=== PATIENT | male | born 1955 | race Caucasian/White ===

== ENCOUNTER → 2017-11-07 10:14 | Outpatient (CLI) | payer BC, SELFPAY ==
[2017-11-07 10:39] LABS: Abs Immature Grans 0.01 k/cumm (0.0-0.09); Absolute Basophil Count 0.03 k/cumm (0.0-0.2); Absolute Eosinophil Count 0.27 k/cumm (0.0-0.7); Absolute Lymphocyte Count 1.32 k/cumm (1.2-3.4); Absolute Monocyte Count 0.35 k/cumm (0.11-0.7); Absolute Neutrophil Count 4.16 k/cumm (1.2-6.7); Basophils % 0.5; Eosinophils % 4.4; HCT 42.7 % (40.0-50.0); HGB 15.1 g/dL (13.5-17.5); Immature Grans % 0.2; Lymphocytes % 21.5; Mean Corp. HGB Concentration 35.4 g/dL (32.0-36.0); Mean Corpuscular Hemoglobin 34.7 pg (27.0-33.0); Mean Corpuscular Volume 98.2 fL (80-95); Mean Platelet Volume 8.9 fL (8.0-11.0); Monocytes % 5.7; Neutrophils % 67.7; Platelet Count 238 x1000/uL (130-400); RBC 4.35 m/cumm (4.50-6.00); RBC Distribution Width 12.6 % (11.8-14.1); White Blood Cell Count 6.14 k/cumm (4.4-10.8)
== END ==
PROVIDERS: PCP Nurse Practitioner; Visit Provider Nurse Practitioner
DX: C71.9 Malignant neoplasm of brain, unspecified (principal)
CPT/HCPCS: 36415; 85025

== ENCOUNTER → 2017-11-14 09:18 | Outpatient (CLI) | payer BC, SELFPAY ==
[2017-11-14 09:33] LABS: Abs Immature Grans 0.01 k/cumm (0.0-0.09); Absolute Basophil Count 0.01 k/cumm (0.0-0.2); Absolute Eosinophil Count 0.27 k/cumm (0.0-0.7); Absolute Monocyte Count 0.37 k/cumm (0.11-0.7); Basophils % 0.2; Eosinophils % 4.7; HCT 43.4 % (40.0-50.0); HGB 15.5 g/dL (13.5-17.5); Immature Grans % 0.2; Lymphocytes % 22.6; Mean Corp. HGB Concentration 35.7 g/dL (32.0-36.0); Mean Corpuscular Hemoglobin 34.4 pg (27.0-33.0); Mean Corpuscular Volume 96.4 fL (80-95); Mean Platelet Volume 9.1 fL (8.0-11.0); Monocytes % 6.4; Neutrophils % 65.9; Platelet Count 197 x1000/uL (130-400); RBC Distribution Width 12.4 % (11.8-14.1); White Blood Cell Count 5.76 k/cumm (4.4-10.8)
== END ==
PROVIDERS: PCP Nurse Practitioner; Visit Provider Nurse Practitioner
DX: C71.9 Malignant neoplasm of brain, unspecified (principal)
CPT/HCPCS: 36415; 85025

== ENCOUNTER 2017-12-05 10:35 | Outpatient (CLI) | payer BC, SELFPAY ==
[2017-12-05 10:57] LABS: Abs Immature Grans 0.01 k/cumm (0.0-0.09); Absolute Basophil Count 0.03 k/cumm (0.0-0.2); Absolute Eosinophil Count 0.25 k/cumm (0.0-0.7); Absolute Lymphocyte Count 1.31 k/cumm (1.2-3.4); Absolute Monocyte Count 0.35 k/cumm (0.11-0.7); Absolute Neutrophil Count 3.86 k/cumm (1.2-6.7); Basophils % 0.5; Eosinophils % 4.3; HCT 43.8 % (40.0-50.0); HGB 15.4 g/dL (13.5-17.5); Immature Grans % 0.2; Lymphocytes % 22.5; Mean Corp. HGB Concentration 35.2 g/dL (32.0-36.0); Mean Corpuscular Hemoglobin 33.8 pg (27.0-33.0); Mean Corpuscular Volume 96.3 fL (80-95); Mean Platelet Volume 8.7 fL (8.0-11.0); Neutrophils % 66.5; Platelet Count 208 x1000/uL (130-400); RBC 4.55 m/cumm (4.50-6.00); RBC Distribution Width 12.9 % (11.8-14.1); White Blood Cell Count 5.81 k/cumm (4.4-10.8)
== END 2017-12-05 10:55 ==
PROVIDERS: PCP Nurse Practitioner; Visit Provider Nurse Practitioner
DX: C71.9 Malignant neoplasm of brain, unspecified (principal)
CPT/HCPCS: 36415; 85025

== ENCOUNTER 2018-01-02 09:55 | Outpatient (CLI) | payer BC, SELFPAY ==
[2018-01-02 10:36] LABS: Abs Immature Grans 0.01 k/cumm (0.0-0.09); Absolute Basophil Count 0.03 k/cumm (0.0-0.2); Absolute Eosinophil Count 0.28 k/cumm (0.0-0.7); Absolute Lymphocyte Count 1.31 k/cumm (1.2-3.4); Absolute Monocyte Count 0.39 k/cumm (0.11-0.7); Absolute Neutrophil Count 4.49 k/cumm (1.2-6.7); Basophils % 0.5; Eosinophils % 4.3; HCT 45.4 % (40.0-50.0); HGB 15.9 g/dL (13.5-17.5); Immature Grans % 0.2; Lymphocytes % 20.1; Mean Corpuscular Hemoglobin 33.6 pg (27.0-33.0); Mean Platelet Volume 9.3 fL (8.0-11.0); Neutrophils % 68.9; Platelet Count 204 x1000/uL (130-400); RBC 4.73 m/cumm (4.50-6.00); RBC Distribution Width 13.2 % (11.8-14.1); White Blood Cell Count 6.51 k/cumm (4.4-10.8)
== END 2018-01-02 10:15 ==
PROVIDERS: PCP Nurse Practitioner; Visit Provider Nurse Practitioner
DX: C71.9 Malignant neoplasm of brain, unspecified (principal)
CPT/HCPCS: 36415; 85025

== ENCOUNTER 2018-01-09 09:26 | Outpatient (CLI) | payer BC, SELFPAY ==
[2018-01-09 09:45] LABS: Absolute Basophil Count 0.01 k/cumm (0.0-0.2); Absolute Eosinophil Count 0.27 k/cumm (0.0-0.7); Absolute Lymphocyte Count 1.33 k/cumm (1.2-3.4); Absolute Monocyte Count 0.35 k/cumm (0.11-0.7); Basophils % 0.2; Eosinophils % 4.7; HGB 15.8 g/dL (13.5-17.5); Lymphocytes % 23.1; Mean Corp. HGB Concentration 35.1 g/dL (32.0-36.0); Mean Corpuscular Hemoglobin 33.4 pg (27.0-33.0); Mean Corpuscular Volume 95.1 fL (80-95); Mean Platelet Volume 9.2 fL (8.0-11.0); Monocytes % 6.1; Neutrophils % 65.9; Platelet Count 194 x1000/uL (130-400); RBC 4.73 m/cumm (4.50-6.00); RBC Distribution Width 13.1 % (11.8-14.1); White Blood Cell Count 5.76 k/cumm (4.4-10.8)
== END 2018-01-09 09:46 ==
PROVIDERS: PCP Nurse Practitioner; Visit Provider Nurse Practitioner
DX: C71.9 Malignant neoplasm of brain, unspecified (principal)
CPT/HCPCS: 36415; 85025

== ENCOUNTER 2018-01-30 10:01 | Outpatient (CLI) | payer BC, SELFPAY ==
[2018-01-30 10:20] LABS: Abs Immature Grans 0.01 k/cumm (0.0-0.09); Absolute Basophil Count 0.04 k/cumm (0.0-0.2); Absolute Eosinophil Count 0.31 k/cumm (0.0-0.7); Absolute Lymphocyte Count 1.22 k/cumm (1.2-3.4); Absolute Neutrophil Count 4.18 k/cumm (1.2-6.7); Basophils % 0.6; HCT 45.3 % (40.0-50.0); Immature Grans % 0.2; Lymphocytes % 19.8; Mean Corp. HGB Concentration 35.3 g/dL (32.0-36.0); Mean Corpuscular Volume 96.2 fL (80-95); Mean Platelet Volume 9.1 fL (8.0-11.0); Monocytes % 6.5; Neutrophils % 67.9; Platelet Count 216 x1000/uL (130-400); RBC 4.71 m/cumm (4.50-6.00); RBC Distribution Width 13.4 % (11.8-14.1); White Blood Cell Count 6.16 k/cumm (4.4-10.8)
== END 2018-01-30 10:21 ==
PROVIDERS: PCP Nurse Practitioner; Visit Provider Nurse Practitioner
DX: C71.9 Malignant neoplasm of brain, unspecified (principal)
CPT/HCPCS: 36415; 85025

== ENCOUNTER 2018-02-06 10:05 | Outpatient (CLI) | payer BC, SELFPAY ==
[2018-02-06 10:27] LABS: Abs Immature Grans 0.01 k/cumm (0.0-0.09); Absolute Basophil Count 0.02 k/cumm (0.0-0.2); Absolute Eosinophil Count 0.23 k/cumm (0.0-0.7); Absolute Lymphocyte Count 1.43 k/cumm (1.2-3.4); Absolute Monocyte Count 0.45 k/cumm (0.11-0.7); Absolute Neutrophil Count 3.79 k/cumm (1.2-6.7); Basophils % 0.3; Eosinophils % 3.9; HCT 44.7 % (40.0-50.0); HGB 15.9 g/dL (13.5-17.5); Immature Grans % 0.2; Lymphocytes % 24.1; Mean Corp. HGB Concentration 35.6 g/dL (32.0-36.0); Mean Corpuscular Hemoglobin 33.9 pg (27.0-33.0); Mean Corpuscular Volume 95.3 fL (80-95); Mean Platelet Volume 9.3 fL (8.0-11.0); Monocytes % 7.6; Neutrophils % 63.9; Platelet Count 193 x1000/uL (130-400); RBC 4.69 m/cumm (4.50-6.00); RBC Distribution Width 13.2 % (11.8-14.1); White Blood Cell Count 5.93 k/cumm (4.4-10.8)
== END 2018-02-06 10:25 ==
PROVIDERS: PCP Nurse Practitioner; Visit Provider Nurse Practitioner
DX: C71.9 Malignant neoplasm of brain, unspecified (principal)
CPT/HCPCS: 36415; 85025

== ENCOUNTER 2018-02-12 09:35 | Outpatient (CLI) | payer BC, SELFPAY ==
[2018-02-12 10:05] LABS: Abs Immature Grans 0.01 k/cumm (0.0-0.09); Absolute Basophil Count 0.03 k/cumm (0.0-0.2); Absolute Eosinophil Count 0.19 k/cumm (0.0-0.7); Absolute Lymphocyte Count 1.17 k/cumm (1.2-3.4); Absolute Monocyte Count 0.38 k/cumm (0.11-0.7); Absolute Neutrophil Count 3.68 k/cumm (1.2-6.7); Basophils % 0.5; Eosinophils % 3.5; HCT 44.9 % (40.0-50.0); Immature Grans % 0.2; Lymphocytes % 21.4; Mean Corp. HGB Concentration 35.6 g/dL (32.0-36.0); Mean Corpuscular Hemoglobin 33.5 pg (27.0-33.0); Mean Corpuscular Volume 93.9 fL (80-95); Mean Platelet Volume 9.4 fL (8.0-11.0); Neutrophils % 67.4; Platelet Count 145 x1000/uL (130-400); RBC 4.78 m/cumm (4.50-6.00); RBC Distribution Width 13.3 % (11.8-14.1); White Blood Cell Count 5.46 k/cumm (4.4-10.8)
[2018-02-12 10:14] LABS: ALT 22 U/L (12-78); AST 15 U/L (15-37); Albumin 3.9 g/dL (3.4-5.0); Alkaline Phosphatase 138 U/L (46-116); Anion Gap 9.3 mmol/L (3-11); BUN 14 mg/dL (7-18); Bilirubin, Total 0.4 mg/dL (0.2-1.0); CO2 23.7 mmol/L (21.0-32.0); CREATININE 0.93 mg/dL (0.70-1.30); Calcium 8.9 mg/dL (8.5-10.1); Chloride 105 mmol/L (98-107); Glucose 125 mg/dL (70-100); Potassium 3.7 mmol/L (3.5-5.1); Sodium 138 mmol/L (136-145); Total Protein 7.6 g/dL (6.4-8.2)
== END 2018-02-12 09:55 ==
PROVIDERS: PCP Nurse Practitioner; Visit Provider Nurse Practitioner
DX: C71.9 Malignant neoplasm of brain, unspecified (principal)
CPT/HCPCS: 36415; 80053; 80061; 83721; 85025

== ENCOUNTER 2018-02-27 09:20 | Outpatient (CLI) | payer BC, SELFPAY ==
[2018-02-27 09:44] LABS: Abs Immature Grans 0.01 k/cumm (0.0-0.09); Absolute Basophil Count 0.02 k/cumm (0.0-0.2); Absolute Eosinophil Count 0.28 k/cumm (0.0-0.7); Absolute Lymphocyte Count 1.22 k/cumm (1.2-3.4); Absolute Neutrophil Count 4.63 k/cumm (1.2-6.7); Basophils % 0.3; Eosinophils % 4.3; HGB 15.5 g/dL (13.5-17.5); Immature Grans % 0.2; Lymphocytes % 18.9; Mean Corp. HGB Concentration 35.2 g/dL (32.0-36.0); Mean Corpuscular Hemoglobin 33.4 pg (27.0-33.0); Mean Corpuscular Volume 94.8 fL (80-95); Monocytes % 4.6; Neutrophils % 71.7; Platelet Count 215 x1000/uL (130-400); RBC 4.64 m/cumm (4.50-6.00); RBC Distribution Width 13.5 % (11.8-14.1); White Blood Cell Count 6.46 k/cumm (4.4-10.8)
== END 2018-02-27 09:40 ==
PROVIDERS: PCP Nurse Practitioner; Visit Provider Nurse Practitioner
DX: C71.9 Malignant neoplasm of brain, unspecified (principal)
CPT/HCPCS: 36415; 80053; 80061; 83721; 85025

== ENCOUNTER 2018-03-06 07:36 | Outpatient (CLI) | payer BC, SELFPAY ==
[2018-03-06 08:04] LABS: Abs Immature Grans 0.01 k/cumm (0.0-0.09); Absolute Basophil Count 0.02 k/cumm (0.0-0.2); Absolute Eosinophil Count 0.36 k/cumm (0.0-0.7); Absolute Lymphocyte Count 1.16 k/cumm (1.2-3.4); Absolute Neutrophil Count 3.87 k/cumm (1.2-6.7); Basophils % 0.3; Eosinophils % 6.2; HCT 44.6 % (40.0-50.0); HGB 15.7 g/dL (13.5-17.5); Immature Grans % 0.2; Lymphocytes % 19.9; Mean Corp. HGB Concentration 35.2 g/dL (32.0-36.0); Mean Corpuscular Hemoglobin 33.3 pg (27.0-33.0); Mean Corpuscular Volume 94.7 fL (80-95); Monocytes % 6.9; Neutrophils % 66.5; Platelet Count 188 x1000/uL (130-400); RBC 4.71 m/cumm (4.50-6.00); RBC Distribution Width 13.3 % (11.8-14.1); White Blood Cell Count 5.82 k/cumm (4.4-10.8)
[2018-03-06 08:58] LABS: ALT 21 U/L (12-78); AST 13 U/L (15-37); Albumin 3.9 g/dL (3.4-5.0); Alkaline Phosphatase 138 U/L (46-116); Anion Gap 10.2 mmol/L (3-11); BUN 11 mg/dL (7-18); Bilirubin, Total 0.5 mg/dL (0.2-1.0); CO2 23.8 mmol/L (21.0-32.0); Calcium 8.9 mg/dL (8.5-10.1); Chloride 107 mmol/L (98-107); Cholesterol 133 mg/dL (50-200); Glucose 102 mg/dL (70-100); HDL Cholesterol 32 mg/dL (40-60); LDL CHOLESTEROL 75 mg/dL (<100); Sodium 141 mmol/L (136-145); Total Protein 7.1 g/dL (6.4-8.2); Triglyceride 165 mg/dL (30-150)
== END 2018-03-06 07:56 ==
PROVIDERS: PCP Nurse Practitioner; Visit Provider Nurse Practitioner
DX: I10 Essential (primary) hypertension (principal); E78.5 Hyperlipidemia, unspecified; G40.909 Epilepsy, unspecified, not intractable, without status epilepticus; C71.9 Malignant neoplasm of brain, unspecified
CPT/HCPCS: 36415; 80053; 80061; 83721; 85025

== ENCOUNTER 2018-03-27 12:51 | Outpatient (CLI) | payer BC, SELFPAY ==
[2018-03-27 13:50] LABS: Abs Immature Grans 0.01 k/cumm (0.0-0.09); Absolute Basophil Count 0.04 k/cumm (0.0-0.2); Absolute Eosinophil Count 0.29 k/cumm (0.0-0.7); Absolute Monocyte Count 0.31 k/cumm (0.11-0.7); Absolute Neutrophil Count 3.93 k/cumm (1.2-6.7); Basophils % 0.7; Eosinophils % 4.9; HCT 43.4 % (40.0-50.0); HGB 15.3 g/dL (13.5-17.5); Immature Grans % 0.2; Lymphocytes % 22.1; Mean Corp. HGB Concentration 35.3 g/dL (32.0-36.0); Mean Corpuscular Hemoglobin 33.6 pg (27.0-33.0); Mean Corpuscular Volume 95.4 fL (80-95); Mean Platelet Volume 9.1 fL (8.0-11.0); Monocytes % 5.3; Neutrophils % 66.8; Platelet Count 248 x1000/uL (130-400); RBC 4.55 m/cumm (4.50-6.00); RBC Distribution Width 13.5 % (11.8-14.1); White Blood Cell Count 5.88 k/cumm (4.4-10.8)
== END 2018-03-27 13:11 ==
PROVIDERS: PCP Nurse Practitioner; Visit Provider Nurse Practitioner
DX: C71.9 Malignant neoplasm of brain, unspecified (principal)
CPT/HCPCS: 36415; 85025

== ENCOUNTER 2018-04-03 10:55 | Outpatient (CLI) | payer BC, SELFPAY ==
[2018-04-03 12:09] LABS: Abs Immature Grans 0.01 k/cumm (0.0-0.09); Absolute Basophil Count 0.01 k/cumm (0.0-0.2); Absolute Eosinophil Count 0.24 k/cumm (0.0-0.7); Absolute Lymphocyte Count 1.16 k/cumm (1.2-3.4); Absolute Monocyte Count 0.39 k/cumm (0.11-0.7); Absolute Neutrophil Count 3.58 k/cumm (1.2-6.7); Basophils % 0.2; Eosinophils % 4.5; HCT 43.4 % (40.0-50.0); Immature Grans % 0.2; Lymphocytes % 21.5; Mean Corp. HGB Concentration 34.6 g/dL (32.0-36.0); Mean Corpuscular Hemoglobin 32.9 pg (27.0-33.0); Mean Corpuscular Volume 95.2 fL (80-95); Mean Platelet Volume 9.3 fL (8.0-11.0); Monocytes % 7.2; Neutrophils % 66.4; Platelet Count 186 x1000/uL (130-400); RBC 4.56 m/cumm (4.50-6.00); RBC Distribution Width 13.4 % (11.8-14.1); White Blood Cell Count 5.39 k/cumm (4.4-10.8)
== END 2018-04-03 11:15 ==
PROVIDERS: PCP Nurse Practitioner; Visit Provider Nurse Practitioner
DX: C71.8 Malignant neoplasm of overlapping sites of brain (principal)
CPT/HCPCS: 36415; 85025

== ENCOUNTER 2018-04-24 09:43 | Outpatient (CLI) | payer BC, SELFPAY ==
[2018-04-24 10:11] LABS: Abs Immature Grans 0.01 k/cumm (0.0-0.09); Absolute Basophil Count 0.02 k/cumm (0.0-0.2); Absolute Eosinophil Count 0.28 k/cumm (0.0-0.7); Absolute Lymphocyte Count 1.19 k/cumm (1.2-3.4); Absolute Monocyte Count 0.32 k/cumm (0.11-0.7); Absolute Neutrophil Count 4.03 k/cumm (1.2-6.7); Basophils % 0.3; Eosinophils % 4.8; HCT 44.6 % (40.0-50.0); HGB 15.8 g/dL (13.5-17.5); Immature Grans % 0.2; Lymphocytes % 20.3; Mean Corp. HGB Concentration 35.4 g/dL (32.0-36.0); Mean Corpuscular Hemoglobin 33.9 pg (27.0-33.0); Mean Corpuscular Volume 95.7 fL (80-95); Monocytes % 5.5; Neutrophils % 68.9; Platelet Count 208 x1000/uL (130-400); RBC 4.66 m/cumm (4.50-6.00); RBC Distribution Width 13.8 % (11.8-14.1); White Blood Cell Count 5.85 k/cumm (4.4-10.8)
== END 2018-04-24 10:03 ==
PROVIDERS: PCP Nurse Practitioner; Visit Provider Nurse Practitioner
DX: C71.9 Malignant neoplasm of brain, unspecified (principal)
CPT/HCPCS: 36415; 85025

== ENCOUNTER 2018-05-01 10:33 | Outpatient (CLI) | payer BC, SELFPAY ==
[2018-05-01 11:11] LABS: Abs Immature Grans 0.01 k/cumm (0.0-0.09); Absolute Basophil Count 0.02 k/cumm (0.0-0.2); Absolute Eosinophil Count 0.23 k/cumm (0.0-0.7); Absolute Lymphocyte Count 1.17 k/cumm (1.2-3.4); Absolute Monocyte Count 0.35 k/cumm (0.11-0.7); Absolute Neutrophil Count 4.13 k/cumm (1.2-6.7); Basophils % 0.3; Eosinophils % 3.9; HCT 45.4 % (40.0-50.0); Immature Grans % 0.2; Lymphocytes % 19.8; Mean Corp. HGB Concentration 35.2 g/dL (32.0-36.0); Mean Corpuscular Hemoglobin 33.7 pg (27.0-33.0); Mean Corpuscular Volume 95.6 fL (80-95); Monocytes % 5.9; Neutrophils % 69.9; Platelet Count 192 x1000/uL (130-400); RBC 4.75 m/cumm (4.50-6.00); RBC Distribution Width 13.6 % (11.8-14.1); White Blood Cell Count 5.91 k/cumm (4.4-10.8)
== END 2018-05-01 10:53 ==
PROVIDERS: PCP Nurse Practitioner; Visit Provider Nurse Practitioner
DX: C71.9 Malignant neoplasm of brain, unspecified (principal)
CPT/HCPCS: 36415; 85025

== ENCOUNTER 2018-05-22 09:48 | Outpatient (CLI) | payer BC, SELFPAY ==
[2018-05-22 10:19] LABS: Absolute Basophil Count 0.04 k/cumm (0.0-0.2); Absolute Eosinophil Count 0.23 k/cumm (0.0-0.7); Absolute Lymphocyte Count 0.98 k/cumm (1.2-3.4); Absolute Monocyte Count 0.33 k/cumm (0.11-0.7); Absolute Neutrophil Count 4.57 k/cumm (1.2-6.7); Basophils % 0.7; Eosinophils % 3.7; HCT 44.1 % (40.0-50.0); HGB 15.6 g/dL (13.5-17.5); Lymphocytes % 15.9; Mean Corp. HGB Concentration 35.4 g/dL (32.0-36.0); Mean Corpuscular Hemoglobin 33.5 pg (27.0-33.0); Mean Corpuscular Volume 94.8 fL (80-95); Mean Platelet Volume 9.1 fL (8.0-11.0); Monocytes % 5.4; Neutrophils % 74.3; Platelet Count 217 x1000/uL (130-400); RBC 4.65 m/cumm (4.50-6.00); RBC Distribution Width 13.5 % (11.8-14.1); White Blood Cell Count 6.15 k/cumm (4.4-10.8)
[2018-05-22 10:35] LABS: Ammonia 27 umol/L (11-32)
[2018-05-22 10:56] LABS: VALPROIC ACID < 3 ug/mL (50-100)
[2018-05-25 07:35] LABS: Topiramate 7.6 mcg/mL
[2018-05-27 11:47] LABS: Clobazam 291 ng/mL (30-300)
== END 2018-05-22 10:08 ==
PROVIDERS: Psychiatry & Neurology Neurology; PCP Nurse Practitioner; Visit Provider Nurse Practitioner
DX: C71.9 Malignant neoplasm of brain, unspecified (principal); G40.909 Epilepsy, unspecified, not intractable, without status epilepticus; Z51.81 Encounter for therapeutic drug level monitoring; Z79.899 Other long term (current) drug therapy
CPT/HCPCS: 36415; 80154; 80164; 80201; 80339; 82140; 85025

== ENCOUNTER 2018-05-29 10:20 | Outpatient (CLI) | payer BC, SELFPAY ==
[2018-05-29 11:22] LABS: Abs Immature Grans 0.01 k/cumm (0.0-0.09); Absolute Basophil Count 0.01 k/cumm (0.0-0.2); Absolute Eosinophil Count 0.23 k/cumm (0.0-0.7); Absolute Lymphocyte Count 1.07 k/cumm (1.2-3.4); Absolute Monocyte Count 0.31 k/cumm (0.11-0.7); Absolute Neutrophil Count 3.46 k/cumm (1.2-6.7); Basophils % 0.2; Eosinophils % 4.5; HGB 15.3 g/dL (13.5-17.5); Immature Grans % 0.2; Mean Corp. HGB Concentration 34.8 g/dL (32.0-36.0); Mean Corpuscular Hemoglobin 33.3 pg (27.0-33.0); Mean Corpuscular Volume 95.7 fL (80-95); Mean Platelet Volume 9.6 fL (8.0-11.0); Monocytes % 6.1; Platelet Count 195 x1000/uL (130-400); RBC Distribution Width 13.2 % (11.8-14.1); White Blood Cell Count 5.09 k/cumm (4.4-10.8)
== END 2018-05-29 10:40 ==
PROVIDERS: PCP Nurse Practitioner; Visit Provider Nurse Practitioner
DX: C71.9 Malignant neoplasm of brain, unspecified (principal)
CPT/HCPCS: 36415; 85025

== ENCOUNTER 2019-03-09 10:12 | Outpatient (CLI) | payer BC, SELFPAY ==
[2019-03-10 11:30] LABS: PSA, Screening 2.2 ng/mL (0.0-4.5)
== END 2019-03-09 10:32 ==
PROVIDERS: PCP Nurse Practitioner; Visit Provider Nurse Practitioner
DX: N39.43 Post-void dribbling (principal); Z12.5 Encounter for screening for malignant neoplasm of prostate
CPT/HCPCS: 36415; 84153

== ENCOUNTER 2019-04-22 08:08 | Outpatient (CLI) | payer BC, SELFPAY ==
[2019-04-22 10:00] LABS: ALT 23 U/L (16-63); AST 13 U/L (15-37); Alkaline Phosphatase 141 U/L (46-116); Anion Gap 10.5 mmol/L (3-11); BUN 12 mg/dL (7-18); Bilirubin, Total 0.5 mg/dL (0.2-1.0); CO2 26.5 mmol/L (21.0-32.0); CREATININE 0.96 mg/dL (0.70-1.30); Calcium 8.7 mg/dL (8.5-10.1); Calculated LDL 84 mg/dL; Chloride 106 mmol/L (98-107); Cholesterol 145 mg/dL (<200); Glucose 105 mg/dL (74-106); HDL Cholesterol 31 mg/dL (40-60); Potassium 4.2 mmol/L (3.5-5.1); Sodium 143 mmol/L (136-145); Total Protein 7.2 g/dL (6.4-8.2); Triglyceride 151 mg/dL (<150)
[2019-04-22 12:07] LABS: Hemoglobin A1C 5.4 % (3.8-5.6)
== END 2019-04-22 08:28 ==
PROVIDERS: PCP Nurse Practitioner; Visit Provider Nurse Practitioner
DX: E78.5 Hyperlipidemia, unspecified (principal); I10 Essential (primary) hypertension; R73.01 Impaired fasting glucose
CPT/HCPCS: 36415; 80053; 80061; 83036

== ENCOUNTER 2020-03-30 03:23 | Outpatient (CLI) | payer MEDICARE, BC, SELFPAY ==
[2020-03-31 15:39] LABS: COVID-19 RT-PCR UVMMC Result Positive (Negative)
== END 2020-03-30 03:43 ==
PROVIDERS: PCP Nurse Practitioner; Visit Provider Nurse Practitioner
DX: Z20.828 Contact with and (suspected) exposure to other viral communicable diseases (principal)
CPT/HCPCS: U0003

== ENCOUNTER 2020-03-31 09:20 | Observation (INO) | payer MEDICARE, BC, SELFPAY ==
[2020-03-31] VITALS (84 sets, daily range): BP systolic 102–148; BP diastolic 50–105; PULSE 72–102; RESP 12–36; TEMP 36–39; O2SAT 92–99
--- NOTE | 2020-03-31 09:15 | RT.EKG_ITS ---
APPROVED REPORT Exam: Resting ECG Patient Location: E HR:97 bpm ECG Measurements Heart Rate 97 AXIS AL 146 P 60 QRSd 95 QRS 67 QT 362 T 15 QTc 461 Conclusion Sinus rhythm...normal P axis, V-rate 60- 99. Less than 1mm ST depression in V3-6. No STEMI. I have reviewed and interpreted ECG and agree with software generated interpretation.
--- NOTE | 2020-03-31 09:16 | W.ED.GENAD ---
Discharge Plan Disposition Patient Disposition: [facility] INPATIENT Condition: Stable Discharge Details Clinical Impression: Generalized weakness, Ambulatory dysfunction, COVID-19 Admit Date/Time: 03/31/20 15:34 Admit Provider: Nomi Lowe Attending Provider: Nomi Lowe Primary Care Provider: Yenni Brooks ED Provider: Basilia Bravo Medical Decision Making 1936 -- 65yo M w/ a h/o recurrent oligodendroglioma, seizure disorder, HTN, elevated cholesterol, inflammatory arthritis presents for fever, chills, generalized weakness and difficulty ambulating this morning. Recent exposure to Covid positive. Vitals within normal limits. Oxygen saturation ranged between 93 to 97% on room air. He denies any shortness of breath. He has slightly diminished breath sounds throughout. Normal ENT exam. No evidence of trauma. No focal deficits. No meningeal signs. Differential diagnosis includes COVID-19, pneumonia, UTI, viral illness, brain tumor recurrence, electrolyte abnormality, dehydration. Will place an IV, bolus IV fluids, screening labs, urinalysis, CT head and chest x-ray and reassess. 1130 -- labs reviewed. Troponin negative. Normal white blood cell count. Normal lactate. Minimal elevation in anion gap. Chest x-ray notes: IMPRESSION: 1. Mild interstitial prominence without dense consolidation. 2. Possible lung nodule on the left. 3. Two-view chest follow-up is recommended. As patient denies any shortness of breath, has normal oxygen saturation, and is a PUI with strong possibility of Covid, will hold on obtaining two-view chest at this time to prevent transporting patient throughout the hospital for 2 view chest. Patient was informed of the possible lung nodule noted and recommended to have a follow-up chest x-ray ordered through his primary care doctor. CT head notes IMPRESSION: 1. Postoperative changes and volume loss on the right. 2. Parenchymal calcification without surrounding edema possibly related to prior treatment in the right frontal lobe. MRI with contrast should be considered. 3. No acute hemorrhage or acute territorial infarct. 4. No definite mass or gross edema on this noncontrast study. Images pushed to [facility] neurology for review. Suspect these are most likely post radiation or biopsy. 1350 -- Case discussed with [facility] neurology who reviewed imaging and do not see any acute change compared to prior. States that patient has an upcoming scheduled MRI brain through [facility] neurology and has a follow-up appointment with them later this month. Discussed that patient may be staying due to his generalized weakness for physical therapy. Also mentioned the possibility of an acute infectious process lowering his seizure threshold. 1430 -- attempted to ambulate patient in room and he remains significantly weak and does not feel comfortable going home. Will admit patient for IV fluids, continued monitoring and physical therapy. Case discussed with hospitalist accepts patient for admission. 1520 -- COVID-19 rapid test positive. informed of results. Medical Records Medical records reviewed: Yes I reviewed the patient's medical records. Imaging Data Radiologic Study: Radiologist's impression: XR Chest, 1 View Exam date and time: 03/31/2020 10:53 AM Age: 65 years old Clinical indication: Other: Cough, R/O acute disease TECHNIQUE: Imaging protocol: XR of the chest Views: 1 view. COMPARISON: No relevant prior studies available. FINDINGS: Lungs: Limited interstitial prominence. No dense consolidation. Likely atelectatic changes lung bases. Possible 5 mm nodule projected between the posterior 7th and 8th ribs on the left. The differential diagnosis includes a bronchovascular structure seen on end. Pleural space: Unremarkable. No pleural effusion. No pneumothorax. Heart/Mediastinum: Unremarkable. No cardiomegaly. Bones/joints: Degenerative changes more pronounced about the shoulders than the spine. No acute fracture. IMPRESSION: 1. Mild interstitial prominence without dense consolidation. 2. Possible lung nodule on the left. 3. Two-view chest follow-up is recommended. CT Head Without Contrast Exam date and time: 03/31/2020 10:58 AM Age: 65 years old Clinical indication: Other: Leg weakness, h/o brain tumor, fever, chills; Prior surgery; Surgery date: 6+ months; Patient HX: Patient states: . Biopsy in 1994, begnin glioblastoma. Seizures in 2013/addition of new meds. Reoccurrence in 2018 with chemo and radiation TECHNIQUE: Imaging protocol: Computed tomography of the head without contrast. Radiation optimization: All CT scans at this facility use at least one of these dose optimization techniques: automated exposure control; mA and/or kV adjustment per patient size (includes targeted exams where dose is matched to clinical indication); or iterative reconstruction. COMPARISON: No relevant prior studies available. FINDINGS: Brain: No acute hemorrhage or acute territorial infarct. Parenchymal calcification in the right frontal lobe may be secondary to the patient's history of treated brain lesion. Mild atrophy for age. Mild volume loss underlies the craniotomy changes on the right, probably postoperative. Limited asymmetric focus of hypodensity in the right frontal lobe on series 2, image 28 measuring 10 mm might be post treatment related. I do not appreciate a discrete mass on this noncontrast study. Cerebral ventricles: No ventriculomegaly. Bones/joints: Craniotomy changes in the right frontotemporal calvaria. Paranasal sinuses: Visualized sinuses are unremarkable. No fluid levels. Mastoid air cells: Visualized mastoid air cells are well aerated. Soft tissues: No focal scalp hematoma. IMPRESSION: 1. Postoperative changes and volume loss on the right. 2. Parenchymal calcification without surrounding edema possibly related to prior treatment in the right frontal lobe. MRI with contrast should be considered. 3. No acute hemorrhage or acute territorial infarct. 4. No definite mass or gross edema on this noncontrast study. Lab Data Lab results reviewed: Yes I reviewed the patient's lab results. Labs: 03/31/20 10:35 Blood Blood Culture - Pending 03/31/20 09:45 Blood Blood Culture - Pending Laboratory Tests Range/Units 03/31/20 03/31/20 03/31/20 09:45 09:45 09:45 WBC (4.4-10.8) 10^3/uL 6.64 RBC (4.36-5.78) 10^6/uL 4.76 Hgb (13.5-17.5) g/dL 15.2 Hct (40.0-50.0) % 43.3 MCV (80-95) fL 91.0 MCH (27.0-33.0) pg 31.9 MCHC (32.0-36.0) % 35.1 RDW (11.8-14.1) % 13.0 Plt Count (130-400) 10^3/uL 172 MPV (8.0-11.0) fL 9.6 Immature Gran % 0.3 Neutrophils % 81.3 Lymphocytes % 7.1 Monocytes % 10.7 Eosinophils % 0.3 Basophils % 0.3 Nucleated RBC % % 0 Absolute Neutrophils (1.2-6.7) 10^3/uL 5.40 Absolute Lymphocytes (1.2-3.4) 10^3/uL 0.47 L Absolute Monocytes (0.1-0.8) 10^3/uL 0.71 Absolute Eosinophils (0.0-0.7) 10^3/uL 0.02 Absolute Basophils (0.0-0.2) 10^3/uL 0.02 PT (9.3-11.0) sec 10.7 INR (0.9-1.1) 1.1 APTT (21.0-27.5) sec 25.2 VBG Lactate (0.6-1.4) mmol/L Sodium (136-145) mmol/L 139 Potassium (3.5-5.1) mmol/L 3.5 Chloride (98-107) mmol/L 106 Carbon Dioxide (21.0-32.0) mmol/L 20.8 L Anion Gap (3-11) mmol/L 12.2 H BUN (7-18) mg/dL 14 Creatinine (0.70-1.30) mg/dL 1.20 Estimated GFR/1.73 m2 (mL/min/1.73m2) >= 60.00 Glucose (74-106) mg/dL 116 H Calcium (8.5-10.1) mg/dL 8.7 Magnesium (1.8-2.4) mg/dL 1.8 Total Bilirubin (0.2-1.0) mg/dL 0.3 AST (15-37) U/L 17 ALT (16-63) U/L 26 Alkaline Phosphatase (46-116) U/L 126 H Troponin I (<0.06) ng/mL < 0.05 Total Protein (6.4-8.2) g/dL 7.0 Albumin (3.4-5.0) g/dL 3.6 Urine Color (Yellow) Urine Clarity (Clear) Urine pH (5-8) Ur Specific Marshall (1.005-1.025) Urine Protein (Negative) mg/dL Urine Ketones (Negative) mg/dL Urine Blood (Negative) Urine Nitrite (Negative) Urine Bilirubin (Negative) Urine Urobilinogen (Up TO 0.2) EU/dL Ur Leukocyte Esterase (Negative) Urine RBC (0-2) HPF Urine WBC (0-5) HPF Ur Epithelial Cells (Negative) HPF Urine Crystals (Negative) HPF Urine Bacteria (Negative) HPF Urine Casts (Negative) LPF Urine Mucus (Negative) Ur Culture Indicated? Urine Glucose (Negative) mg/dL COVID-19 Source SARS-CoV-2 (PCR) (Negative) Influenza Type A (PCR) (Negative) Influenza Type B (PCR) (Negative) RSV (PCR) (Negative) Range/Units 03/31/20 03/31/20 03/31/20 10:35 12:45 14:25 WBC (4.4-10.8) 10^3/uL RBC (4.36-5.78) 10^6/uL Hgb (13.5-17.5) g/dL Hct (40.0-50.0) % MCV (80-95) fL MCH (27.0-33.0) pg MCHC (32.0-36.0) % RDW (11.8-14.1) % Plt Count (130-400) 10^3/uL MPV (8.0-11.0) fL Immature Gran % Neutrophils % Lymphocytes % Monocytes % Eosinophils % Basophils % Nucleated RBC % % Absolute Neutrophils (1.2-6.7) 10^3/uL Absolute Lymphocytes (1.2-3.4) 10^3/uL Absolute Monocytes (0.1-0.8) 10^3/uL Absolute Eosinophils (0.0-0.7) 10^3/uL Absolute Basophils (0.0-0.2) 10^3/uL PT (9.3-11.0) sec INR (0.9-1.1) APTT (21.0-27.5) sec VBG Lactate (0.6-1.4) mmol/L 0.8 Sodium (136-145) mmol/L Potassium (3.5-5.1) mmol/L Chloride (98-107) mmol/L Carbon Dioxide (21.0-32.0) mmol/L Anion Gap (3-11) mmol/L BUN (7-18) mg/dL Creatinine (0.70-1.30) mg/dL Estimated GFR/1.73 m2 (mL/min/1.73m2) Glucose (74-106) mg/dL Calcium (8.5-10.1) mg/dL Magnesium (1.8-2.4) mg/dL Total Bilirubin (0.2-1.0) mg/dL AST (15-37) U/L ALT (16-63) U/L Alkaline Phosphatase (46-116) U/L Troponin I (<0.06) ng/mL Total Protein (6.4-8.2) g/dL Albumin (3.4-5.0) g/dL Urine Color (Yellow) Yellow Urine Clarity (Clear) Clear Urine pH (5-8) 6.0 Ur Specific Marshall (1.005-1.025) 1.025 Urine Protein (Negative) mg/dL 30 H Urine Ketones (Negative) mg/dL Negative Urine Blood (Negative) Small H Urine Nitrite (Negative) Negative Urine Bilirubin (Negative) Negative Urine Urobilinogen (Up TO 0.2) EU/dL 0.2 Ur Leukocyte Esterase (Negative) Negative Urine RBC (0-2) HPF 3-5 H Urine WBC (0-5) HPF 0-2 Ur Epithelial Cells (Negative) HPF Few Urine Crystals (Negative) HPF Few amorphous Urine Bacteria (Negative) HPF Few Urine Casts (Negative) LPF Urine Mucus (Negative) Moderate Ur Culture Indicated? No Urine Glucose (Negative) mg/dL Negative COVID-19 Source Nasopharynx SARS-CoV-2 (PCR) (Negative) Positive A Influenza Type A (PCR) (Negative) Negative Influenza Type B (PCR) (Negative) Negative RSV (PCR) (Negative) Negative ECG Data Attestation: I personally reviewed and interpreted this ECG (s) as follows: Interpretation: rate of 97, sinus, less than 1mm ST depression in V3-6. No STEMI. AK 146. QTc 461. QRS 95. HPI General Date/Time Provider Initiated Documentation: 03/31/20 09:33. HPI Narrative: Patient is a 65-year-old male with a history of recurrent oligodendroglioma seizure disorder, HTN, elevated cholesterol, inflammatory arthritis presents for fever, chills, generalized weakness and difficulty ambulating this morning. Patient states he was with his son who recently traveled from [place] for 5 days over [place] and they were not wearing masks or social distancing. He states his son developed viral symptoms and was diagnosed with Covid in [place] 2 days ago. Patient states he was feeling fine yesterday but [facility]. He states last night he started to develop fatigue and generalized weakness and a productive cough. Patient states he has not coughed up his sputum and is unsure of the color. He states this morning he got up to walk to the bathroom and felt significant weakness in his legs and lowered himself to the ground. He states he then attempted to get up again and was unable to due to this weakness. He denies any injury this morning and states he was able to lower himself to the ground. He denies any head injury. 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 He denies any other history of brain surgery other than biopsy. He denies any recent hospitalizations, antibiotics, chest pain, shortness of breath, abdominal pain, nausea, vomiting, diarrhea, urinary symptoms. He states he has a history of chronic sinus issues with postnasal drip and nasal congestion states this is no worse than usual. Related Data Home Medications Medication Instructions Recorded Confirmed multivitamin [Daily Vitamin] 1 ea PO DAILY 07/24/12 03/31/20 ibuprofen 400 mg PO Q6H PRN tab 03/17/13 03/31/20 calcium carbonate-vitamin D3 1 ea PO BID tab 09/27/14 03/31/20 eslicarbazepine [Aptiom] 1,200 mg PO HS 05/14/17 03/31/20 fluticasone propionate 2 spry NS BID PRN spray 05/14/17 03/31/20 clobazam 10 mg tablet See Rx Instructions PO as directed 02/18/19 03/31/20 PRN atorvastatin 20 mg tablet 20 mg PO QPM #90 tab 12/11/19 03/31/20 lisinopril 10 mg tablet 10 mg PO DAILY #90 tab-cap 12/11/19 03/31/20 tamsulosin 0.4 mg capsule 0.4 mg PO DAILY #90 cap 12/11/19 03/31/20 Topamax 100 mg tablet 100 mg PO as directed tab NS 03/13/20 03/31/20 Previous Rx's Medication Instructions Recorded atorvastatin 20 mg tablet 20 mg PO QPM #90 tab 12/11/19 lisinopril 10 mg tablet 10 mg PO DAILY #90 tab-cap 12/11/19 tamsulosin 0.4 mg capsule 0.4 mg PO DAILY #90 cap 12/11/19 Allergies Allergy/AdvReac Type Severity Reaction Status Date / Time Penicillins Allergy Unknown RASH Verified 03/31/20 09:31 Sulfa (Sulfonamide Allergy Unknown RASH Verified 03/31/20 09:31 Antibiotics) Review of Systems All systems reviewed & are unremarkable except as noted in HPI and below Constitutional Constitutional: Reports as per HPI, Reports chills, Reports fever(s) and Reports weakness Eyes Eyes: Denies blurry vision ENT Ears, Nose, Mouth, and Throat: Denies dizziness, Reports disequilibrium, Denies sore throat and Denies throat swelling Cardiovascular Cardiovascular: Denies chest pain and Denies dyspnea Respiratory Respiratory: Denies cough and Denies dyspnea Gastrointestinal Gastrointestinal: Denies abdominal pain, Denies diarrhea and Denies vomiting Genitourinary Genitourinary: Denies hematuria and Denies dysuria Musculoskeletal Musculoskeletal: Reports abnormal gait, Denies back pain and Denies numbness Integumentary/Breasts Skin/Breast: Denies lesions and Denies rash Neurologic Neurologic: Reports abnormal gait, Denies dizziness, Denies localized weakness, Denies numbness, Reports disequilibrium and Reports weakness Allergic/Immunologic Allergic/Immunologic: Denies throat swelling [facility] Medical History (Updated 03/31/20 @ 15:27 by Basilia Bravo DO) Benign neoplasm of colon Essential hypertension Inflammatory arthritis Mixed glial neoplasm of brain Seizure disorder Surgical History Colonoscopy - IV Sedation (05/04/04) Colonoscopy - IV Sedation (03/20/10) Colonoscopy - IV Sedation (01/17/16) Family History Mother No problems noted. Father Colon cancer Sister Breast cancer Sister No problems noted. Sister No problems noted. Brother Diabetes Social History (Updated 05/21/18 @ 14:21 by Lizzie Morelos RN) Smoking/Tobacco Use Status: Never Smoking risk assessment performed?: Yes Alcohol Intake: never Drug use: Never Substance use type: does not use Household members: spouse Number of Children: 3 current occupation: since 2014 Do you feel safe at home: Yes Do you feel safe in your relationship?: Yes Exam Const General: cooperative and no acute distress Orientation: alert, awake and oriented x3 HENMT Head: normal to inspection Ears: hearing grossly normal bilaterally and external ears normal General nose exam: external nose normal Face and sinus: normal facial exam Mouth: oral mucosae normal Teeth and gingiva: dentition normal Throat: posterior oropharynx normal Eyes General: appearance normal, both eyes and all related structures Eyelids: eyelids normal Pupils: PERRL EOM: EOM intact bilaterally Neck Neck: normal visual inspection Lymphatic: no lymphadenopathy noted Chest Chest: normal inspection of the chest Resp Effort & Inspection: normal respiratory effort and able to speak in complete sentences Auscultation: diminished lung sounds bilaterally throughout Cardio Rate: regular rate Rhythm: regular rhythm GI Inspection: normal to inspection Palpation: soft, not firm, no guarding, no hepatosplenomegaly, no masses and nontender Auscultation: normal bowel sounds Back/Spine/Pelvis Thoracic/Lumbar Spine: thoracic and lumbar spine normal to inspection Skin General skin exam: no rashes or lesions noted Neuro General: patient alert and patient awake Cognition: normal cognition Speech: speech normal Motor: muscle tone normal throughout Sensory Exam: no sensory deficits noted Extrem General: normal to inspection, full ROM, capillary refill normal and no edema Psych Appearance: grossly normal Mental Status: mental status grossly normal Speech and Movement: speech and movement normal Affect: normal affect Thought Process: normal
--- NOTE | 2020-03-31 09:57 | DI.RAD_ITS ---
EXAM: XR CHEST 1V IN DI DEPT CLINICAL HISTORY: cough, r/o acute disease TECHNIQUE: COMPARISON: No exams were available for comparison FINDINGS: Portable upright chest was obtained. Cardiac size within normal limits. Lungs are clear except for possible tiny calcified granuloma in left mid lung. No pleural effusion on this frontal film. IMPRESSION: No evidence of acute process. RADIATION DOSE DELIVERED: Total DLP
[2020-03-31 10:27] LABS: Abs Immature Grans 0.02 10^3/uL (0.0-0.06); Absolute Basophil Count 0.02 10^3/uL (0.0-0.2); Absolute Eosinophil Count 0.02 10^3/uL (0.0-0.7); Absolute Lymphocyte Count 0.47 10^3/uL (1.2-3.4); Absolute Monocyte Count 0.71 10^3/uL (0.1-0.8); Basophils % 0.3; Eosinophils % 0.3; HCT 43.3 % (40.0-50.0); HGB 15.2 g/dL (13.5-17.5); Immature Grans % 0.3; Lymphocytes % 7.1; MCH 31.9 pg (27.0-33.0); MCHC 35.1 % (32.0-36.0); MPV 9.6 fL (8.0-11.0); Monocytes % 10.7; Neutrophils % 81.3; Nucleated RBC 0 %; Platelet Count 172 10^3/uL (130-400); RBC 4.76 10^6/uL (4.36-5.78); RDW-SD 43.8 fL; WBC 6.64 10^3/uL (4.4-10.8)
[2020-03-31 10:42] LABS: INR 1.1 (0.9-1.1); PTT Activated 25.2 sec (21.0-27.5); Prothrombin Time 10.7 sec (9.3-11.0)
[2020-03-31 10:44] LABS: Lactate 0.8 mmol/L (0.6-1.4)
[2020-03-31 10:49] LABS: ALT 26 U/L (16-63); AST 17 U/L (15-37); Albumin 3.6 g/dL (3.4-5.0); Alkaline Phosphatase 126 U/L (46-116); Anion Gap 12.2 mmol/L (3-11); BUN 14 mg/dL (7-18); Bilirubin, Total 0.3 mg/dL (0.2-1.0); CO2 20.8 mmol/L (21.0-32.0); Calcium 8.7 mg/dL (8.5-10.1); Chloride 106 mmol/L (98-107); Glucose 116 mg/dL (74-106); Magnesium 1.8 mg/dL (1.8-2.4); Potassium 3.5 mmol/L (3.5-5.1); Sodium 139 mmol/L (136-145); Troponin I < 0.05 ng/mL (<0.06)
--- NOTE | 2020-03-31 10:55 | DI.CT_ITS ---
EXAM: CT HEAD WO CLINICAL HISTORY: leg weakness, h/o brain tumor, fever, chills TECHNIQUE: COMPARISON: No exams were available for comparison FINDINGS: Noncontrast cranial CT was performed. The patient has history of prior resection benign glial tumor. Parenchymal calcification in right frontal lobe noted, this may be post surgical. Right frontal cr aniotomy noted. There is no evidence of acute intracranial hemorrhage, mass effect, or midline shift . The requisition states that there have been fever and chills, if there is a clinical suspicion of brain abscess additional evaluation with brain MRI without and with contrast administration would be recommended. IMPRESSION: No evidence of acute process by CT criteria. If there is a clinical suspicion of acute infectious p rocess additional evaluation with MRI including post contrast MRI would be recommended. RADIATION DOSE DELIVERED: 824.77mGy.cm Total DLP
[2020-03-31] MEDS: Ketorolac 15 MG/ML VIAL IVP (11:20)
[2020-03-31] MEDS: Normal Saline 1,000 ML 1000 ML IV ×2 (11:20→13:25)
--- NOTE | 2020-03-31 11:20 | DI.VRAD_ITS ---
PROCEDURE INFORMATION: Exam: XR Chest, 1 View Exam date and time: 03/31/2020 10:53 AM Age: 65 years old Clinical indication: Other: Cough, R/O acute disease TECHNIQUE: Imaging protocol: XR of the chest Views: 1 view. COMPARISON: No relevant prior studies available. FINDINGS: Lungs: Limited interstitial prominence. No dense consolidation. Likely atelectatic changes lung bases. Possible 5 mm nodule projected between the posterior 7th and 8th ribs on the left. The differential diagnosis includes a bronchovascular structure seen on end. Pleural space: Unremarkable. No pleural effusion. No pneumothorax. Heart/Mediastinum: Unremarkable. No cardiomegaly. Bones/joints: Degenerative changes more pronounced about the shoulders than the spine. No acute fracture. IMPRESSION: 1. Mild interstitial prominence without dense consolidation. 2. Possible lung nodule on the left. 3. Two-view chest follow-up is recommended. Dictated and Authenticated by: Juan A Cagle MD. Ordering:MARCIA Cui MD
--- NOTE | 2020-03-31 11:20 | DI.VRAD_ITS ---
PROCEDURE INFORMATION: Exam: CT Head Without Contrast Exam date and time: 03/31/2020 10:58 AM Age: 65 years old Clinical indication: Other: Leg weakness, h/o brain tumor, fever, chills; Prior surgery; Surgery date: 6+ months; Patient HX: Patient states: . Biopsy in 1994, begnin glioblastoma. Seizures in 2013/addition of new meds. Reoccurrence in 2018 with chemo and radiation TECHNIQUE: Imaging protocol: Computed tomography of the head without contrast. Radiation optimization: All CT scans at this facility use at least one of these dose optimization techniques: automated exposure control; mA and/or kV adjustment per patient size (includes targeted exams where dose is matched to clinical indication); or iterative reconstruction. COMPARISON: No relevant prior studies available. FINDINGS: Brain: No acute hemorrhage or acute territorial infarct. Parenchymal calcification in the right frontal lobe may be secondary to the patient's history of treated brain lesion. Mild atrophy for age. Mild volume loss underlies the craniotomy changes on the right, probably postoperative. Limited asymmetric focus of hypodensity in the right frontal lobe on series 2, image 28 measuring 10 mm might be post treatment related. I do not appreciate a discrete mass on this noncontrast study. Cerebral ventricles: No ventriculomegaly. Bones/joints: Craniotomy changes in the right frontotemporal calvaria. Paranasal sinuses: Visualized sinuses are unremarkable. No fluid levels. Mastoid air cells: Visualized mastoid air cells are well aerated. Soft tissues: No focal scalp hematoma. IMPRESSION: 1. Postoperative changes and volume loss on the right. 2. Parenchymal calcification without surrounding edema possibly related to prior treatment in the right frontal lobe. MRI with contrast should be considered. 3. No acute hemorrhage or acute territorial infarct. 4. No definite mass or gross edema on this noncontrast study. Dictated and Authenticated by: Juan A Cagle MD. Ordering:MARCIA Cui MD
--- NOTE | 2020-03-31 12:32 | NUR.NOTE ---
Nursing Note: spoke with Yaneli, and updated on plan of care. Will update again when more information is available.
[2020-03-31 13:00] LABS: Bilirubin Negative (Negative); Blood Small (Negative); Clarity Clear (Clear); Glucose Negative (Negative); Ketones Negative (Negative); Leukocyte Esterase Negative (Negative); Nitrite Negative (Negative); Specific Gravity 1.025 (1.005-1.025); Urobilinogen 0.2 EU/dL (Up TO 0.2)
[2020-03-31 13:18] LABS: Epithelial Cells Few HPF (Negative); WBC 0-2 HPF (0-5)
[2020-03-31 13:19] LABS: Bacteria Few HPF (Negative); C & S Indicated? No; Crystals Few Amorphous HPF (Negative); Mucus Moderate (Negative)
[2020-03-31 14:27] LABS: Source Nasopharynx
[2020-03-31] MEDS: ACETAMINOPHEN 1,000 MG/100 ML BTL 400 MG IVPB (15:15)
[2020-03-31 15:18] LABS: Influenza A PCR Negative (Negative); Influenza B PCR Negative (Negative); RSV PCR Negative (Negative)
[2020-03-31 15:23] LABS: COVID-19 PCR POSITIVE (Negative)
[2020-03-31] MEDS: Normal Saline 500 ML 30 ML IV (17:29)
[2020-03-31] MEDS: Normal Saline Flush 10 ML SYR IVP (17:29)
[2020-03-31 18:25] LABS: D-Dimer 591 ng/mlFEU (<500)
[2020-03-31] MEDS: Atorvastatin 20 MG TAB PO (19:19)
[2020-03-31] MEDS: Enoxaparin 40 MG/0.4 ML SYR SC (19:19)
--- NOTE | 2020-03-31 19:22 | W.PM.HP.N ---
Date of service: 03/31/20 Time of Service: 19:22 Assessment and Plan Assessment and plan (1) COVID-19: Status: Acute Assessment and plan: Patient is eligible for Covid monoclonal antibody treatment. He will receive Bamlanivimab per protocol. I have discussed this w/ Faviola Stauffer, nurse power reactor supervisor. Med/surg nursing staff have asked to have patient moved to ICU for administration of the monoclonal antibodies. At present time patient is not hypoxemic and does not need corticosteroids. Patient is currently on observation status. (2) Ambulatory dysfunction: Status: Acute Assessment and plan: Patient's baseline of limited ambulatory function d/t his residual left sided weakness has been exacerbated by his COVID-19 and acute febrile response. He may benefit from P.T. upon discharge but at present I am not ordering physical therapy d/t need to reduce personnel exposure to COVID-19. (3) Generalized weakness: Status: Acute Assessment and plan: As above (4) Seizure disorder: Status: Acute Assessment and plan: Continue his current schedule of Topamax. (5) Essential hypertension: Status: Acute Assessment and plan: Continue current home dose of lisinopril. Current studies in COVID-19 do not support discontinuation of EUGENIO inhibitor's or angiotensin receptor blockers in COVID-19 positive patients. (6) Abnormal chest x-ray: Status: Acute Assessment and plan: Patient had a possible 5 mm nodule on the left side on his chest x-ray between the seventh and eighth ribs. This was seen on a single view chest x-ray. A follow-up PA lateral or CT scan of the chest is needed but can be arranged in the near future as an outpatient. This does not need to be pursued in the immediate. While he is positive for Covid. History of Present Illness History of Present Illness Chief Complaint: Cough, fever, chills, COVID-19 exposure Narrative: 65-year-old male with a history of oligodendroglioma, seizure disorder, essential hypertension, hyperlipidemia, arthritis presented emergency department with fever chills generalized weakness and difficulty walking this morning. He was recently exposed to family members who have COVID-19. Rapid PCR test done in the emergency room was positive. Apparently his son traveled from [place] to visit him over [place] and they did not practice social distancing or wearing of masks. His son subsequently developed viral symptoms and was diagnosed with COVID-19 2 days ago when he returned to [place]. Patient reports he been feeling fine yesterday but went for outpatient Covid testing as precaution. Last night he developed fatigue and generalized weakness and a productive cough. This morning he had a fever of 102 Fahrenheit and took ibuprofen 4 mg for this. This morning when he got up to walk to the bathroom he had significant weakness in his legs and had to lower himself to the ground. When he try to get back up again he was unable to stand up due to his weakness. He has had no falls or head injury. 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 Evaluation in the emergency department clued routine labs including CBC, CMP, coag studies, blood lactate, urinalysis and radiologic imaging included head CT and chest x-ray and COVID-19 PCR rapid nasopharyngeal swab which was positive. Head CT showed postoperative changes with volume loss on the right and parenchymal calcifications without surrounding edema but no acute hemorrhage or infarct and no edema. X-ray of the chest 1 view showed mild interstitial prominence without dense consolidation and a possible lung nodule on the left 5 mm in size between the seventh and eighth ribs on the left. Follow-up two-view chest x-ray was recommended. CBC see demonstrated normal total white cell count 6600 no anemia no thrombocytopenia however a relative lymphopenia of 0.47. Pro time and PTT were within normal limits. D-dimer was not checked in the emergency department but is been ordered and came back mildly elevated at 591 but when adjusted for his age of 65 is still within normal limits. Venous blood gas was normal at 0.8. Urinalysis showed clear yellow urine with 30 mg/dL protein small amount of blood but negative for ketones leukocyte Estrace and only 0-2 white cells and a few bacteria but contaminated with a few epithelial cells. 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 Bravo felt that the patient should be hospitalized overnight. Patient had no hypoxemia and no tachycardia and no hypotension. His oxygen saturation was 98% on room air. I discussed the case with Dr. Renteria is recommended that the patient receive COVID-19 monoclonal antibodies because of the short-term recent exposure and positivity for COVID-19. Patient is still considered an outpatient under observation status. Review of Systems Constitutional Constitutional: Reports body ache(s), Reports chills, Reports fever(s), Reports poor appetite and Reports weakness ENT Ears, Nose, Mouth, and Throat: Reports disequilibrium Cardiovascular Cardiovascular: Reports system reviewed and no additional complaints, except as documented and Reports dyspnea Respiratory Respiratory: Reports cough and Reports dyspnea Gastrointestinal Gastrointestinal: Reports system reviewed and no additional complaints, except as documented Genitourinary Genitourinary: Reports system reviewed and no additional complaints, except as documented Musculoskeletal Musculoskeletal: Reports system reviewed and no additional complaints, except as documented Integumentary/Breasts Skin/Breast: Reports system reviewed and no additional complaints, except as documented Neurologic Neurologic: Reports disequilibrium and Reports weakness Psychiatric Psychiatric: Reports system reviewed and no additional complaints, except as documented Endocrine Endocrine: Reports system reviewed and no additional complaints, except as documented Hematologic/Lymphatic Hematologic/Lymphatic: Reports system reviewed and no additional complaints, except as documented Allergic/Immunologic Allergic/Immunologic: Reports system reviewed and no additional complaints, except as documented [facility] Medical History (Updated 03/31/20 @ 21:29 by Nomi Lowe) Benign neoplasm of colon Essential hypertension Inflammatory arthritis 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 Father Colon cancer Sister Breast cancer Sister No problems noted. Sister No problems noted. Brother Diabetes Social History Smoking/Tobacco Use Status: Never Smoking risk assessment performed?: Yes Alcohol Intake: never Drug use: Never Substance use type: does not use Household members: spouse Number of Children: 3 current occupation: since 2014 Do you feel safe at home: Yes Do you feel safe in your relationship?: Yes Meds Home Medications and Allergies Home Medications Medication Instructions Recorded Confirmed Type multivitamin [Daily Vitamin] 1 ea PO DAILY 07/24/12 03/31/20 History ibuprofen 400 mg PO Q6H PRN tab 03/17/13 03/31/20 History calcium carbonate-vitamin D3 1 ea PO BID tab 09/27/14 03/31/20 History eslicarbazepine [Aptiom] 1,200 mg PO HS 05/14/17 03/31/20 History fluticasone propionate 2 spry NS BID PRN spray 05/14/17 03/31/20 History clobazam 10 mg tablet See Rx Instructions PO as directed 02/18/19 03/31/20 History PRN atorvastatin 20 mg tablet 20 mg PO QPM #90 tab 12/11/19 03/31/20 Rx lisinopril 10 mg tablet 10 mg PO DAILY #90 tab-cap 12/11/19 03/31/20 Rx tamsulosin 0.4 mg capsule 0.4 mg PO DAILY #90 cap 12/11/19 03/31/20 Rx Topamax 100 mg tablet 100 mg PO as directed tab NS 03/13/20 03/31/20 History Allergies Allergy/AdvReac Type Severity Reaction Status Date / Time Penicillins Allergy Unknown RASH Verified 03/31/20 09:31 Sulfa (Sulfonamide Allergy Unknown RASH Verified 03/31/20 09:31 Antibiotics) Exam Narrative Exam Narrative: Middle-age male sitting up in bed in semifowler position alert and oriented person place time circumstance. HEENT is unremarkable. Neck is supple nontender no JVD normal carotid pulses no bruits no thyromegaly no cervical lymphadenopathy. Lungs are clear to auscultation although it was difficult to hear over my PAPR device Heart regular rate and rhythm Abdomen is obese soft nontender no organomegaly no bruits Extremities without calf or thigh tenderness or swelling Genitalia rectal exam deferred. Neuro exam he has no facial asymmetry no dysarthric speech full extraocular motions intact. Right arm and leg normal range of motion and strength. Left arm and leg have good strength but his coordination in his left hand is not as good as his right hand and he does not have fine motor control of his left foot and leg. Results Labs Result diagrams: 03/31/20 09:45 03/31/20 09:45 Labs: Laboratory Results - last 24 hr 03/31/20 03/31/2021 09:45 09:45 09:45 WBC 6.64 RBC 4.76 Hgb 15.2 Hct 43.3 MCV 91.0 MCH 31.9 MCHC 35.1 RDW 13.0 Plt Count 172 MPV 9.6 Immature Gran % 0.3 Neutrophils % 81.3 Lymphocytes % 7.1 Monocytes % 10.7 Eosinophils % 0.3 Basophils % 0.3 Nucleated RBC % 0 Absolute Neutrophils 5.40 Absolute Lymphocytes 0.47 L Absolute Monocytes 0.71 Absolute Eosinophils 0.02 Absolute Basophils 0.02 PT 10.7 INR 1.1 APTT 25.2 D-Dimer VBG Lactate Sodium 139 Potassium 3.5 Chloride 106 Carbon Dioxide 20.8 L Anion Gap 12.2 H BUN 14 Creatinine 1.20 Estimated GFR/1.73 m2 >= 60.00 Glucose 116 H Calcium 8.7 Magnesium 1.8 Total Bilirubin 0.3 AST 17 ALT 26 Alkaline Phosphatase 126 H Troponin I < 0.05 Total Protein 7.0 Albumin 3.6 Urine Color Urine Clarity Urine pH Ur Specific [place] Urine Protein Urine Ketones Urine Blood Urine Nitrite Urine Bilirubin Urine Urobilinogen Ur Leukocyte Esterase Urine RBC Urine WBC Ur Epithelial Cells Urine Crystals Urine Bacteria Urine Casts Urine Mucus Ur Culture Indicated? Urine Glucose COVID-19 Source SARS-CoV-2 (PCR) Influenza Type A (PCR) Influenza Type B (PCR) RSV (PCR) 03/31/20 03/31/20 03/31/20 10:35 12:45 14:25 WBC RBC Hgb Hct MCV MCH MCHC RDW Plt Count MPV Immature Gran % Neutrophils % Lymphocytes % Monocytes % Eosinophils % Basophils % Nucleated RBC % Absolute Neutrophils Absolute Lymphocytes Absolute Monocytes Absolute Eosinophils Absolute Basophils PT INR APTT D-Dimer VBG Lactate 0.8 Sodium Potassium Chloride Carbon Dioxide Anion Gap BUN Creatinine Estimated GFR/1.73 m2 Glucose Calcium Magnesium Total Bilirubin AST ALT Alkaline Phosphatase Troponin I Total Protein Albumin Urine Color Yellow Urine Clarity Clear Urine pH 6.0 Ur Specific [place] 1.025 Urine Protein 30 H Urine Ketones Negative Urine Blood Small H Urine Nitrite Negative Urine Bilirubin Negative Urine Urobilinogen 0.2 Ur Leukocyte Esterase Negative Urine RBC 3-5 H Urine WBC 0-2 Ur Epithelial Cells Few Urine Crystals Few amorphous Urine Bacteria Few Urine Casts Urine Mucus Moderate Ur Culture Indicated? No Urine Glucose Negative COVID-19 Source Nasopharynx SARS-CoV-2 (PCR) Positive A Influenza Type A (PCR) Negative Influenza Type B (PCR) Negative RSV (PCR) Negative 03/31/20 17:20 WBC RBC Hgb Hct MCV MCH MCHC RDW Plt Count MPV Immature Gran % Neutrophils % Lymphocytes % Monocytes % Eosinophils % Basophils % Nucleated RBC % Absolute Neutrophils Absolute Lymphocytes Absolute Monocytes Absolute Eosinophils Absolute Basophils PT INR APTT D-Dimer 591 H VBG Lactate Sodium Potassium Chloride Carbon Dioxide Anion Gap BUN Creatinine Estimated GFR/1.73 m2 Glucose Calcium Magnesium Total Bilirubin AST ALT Alkaline Phosphatase Troponin I Total Protein Albumin Urine Color Urine Clarity Urine pH Ur Specific [place] Urine Protein Urine Ketones Urine Blood Urine Nitrite Urine Bilirubin Urine Urobilinogen Ur Leukocyte Esterase Urine RBC Urine WBC Ur Epithelial Cells Urine Crystals Urine Bacteria Urine Casts Urine Mucus Ur Culture Indicated? Urine Glucose COVID-19 Source SARS-CoV-2 (PCR) Influenza Type A (PCR) Influenza Type B (PCR) RSV (PCR) Last Vital Signs Temp 36.0 C L 03/31/20 16:46 Pulse 72 03/31/20 16:46 Resp 16 03/31/20 16:46 BP 110/57 L 03/31/20 16:46 Pulse Ox 98 03/31/20 16:46 COVID-19 Screening Have you, or household traveled for leisure in last 14 days?: No Had IN PERSON contact w/suspected or confirmed C-19 person: Yes
[2020-03-31] MEDS: Calcium 600mg/Vit D 200U TAB 1 TAB PO (21:41)
[2020-03-31] MEDS: Topiramate 100 MG TAB 200 MG PO (21:42)
[2020-03-31] MEDS: Acetaminophen 325 MG TAB PO (22:50)
[2020-04-01] VITALS (14 sets, daily range): BP systolic 97–124; BP diastolic 50–74; PULSE 62–80; RESP 13–20; TEMP 36.6–38.3; O2SAT 92–96
[2020-04-01] MEDS: Ibuprofen 200 MG TAB 400 MG PO (00:27)
[2020-04-01 07:08] LABS: Abs Immature Grans 0.01 10^3/uL (0.0-0.06); Absolute Basophil Count 0.02 10^3/uL (0.0-0.2); Absolute Lymphocyte Count 0.84 10^3/uL (1.2-3.4); Absolute Monocyte Count 0.72 10^3/uL (0.1-0.8); Basophils % 0.4; HCT 40.1 % (40.0-50.0); HGB 13.5 g/dL (13.5-17.5); Immature Grans % 0.2; Lymphocytes % 17.9; MCH 31.3 pg (27.0-33.0); MCHC 33.7 % (32.0-36.0); MCV 92.8 fL (80-95); MPV 9.7 fL (8.0-11.0); Monocytes % 15.4; Neutrophils % 66.1; Nucleated RBC 0 %; Platelet Count 138 10^3/uL (130-400); RBC 4.32 10^6/uL (4.36-5.78); RDW 13.2 % (11.8-14.1); RDW-SD 45.5 fL; WBC 4.69 10^3/uL (4.4-10.8)
[2020-04-01 07:26] LABS: ALT 30 U/L (16-63); AST 34 U/L (15-37); Alkaline Phosphatase 99 U/L (46-116); Anion Gap 9.3 mmol/L (3-11); BUN 12 mg/dL (7-18); Bilirubin, Total 0.3 mg/dL (0.2-1.0); CO2 21.7 mmol/L (21.0-32.0); CREATININE 1.07 mg/dL (0.70-1.30); Calcium 8.1 mg/dL (8.5-10.1); Chloride 110 mmol/L (98-107); Glucose 112 mg/dL (74-106); Potassium 3.6 mmol/L (3.5-5.1); Sodium 141 mmol/L (136-145); Total Protein 5.9 g/dL (6.4-8.2)
[2020-04-01 07:57] LABS: D-Dimer 597 ng/mlFEU (<500)
[2020-04-01 07:58] LABS: Procalcitonin 0.2 ng/mL
[2020-04-01] MEDS: Calcium 600mg/Vit D 200U TAB 1 TAB PO (08:12)
[2020-04-01] MEDS: Topiramate 100 MG TAB PO (08:12)
[2020-04-01] MEDS: Acetaminophen 325 MG TAB PO (08:12)
[2020-04-01] MEDS: Tamsulosin 0.4 MG CAPCR PO (08:13)
[2020-04-01] MEDS: Lisinopril 10 MG TAB PO (08:13)
[2020-04-01] MEDS: Multivitamin TAB 1 TAB PO (08:13)
--- NOTE | 2020-04-01 11:19 | DSE_ITS ---
Date of service: 04/01/20 Time of Service: 11:19 DS: Diagnosis Discharge Diagnosis (1) COVID-19: Status: Acute (2) Ambulatory dysfunction: Status: Acute (3) Generalized weakness: Status: Acute (4) Seizure disorder: Status: Acute (5) Essential hypertension: Status: Acute (6) Abnormal chest x-ray: Status: Acute Discharge Plan Disposition Patient Disposition: HOME Condition: Stable Discharge Details Reason For Visit: COVID19,GENERALIZED WEAKNESS,AMBULATORY DYSFUNCTIO Admit Date/Time: 03/31/20 15:34 Admit Provider: Nomi Lowe Attending Provider: Nomi Lowe Primary Care Provider: Yenni Brooks Hospital Course Hospital Course: This is a 65-year-old male with a history of oligodendroglioma, seizure disord er, essential hypertension, hyperlipidemia, arthritis presented emergency department with fever chills generalized weakness and difficulty walking this morning. He was recently exposed to family members who have COVID-19. Rapid PCR test done in the emergency room was positive. his son traveled from [place] to visit him over [place] and they did not practice social distancing or wearing of masks. His son subsequently developed viral symptoms and was diagnosed with COVID-19 2 days ago when he returned to [place]. Patient reports he been feeling fine yesterday but went for outpatient Covid testing as precaution. Last night he developed fatigue and generalized weakness and a productive cough. The morning of admission he had a fever of 102 Fahrenheit and took ibuprofen for this. On morning of admission when he got up to walk to the bathroom he had significant weakness in his legs and had to lower himself to the ground. When he try to get back up again he was unable to stand up due to his weakness. He had no falls or head injury. 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 Evaluation in the emergency department: Head CT showed postoperative changes with volume loss on the right and parenchymal calcifications without surrounding edema but no acute hemorrhage or infarct and no edema. X-ray of the chest 1 view showed mild interstitial prominence without dense consolidation and a possible lung nodule on the left 5 mm in size between the seventh and eighth ribs on the left. Follow-up two-view chest x-ray was recommended. CBC see demonstrated normal total white cell count 6600 no anemia no thrombocytopenia however a relative lymphopenia of 0.47. Pro time and PTT were within normal limits. D-dimer was not checked in the emergency department but is been ordered and came back mildly elevated at 591 but when adjusted for his age of 65 is still within normal limits. Venous blood gas was normal at 0.8. Urinalysis showed clear yellow urine with 30 mg/dL protein small amount of blood but negative for ketones leukocyte Estrace and only 0-2 white cells and a few bacteria but contaminated with a few epithelial cells. 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 Bravo felt that the patient should be hospitalized overnight. Patient had no hypoxemia and no tachycardia and no hypotension. His oxygen saturation was 98% on room air. The case was discussed the with Dr. Renteria and it was recommended that the patient receive COVID-19 monoclonal antibodies, bamlamivimab; COVID-19 positive with symptoms and appropriate age group. Patient admitted as an outpatient under observation status. He received the bamlamivimab infusion w/o incident/side effects. His weakness improved and he was walking around the room on the morning of discharge. He will discharge with an oximeter along with instructions on its use. Follow up with his PCP recommended in 1 week. Home Meds and New Rx's Prescriptions: Continued multivitamin [Daily Vitamin] 1 EACH tablet 1 ea PO DAILY RF: 0 ibuprofen 200 MG tablet 400 mg PO Q6H PRN RF: 0 calcium carbonate-vitamin D3 1 EACH tablet 1 ea PO BID RF: 0 fluticasone propionate 16 GM spray,suspension 2 spry NS BID PRNRF: 0 Aptiom 600 MG tablet 1,200 mg PO HS RF: 0 clobazam [Onfi] 10 mg tablet See Rx Instructions PO as directed PRNRF: 0 atorvastatin 20 mg tablet 20 mg PO QPM Qty: 90 RF: 3 lisinopril 10 mg tablet 10 mg PO DAILY Qty: 90 RF: 3 tamsulosin [Flomax] 0.4 mg capsule 0.4 mg PO DAILY Qty: 90 RF: 3 topiramate [Topamax] 100 mg tablet 100 mg PO as directed RF: 0 Discharge Instructions Activity:: Activity as Tolerated Equipment/Supplies:: No Equipment Needed Diet:: As Tolerated DS: Summary Status at Discharge Functional status at discharge: uses cane/walker Overall status at discharge: patient is progressing back to baseline Mental Status: mental status grossly normal Speech and Movement: speech and movement normal Mood: congruent mood Affect: normal affect Exam Const General: cooperative and no acute distress Other: No direct physical exam. Communicated with patient with aid of nurse. Breath sounds reported to be clear; distant. HR is regular. No edema. Psych Mental Status: mental status grossly normal Speech and Movement: speech and movement normal Mood: congruent mood Affect: normal affect DS: Data Vitals/I&O Vitals and I&O: Vital Signs Temperature 37.0 C 04/01/20 08:12 Temperature Source Tympanic 04/01/20 07:45 Pulse 69 04/01/20 09:47 Pulse Rhythm Regular 04/01/20 08:51 Pulse 72 04/01/20 07:00 Respiratory Rate 19 04/01/20 07:00 Respiratory Effort 04/01/20 08:51 Respiratory Depth Normal 04/01/20 08:51 Respiratory Pattern Normal 04/01/20 08:51 Blood Pressure 110/66 04/01/20 09:47 Blood Pressure Mean 76 04/01/20 09:47 Blood Pressure Position Supine 03/31/20 21:54 Pulse Oximetry 96 04/01/20 09:47 Oxygen Delivery Method Room Air 04/01/20 07:45 Oxygen Flow Rate 0 04/01/20 07:45 Pain Level 2 04/01/20 07:45 Comment 04/01/20 07:45 Intake & Output 03/31/20 03/31/20 04/01/20 11:59 23:59 11:59 Intake Total 3170 / 3170 570 / 570 Output Total 850 / 850 750 / 750 Balance 2320 / 2320 -180 / -180 Weight 101.2 kg 100.6 kg 99.9 kg Intake: IV 2380 / 2380 Oral 790 / 790 570 / 570 Output: Urine 850 / 850 750 / 750 Other: Urine Color Yellow Yellow Urine Appearance Clear Clear Urine Odor Normal Normal Comment Void x1 in the urinal. Stool Size Large Stool Characteristics Soft Brown Voiding Methods Urinal Urinal Data Completed and Pending Labs on day of discharge: Labs from last 24 hours 01/02/21 01/02/21 01/02/21 06:15 06:15 06:15 WBC 4.69 RBC 4.32 L Hgb 13.5 Hct 40.1 MCV 92.8 MCH 31.3 MCHC 33.7 RDW 13.2 Plt Count 138 MPV 9.7 Immature Gran % 0.2 Neutrophils % 66.1 Lymphocytes % 17.9 Monocytes % 15.4 Eosinophils % 0.0 Basophils % 0.4 Nucleated RBC % 0 Absolute Neutrophils 3.10 Absolute Lymphocytes 0.84 L Absolute Monocytes 0.72 Absolute Eosinophils 0.00 Absolute Basophils 0.02 D-Dimer 597 H Sodium 141 Potassium 3.6 Chloride 110 H Carbon Dioxide 21.7 Anion Gap 9.3 BUN 12 Creatinine 1.07 Estimated GFR/1.73 m2 >= 60.00 Glucose 112 H Calcium 8.1 L Total Bilirubin 0.3 AST 34 ALT 30 Alkaline Phosphatase 99 Total Protein 5.9 L Albumin 3.0 L Procalcitonin Urine Color Urine Clarity Urine pH Ur Specific [place] Urine Protein Urine Ketones Urine Blood Urine Nitrite Urine Bilirubin Urine Urobilinogen Ur Leukocyte Esterase Urine RBC Urine WBC Ur Epithelial Cells Urine Crystals Urine Bacteria Urine Casts Urine Mucus Ur Culture Indicated? Urine Glucose COVID-19 Source SARS-CoV-2 (PCR) Influenza Type A (PCR) Influenza Type B (PCR) RSV (PCR) 04/01/20 03/31/20 03/31/20 06:15 17:20 14:25 WBC RBC Hgb Hct MCV MCH MCHC RDW Plt Count MPV Immature Gran % Neutrophils % Lymphocytes % Monocytes % Eosinophils % Basophils % Nucleated RBC % Absolute Neutrophils Absolute Lymphocytes Absolute Monocytes Absolute Eosinophils Absolute Basophils D-Dimer 591 H Sodium Potassium Chloride Carbon Dioxide Anion Gap BUN Creatinine Estimated GFR/1.73 m2 Glucose Calcium Total Bilirubin AST ALT Alkaline Phosphatase Total Protein Albumin Procalcitonin 0.2 Urine Color Urine Clarity Urine pH Ur Specific [place] Urine Protein Urine Ketones Urine Blood Urine Nitrite Urine Bilirubin Urine Urobilinogen Ur Leukocyte Esterase Urine RBC Urine WBC Ur Epithelial Cells Urine Crystals Urine Bacteria Urine Casts Urine Mucus Ur Culture Indicated? Urine Glucose COVID-19 Source Nasopharynx SARS-CoV-2 (PCR) Positive A Influenza Type A (PCR) Negative Influenza Type B (PCR) Negative RSV (PCR) Negative 03/31/20 12:45 WBC RBC Hgb Hct MCV MCH MCHC RDW Plt Count MPV Immature Gran % Neutrophils % Lymphocytes % Monocytes % Eosinophils % Basophils % Nucleated RBC % Absolute Neutrophils Absolute Lymphocytes Absolute Monocytes Absolute Eosinophils Absolute Basophils D-Dimer Sodium Potassium Chloride Carbon Dioxide Anion Gap BUN Creatinine Estimated GFR/1.73 m2 Glucose Calcium Total Bilirubin AST ALT Alkaline Phosphatase Total Protein Albumin Procalcitonin Urine Color Yellow Urine Clarity Clear Urine pH 6.0 Ur Specific [place] 1.025 Urine Protein 30 H Urine Ketones Negative Urine Blood Small H Urine Nitrite Negative Urine Bilirubin Negative Urine Urobilinogen 0.2 Ur Leukocyte Esterase Negative Urine RBC 3-5 H Urine WBC 0-2 Ur Epithelial Cells Few Urine Crystals Few amorphous Urine Bacteria Few Urine Casts Urine Mucus Moderate Ur Culture Indicated? 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 Father Colon cancer Sister Breast cancer Sister No problems noted. Sister No problems noted. Brother Diabetes Social History Smoking/Tobacco Use Status: Never Smoking risk assessment performed?: Yes Alcohol Intake: never Drug use: Never Substance use type: does not use Household members: spouse Number of Children: 3 current occupation: since 2014 Do you feel safe at home: Yes Do you feel safe in your relationship?: Yes
--- NOTE | 2020-04-01 12:32 | CMDISCH_ITS ---
- If Service Date Differs Date of service: 04/01/20 Time of Service: 12:32 LACE Index Scoring Tool - Questions: Length of Stay (in days): 2 (patient admitted for less than 24 hours) Acuity (Admit via E.D.?): Yes Comorbidities: Any Tumor E.D. Visits: 1 - Answers: Total Score: 8 Risk of Readmission: Low Risk Care Management Discharge Reason for Hospitalization: Covid 19, weakness Discharge Plan: Chi was admitted for weakness associated with Covid 19. He stated that he had trouble getting around his house, even with his FWW, which he uses regularly. Today he is doing well, oxygen saturation in the high 90's on room air. He lives at home with his , and is comfortable returning home to recover from Covid 19 at home. He currently does not have any services, and does not feel it necessary at this time. He was given a pulse oximeter for home use, and given instruction by RT on how/when to use it. He will be driven home by his via private vehicle. He will follow up with his PCP and discharge plan of care. He stated that he has a follow up appt at [facility] in March as well. Patient/Family Education Needs: Review discharge instructions regarding activity and using his pulse oximeter to check oxygen levels, discussion of self care needs, including ask me three.
== END 2020-04-01 13:45 | disposition home or self-care (01) ==
LOC: ER 15:07 → MS 16:37 → ICU 20:41
PROVIDERS: Admitting Provider Internal Medicine; Emergency Provider Physician Assistant; PCP Nurse Practitioner; Visit Provider Internal Medicine
DX: U07.1 COVID-19 (principal); R26.2 Difficulty in walking, not elsewhere classified; R53.1 Weakness; G40.909 Epilepsy, unspecified, not intractable, without status epilepticus; I10 Essential (primary) hypertension; R93.89 Abnormal findings on diagnostic imaging of other specified body structures; E78.5 Hyperlipidemia, unspecified; M19.90 Unspecified osteoarthritis, unspecified site; G81.94 Hemiplegia, unspecified affecting left nondominant side; R50.9 Fever, unspecified; R05 Cough
CPT/HCPCS: 36415; 80053; 84145; 87040; 87637; 93005; 96361; 96365; 96375; 99217; 99220; 99285; J1650; 70450; 71045; 81003; 81015; 83605; 83735; 84484; 85025; 85379; 85610; 85730; 93010; G0378; J0131; J1885

== ENCOUNTER 2020-04-17 01:01 | Outpatient (CLI) | payer MEDICARE, BC, SELFPAY ==
--- NOTE | 2020-04-17 10:54 | DI.RAD_ITS ---
EXAM: XR CHEST 2V PA LATERAL CLINICAL HISTORY: Lung nodule found on left incidentally CXR,R93.89,R91.1,F/U ABNL CXR TECHNIQUE: 2D digital imaging was performed. COMPARISON: CR,XR XR CHEST 1V IN DI DEPT from 03/31/2020 FINDINGS: MEDIASTINUM: Normal. HEART: Normal. PULMONARY VASCULATURE: Normal. LUNGS: Clear. There is again seen and 4 mm calcified nodule in the left mid lung consistent with keenan or granulomatous disease. PLEURAL SPACE: No pleural effusion or pneumothorax. BONE:Within normal limits for the patient's age. OTHER FINDINGS:Normal. IMPRESSION: No acute pulmonary findings. DATA REPOSITORY: RADIATION DOSE DELIVERED:
== END 2020-04-17 01:21 ==
PROVIDERS: PCP Nurse Practitioner; Visit Provider Nurse Practitioner
DX: R91.1 Solitary pulmonary nodule (principal)
CPT/HCPCS: 71046

== ENCOUNTER 2020-06-08 03:35 | Outpatient (CLI) | payer MEDICARE, BC, SELFPAY ==
[2020-06-08 07:40] LABS: HGB 16.3 g/dL (13.5-17.5); MCH 31.3 pg (27.0-33.0); MCV 92.3 fL (80-95); MPV 9.2 fL (8.0-11.0); Platelet Count 221 10^3/uL (130-400); RDW 13.3 % (11.8-14.1); RDW-SD 45.6 fL; WBC 6.75 10^3/uL (4.4-10.8)
[2020-06-08 09:38] LABS: ALT 25 U/L (16-63); AST 13 U/L (15-37); Albumin 3.9 g/dL (3.4-5.0); Alkaline Phosphatase 143 U/L (46-116); Anion Gap 8.1 mmol/L (3-11); BUN 14 mg/dL (7-18); Bilirubin, Total 0.4 mg/dL (0.2-1.0); CO2 26.9 mmol/L (21.0-32.0); Calcium 8.8 mg/dL (8.5-10.1); Calculated LDL 78 mg/dL (<100); Chloride 106 mmol/L (98-107); Cholesterol 155 mg/dL (<200); Glucose 112 mg/dL (74-106); HDL Cholesterol 34 mg/dL (40-60); Potassium 4.1 mmol/L (3.5-5.1); Sodium 141 mmol/L (136-145); Total Protein 7.4 g/dL (6.4-8.2); Triglyceride 215 mg/dL (<150)
== END 2020-06-08 03:36 | disposition home or self-care (01) ==
LOC: LBO 03:35
PROVIDERS: PCP Nurse Practitioner; Visit Provider Nurse Practitioner
DX: I10 Essential (primary) hypertension (principal); E78.5 Hyperlipidemia, unspecified
CPT/HCPCS: 36415; 80053; 80061; 85027

== ENCOUNTER → 2020-11-21 10:56 | Outpatient (BNVA) | payer MEDICARE, BC, SELFPAY | PROVIDERS: PCP Nurse Practitioner; Referring Provider Nurse Practitioner; Visit Provider Nurse Practitioner Gerontology | DX: N40.0 Benign prostatic hyperplasia without lower urinary tract symptoms (principal); I10 Essential (primary) hypertension | CPT/HCPCS: 99215 ==

== ENCOUNTER 2020-12-29 13:44 | Outpatient (CLI) | payer MEDICARE, BC, SELFPAY ==
--- NOTE | 2020-12-29 12:15 | DI.US_ITS ---
Exam(s) US LOWER EXTREMITY VENOUS RT EXAM: US LOWER EXTREMITY VENOUS RT CLINICAL HISTORY: r/o DVT RLE,rt leg pain, m79.605,r60.9. TECHNIQUE: Right lower extremity venous ultrasound performed using grayscale, color-flow, and spectr al Doppler analysis. COMPARISON: No exams were available for comparison FINDINGS: There is hypoechoic occlusive thrombus extending from the common femoral vein through the femoral vei ns and popliteal vein into 1 of the paired posterior tibialis veins. This measures approximately 55 cm in length.The greater saphenous vein is patent. No evidence of superficial thrombophlebitis.The c ontralateral common femoral vein is patent. IMPRESSION: Right lower extremity DVT involving the common femoral vein, femoral vein, popliteal vein and posteri or tibialis vein. DATA REPOSITORY:
[2020-12-29] MEDS: Normal Saline - Diluent 50 ML VIAL IV (15:26)
[2020-12-29] MEDS: Omnipaque 350 MG/ML 100 ML BTL IJ (15:28)
[2020-12-29] MEDS: Omnipaque 350 MG/ML 50 ML BTL 25 ML IJ (15:29)
--- NOTE | 2020-12-29 15:30 | DI.CT_ITS ---
Exam(s) CT LOWER EXTREMITY RT W CT ABDOMEN PELVIS W EXAM: CT ABDOMEN PELVIS W and CT lower extremity RT W CLINICAL HISTORY: r/o iliac vein invovlement, Dr. Jordan OK'ed;[facility] TECHNIQUE: Imaging Protocol: Axial computed tomography images with coronal and sagittal reformatted images were created and reviewed CONTRAST MATERIAL: Intravenous: Omnipaque 350 Contrast volume:125 mL Oral: No COMPARISON: US US LOWER EXTREMITY VENOUS RT from 12/29/2020 US US LOWER EXTREMITY VENOUS RT from 12/29/2020 FINDINGS: ABDOMEN: Lung Bases: Normal where visualized. Liver: Visualized liver is unremarkable. No measurable mass. Portal, Superior Mesenteric, and Splenic Veins: Unremarkable. Gallbladder and Biliary Tract: Visualized gallbladder is unremarkable. No biliary ductal dilatation. Pancreas: Normal density, no abnormal calcifications or inflammatory process. Spleen: Visualized pancreas is unremarkable except for calcified granuloma. Adrenals: No masses seen. Kidneys: Normal size, contour and axis. No radiodense stones or obstructive uropathy. 2.4 cm simple c yst in the left kidney. No follow-up is recommended. Abdominal Aorta: Abdominal portion non-dilated. Bowel: No obstruction or bowel wall thickening. No appendicitis. Peritoneal Cavity: No ascites, collection or mesenteric inflammatory response. No free air. Lymph Nodes: Within normal limits. Bones: Within normal limits for the patient's age. Soft Tissues: Unremarkable. PELVIS: Bladder: Symmetric distention, no gross wall thickening. Reproductive Organs: Mild enlarged prostate. Lymph Nodes: Within normal limits. Bones: Within normal limits for the patient's age. Veins: There is a filling defect beginning in the right common femoral vein extending inferiorly thro ugh the femoral vein popliteal vein and into the visualized proximal posterior tibialis vein. There is no extension into the iliac veins. IMPRESSION: 1. Right lower extremity DVT beginning in the right common femoral vein in the extending inferiorly t o the proximal posterior tibialis vein. There is no extension proximally into the iliac veins. 2. Results of this exam have been verbally communicated with provider. RADIATION DOSE DELIVERED: 1,209.21mGy.cm Total DLP DATA REPOSITORY: All CT scans at this facility are submitted to the National Radiology Data Registry (NRDR) Dose Index Registry (DIR) with the [employer] (ACR). RADIATION OPTIMIZATION: All CT scans at this facility use at least one of these dose optimization te chniques: automated exposure control; mA and/or kV adjustment per patient size (includes targeted exa ms where dose is matched to clinical indication); or iterative reconstruction.
== END 2020-12-29 14:04 ==
PROVIDERS: PCP Nurse Practitioner; Visit Provider Nurse Practitioner Adult Health
DX: M79.604 Pain in right leg (principal); R60.9 Edema, unspecified; I82.411 Acute embolism and thrombosis of right femoral vein
CPT/HCPCS: 73701; 74177; 93971; J3490; Q9967

== ENCOUNTER → 2021-02-28 10:25 | Outpatient (BNVA) | payer MEDICARE, BC, SELFPAY | PROVIDERS: PCP Nurse Practitioner; Referring Provider Nurse Practitioner; Visit Provider Nurse Practitioner Gerontology | DX: N40.0 Benign prostatic hyperplasia without lower urinary tract symptoms (principal) | CPT/HCPCS: 99213 ==

== ENCOUNTER 2021-02-28 14:14 | Outpatient (REF) | payer MEDICARE, BC, SELFPAY ==
[2021-03-01 08:45] LABS: PSA, Screening 2.3 ng/mL (0.0-4.5)
== END 2021-02-28 14:15 | disposition home or self-care (01) ==
LOC: LBN 14:14
PROVIDERS: PCP Nurse Practitioner; Visit Provider Nurse Practitioner Gerontology
DX: Z12.5 Encounter for screening for malignant neoplasm of prostate (principal)
CPT/HCPCS: 84153

== ENCOUNTER 2021-06-06 04:25 | Outpatient (CLI) | payer MEDICARE, BC, SELFPAY ==
[2021-06-06 08:12] LABS: HGB 15.7 g/dL (13.5-17.5); MCH 30.7 pg (27.0-33.0); MCHC 34.1 % (32.0-36.0); MPV 9.1 fL (8.0-11.0); Platelet Count 206 10^3/uL (130-400); RBC 5.11 10^6/uL (4.36-5.78); RDW 13.3 % (11.8-14.1); RDW-SD 44.1 fL; WBC 6.84 10^3/uL (4.4-10.8)
[2021-06-06 08:30] LABS: Hemoglobin A1C 5.6 % (<5.7)
[2021-06-06 08:52] LABS: ALT 29 U/L (16-63); AST 16 U/L (15-37); Albumin 3.9 g/dL (3.4-5.0); Alkaline Phosphatase 129 U/L (46-116); BUN 16 mg/dL (7-18); Bilirubin, Total 0.5 mg/dL (0.2-1.0); CREATININE 1.1 mg/dL (0.70-1.30); Calcium 8.8 mg/dL (8.5-10.1); Calculated LDL 93 mg/dL (<100); Chloride 105 mmol/L (98-107); Cholesterol 166 mg/dL (<200); Glucose 109 mg/dL (74-106); HDL Cholesterol 34 mg/dL (40-60); Potassium 4.2 mmol/L (3.5-5.1); Sodium 141 mmol/L (136-145); Total Protein 7.4 g/dL (6.4-8.2); Triglyceride 197 mg/dL (<150)
== END 2021-06-06 04:26 | disposition home or self-care (01) ==
LOC: LBO 04:25
PROVIDERS: PCP Nurse Practitioner; Visit Provider Nurse Practitioner
DX: E11.9 Type 2 diabetes mellitus without complications (principal); E78.5 Hyperlipidemia, unspecified; I10 Essential (primary) hypertension; D12.6 Benign neoplasm of colon, unspecified
CPT/HCPCS: 36415; 80053; 80061; 85027; 83036

== ENCOUNTER 2021-07-25 04:47 | Outpatient (CLI) | payer MEDICARE, BC, SELFPAY | END 2021-07-25 04:48 | disposition home or self-care (01) | LOC: LBO 04:47 | PROVIDERS: PCP Nurse Practitioner; Visit Provider Psychiatry & Neurology Neurology ==

== ENCOUNTER 2021-08-31 01:48 | Outpatient (CLI) | payer MEDICARE, BC, SELFPAY ==
[2021-08-31 09:06] LABS: Abs Immature Grans 0.02 10^3/uL (0.0-0.06); Absolute Basophil Count 0.04 10^3/uL (0.0-0.2); Absolute Eosinophil Count 0.15 10^3/uL (0.0-0.7); Absolute Lymphocyte Count 1.57 10^3/uL (1.2-3.4); Absolute Monocyte Count 0.35 10^3/uL (0.1-0.8); Absolute Neutrophil Count 4.53 10^3/uL (1.2-6.7); Basophils % 0.6; Eosinophils % 2.3; HCT 46.2 % (40.0-50.0); HGB 15.9 g/dL (13.5-17.5); Immature Grans % 0.3; Lymphocytes % 23.6; MCH 31.2 pg (27.0-33.0); MCHC 34.4 % (32.0-36.0); MCV 91 fL (80-95); MPV 9.4 fL (8.0-11.0); Monocytes % 5.3; Neutrophils % 67.9; Platelet Count 210 10^3/uL (130-400); RDW 13.1 % (11.8-14.1); RDW-SD 42.8 fL; WBC 6.66 10^3/uL (4.4-10.8)
[2021-08-31 09:57] LABS: Iron 75 ug/dL (65-175); Total Iron Binding Capacity 203 ug/dL (250-450); Transferrin Sat 37 % (20-55)
[2021-08-31 10:29] LABS: ALT 22 U/L (16-63); AST 13 U/L (15-37); Alkaline Phosphatase 142 U/L (46-116); Anion Gap 11.4 mmol/L (3-11); BUN 11 mg/dL (7-18); Bilirubin, Total 0.4 mg/dL (0.2-1.0); CO2 24.6 mmol/L (21.0-32.0); Calcium 8.9 mg/dL (8.5-10.1); Chloride 107 mmol/L (98-107); Folate 10.3 ng/mL (8.6-20.0); Glucose 108 mg/dL (74-106); Potassium 4.1 mmol/L (3.5-5.1); Sodium 143 mmol/L (136-145); Total Protein 7.3 g/dL (6.4-8.2); Vitamin B12 424 pg/mL (193-986)
[2021-09-01 16:35] LABS: Copper, Serum 1.28 mcg/mL (0.75-1.45)
[2021-09-03 08:07] LABS: Topiramate 7.8 mcg/mL
== END 2021-08-31 01:49 | disposition home or self-care (01) ==
PROVIDERS: PCP Nurse Practitioner; Visit Provider Psychiatry & Neurology Neurology
DX: C71.9 Malignant neoplasm of brain, unspecified (principal); R74.8 Abnormal levels of other serum enzymes; Z51.11 Encounter for antineoplastic chemotherapy; Z51.81 Encounter for therapeutic drug level monitoring; Z79.899 Other long term (current) drug therapy
CPT/HCPCS: 36415; 80053; 80299; 80346; 80201; 82525; 82607; 82746; 83540; 83550; 85025

== ENCOUNTER → 2021-09-03 02:19 | Outpatient (CLI) | payer MEDICARE, BC, SELFPAY ==
--- NOTE | 2021-09-03 08:45 | DI.MRI_ITS ---
Exam(s) MR BRAIN WO/W EXAM: MR BRAIN WO/W CLINICAL HISTORY: OLIGODENDROGLIOMA, C71.9. TECHNIQUE: Multiplanar multisequence MRI of the brain was performed. CONTRAST MATERIAL: IV Contrast: 20 ML of Dotarem contrast administered. FINDINGS: VENTRICLES AND EXTRA AXIAL SPACES: Normal in size and morphology for the patient's age. HEMORRHAGE: None. CEREBRAL PARENCHYMA: No focus of restricted diffusion to suggest acute infarct. No space-occupying le raul identified. MIDLINE SHIFT: None. BRAINSTEM/CEREBELLUM: Normal. CALVARIUM: Right with mild underlying encephalomalacia. Superior craniotomy defect ENHANCEMENT: Stable small nodular focus of enhancement at the right posterior frontal lobe superior c onvexity near the margin of the resection site. No new areas of enhancement. VISUALIZED PARANASAL SINUSES/MASTOIDS: Clear. IMPRESSION: Stable small area of nodular enhancement near the area of the resection cavity in the right posterosu perior frontal lobe. No new areas of enhancement or new masses. DATA REPOSITORY:
[2021-09-03] MEDS: Normal Saline Flush 10 ML SYR IVP (09:09)
[2021-09-03] MEDS: Gadoterate meglumine 20 ML VIAL IVP (09:10)
== END ==
PROVIDERS: PCP Nurse Practitioner; Visit Provider Internal Medicine
DX: C71.9 Malignant neoplasm of brain, unspecified (principal); G93.89 Other specified disorders of brain
CPT/HCPCS: 70553

== ENCOUNTER 2021-09-07 01:55 | Outpatient (CLI) | payer MEDICARE, BC, SELFPAY ==
[2021-09-07 11:05] LABS: Abs Immature Grans 0.02 10^3/uL (0.0-0.06); Absolute Basophil Count 0.03 10^3/uL (0.0-0.2); Absolute Eosinophil Count 0.16 10^3/uL (0.0-0.7); Absolute Monocyte Count 0.39 10^3/uL (0.1-0.8); Absolute Neutrophil Count 4.36 10^3/uL (1.2-6.7); Basophils % 0.5; Eosinophils % 2.5; HCT 46.5 % (40.0-50.0); Immature Grans % 0.3; MCHC 34.4 % (32.0-36.0); MCV 90 fL (80-95); MPV 9.4 fL (8.0-11.0); Monocytes % 6.1; Neutrophils % 68.6; Platelet Count 231 10^3/uL (130-400); RBC 5.16 10^6/uL (4.36-5.78); RDW 13.2 % (11.8-14.1); RDW-SD 43.5 fL; WBC 6.36 10^3/uL (4.4-10.8)
[2021-09-07 11:47] LABS: Iron 60 ug/dL (65-175)
[2021-09-07 11:48] LABS: Total Iron Binding Capacity 207 ug/dL (250-450)
[2021-09-07 12:08] LABS: ALT 21 U/L (16-63); Albumin 3.9 g/dL (3.4-5.0); Alkaline Phosphatase 130 U/L (46-116); Anion Gap 10.6 mmol/L (3-11); BUN 13 mg/dL (7-18); Bilirubin, Total 0.3 mg/dL (0.2-1.0); CO2 22.4 mmol/L (21.0-32.0); Calcium 8.6 mg/dL (8.5-10.1); Chloride 106 mmol/L (98-107); Glucose 116 mg/dL (74-106); Potassium 3.9 mmol/L (3.5-5.1); Sodium 139 mmol/L (136-145); Total Protein 7.6 g/dL (6.4-8.2); Vitamin B12 399 pg/mL (193-986)
[2021-09-07 12:11] LABS: AST < 5 U/L (15-37)
[2021-09-10 08:50] LABS: Topiramate 7.2 mcg/mL
[2021-09-10 12:04] LABS: Copper, Serum 1.31 mcg/mL (0.75-1.45)
== END 2021-09-07 01:56 | disposition home or self-care (01) ==
LOC: LBO 01:55
PROVIDERS: PCP Nurse Practitioner; Visit Provider Internal Medicine
DX: C71.9 Malignant neoplasm of brain, unspecified (principal); R74.8 Abnormal levels of other serum enzymes; Z51.81 Encounter for therapeutic drug level monitoring; Z79.899 Other long term (current) drug therapy
CPT/HCPCS: 36415; 80053; 80346; 80201; 82525; 82607; 82746; 83540; 83550; 85025

== ENCOUNTER → 2021-09-25 10:10 | Outpatient (BNVA) | payer MEDICARE, BC, SELFPAY | PROVIDERS: PCP Nurse Practitioner; Referring Provider Nurse Practitioner; Visit Provider Nurse Practitioner Gerontology | DX: N39.41 Urge incontinence (principal); N40.0 Benign prostatic hyperplasia without lower urinary tract symptoms | CPT/HCPCS: 51798; 99214 ==

== ENCOUNTER 2021-09-28 02:54 | Outpatient (CLI) | payer MEDICARE, BC, SELFPAY ==
[2021-09-28 09:24] LABS: Abs Immature Grans 0.02 10^3/uL (0.0-0.06); Absolute Basophil Count 0.02 10^3/uL (0.0-0.2); Absolute Eosinophil Count 0.24 10^3/uL (0.0-0.7); Absolute Lymphocyte Count 1.39 10^3/uL (1.2-3.4); Absolute Monocyte Count 0.33 10^3/uL (0.1-0.8); Absolute Neutrophil Count 4.13 10^3/uL (1.2-6.7); Basophils % 0.3; Eosinophils % 3.9; HCT 46.6 % (40.0-50.0); HGB 15.7 g/dL (13.5-17.5); Immature Grans % 0.3; Lymphocytes % 22.7; MCHC 33.7 % (32.0-36.0); MCV 92 fL (80-95); MPV 9.2 fL (8.0-11.0); Monocytes % 5.4; Neutrophils % 67.4; Platelet Count 203 10^3/uL (130-400); RBC 5.06 10^6/uL (4.36-5.78); RDW 13.8 % (11.8-14.1); RDW-SD 46.5 fL; WBC 6.13 10^3/uL (4.4-10.8)
[2021-09-28 10:13] LABS: ALT 31 U/L (16-63); AST 19 U/L (15-37); Albumin 3.9 g/dL (3.4-5.0); Alkaline Phosphatase 128 U/L (46-116); Anion Gap 6.7 mmol/L (3-11); BUN 17 mg/dL (7-18); Bilirubin, Total 0.4 mg/dL (0.2-1.0); CO2 26.3 mmol/L (21.0-32.0); CREATININE 1.1 mg/dL (0.70-1.30); Calcium 9.1 mg/dL (8.5-10.1); Chloride 106 mmol/L (98-107); Glucose 120 mg/dL (74-106); Potassium 3.9 mmol/L (3.5-5.1); Sodium 139 mmol/L (136-145); Total Protein 7.6 g/dL (6.4-8.2)
== END 2021-09-28 02:55 | disposition home or self-care (01) ==
LOC: LBO 02:54
PROVIDERS: PCP Nurse Practitioner; Visit Provider Internal Medicine
DX: C71.9 Malignant neoplasm of brain, unspecified (principal)
CPT/HCPCS: 36415; 80053; 85025

== ENCOUNTER 2021-10-05 02:07 | Outpatient (CLI) | payer MEDICARE, BC, SELFPAY ==
[2021-10-05 09:29] LABS: Abs Immature Grans 0.01 10^3/uL (0.0-0.06); Absolute Basophil Count 0.02 10^3/uL (0.0-0.2); Absolute Eosinophil Count 0.29 10^3/uL (0.0-0.7); Absolute Lymphocyte Count 1.55 10^3/uL (1.2-3.4); Absolute Monocyte Count 0.39 10^3/uL (0.1-0.8); Absolute Neutrophil Count 3.54 10^3/uL (1.2-6.7); Basophils % 0.3; HCT 45.6 % (40.0-50.0); HGB 15.7 g/dL (13.5-17.5); Immature Grans % 0.2; Lymphocytes % 26.7; MCH 31.7 pg (27.0-33.0); MCHC 34.4 % (32.0-36.0); MCV 92 fL (80-95); MPV 8.8 fL (8.0-11.0); Monocytes % 6.7; Neutrophils % 61.1; Platelet Count 101 10^3/uL (130-400); RBC 4.95 10^6/uL (4.36-5.78); RDW 13.7 % (11.8-14.1); RDW-SD 45.8 fL
[2021-10-05 09:48] LABS: ALT 30 U/L (16-63); AST 17 U/L (15-37); Albumin 3.9 g/dL (3.4-5.0); Alkaline Phosphatase 139 U/L (46-116); Anion Gap 7.9 mmol/L (3-11); BUN 15 mg/dL (7-18); Bilirubin, Total 0.4 mg/dL (0.2-1.0); CO2 27.1 mmol/L (21.0-32.0); Chloride 108 mmol/L (98-107); Glucose 100 mg/dL (74-106); Potassium 4.2 mmol/L (3.5-5.1); Sodium 143 mmol/L (136-145); Total Protein 7.6 g/dL (6.4-8.2)
== END 2021-10-05 02:08 | disposition home or self-care (01) ==
LOC: LBO 02:07
PROVIDERS: PCP Nurse Practitioner; Visit Provider Internal Medicine
DX: C71.9 Malignant neoplasm of brain, unspecified (principal)
CPT/HCPCS: 36415; 80053; 85025

== ENCOUNTER 2021-10-12 01:38 | Outpatient (CLI) | payer MEDICARE, BC, SELFPAY ==
[2021-10-12 10:37] LABS: Abs Immature Grans 0.01 10^3/uL (0.0-0.06); Absolute Basophil Count 0.04 10^3/uL (0.0-0.2); Absolute Eosinophil Count 0.22 10^3/uL (0.0-0.7); Absolute Lymphocyte Count 1.63 10^3/uL (1.2-3.4); Absolute Monocyte Count 0.42 10^3/uL (0.1-0.8); Absolute Neutrophil Count 3.83 10^3/uL (1.2-6.7); Basophils % 0.7; Eosinophils % 3.6; HCT 44.6 % (40.0-50.0); HGB 15.8 g/dL (13.5-17.5); Immature Grans % 0.2; Lymphocytes % 26.5; MCH 32.1 pg (27.0-33.0); MCHC 35.4 % (32.0-36.0); MCV 91 fL (80-95); MPV 8.9 fL (8.0-11.0); Monocytes % 6.8; Neutrophils % 62.2; Platelet Count 138 10^3/uL (130-400); RBC 4.92 10^6/uL (4.36-5.78); RDW 14.4 % (11.8-14.1); RDW-SD 46.9 fL; WBC 6.15 10^3/uL (4.4-10.8)
[2021-10-12 11:06] LABS: ALT 28 U/L (16-63); AST 14 U/L (15-37); Albumin 3.8 g/dL (3.4-5.0); Alkaline Phosphatase 140 U/L (46-116); Anion Gap 6.3 mmol/L (3-11); BUN 14 mg/dL (7-18); Bilirubin, Total 0.3 mg/dL (0.2-1.0); CO2 27.7 mmol/L (21.0-32.0); Calcium 8.6 mg/dL (8.5-10.1); Chloride 107 mmol/L (98-107); Glucose 117 mg/dL (74-106); Potassium 4.1 mmol/L (3.5-5.1); Sodium 141 mmol/L (136-145); Total Protein 7.5 g/dL (6.4-8.2)
== END 2021-10-12 01:39 | disposition home or self-care (01) ==
LOC: LBO 01:38
PROVIDERS: Internal Medicine; PCP Nurse Practitioner; Visit Provider Nurse Practitioner
DX: C71.9 Malignant neoplasm of brain, unspecified (principal)
CPT/HCPCS: 36415; 80053; 85025

== ENCOUNTER 2021-11-05 04:01 | Outpatient (CLI) | payer MEDICARE, BC, SELFPAY ==
[2021-11-05 10:12] LABS: Abs Immature Grans 0.01 10^3/uL (0.0-0.06); Absolute Basophil Count 0.02 10^3/uL (0.0-0.2); Absolute Eosinophil Count 0.19 10^3/uL (0.0-0.7); Absolute Lymphocyte Count 1.59 10^3/uL (1.2-3.4); Absolute Monocyte Count 0.35 10^3/uL (0.1-0.8); Absolute Neutrophil Count 3.34 10^3/uL (1.2-6.7); Basophils % 0.4; Eosinophils % 3.5; HCT 43.9 % (40.0-50.0); HGB 15.5 g/dL (13.5-17.5); Immature Grans % 0.2; Lymphocytes % 28.9; MCHC 35.3 % (32.0-36.0); MCV 94 fL (80-95); MPV 9.1 fL (8.0-11.0); Monocytes % 6.4; Neutrophils % 60.6; Platelet Count 133 10^3/uL (130-400); RBC 4.69 10^6/uL (4.36-5.78); RDW 14.9 % (11.8-14.1); RDW-SD 50.9 fL
[2021-11-05 10:27] LABS: ALT 27 U/L (16-63); AST 17 U/L (15-37); Albumin 3.7 g/dL (3.4-5.0); Alkaline Phosphatase 132 U/L (46-116); Anion Gap 5.6 mmol/L (3-11); BUN 13 mg/dL (7-18); Bilirubin, Total 0.4 mg/dL (0.2-1.0); CO2 27.4 mmol/L (21.0-32.0); Calcium 8.6 mg/dL (8.5-10.1); Chloride 107 mmol/L (98-107); Glucose 126 mg/dL (74-106); Sodium 140 mmol/L (136-145); Total Protein 7.4 g/dL (6.4-8.2)
== END 2021-11-05 04:02 | disposition home or self-care (01) ==
PROVIDERS: PCP Nurse Practitioner; Visit Provider Internal Medicine
DX: C71.9 Malignant neoplasm of brain, unspecified (principal)
CPT/HCPCS: 36415; 80053; 85025

== ENCOUNTER → 2021-11-12 01:22 | Outpatient (CLI) | payer MEDICARE, BC, SELFPAY ==
--- NOTE | 2021-11-12 10:45 | DI.MRI_ITS ---
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 Both noninfused and contrast i nfused sequences were performed. IV Contrast injected was 16 cc Dotarem. MR MRI BRAIN WWO from 04/25/2021 MR MR BRAIN WO/W from 09/03/2021 FINDINGS: Again noted is evidence of high right sided craniotomy. CEREBRAL PARENCHYMA: No evidence of acute intracranial hemorrhage, new mass effect nor shift of midli ne structure. No extraaxial fluid collections. Ventricles are not enlarged nor shifted. There is no significant focal signal abnormality in the cerebellar hemispheres nor within the mason, m idbrain, and thalami. The amount of periventricular white matter signal abnormality is unchanged. Small focus of enhancement in the superior right frontal lobe is unchanged. Upon reviewing the multi planar postcontrast imaging there is a possibly that this is volume averaging with an enhanced vessel . No new abnormal findings at the surgical site. No new ring-enhancing lesions in the brain. On DWI imaging there is no evidence of restricted diffusion to suggest areas of acute infarct. On SWI imaging there is again noted a small focus of blooming in the right-side of the corpus callosu m, indicative of prior microhemorrhage at this level. There is no evidence of acute hemorrhage at th is level nor elsewhere in the brain. This finding is unchanged from 04/25/2021 PITUITARY GLAND: No mass nor parasellar abnormality. No obvious abnormality in the cavernous sinuses. FLOW VOIDS: The expected flow void are noted. No evidence of obvious aneurysm nor obvious vascular ma lformation. Left vertebral artery is again noted be dominant. PARANASAL SINUSES: The visualized paranasal sinuses appear unremarkable. ORBITS: No obvious abnormal findings. IMPRESSION: 1. Findings are unchanged from 09/03/2021. Again noted is the previously described small stable area of nodular enhancement in the right posterior superior frontal lobe. Upon viewing the multiplanar i maging there is a possibly that this may represent a vessel loop. 2. There are no new enhancing lesions both intra and extra-axial. 3. Stable unchanged blooming focus in the right side of the corpus callosum as seen on SWI imaging a nd consistent with prior microhemorrhage at this level. This is unchanged from at least 04/28/2020 DATA REPOSITORY:
[2021-11-12 11:02] LABS: Abs Immature Grans 0.01 10^3/uL (0.0-0.06); Absolute Basophil Count 0.02 10^3/uL (0.0-0.2); Absolute Eosinophil Count 0.15 10^3/uL (0.0-0.7); Absolute Lymphocyte Count 1.27 10^3/uL (1.2-3.4); Absolute Monocyte Count 0.43 10^3/uL (0.1-0.8); Absolute Neutrophil Count 3.73 10^3/uL (1.2-6.7); Basophils % 0.4; Eosinophils % 2.7; HCT 41.2 % (40.0-50.0); HGB 14.7 g/dL (13.5-17.5); Immature Grans % 0.2; Lymphocytes % 22.6; MCH 32.7 pg (27.0-33.0); MCHC 35.7 % (32.0-36.0); MCV 92 fL (80-95); MPV 9.1 fL (8.0-11.0); Monocytes % 7.7; Neutrophils % 66.4; RDW-SD 49.6 fL; WBC 5.61 10^3/uL (4.4-10.8)
[2021-11-12] MEDS: Normal Saline Flush 10 ML SYR IVP (11:09)
[2021-11-12 11:19] LABS: Platelet Count 96 10^3/uL (130-400)
[2021-11-12 11:41] LABS: ALT 24 U/L (16-63); AST 19 U/L (15-37); Albumin 3.7 g/dL (3.4-5.0); Alkaline Phosphatase 126 U/L (46-116); Anion Gap 7.7 mmol/L (3-11); BUN 16 mg/dL (7-18); Bilirubin, Total 0.4 mg/dL (0.2-1.0); CO2 25.3 mmol/L (21.0-32.0); Calcium 8.6 mg/dL (8.5-10.1); Chloride 108 mmol/L (98-107); Glucose 120 mg/dL (74-106); Potassium 3.8 mmol/L (3.5-5.1); Sodium 141 mmol/L (136-145); Total Protein 7.4 g/dL (6.4-8.2)
== END ==
PROVIDERS: PCP Nurse Practitioner; Visit Provider Internal Medicine
DX: C71.9 Malignant neoplasm of brain, unspecified (principal)
CPT/HCPCS: 36415; 70553; 80053; 85025

== ENCOUNTER 2021-11-19 03:47 | Outpatient (CLI) | payer MEDICARE, BC, SELFPAY ==
[2021-11-19 08:39] LABS: Abs Immature Grans 0.01 10^3/uL (0.0-0.06); Absolute Basophil Count 0.04 10^3/uL (0.0-0.2); Absolute Eosinophil Count 0.15 10^3/uL (0.0-0.7); Absolute Lymphocyte Count 1.49 10^3/uL (1.2-3.4); Absolute Monocyte Count 0.32 10^3/uL (0.1-0.8); Absolute Neutrophil Count 3.18 10^3/uL (1.2-6.7); Basophils % 0.8; Eosinophils % 2.9; HCT 42.4 % (40.0-50.0); HGB 15.1 g/dL (13.5-17.5); Immature Grans % 0.2; Lymphocytes % 28.7; MCH 33.4 pg (27.0-33.0); MCHC 35.6 % (32.0-36.0); MCV 94 fL (80-95); MPV 8.6 fL (8.0-11.0); Monocytes % 6.2; Neutrophils % 61.2; Platelet Count 235 10^3/uL (130-400); RBC 4.52 10^6/uL (4.36-5.78); RDW 15.3 % (11.8-14.1); RDW-SD 52.7 fL; WBC 5.19 10^3/uL (4.4-10.8)
[2021-11-19 08:59] LABS: ALT 27 U/L (16-63); AST 15 U/L (15-37); Albumin 3.7 g/dL (3.4-5.0); Alkaline Phosphatase 118 U/L (46-116); Anion Gap 8.3 mmol/L (3-11); BUN 16 mg/dL (7-18); Bilirubin, Total 0.4 mg/dL (0.2-1.0); CO2 26.7 mmol/L (21.0-32.0); CREATININE 1.2 mg/dL (0.70-1.30); Calcium 8.7 mg/dL (8.5-10.1); Chloride 108 mmol/L (98-107); Glucose 122 mg/dL (74-106); Potassium 3.9 mmol/L (3.5-5.1); Sodium 143 mmol/L (136-145); Total Protein 7.5 g/dL (6.4-8.2)
== END 2021-11-19 03:48 | disposition home or self-care (01) ==
PROVIDERS: PCP Nurse Practitioner; Visit Provider Internal Medicine
DX: C71.9 Malignant neoplasm of brain, unspecified (principal)
CPT/HCPCS: 36415; 80053; 85025

== ENCOUNTER 2021-12-10 03:29 | Outpatient (CLI) | payer MEDICARE, BC, SELFPAY ==
[2021-12-10 10:19] LABS: Abs Immature Grans 0.01 10^3/uL (0.0-0.06); Absolute Basophil Count 0.01 10^3/uL (0.0-0.2); Absolute Eosinophil Count 0.17 10^3/uL (0.0-0.7); Absolute Lymphocyte Count 1.51 10^3/uL (1.2-3.4); Absolute Monocyte Count 0.37 10^3/uL (0.1-0.8); Absolute Neutrophil Count 3.36 10^3/uL (1.2-6.7); Basophils % 0.2; Eosinophils % 3.1; HCT 43.8 % (40.0-50.0); HGB 15.2 g/dL (13.5-17.5); Immature Grans % 0.2; Lymphocytes % 27.8; MCH 33.4 pg (27.0-33.0); MCHC 34.7 % (32.0-36.0); MCV 96 fL (80-95); MPV 9.1 fL (8.0-11.0); Monocytes % 6.8; Neutrophils % 61.9; Platelet Count 144 10^3/uL (130-400); RBC 4.55 10^6/uL (4.36-5.78); RDW 14.5 % (11.8-14.1); WBC 5.43 10^3/uL (4.4-10.8)
[2021-12-10 10:53] LABS: ALT 24 U/L (16-63); AST 16 U/L (15-37); Albumin 3.8 g/dL (3.4-5.0); Alkaline Phosphatase 128 U/L (46-116); Anion Gap 6.8 mmol/L (3-11); BUN 17 mg/dL (7-18); Bilirubin, Total 0.4 mg/dL (0.2-1.0); CO2 27.2 mmol/L (21.0-32.0); Calcium 8.7 mg/dL (8.5-10.1); Chloride 107 mmol/L (98-107); Estimated GFR 83.01 (mL/min/1.73m2); Glucose 116 mg/dL (74-106); Sodium 141 mmol/L (136-145); Total Protein 7.6 g/dL (6.4-8.2)
== END 2021-12-10 03:30 | disposition home or self-care (01) ==
PROVIDERS: PCP Nurse Practitioner; Visit Provider Internal Medicine
DX: C71.9 Malignant neoplasm of brain, unspecified (principal)
CPT/HCPCS: 36415; 80053; 85025

== ENCOUNTER 2021-12-17 03:20 | Outpatient (CLI) | payer MEDICARE, BC, SELFPAY ==
[2021-12-17 12:20] LABS: Abs Immature Grans 0.02 10^3/uL (0.0-0.06); Absolute Basophil Count 0.02 10^3/uL (0.0-0.2); Absolute Eosinophil Count 0.19 10^3/uL (0.0-0.7); Absolute Lymphocyte Count 1.74 10^3/uL (1.2-3.4); Absolute Monocyte Count 0.37 10^3/uL (0.1-0.8); Absolute Neutrophil Count 3.54 10^3/uL (1.2-6.7); Basophils % 0.3; Eosinophils % 3.2; HCT 42.9 % (40.0-50.0); Immature Grans % 0.3; Lymphocytes % 29.6; MCH 33.8 pg (27.0-33.0); MCV 97 fL (80-95); MPV 9.2 fL (8.0-11.0); Monocytes % 6.3; Neutrophils % 60.3; Platelet Count 102 10^3/uL (130-400); RBC 4.44 10^6/uL (4.36-5.78); RDW 14.3 % (11.8-14.1); RDW-SD 50.9 fL; WBC 5.88 10^3/uL (4.4-10.8)
[2021-12-17 12:42] LABS: ALT 26 U/L (16-63); AST 16 U/L (15-37); Albumin 3.8 g/dL (3.4-5.0); Alkaline Phosphatase 133 U/L (46-116); Anion Gap 10.3 mmol/L (3-11); BUN 13 mg/dL (7-18); Bilirubin, Total 0.4 mg/dL (0.2-1.0); CO2 25.7 mmol/L (21.0-32.0); Calcium 8.9 mg/dL (8.5-10.1); Chloride 106 mmol/L (98-107); Estimated GFR 83.01 (mL/min/1.73m2); Glucose 117 mg/dL (74-106); Potassium 3.8 mmol/L (3.5-5.1); Sodium 142 mmol/L (136-145); Total Protein 7.6 g/dL (6.4-8.2)
== END 2021-12-17 03:21 | disposition home or self-care (01) ==
PROVIDERS: PCP Nurse Practitioner; Visit Provider Internal Medicine
DX: C71.9 Malignant neoplasm of brain, unspecified (principal)
CPT/HCPCS: 36415; 80053; 85025

== ENCOUNTER → 2022-01-21 01:53 | Outpatient (CLI) | payer MEDICARE, BC, SELFPAY ==
--- NOTE | 2022-01-21 10:30 | DI.MRI_ITS ---
Exam(s) MR BRAIN WO/W EXAM: MR BRAIN WO/W CLINICAL HISTORY: OLIGODENDROGLIOMA, C71.9; RESTAGING. TECHNIQUE: Multiplanar multisequence MRI of the brain was performed. CONTRAST MATERIAL: IV Contrast: 20 ML of Dotarem contrast administered. COMPARISON: MR MR BRAIN WO/W from 11/12/2021 FINDINGS: VENTRICLES AND EXTRA AXIAL SPACES: Normal in size and morphology for the patient's age. HEMORRHAGE: No acute hemorrhage. CEREBRAL PARENCHYMA: No focus of restricted diffusion to suggest acute infarct. No space-occupying le raul identified. Stable tiny area of blooming artifact on SWI at the right posterior corpus callosum related to old microhemorrhage. MIDLINE SHIFT: None. BRAINSTEM/CEREBELLUM: Normal. CALVARIUM: Craniotomy at right vertex. ENHANCEMENT: No change small focus of enhancement over right superior frontal lobe. No new areas of enhancement. VISUALIZED PARANASAL SINUSES/MASTOIDS: Clear. OTHER FINDINGS: Orbits and pituitary unremarkable. Flow voids are intact. IMPRESSION: Right superior frontal craniotomy with subjacent small stable area of enhancement. Stable focal micr ohemorrhage right corpus callosum. No new abnormalities. DATA REPOSITORY:
[2022-01-21] MEDS: Normal Saline Flush 10 ML SYR IVP (11:45)
[2022-01-21] MEDS: Gadoterate meglumine 20 ML SYRINGE IVP (11:46)
== END ==
PROVIDERS: PCP Nurse Practitioner; Visit Provider Internal Medicine
DX: C71.9 Malignant neoplasm of brain, unspecified (principal); Z48.811 Encounter for surgical aftercare following surgery on the nervous system; G93.89 Other specified disorders of brain
CPT/HCPCS: 70553

== ENCOUNTER → 2022-04-03 12:45 | Outpatient (BNVA) | payer MEDICARE, BC, SELFPAY | PROVIDERS: PCP Nurse Practitioner; Referring Provider Nurse Practitioner; Visit Provider Nurse Practitioner Gerontology | DX: N40.1 Benign prostatic hyperplasia with lower urinary tract symptoms (principal); R39.89 Other symptoms and signs involving the genitourinary system | CPT/HCPCS: 51798; 99213 ==

== ENCOUNTER 2022-04-11 04:15 | Inpatient (IN) | payer MEDICARE, BC, SELFPAY ==
[2022-04-11] VITALS (14 sets, daily range): BP systolic 101–128; BP diastolic 52–68; PULSE 69–87; RESP 14–23; TEMP 36.9–37.5; O2SAT 92–95
--- NOTE | 2022-04-11 04:15 | DI.RAD_ITS ---
Exam(s) XR PORTABLE CHEST AP EXAM: XR PORTABLE CHEST AP CLINICAL HISTORY: cough r/o pneumonia TECHNIQUE: 2D digital imaging was performed of the chest. One image was obtained. An AP view was ob tained. COMPARISON: CR XR CHEST 2V PA LATERAL from 04/17/2020 FINDINGS: MEDIASTINUM: Normal. HEART: Normal. PULMONARY VASCULATURE: Normal. LUNGS: There is poor inspiration in linear atelectasis present. No focal consolidations are seen. PLEURAL SPACE: No pleural effusion or pneumothorax. BONE:Within normal limits for the patient's age. OTHER FINDINGS:Normal. IMPRESSION: No acute pulmonary findings. DATA REPOSITORY: RADIATION DOSE DELIVERED:
--- NOTE | 2022-04-11 04:35 | ED.GENADUL_ITS ---
Discharge Plan Disposition Patient Disposition: Admit to [facility] Condition: Stable Discharge Details Clinical Impression: Pneumonia, Generalized weakness Admit Date/Time: 04/11/22 09:11 Admit Provider: Usha Grimes Attending Provider: Usha Grimes Primary Care Provider: Yenni Brooks ED Provider: Basilia Bravo Discharge Data Discharge Date/Time-TO BE ENTERED AT DEPARTURE: 04/11/22 11:13 Medical Decision Making This is a pleasant 67-year-old male with a history of oligodendroglioma, seizure disorder, essential hypertension, hyperlipidemia, arthritis, previous blood clot now currently on anticoagulation with apixaban, who has chronic left-sided weakness secondary to his previous brain cancer, presents today for 5 days of flulike symptoms. Over the last 2 to 3 days he has had a mild productive cough with green sputum. He did have a hard time drinking his coffee and eating ice cream 2 days ago, and had a very brief choking episode at home. The seem to worsen the cough. He denies any chest pain or shortness of breath. He denies any vomiting or diarrhea. He admits to a fever at home as evaluated by his who reports it was 105, however the patient humorously states that his also was not wearing her glasses at that time and so he is not certain as to the exact temperature. No other complaints at this time. No other modifying factors. Patient has been taking Tylenol and Motrin as needed for fever. He denies any new seizures. He does admit to chronic worsening weakness during this illness. M demonstrates well-appearing male, mild crackles in the left mid lung [place]. No fever now. Oxygen saturations stable. No meningeal signs. No abdominal pain or chest pain. Symptoms appear concerning for mild community-acquired pneumonia versus questionable aspiration component. We will get x-ray for further evaluation, gently rehydrate, monitor closely reassess. Exam and imaging demonstrates evidence of mild pneumonia which corresponds with the patient's symptoms clinically. Unfortunately due to the patient's chronic weakness and worsening weakness now while sick he is unable to walk or care for himself at all. His is very concerned that she will not be able to safely care for him at home either. We will keep the patient here and have case management evaluate them for potential help at home at 8 AM. If they are not able to get help at home he will likely require admission. The remainder the patient's care was handled during downtime. Please refer to paper charts for disposition. Patient will be signed out to my colleague Dr. Basilia Bravo . HPI General Date/Time Provider Initiated Documentation: 04/11/22 04:23 . HPI Narrative: This is a pleasant 67-year-old male with a history of oligodendroglioma, seizure disorder, essential hypertension, hyperlipidemia, arthritis, previous blood clot now currently on anticoagulation with apixaban, who has chronic left-sided weakness secondary to his previous brain cancer, presents today for 5 days of flulike symptoms. Over the last 2 to 3 days he has had a mild productive cough with green sputum. He did have a hard time drinking his coffee and eating ice cream 2 days ago, and had a very brief choking episode at home. The seem to worsen the cough. He denies any chest pain or shortness of breath. He denies any vomiting or diarrhea. He admits to a fever at home as evaluated by his who reports it was 105, however the patient humorously states that his also was not wearing her glasses at that time and so he is not certain as to the exact temperature. No other complaints at this time. No other modifying factors. Patient has been taking Tylenol and Motrin as needed for fever. He denies any new seizures. He does admit to chronic worsening weakness during this illness. Related Data Home Medications Medication Instructions Recorded Confirmed multivitamin (Daily Vitamin tablet) 1 ea PO DAILY 07/24/12 04/11/22 calcium carbonate 600 mg-vitamin 1 ea PO BID 09/27/14 04/11/22 D3 20 mcg (800 unit) tablet eslicarbazepine 600 mg tablet 1,200 mg PO HS 05/14/17 04/11/22 (Aptiom) fluticasone propionate 50 2 spry NS BID PRN 05/14/17 04/11/22 mcg/actuation nasal spray,suspension clobazam 10 mg tablet (Onfi) See Rx Instructions PO as directed 02/18/19 04/11/22 PRN Topamax 100 mg tablet (topiramate) 100 mg PO as directed 03/13/20 04/11/22 acetaminophen 325 mg capsule 325 mg PO PRN 09/11/21 04/11/22 (Tylenol) atorvastatin 20 mg tablet 20 mg PO QPM #90 tabs 09/11/21 04/11/22 lisinopril 10 mg tablet 10 mg PO DAILY #90 tab-caps 09/11/21 04/11/22 tamsulosin 0.4 mg capsule (Flomax) 0.8 mg PO DAILY #180 caps 09/25/21 04/11/22 apixaban 5 mg tablet 5 mg PO BID #180 tabs 03/12/22 04/11/22 Previous Rx's Medication Instructions Recorded atorvastatin 20 mg tablet 20 mg PO QPM #90 tabs 09/11/21 lisinopril 10 mg tablet 10 mg PO DAILY #90 tab-caps 09/11/21 tamsulosin 0.4 mg capsule (Flomax) 0.8 mg PO DAILY #180 caps 09/25/21 apixaban 5 mg tablet 5 mg PO BID #180 tabs 03/12/22 Allergies Allergy/AdvReac Type Severity Reaction Status Date / Time Penicillins Allergy Unknown RASH Verified 04/11/22 05:03 Sulfa (Sulfonamide Allergy Unknown RASH Verified 04/11/22 05:03 Antibiotics) General Stated Complaint: Fever CARLOS: 3 Review of Systems All systems reviewed & are unremarkable except as noted in HPI and below PFSH All Active Problems (Updated 04/11/22 @ 09:26 by Basilia Bravo DO) Pneumonia (Acute) Generalized weakness (Acute) Deep vein thrombosis (DVT) of femoral vein (Acute) Urinary dribbling (Acute) Incidental lung nodule (Acute) Abnormal chest x-ray (Acute) Generalized weakness (Acute) Ambulatory dysfunction (Acute) COVID-19 (Acute) 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 F/U [facility] Neurology - Dr Bae 08/25/19 F/U Dr Gayle 06/12/21-WHO grade II ([facility] progress note) 09/04/[address] Dominguez Hem/Onc and will be starting Temodar on 09/10/21 BPH (benign prostatic hyperplasia) (Chronic) Inflammatory arthritis (Acute 04/12/15) isma hands; followed by Rheum [facility] Tubular adenoma of colon (Acute 01/17/16) Seizure disorder (Acute 07/23/11) Dr Gayle [facility] manages, 08/25/19 recent f/u 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 followed with brain mri surveillance per [facility] neuro progress note 10/27/18. 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 Father Colon cancer Sister Breast cancer Sister No problems noted. Sister No problems noted. Brother Diabetes Social History Smoking/Tobacco Use Status: Never Smoking risk assessment performed?: Yes Alcohol Intake: never Drug use: Never Substance use type: does not use Household members: spouse Number of Children: 3 current occupation: since 2014 Do you feel safe at home: Yes Do you feel safe in your relationship?: Yes Exam Narrative Exam Narrative: 1.Const: Well-nourished, Well-developed, appearing stated age 2.Eyes: PERRL, no conjunctival injection, and symmetrical lids. 3.ENT: Atraumatic external nose and ears. Moist MM. Neck: Symmetric, trachea midline, No thyromegaly. Patient demonstrates good movement of cervical neck. There is no nuchal rigidity, no nuchal tenderness. Patient is able to flex the neck without any difficulty or significant pain. Negative Kernig's and Brudzinski sign. 4.CVS: +S1/S2, No murmurs or gallops. Peripheral pulses 2+ and equal in all extremities. Brisk capillary refill in all extremities. 5.RESP: Unlabored respiratory effort. Crackles in the left lung field. Right lungs are clear. No wheezes rhonchi or rales otherwise. I 6.GI: Soft, Nontender/Nondistended, No hepatosplenomegaly. No guarding or rebound. 7.MSK: Normocephalic/Atraumatic, Extremities w/o deformity or ttp No cyanosis or clubbing, Normal movement of all extremities except for the left lower extremity 8.Skin: Warm, Dry. No rashes or lesions. 9.Neuro: resident assistant II-XII grossly intact. Sensation grossly intact, however there is chronic left lower extremity weakness present 10.Psych: (AAO) x3. Appropriate mood and affect Course Vital Signs Vital signs: Vital Signs Temperature 36.9 C 04/11/22 04:15 Pulse 86 04/11/22 04:15 Respiratory Rate 18 04/11/22 04:15 Blood Pressure 118/68 04/11/22 04:15 Pulse Oximetry 94 04/11/22 04:15 Temperature 36.9 C 04/11/22 04:15 Temperature Source Oral 04/11/22 04:15 Pulse 86 04/11/22 04:15 Respiratory Rate 18 04/11/22 04:15 Respiratory Effort 04/11/22 04:23 Blood Pressure 118/68 04/11/22 04:15 Pulse Oximetry 94 04/11/22 04:15 Oxygen Delivery Method Room Air 04/11/22 04:15 Oxygen Flow Rate 0 04/11/22 04:15 Lab/Test Results Lab/Test Results: 04/11/22 04:23 Blood Blood Culture - Pending 04/11/22 04:23 Blood Blood Culture - Pending
[2022-04-11 04:39] LABS: BE (Venous) -4 mmol/L (-2-3); HCO3 (Venous) 22 mmol/L (23-28); O2 Sat (Venous) 72 %; TCO2 (Venous) 20 mmol/L (24-29); pCO2 (Venous) 40 mmHg (41-51); pH (Venous) 7.35 (7.31-7.41); pO2 (Venous) 36 mmHg
[2022-04-11 04:44] LABS: Abs Immature Grans 0.02 10^3/uL (0.0-0.06); Absolute Basophil Count 0.02 10^3/uL (0.0-0.2); Absolute Eosinophil Count 0.08 10^3/uL (0.0-0.7); Absolute Lymphocyte Count 0.99 10^3/uL (1.2-3.4); Absolute Neutrophil Count 7.06 10^3/uL (1.2-6.7); Basophils % 0.2; Eosinophils % 0.9; HCT 39.9 % (40.0-50.0); HGB 13.9 g/dL (13.5-17.5); Immature Grans % 0.2; Lymphocytes % 11.2; MCH 32.4 pg (27.0-33.0); MCHC 34.8 % (32.0-36.0); MCV 93 fL (80-95); MPV 9.3 fL (8.0-11.0); Monocytes % 7.9; Neutrophils % 79.6; Platelet Count 181 10^3/uL (130-400); RBC 4.29 10^6/uL (4.36-5.78); RDW 12.4 % (11.8-14.1); RDW-SD 42.6 fL; WBC 8.87 10^3/uL (4.4-10.8)
[2022-04-11] MEDS: Normal Saline 500 ML IV (04:55)
[2022-04-11] MEDS: DOXYCYCLINE 100 MG in Normal Saline 100 ML IVPB ×2 (04:56→17:54)
[2022-04-11 04:57] LABS: ALT 23 U/L (16-63); AST 36 U/L (15-37); Albumin 3.1 g/dL (3.4-5.0); Alkaline Phosphatase 93 U/L (46-116); BUN 22 mg/dL (7-18); Bilirubin, Total 0.7 mg/dL (0.2-1.0); CREATININE 1.4 mg/dL (0.70-1.30); Calcium 8.6 mg/dL (8.5-10.1); Chloride 103 mmol/L (98-107); Estimated GFR 55.09 (mL/min/1.73m2); Glucose 133 mg/dL (74-106); Potassium 3.8 mmol/L (3.5-5.1); Sodium 135 mmol/L (136-145); Total Protein 7.4 g/dL (6.4-8.2)
--- NOTE | 2022-04-11 08:55 | DI.VRAD_ITS ---
PROCEDURE INFORMATION: Exam: XR Chest Exam date and time: 04/11/2022 4:16 AM Age: 67 years old Clinical indication: Cough TECHNIQUE: Imaging protocol: Radiologic exam of the chest. Views: 1 view. COMPARISON: CR XR CHEST 2V PA LATERAL 04/17/2020 10:48 AM FINDINGS: Lungs: Unremarkable. No consolidation. Pleural spaces: Unremarkable. No pleural effusion. No pneumothorax. Heart/Mediastinum: Unremarkable. No cardiomegaly. Bones/joints: Unremarkable. IMPRESSION: No acute findings. Dictated and Authenticated by: Emile Juárez MD. Ordering:LEWIS Ibrahim MD
[2022-04-11 09:07] LABS: COVID-19 PCR Negative (Negative); Influenza A PCR Negative (Negative); Influenza B PCR Negative (Negative); RSV PCR Negative (Negative)
--- NOTE | 2022-04-11 09:12 | ED.PROG_ITS ---
Date of service: 04/11/22 Time of Service: 08:00 Medical Decision Making 08 --please see Dr. Okeefe's note for initial presentation, exam and plan. Case endorsed with plan to follow-up with care management regarding disposition and if patient can go home with home health. 09 --care management evaluated patient at bedside. feels comfortable with patient going home but patient does not feel comfortable. Home health may not be able to be available for 24 to 48 hours and patient states he feels too weak. Patient has been hemodynamically stable. It is suspected he has pneumonia and was given IV doxycycline per Dr. Okeefe. 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 Patient states he is followed by Dr. Dominguez neurooncology at [facility] and was told on an MRI in December that his tumors are decreasing. His next MRI brain is scheduled for April 17. He states he initially was treated with radiation in the and his tumor decreased and he was in remission. He states in 2013 he developed seizures which then worsened in 2018 leading to his diagnosis of tumor recurrence. He last had radiation in July 2021 and last had chemotherapy in October 2021. He states he has been taking all of his medications as directed. He states over the past few days he has had decreased appetite and overall generalized weakness. states she called the ambulance at 3am this morning due to persistent cough overnight. She states a skin temperature 2 days ago was 105 but was 99 oral. Patient is moving all extremities. He uses braces for ambulation at baseline but has been using a walker over the past few days. Case discussed with hospitalist who accepts patient for admission. Patient will need IV antibiotics and PT evaluation and discharge planning. Medical Records Medical records reviewed: Yes I reviewed the patient's medical records. Imaging Data Radiologic Study: Radiologist's impression: XR Chest Exam date and time: 04/11/2022 4:16 AM Age: 67 years old Clinical indication: Cough TECHNIQUE: Imaging protocol: Radiologic exam of the chest. Views: 1 view. COMPARISON: CR XR CHEST 2V PA LATERAL 04/17/2020 10:48 AM FINDINGS: Lungs: Unremarkable. No consolidation. Pleural spaces: Unremarkable. No pleural effusion. No pneumothorax. Heart/Mediastinum: Unremarkable. No cardiomegaly. Bones/joints: Unremarkable. IMPRESSION: No acute findings. Lab Data Lab results reviewed: Yes I reviewed the patient's lab results. Labs: 04/11/22 04:51 Urine - Clean Catch Urine Culture - Pending 04/11/22 04:40 Blood Blood Culture - Pending 04/11/22 04:40 Blood Blood Culture - Pending Laboratory Tests Range/Units 04/11/22 04/11/22 04/11/22 04:25 04:25 04:25 WBC (4.4-10.8) 10^3/uL 8.87 RBC (4.36-5.78) 10^6/uL 4.29 L Hgb (13.5-17.5) g/dL 13.9 Hct (40.0-50.0) % 39.9 L MCV (80-95) fL 93 MCH (27.0-33.0) pg 32.4 MCHC (32.0-36.0) % 34.8 RDW (11.8-14.1) % 12.4 Plt Count (130-400) 10^3/uL 181 MPV (8.0-11.0) fL 9.3 Immature Gran % 0.2 Neutrophils % 79.6 Lymphocytes % 11.2 Monocytes % 7.9 Eosinophils % 0.9 Basophils % 0.2 Nucleated RBC % (0.0-0.3) % 0.0 Absolute Neutrophils (1.2-6.7) 10^3/uL 7.06 H Absolute Lymphocytes (1.2-3.4) 10^3/uL 0.99 L Absolute Monocytes (0.1-0.8) 10^3/uL 0.70 Absolute Eosinophils (0.0-0.7) 10^3/uL 0.08 Absolute Basophils (0.0-0.2) 10^3/uL 0.02 VBG pH (7.31-7.41) VBG pCO2 (41-51) mmHg VBG pO2 mmHg VBG HCO3 (23-28) mmol/L VBG Total CO2 (24-29) mmol/L VBG O2 Saturation % VBG Base Excess (-2-3) mmol/L VBG Lactate (0.6-1.4) mmol/L 1.0 Sodium (136-145) mmol/L 135 L Potassium (3.5-5.1) mmol/L 3.8 Chloride (98-107) mmol/L 103 Carbon Dioxide (21.0-32.0) mmol/L 24.0 Anion Gap (3-11) mmol/L 8.0 BUN (7-18) mg/dL 22 H Creatinine (0.70-1.30) mg/dL 1.4 H Est GFR (CKD-EPI 2020) (mL/min/1.73m2) 55.09 Glucose (74-106) mg/dL 133 H Calcium (8.5-10.1) mg/dL 8.6 Total Bilirubin (0.2-1.0) mg/dL 0.7 AST (15-37) U/L 36 ALT (16-63) U/L 23 Alkaline Phosphatase (46-116) U/L 93 Total Protein (6.4-8.2) g/dL 7.4 Albumin (3.4-5.0) g/dL 3.1 L Range/Units 04/11/22 04:25 WBC (4.4-10.8) 10^3/uL RBC (4.36-5.78) 10^6/uL Hgb (13.5-17.5) g/dL Hct (40.0-50.0) % MCV (80-95) fL MCH (27.0-33.0) pg MCHC (32.0-36.0) % RDW (11.8-14.1) % Plt Count (130-400) 10^3/uL MPV (8.0-11.0) fL Immature Gran % Neutrophils % Lymphocytes % Monocytes % Eosinophils % Basophils % Nucleated RBC % (0.0-0.3) % Absolute Neutrophils (1.2-6.7) 10^3/uL Absolute Lymphocytes (1.2-3.4) 10^3/uL Absolute Monocytes (0.1-0.8) 10^3/uL Absolute Eosinophils (0.0-0.7) 10^3/uL Absolute Basophils (0.0-0.2) 10^3/uL VBG pH (7.31-7.41) 7.35 VBG pCO2 (41-51) mmHg 40 L VBG pO2 mmHg 36 VBG HCO3 (23-28) mmol/L 22 L VBG Total CO2 (24-29) mmol/L 20 L VBG O2 Saturation % 72 VBG Base Excess (-2-3) mmol/L -4 L VBG Lactate (0.6-1.4) mmol/L Sodium (136-145) mmol/L Potassium (3.5-5.1) mmol/L Chloride (98-107) mmol/L Carbon Dioxide (21.0-32.0) mmol/L Anion Gap (3-11) mmol/L BUN (7-18) mg/dL Creatinine (0.70-1.30) mg/dL Est GFR (CKD-EPI 2020) (mL/min/1.73m2) Glucose (74-106) mg/dL Calcium (8.5-10.1) mg/dL Total Bilirubin (0.2-1.0) mg/dL AST (15-37) U/L ALT (16-63) U/L Alkaline Phosphatase (46-116) U/L Total Protein (6.4-8.2) g/dL Albumin (3.4-5.0) g/dL Discharge Plan Disposition Patient Disposition: Admit to [facility] Condition: Stable Discharge Details Clinical Impression: Pneumonia, Generalized weakness Primary Care Provider: eYnni Brooks ED Provider: Basilia Bravo Ray Meds and New Rx's Prescriptions: No Action tamsulosin [Flomax] 0.4 mg capsule 0.8 mg PO DAILY Qty: 180 3RF acetaminophen [Tylenol] 325 mg capsule 325 mg PO PRN lisinopril 10 mg tablet 10 mg PO DAILY Qty: 90 3RF atorvastatin 20 mg tablet 20 mg PO QPM Qty: 90 3RF apixaban 5 mg tablet 5 mg PO BID Qty: 180 3RF multivitamin [Daily Vitamin] 1 EACH tablet 1 ea PO DAILY calcium carbonate-vitamin D3 1 EACH tablet 1 ea PO BID Rx Instructions: [facility] MEDLIST 09/26/14 CGC fluticasone propionate 16 GM spray,suspension 2 spry NS BID PRN Label Comments: 05/14/17-disch Dr Breaux Aptiom 600 MG tablet 1,200 mg PO HS clobazam [Onfi] 10 mg tablet See Rx Instructions PO as directed PRN Label Comments: Rx Instructions: 5 MG AM, 15 MG PM, NOTED 02/17/19 NEURO. CGC PO as directed PRN topiramate [Topamax] 100 mg tablet 100 mg PO as directed Label Comments: 05/21/2017--100 in am and 200 mg in evening per discharge Dr Breaux- Rx Instructions: 100mg a.m.;200mg hs-Dr Gayle
--- NOTE | 2022-04-11 09:25 | INITIAL_ITS ---
- If Service Date Differs Date of service: 04/11/22 Time of Service: 09:25 Care Management Initial Assess REASON FOR HOSPITALIZATION:: Pneumonia, weakness. PAST MEDICAL HISTORY/PAST SURGICAL HISTORY:: All Active Problems: Deep vein thrombosis (DVT) of femoral vein (Acute),. Urinary dribbling (Acute), Incidental lung nodule (Acute), Abnormal chest x-ray (Acute), Generalized weakness (Acute), Ambulatory dysfunction (Acute), COVID-19 (Acute), Adult oligod endroglioma (Acute) - 05/25/19 F[place] [facility] [place] - Dr Bae, 08/25/19 F/U Dr Gayle, 06/12/21-WHO [place] [place] 09/04/[address] Dominguez Hem/Onc, and will be starting Temodar on 09/10/21. BPH (benign prostatic hyperplasia) Chronic), Inflammatory arthritis (Acute 04/12/15) - isma hands; followed by Rheum [facility], Tubular adenoma of colon (Acute 01/17/16), Seizure disorder (Acute 07/23/11) - Dr Gayle [facility] manages, 08/25/19 recent f/u, Recurrent brain tumor (Acute 05/21/17) - right posterior frontal lobe low-grade ologodendroglioma. Followed with brain mri [place] [facility] [place]. 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 Medical History: Benign neoplasm of colon, Essential hypertension,. 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 04/28/20 F/U [facility] [place]cology, and Seizure disorder (~05/2017). Surgical History: Colonoscopy - IV Sedation (05/04/04), Colonoscopy - IV Sedation (03/20/10), Colonoscopy - IV Sedation (01/17/16), and Status post stereotactic brain biopsy (~1994). PREVIOUS FUNCTIONAL STATUS/SOCIAL/FAMILY SUPPORTS:: Kenton lives with his , Yaneli, in [place], [place]. He has three adult children; all of whom reside out of state. He has a history of ogligodendroglioma (central nervous system tumor) and received radiation treatment in 1994 and chemotherapy in 2017 for a recurrence of the cancer. Kenton now has seizures but is mostly independent with his ADLs. His provides assistance when needed. CURRENT FUNCTIONAL STATUS:: Kenton is lying in bed when CM comes to meet with him. His , Yaneli, is present in the room. Kenton shares he has chronic left-sided weakness due to the brain cancer but reports he usually is able to manage at home and care for himself. He hopes a couple of days at the hospital will allow him to regain enough strength to return home. CM will continue to follow. ADVANCE DIRECTIVES:: None on file but Kenton states he just completed an Advance Directives with his regulatory attorney. Has patient been provided with info about the portal/API?: Yes Did the patient sign up for the portal?: Yes (Previously enrolled) CODE STATUS:: Full Code INSURANCE COVERAGE / FINANCIAL ISSUES:: [facility] and Medicare. CURRENT HOME/COMMUNITY SERVICES/EQUIPMENT:: No home/community services. Kenton has a rollator walker, shower chair, grab bars, and forearm crutches. He mostly uses the crutches to ambulate at home. PRIMARY CARE PHYSICIAN:: Yenni Brooks aprn. POTENTIAL DISCHARGE NEEDS:: Follow up appointment with PCP and new Home Health PT services. PATIENT/FAMILY EDUCATION NEEDS:: Review of discharge instructions including limitations, medications and follow up plan of care; discuss Ask Me Three. ANTICIPATED BARRIERS TO DISCHARGE:: None identified at this time. TRANSPORTATION:: Via private vehicle with his . PLAN:: Kenton will likely discharge home with new Home Health services when medically cleared by provider. He will follow up with his PCP, [facility] providers, and plan of care as prescribed. He will be transported home by his via private vehicle when ready. CM will continue to support Kenton and any discharge planning needs.
--- NOTE | 2022-04-11 09:45 | NUR.NOTE ---
Nursing Note: Pharmacist in with patient verifying medications. MD ordered Eliquis 5 mg and topimax 100 mg PO NOW. Went to give pt these medications and he reported that at 0940 AM he took both from his home morning med pack. Medications returned to [facility]
--- NOTE | 2022-04-11 09:49 | W.PM.HP.N ---
Date of service: 04/11/22 Time of Service: 09:49 Assessment and Plan Assessment and plan (1) Pneumonia: Status: Acute Assessment and plan: community acquired. admit to med/surg ceftriaxone and doxycycline day 1 mucinex and tessalon perles acapella and incentive spirometry monitor closely for oxygen requirements will consult speech for bedside swallow evaluation in setting of right sided pneumonia (2) Generalized weakness: Status: Acute Assessment and plan: PT/OT (3) Adult oligodendroglioma: Status: Acute Assessment and plan: followed by Dr Dominguez at hem/onc (4) Left-sided weakness: Status: Acute Assessment and plan: PT consulted. discussed with DR Grimes History of Present Illness History of Present Illness Chief Complaint: weakness Narrative: This is a 67 year old male with history of brain tumor and residual left sided weakness who reports increased generalized weakness at home over past several days. work up in the ED is concerning for a right sided pneumonia. He was hemodynamically stable and oxygenating well on room air but unable to be safely discharged d/t his weakness. hospitalist services contacted and plan is to admit to med/surg for further management and monitoring. He was started on doxycycline to treat his pneumonia Review of Systems All systems reviewed & are unremarkable except as noted in HPI and below Constitutional Constitutional: Reports fatigue, Reports lethargy and Reports weakness Neurologic Neurologic: Reports weakness Endocrine Endocrine: Reports fatigue PFSH All Active Problems (Updated 04/11/22 @ 09:26 by Basilia Bravo DO) Pneumonia (Acute) Generalized weakness (Acute) Deep vein thrombosis (DVT) of femoral vein (Acute) Urinary dribbling (Acute) Incidental lung nodule (Acute) Abnormal chest x-ray (Acute) Generalized weakness (Acute) Ambulatory dysfunction (Acute) COVID-19 (Acute) 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 F/[place] [facility] [place] - Dr Bae 08/25/19 F/U Dr Gayle 06/12/21-WHO grade II [place] [place] 09/04/[address] Dominguez Hem/Onc and will be starting Temodar on 09/10/21 BPH (benign prostatic hyperplasia) (Chronic) 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 followed with brain mri surveillance [place] [facility] [place] 10[place]18. 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 Father Colon cancer Sister Breast cancer Sister No problems noted. Sister No problems noted. Brother Diabetes Social History Smoking/Tobacco Use Status: Never Smoking risk assessment performed?: Yes Alcohol Intake: never Drug use: Never Substance use type: does not use Household members: spouse Number of Children: 3 current occupation: since 2014 Do you feel safe at home: Yes Do you feel safe in your relationship?: Yes Meds Allergies and Home Medications Allergies Allergy/AdvReac Type Severity Reaction Status Date / Time Penicillins Allergy Unknown RASH Verified 04/11/22 05:03 Sulfa (Sulfonamide Allergy Unknown RASH Verified 04/11/22 05:03 Antibiotics) Home Medications Medication Instructions Recorded Confirmed Type multivitamin (Daily Vitamin tablet) 1 ea PO DAILY 07/24/12 04/11/22 History calcium carbonate 600 mg-vitamin 1 ea PO BID 09/27/14 04/11/22 History D3 20 mcg (800 unit) tablet eslicarbazepine 600 mg tablet 1,200 mg PO HS 05/14/17 04/11/22 History (Aptiom) fluticasone propionate 50 2 spry NS BID PRN 05/14/17 04/11/22 History mcg/actuation nasal spray,suspension clobazam 10 mg tablet (Onfi) See Rx Instructions PO as directed 02/18/19 04/11/22 History PRN Topamax 100 mg tablet (topiramate) 100 mg PO as directed 03/13/20 04/11/22 History acetaminophen 325 mg capsule 325 mg PO PRN 09/11/21 04/11/22 History (Tylenol) atorvastatin 20 mg tablet 20 mg PO QPM #90 tabs 09/11/21 04/11/22 Rx lisinopril 10 mg tablet 10 mg PO DAILY #90 tab-caps 09/11/21 04/11/22 Rx tamsulosin 0.4 mg capsule (Flomax) 0.8 mg PO DAILY #180 caps 09/25/21 04/11/22 Rx apixaban 5 mg tablet 5 mg PO BID #180 tabs 03/12/22 04/11/22 Rx Exam Const General: cooperative and no acute distress Orientation: alert, awake and oriented x3 HENMT Head: normal to inspection Face and sinus: normal facial exam Mouth: oral mucosae normal Eyes General: appearance normal, both eyes and all related structures EOM: EOM intact bilaterally Neck Neck: normal visual inspection Chest Chest: normal inspection of the chest Resp Effort & Inspection: normal respiratory effort and able to speak in complete sentences Auscultation: diminished lung sounds bilaterally throughout Cardio Rate: regular rate Rhythm: regular rhythm GI Inspection: normal to inspection Palpation: soft and nontender Auscultation: normal bowel sounds Back/Spine/Pelvis Thoracic/Lumbar Spine: thoracic and lumbar spine normal to inspection Skin General skin exam: no rashes or lesions noted Neuro General: patient alert and patient awake Cognition: normal cognition Speech: speech normal Extrem General: normal to inspection, full ROM, capillary refill normal and no edema Psych Appearance: grossly normal Mental Status: mental status grossly normal Speech and Movement: speech and movement normal Affect: normal affect Thought Process: normal Results Labs Result diagrams: 04/12/22 05:58 04/12/22 05:58 Labs: Laboratory Results - last 24 hr 04/11/22 04/11/22 04/11/22 04:25 04:25 04:25 WBC 8.87 RBC 4.29 L Hgb 13.9 Hct 39.9 L MCV 93 MCH 32.4 MCHC 34.8 RDW 12.4 Plt Count 181 MPV 9.3 Immature Gran % 0.2 Neutrophils % 79.6 Lymphocytes % 11.2 Monocytes % 7.9 Eosinophils % 0.9 Basophils % 0.2 Nucleated RBC % 0.0 Absolute Neutrophils 7.06 H Absolute Lymphocytes 0.99 L Absolute Monocytes 0.70 Absolute Eosinophils 0.08 Absolute Basophils 0.02 VBG pH VBG pCO2 VBG pO2 VBG HCO3 VBG Total CO2 VBG O2 Saturation VBG Base Excess VBG Lactate 1.0 Sodium 135 L Potassium 3.8 Chloride 103 Carbon Dioxide 24.0 Anion Gap 8.0 BUN 22 H Creatinine 1.4 H Est GFR (CKD-EPI 2020) 55.09 Glucose 133 H Calcium 8.6 Total Bilirubin 0.7 AST 36 ALT 23 Alkaline Phosphatase 93 Total Protein 7.4 Albumin 3.1 L 04/11/22 04:25 WBC RBC Hgb Hct MCV MCH MCHC RDW Plt Count MPV Immature Gran % Neutrophils % Lymphocytes % Monocytes % Eosinophils % Basophils % Nucleated RBC % Absolute Neutrophils Absolute Lymphocytes Absolute Monocytes Absolute Eosinophils Absolute Basophils VBG pH 7.35 VBG pCO2 40 L VBG pO2 36 VBG HCO3 22 L VBG Total CO2 20 L VBG O2 Saturation 72 VBG Base Excess -4 L VBG Lactate Sodium Potassium Chloride Carbon Dioxide Anion Gap BUN Creatinine Est GFR (CKD-EPI 2020) Glucose Calcium Total Bilirubin AST ALT Alkaline Phosphatase Total Protein Albumin Last Vital Signs Temp 36.9 C 04/11/22 04:15 Pulse 79 04/11/22 04:46 Resp 22 04/11/22 04:50 BP 104/52 L 04/11/22 04:46 Pulse Ox 93 04/11/22 04:50 Time Spent Time spent with Patient: 40-54 minutes Time was spent: preparing to see the patient(eg.review tests), obtaining and/or reviewing separately otained hiistory, ordering medications,tests, procedures, indepentently interpreting results and counseling the patient
--- NOTE | 2022-04-11 10:03 | NUR.NOTE ---
Report received from Kim SANCHEZ. Nursing Note:
[2022-04-11 10:58] LABS: Source Nasopharynx
[2022-04-11 11:14] LABS: Clarity Clear (Clear); Glucose Negative (Negative); Ketones Trace mg/dL (Negative); Leukocyte Esterase Negative (Negative); Nitrite Negative (Negative); Specific Gravity 1.015 (1.005-1.025); pH 6.5 (5-8)
[2022-04-11 11:15] LABS: Bacteria Few HPF (Negative); Bilirubin Negative (Negative); Blood Moderate (Negative); C & S Indicated? C&S Done As Ordered; Casts Negative LPF (Negative); Crystals Negative HPF (Negative); Epithelial Cells Rare HPF (Negative); Mucus Negative (Negative)
[2022-04-11] MEDS: cefTRIAXone 2 GM/50 ML BAG IV (13:58)
[2022-04-11] MEDS: Benzonatate 100 MG CAP PO (14:55)
[2022-04-11 17:15] LABS: Lab Add On Test DONE
[2022-04-11] MEDS: Topiramate 100 MG TAB 200 MG PO (17:54)
[2022-04-11] MEDS: Normal Saline Flush 10 ML SYR IVP ×2 (17:55→19:45)
[2022-04-11 18:35] LABS: Procalcitonin 6.6 ng/mL
[2022-04-11] MEDS: Calcium 600mg/Vit D 200U TAB 1 TAB PO (19:37)
[2022-04-11] MEDS: Atorvastatin 20 MG TAB PO (19:37)
[2022-04-11] MEDS: guaiFENesin 600 MG TABCR PO (19:37)
[2022-04-11] MEDS: Lactated Ringers 1,000 ML 150 ML IV (19:38)
[2022-04-11] MEDS: Apixaban 5 MG TAB PO (19:38)
[2022-04-12] MEDS: Lactated Ringers 1,000 ML 150 ML IV ×2 (02:04→10:40)
[2022-04-12 03:45] VITALS: BP 110/66; PULSE 78; RESP 19; TEMP 37.3; O2SAT 94
[2022-04-12 06:34] LABS: Abs Immature Grans 0.02 10^3/uL (0.0-0.06); Absolute Basophil Count 0.02 10^3/uL (0.0-0.2); Absolute Eosinophil Count 0.19 10^3/uL (0.0-0.7); Absolute Lymphocyte Count 1.05 10^3/uL (1.2-3.4); Absolute Monocyte Count 0.54 10^3/uL (0.1-0.8); Absolute Neutrophil Count 5.48 10^3/uL (1.2-6.7); Basophils % 0.3; Eosinophils % 2.6; HCT 36.5 % (40.0-50.0); HGB 12.3 g/dL (13.5-17.5); Immature Grans % 0.3; Lymphocytes % 14.4; MCH 31.5 pg (27.0-33.0); MCHC 33.7 % (32.0-36.0); MCV 93 fL (80-95); MPV 9.7 fL (8.0-11.0); Monocytes % 7.4; Platelet Count 167 10^3/uL (130-400); RBC 3.91 10^6/uL (4.36-5.78); RDW 12.5 % (11.8-14.1)
[2022-04-12 06:46] LABS: Anion Gap 7.7 mmol/L (3-11); BUN 16 mg/dL (7-18); CO2 22.3 mmol/L (21.0-32.0); Calcium 8.5 mg/dL (8.5-10.1); Chloride 107 mmol/L (98-107); Estimated GFR 82.49 (mL/min/1.73m2); Glucose 120 mg/dL (74-106); Magnesium 1.9 mg/dL (1.8-2.4); Potassium 3.8 mmol/L (3.5-5.1); Sodium 137 mmol/L (136-145)
[2022-04-12] MEDS: DOXYCYCLINE 100 MG in Normal Saline 100 ML IVPB ×2 (06:49→17:40)
[2022-04-12 07:50] VITALS: BP 105/66; PULSE 67; RESP 16; TEMP 37.3; O2SAT 94
--- NOTE | 2022-04-12 08:15 | OTIE_ITS ---
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 Patient is admitted to the MedSurg unit for management of pneumonia and generalized weakness. Past Medical History: All Active Problems?(Updated 04/11/22 @ 09:26 by Basilia Bravo DO) Pneumonia (Acute) Generalized weakness (Acute) Deep vein thrombosis (DVT) of femoral vein (Acute) Urinary dribbling (Acute) Incidental lung nodule (Acute) Abnormal chest x-ray (Acute) Generalized weakness (Acute) Ambulatory dysfunction (Acute) COVID-19 (Acute) 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 F[place] [facility] [place] - Dr Bae 08/25/19 F/U Dr Gayle 06/12/21-WHO grade II ([facility] progress note) 09/04/[address] Dominguez Hem/Onc and will be starting Temodar on 09/10/21BPH (benign prostatic hyperplasia) (Chronic) Inflammatory arthritis (Acute 04/12/15) isma hands; followed by Rheum [facility] Tubular adenoma of colon (Acute 01/17/16) Seizure disorder (Acute 07/23/11) Dr Gayle [facility] manages, 08/25/19 recent f/u 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? followed with brain mri surveillance per [facility] neuro progress note 10/27/18.Other and unspecified hyperlipidemia (Acute 08/05/12) PCEq risk 17.2%? 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 Dr Shore Left-sided weakness (Acute) upper and lower extremities Impaired mobility (Acute) Impaired fasting glucose (Acute 07/23/11) Essential hypertension (Acute 01/18/13) Cervical myelopathy (Acute 08/06/12) L C6-7, multiple disc on MRI 10/13/12; refer Dr Mcbride 12/23/12 Benign neoplasm of colon (Acute 03/20/10) Medical History? 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 Colonoscopy - IV Sedation (05/04/04) Colonoscopy - IV Sedation (03/20/10) Colonoscopy - IV Sedation (01/17/16) Status post stereotactic brain biopsy (~1994) Social History/Home Situation: Pt lives with in a private home with that has been made handicap-accessible.?Patient is modified independent with all mobility ADL performance using Loftstrand bilateral crutches prior to admission.? He has all needed equipment at home.? 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 He notes that he has good social support and feels well supported in his daily routines. Equipment owned/DME: grab bar, shower bench, sock aid, propagation worker, long handled show horn SUBJECTIVE: Pt was seated in bed when OT arrived. He reports that he is doing well and notes that he does feel that he will be going home soon. OBJECTIVE: General Observation: Pleasant and agreeable to consult, IV in (R) UE Mental Status: A&Ox4 Pain: no c/o pain ROM: RUE AROM WFL L UE AROM WFL STRENGTH: RUE 4/5 throughout LUE 4/5 throughout FUNCTIONAL MOBILITY/ADLS: BATHING max (A) Set up and clean up Bathing UE (I) Bathing LE (I) DRESSING Dressing UE in seated position (I) [facility] gown with min vc Dressing LE NT TOILETING NT EATING in seated position (I) BALANCE: Static sitting Normal Dynamic Sitting Normal SPECIAL TESTS: Daily Activity Limitations Standardized Measure [facility] AM -PAC ?6 clicks? Daily Activity Inpatient Short Form: Raw score: 22 Standardized score: 47.10 CMS score: 25.80% INFORMED CONSENT/EDUCATION: Pt instructed in purpose of OT Consult and plan of care. ASSESSMENT: Patient is a 67-year-old male referred to occupational therapy services with diagnosis of right low grade oligodendroglioma with chronic left- sided weakness who presented to the ED on 04/11/2021 due to 5 days of flu-like symptoms with mild productive cough.? Patient is admitted to the Medr unit for management of pneumonia and generalized weakness . Patient presents with clinical signs and symptoms consistent with dx. He was seen for OT consult and felt like he is at his baseline level of function in terms of his ADL routines. He notes that he has good social supports and ability to perform his ADLs at home. Patient is assessed as a Moderate 10810 complexity based on the following: History: see above Examination: see functional limitations as noted above Presentation: evolving Decision Making: Moderate complexity GOALS N/A PLAN OF CARE/TREATMENT PLAN: Seen for OT consult only. Discharge from skilled OT services at this time. DISCHARGE RECOMMENDATIONS Return home with services. TREATMENT TIME/MINUTES/CODES 22244, 25 minutes (07:40) Mera Costa OTR/[facility]
[2022-04-12] MEDS: Apixaban 5 MG TAB PO ×2 (09:04→19:35)
[2022-04-12] MEDS: Calcium 600mg/Vit D 200U TAB 1 TAB PO ×2 (09:05→19:35)
[2022-04-12] MEDS: guaiFENesin 600 MG TABCR PO ×2 (09:05→19:35)
[2022-04-12] MEDS: Lisinopril 10 MG TAB PO (09:05)
[2022-04-12] MEDS: Topiramate 100 MG TAB PO (09:06)
[2022-04-12] MEDS: Normal Saline Flush 10 ML SYR IVP ×3 (09:06→19:34)
[2022-04-12] MEDS: Multivitamin TAB 1 TAB PO (09:06)
[2022-04-12] MEDS: Tamsulosin 0.4 MG CAPCR 0.8 MG PO (09:06)
[2022-04-12 11:23] VITALS: BP 109/66; PULSE 66; RESP 16; TEMP 37; O2SAT 93
--- NOTE | 2022-04-12 12:00 | IN_ITS ---
Date of service: 04/12/22 Time of Service: 12:00 PT Notes Visit Reasons: Pneumonia,Weakness Physical Therapy Inpatient Initial Evaluation Date: 04/12/2022 Referring Doctor: Usha Grimes MD PT Orders: PT CONSULT: Limited ability Precautions: Fall. Standard. Activity as tolerated. Seizure precautions. 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 Patient is admitted to the MedSurg unit for management of pneumonia and general ized weakness. PMHX: All Active Problems?(Updated 04/11/22 @ 09:26 by Basilia Bravo DO) Pneumonia (Acute) Generalized weakness (Acute) Deep vein thrombosis (DVT) of femoral vein (Acute) Urinary dribbling (Acute) Incidental lung nodule (Acute) Abnormal chest x-ray (Acute) Generalized weakness (Acute) Ambulatory dysfunction (Acute) COVID-19 (Acute) 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 F/U [facility] Neurology - Dr Bae 08/25/19 F/U Dr Gayle 06/12/21-WHO grade II ([facility] progress note) 09/04/[address] Dominguez Hem/Onc and will be starting Temodar on 09/10/21 BPH (benign prostatic hyperplasia) (Chronic) Inflammatory arthritis (Acute 04/12/15) isma hands; followed by Rheum [facility] Tubular adenoma of colon (Acute 01/17/16) Seizure disorder (Acute 07/23/11) Dr Gayle [facility] manages, 08/25/19 recent f/u 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? followed with brain mri surveillance per [facility] neuro progress note 10/27/18. Other and unspecified hyperlipidemia (Acute 08/05/12) PCEq risk 17.2%? 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 Dr Shore Left-sided weakness (Acute) upper and lower extremities Impaired mobility (Acute) Impaired fasting glucose (Acute 07/23/11) Essential hypertension (Acute 10/21/13) Cervical myelopathy (Acute 08/06/12) L C6-7, multiple disc on MRI 10/13/12; refer Dr Mcbride 12/23/12 Benign neoplasm of colon (Acute 03/20/10) Medical History? 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 Colonoscopy - IV Sedation (05/04/04) Colonoscopy - IV Sedation (03/20/10) Colonoscopy - IV Sedation (01/17/16) Status post stereotactic brain biopsy (~1994) Social History/Home Situation: Lives with in a private home with that has been made handicap-accessible. Patient has exercise equipment at home that he regularly uses and is well versed with his exercise regimen/home exercise program from previous extensive physical therapy sessions. Patient is modified independent with all mobility ADL performance using Loftstrand bilateral crutches prior to admission. He has all needed equipment at home. 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 Equipment Owned/DME: 4WW, FWW, SPC, walk-in showers, garb bars Subjective: Patient states that he feels a lot better today although not back to baseline strength yet. Agreeable to consult and continued physical therapy while on admission. Okay with continuing services with home health PT. Reports of abdominal discomfort due to coughing. Objective: General Observation: Supine in bed. In NAD. Mental Status: Alert and oriented as to person, place, time, and purpose. Able to pay attention, focus, and respond appropriately. Pain: mild pain in abdominal area due to fatigue from coughing Vital Signs: WNL as closley monitored by nursing staff ROM: Right Upper Extremity: Shoulder Flexion WFL. Shoulder abduction WFL. Elbow flexion WFL. Wrist flexion WFL. Functional opening and closing of hand WFL. Left Upper Extremity: Shoulder Flexion lacks the last 25% of AROM. Shoulder abduction lacks the last 25% of AROM. Elbow flexion WFL. Wrist flexion WFL. Functional opening and closing of hand WFL. Right Lower Extremity: Hip flexion WFL. Hip abduction WFL. Knee flexion 10 degrees to 100 degrees. Knee extension -10 degrees. Ankle dorsiflexion to neutral only. Ankle plantarflexion WFL. Left Lower Extremity: Hip flexion lacks the last 25% of AROM. Hip abduction lacks the last 25% of AROM. Knee flexion 30 degrees to 90 degrees. Knee extens ion -30 degrees ankle dorsiflexion to neutral only. Ankle plantarflexion WFL. Strength: Right Upper Extremity: Shoulder flexors 4/5. Shoulder abductors 4/5. Elbow flexors 4/5. Elbow extensors 4/5. Delivery Rep strong. Left Upper Extremity: Shoulder flexors 3-/5. Shoulder abductors 3-/5. Elbow flexors 4-/5. Elbow extensors 4-/5. Delivery Rep weak but functional. Right Lower Extremity: Hip flexors 4/5. Hip abductors 4/5. Knee flexors 4/5. Knee extensors 4/5. Ankle dorsiflexors 3-/5. Ankle plantarflexors 4-/5. Left Lower Extremity: Hip flexors 3-/5. Hip abductors 3-/5. Knee flexors 3-/5. Knee extensors 3-/5. Ankle dorsiflexors 3-/5. Ankle plantarflexors 4-once/5. Bed Mobility/Transfers: Supine to sit moderate assist Sit to stand minimal assist from wheelchair; contact guard assist from edge of bed Stand to sit minimal assist Gait: Instructed patient with level surface ambulation of 20 feet + 40 feet requiring contact-guard assist. Decreased step height L>>R. Decreased knee extension in B knees throughout stance which patient states have been a chronic issue. Thoracic kyphosis. Estella decreased. Slowed pace during turning. Balance: Static Sitting: Good Dynamic Sitting: Good Static Standing: Fair Dynamic Standing: Fair Special Tests: Mobility Limitations Standardized Measure [facility] 6 clicks Basic Mobility Inpatient Short Form: Raw Score: 13 CMS Score: 65% deficit Informed Consent/Education: Patient was instructed in purpose of PT consult and plan of care. Agreeable to proceed with established PT POC to achieve personal goals. Assessment: Patient requires the use of a front-wheeled walker for all mobility ADL performance and assistance of 1 person for safety at this time. Left UEs/LE weakness chronic due to pre-existing brain cancer. Patient presents with clinical signs and symptoms consistent with current/admitting diagnoses that have resulted to mobility limitations, gait instability, generalized weakness, and overall ADL decline as demonstrated by the following impairment level findings: 1. Decreased strength to L UE/LE major muscle groups as above 2. Impaired sitting/standing balance 3. Impaired activity tolerance 4. Limitation of joint range of motion in L UE/LE as above 5. Shortness of breath Impairments are contributing to the following functional limitations: 1. Decline in bed mobility skills 2. Decline in transfer skills 3. Difficulty with ambulation without assistive device and physical assistance 4. Increased completion time for mobility ADL performance 5. Increased risk for falls 6. Difficulty with managing steps alone safely Patient is assessed as a 05347 moderate complexity based on the following: History: [id number] male with past medical history as indicated above Examination: Demonstrable impairment in strength, balance, and mobility level with underlying impairments and functional limitations as exhibited above as well as deficit score of 65% utilizing the [facility] Mobility Inpatient Short Form Presentation: Evolving Decision Makin moderate complexity Goals: Goals X1 week 1. Supine-Sit independent 2. Sit-Supine independent 3. Sit-Stand independent 4. Stand-Sit independent with Loftsrand crutches 5. Bed-Chair independent with Loftsrand crutches 6. Chair-Bed independent with Lo[place]rand crutches 7. Independent gait on level surface with use of Loftsrand crutches for at least 150 feet without report of pain nor dyspnea 8. Independent stair negotiation while holding onto B rails for at least 13 steps without report of pain nor dyspnea 9. Independent with home exercise program 10. Good static and dynamic standing balance/tolerance Plan of Care/Treatment Plan: 1-2x/day, 7 days/week x 1 week. Plan of care has been reviewed with the REGISTERED ROUTE ASSOCIATE providing the service under Physical Therapy direction. Initiate Physical Therapy intervention for pain management as needed, strengthening, bed mobility, transfers, gait, stairs, balance training, and use of assistive device. DISCHARGE RECOMMENDATIONS: [] Home with no services [] [X] Home with services. Recommend home health PT services in order to progress mobility level using least restrictive assistive ambulatory device, assess home safety, identify additional equipment needs, and establish a functional maintenance program that will increase ability of patient to remain at home. [] Home with outpatient PT [] [] SNF for continued rehabilitation [] [] Chief Librarian Circulation Department Care [] [] SNF versus LTC based on ability to participate and progress [] TREATMENT CODE/TIME: 29521 x 20 minutes, 86137 x 15 minutes beginning at 12 PM and 12:29 PM. Thank you for the opportunity to participate in the care of this patient. Shelby Rivera PT, DPT, CLT [facility] [place], [place]
[2022-04-12] MEDS: cefTRIAXone 2 GM/50 ML BAG IVPB (14:08)
--- NOTE | 2022-04-12 14:15 | CHAPLAIN ---
Kenton was resting in bed when I visited. He said he's fine and has been in touch with his , and also now with his children, who are calling a lot. Kenton was treated in and for cancer, according to Care Management notes, has seizures and is independent. He lives in [place] with his . I explained my role and offered support.
--- NOTE | 2022-04-12 14:42 | W.SPSTE ---
Date of service: 04/12/22 Time of Service: 14:00 Subjective Patient was encountered for dysphagia evaluation. Patient was resting comfortably with HOB elevated to ~60 degrees. Reporting dry mouth. Hoarse vocal quality. Had just received incentive spirometer from nursing. Nursing at bedside, stated patient has been breathing much better with decreased frequency of cough. Ate 75% of lunch meal- is currently on a regular diet with thin liquids. Objective Objective CXR results : There is poor inspiration in linear atelectasis present.? No focal consolidations are seen. H/P: 67 year old male with history of oligodendroglioma and residual left sided weakness who reports increased generalized weakness at home over past several days.? work up in the ED is concerning for a right sided pneumonia.? He was hemodynamically stable and oxygenating well on room air but unable to be safely discharged d/t his weakness.? hospitalist services contacted and plan is to admit to med/surg for further management and monitoring.? He was started on doxycycline to treat his pneumonia Patient reports he worked with ST in 2018- when he was in rehab for complications with brain tumor. He was recommended for thickened liquids at that time because he reportedly self-removed his NG tube. He has not seen ST since that time; denies HH and OP services. Patient denies overall swallowing problems except he now needs to take his meds one at a time whereas he used to be able to take a handful at once. His aptiom pill also sometimes sticks in his throat and he has occasional difficulty with apples with skins. This is only when he is really tired. Patient denies symptoms of GERD. Patient revealed he often completes oral care 1-2 x per day at home, usually once in the evening. He has an electric toothbrush. He reported that he brushed his teeth this AM. Oral mucosa appeared pink and moist, though patient stated his mouth felt dry. Geographic tongue noted. Dentition WFL, patient claims he receives regular dental care every 6 months. Volitional cough perceived to be adequate for airway clearance. Volitional consecutive swallow was timely and well-coordinated. Elevation of hyolaryngeal mechanism was detected. HOB elevated to 85 degrees. PO trials completed with thin water (3 oz water swallow), soft solids, and regular solids (apple with skin). Patient consumed 3oz of thin water in 4 seconds with no overt s/sx aspiration/penetration. No overt s/sx aspiration/penetration present with solid textures- patient did have a productive cough prior to presentation of PO. Patient denied increased work of breathing when consuming advanced textures. Oral preparation and transit WFL. Assessment Suspect mild/occasional chronic oropharyngeal dysphagia primarily due to xerostomia, exacerbated by acute respiratory condition. Patient is at low risk of aspiration/aspiration PNA at this time due to the following factors: cognition/orientation WFL, ability to self-feed, ability to ambulate several times per day with PT, using respiratory devices for airway clearance, maintaining oral hygiene while hospitalized, no diagnosis of GERD. CXR also indicated no acute findings of infiltrates. However, xerostomia may contribute to swallowing musculature atrophy, tooth decay, reduced taste, and increased oral residue that may lead to postprandial aspiration. Presence of cancer/treatment may also make patient more susceptible to illness due to immunocompromise. It is vital for patient to manage dry mouth symptoms. Recommendations: - Regular solids and thin liquids, meds whole with liquid or in puree - Increase oral care to 3x daily while hospitalized and maintain at least twice daily at home. [place] teeth, tongue, and all mucosal surfaces. - Facilitate increased saliva production through regular oral care, water intake, sugar-free hard candies/gum, alcohol-free mouthwash, saliva substitutes, etc. - Utilize incentive spirometer 5x daily to aid airway clearance - Eat only when feeling well-rested and when breathing normally - Moisten mouth prior to taking meds or eating to avoid oral residue - Reduce rate of intake - Use small bites and sips - Ensure oral cavity is clear before taking next bite of food Plan Continue current diet and implement recommendations above. No further ST f/u indicated at this time. SHOWER DOORS AND PANELS FABRICATOR will monitor progress over course of hospitalization and will re-visit if respiratory status worsens, patient has difficulty tolerating regular diet, or patient is not getting adequate nutrition at current diet level. Coding Diagnoses Oropharyngeal dysphagia R13.12 Assessment and Plan Assessment and plan (1) Oropharyngeal dysphagia: Start date: 04/12/22 Status: Chronic Assessment and plan: Suspected to be caused by dry mouth from medication regimen. Manage with aggressive oral care with soft-bristled toothbrush, increased hydration, saliva substitutes, etc.
--- NOTE | 2022-04-12 15:28 | PHA.REVIEW2 ---
Pharmacy Admission Review - Admission Clinical Review (Last Updated 04/12/22 @ 15:26 by Emilie Hernandez) Pneumonia (Acute) Generalized weakness (Acute) Adult oligodendroglioma (Acute) Left-sided weakness (Acute) Penicillins Allergy (Unknown, Verified 04/11/22 05:03) RASH Sulfa (Sulfonamide Antibiotics) Allergy (Unknown, Verified 04/11/22 05:03) RASH Resuscitation Status Full Code Height 6 ft 2 in Weight 96.6 kg - Renal Dosing Renal Dosing: BUN 16 mg/dL (7-18) 04/12/22 05:58 Creatinine 1.0 mg/dL (0.70-1.30) 04/12/22 05:58 Medications needing adjustments: Reviewed (Crcl ~97 mL/min current meds okay) - Anticoagulation Anticoagulation: Hgb 12.3 g/dL (13.5-17.5) L 04/12/22 05:58 Hct 36.5 % (40.0-50.0) L 04/12/22 05:58 Plt Count 167 10^3/uL (130-400) 04/12/22 05:58 Creatinine 1.0 mg/dL (0.70-1.30) 04/12/22 05:58 DVT Prophylaxis: N/A Therapeutic Anticoagulation: Reviewed Medications: Apixaban - Opiate Usage Evaluate Pain Scale/Pains Meds: N/A - Relevant Labs Sodium 137 mmol/L (136-145) 04/12/22 05:58 Potassium 3.8 mmol/L (3.5-5.1) 04/12/22 05:58 Chloride 107 mmol/L (98-107) 04/12/22 05:58 Magnesium 1.9 mg/dL (1.8-2.4) 04/12/22 05:58 Electrolytes, C-Reactive P, ESR: Reviewed - DM Control DM Control: Glucose 120 mg/dL (74-106) H 04/12/22 05:58 DM Control: Reviewed (No DM noted in medical history, previous A1c 5.1 from 09/11/21) Insulin Dosing, Diabetic Medication: n/a - Cardiac Review BP, HR, EF%: Reviewed (BP and HR have been within normal limits so far today) - Qtc Review QTc: N/A - IV to PO Switch IV Medications: Reviewed - Home Meds Home Med List reviewed: Reviewed Relevent Home Meds Not ordered & why?: all home meds are currently ordered - Current meds Current Medication Order Review: Reviewed - Comments Comments/Follow Ups: Watch VS, labs, for culture results, and for med changes. Antibiotic Review - Pharmacy Antibiotic Review Pharmacy Antibiotic Activity: C/S review (UC growing gram positive fabi, BC no growth at 24 hours), Reviewed, no change (ceftriaxone and doxy continue (day 2) for pneumonia) Relevant Labs: Relevant Labs 04/11/22 04:40 Procalcitonin 6.6
--- NOTE | 2022-04-12 15:37 | W.PM.PROGNOT ---
Date of Service Date of service: 04/12/22 Time of Service: 15:37 Assessment and Plan Assessment and plan (1) Pneumonia: Status: Acute Assessment and plan: symptoms improving, remains hemodynamically stable with no oxygen requirements ceftriaxone and doxycycline day 2 mucinex and tessalon perles acapella and incentive spirometry monitor closely for oxygen requirements speech therapy consulted. 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 discussed with DR Grimes Subjective Subjective Patient reports: no new complaints, feels better, tolerating liquids well, tolerating a regular diet, shortness of breath (coughing improving. no oxygen requirements) and afebrile Exam Const General: cooperative and no acute distress Orientation: alert, awake and oriented x3 HENMT Head: normal to inspection Face and sinus: normal facial exam Mouth: oral mucosae normal Eyes General: appearance normal, both eyes and all related structures EOM: EOM intact bilaterally Neck Neck: normal visual inspection Chest Chest: normal inspection of the chest Resp Effort & Inspection: normal respiratory effort and able to speak in complete sentences Auscultation: diminished lung sounds bilaterally throughout Cardio Rate: regular rate Rhythm: regular rhythm GI Inspection: normal to inspection Palpation: soft and nontender Auscultation: normal bowel sounds Back/Spine/Pelvis Thoracic/Lumbar Spine: thoracic and lumbar spine normal to inspection Skin General skin exam: no rashes or lesions noted Neuro General: patient alert and patient awake Cognition: normal cognition Speech: speech normal Extrem General: normal to inspection, full ROM, capillary refill normal and no edema Psych Appearance: grossly normal Mental Status: mental status grossly normal Speech and Movement: speech and movement normal Affect: normal affect Thought Process: normal Objective Last Vital Signs Temp 37.0 C 04/12/22 11:23 Pulse 66 04/12/22 11:23 Resp 16 04/12/22 11:23 BP 109/66 04/12/22 11:23 Pulse Ox 93 04/12/22 11:23 Laboratory Results - last 24 hr 04/11/22 04/11/22 04/12/22 04:40 17:15 05:58 WBC RBC Hgb Hct MCV MCH MCHC RDW Plt Count MPV Immature Gran % Neutrophils % Lymphocytes % Monocytes % Eosinophils % Basophils % Nucleated RBC % Absolute Neutrophils Absolute Lymphocytes Absolute Monocytes Absolute Eosinophils Absolute Basophils Sodium 137 Potassium 3.8 Chloride 107 Carbon Dioxide 22.3 Anion Gap 7.7 BUN 16 Creatinine 1.0 Est GFR (CKD-EPI 2020) 82.49 Glucose 120 H Calcium 8.5 Magnesium 1.9 Procalcitonin 6.6 Add-On Test Request DONE 04/12/22 05:58 WBC 7.30 RBC 3.91 L Hgb 12.3 L Hct 36.5 L MCV 93 MCH 31.5 MCHC 33.7 RDW 12.5 Plt Count 167 MPV 9.7 Immature Gran % 0.3 Neutrophils % 75.0 Lymphocytes % 14.4 Monocytes % 7.4 Eosinophils % 2.6 Basophils % 0.3 Nucleated RBC % 0.0 Absolute Neutrophils 5.48 Absolute Lymphocytes 1.05 L Absolute Monocytes 0.54 Absolute Eosinophils 0.19 Absolute Basophils 0.02 Sodium Potassium Chloride Carbon Dioxide Anion Gap BUN Creatinine Est GFR (CKD-EPI 2020) Glucose Calcium Magnesium Procalcitonin Add-On Test Request Time Spent with Patient Time Spent with Patient: 25-34 minutes Time was spent: preparing to see the patient(eg.review tests), obtaining and/or reviewing separately otained hiistory, referring, communicating with other health rn intensive care unit, indepentently interpreting results and counseling the patient
--- NOTE | 2022-04-12 15:49 | PT.INTREAT ---
PT Notes Visit Reasons: Pneumonia,Weakness Date: 04/12/2022 PRECAUTIONS: Fall, activity as tolerated SUBJECTIVE: Pt in bed when approached for therapy this afternoon, pt agreed to participating with therapy. OBJECTIVE:? PAIN: Patient denies pain ? BED MOBILITY/TRANSFERS? ? Supine to EOB: Supervision EOB to supine: supervision ? Sit-stand: CGA ? Stand-sit: SBA? GAIT? Assistive Device: FWW ? Weight bearing: Full Assist: CGA ? Distance: 150'? Deviation: Estella decreased. Step height decreased. Step length decreased.? ASSESSMENT: Pt able to complete bed mobility with supervision given enough time to complete task, cue for posture and emphasis on increasing step height, step length and wider step width to improve step quality. PLAN: Continue with general conditioning for improved activity tolerance. TREATMENT CODE/TIME: 30 minutes 89890 (2:35-3:05pm)
[2022-04-12 15:57] VITALS: BP 108/67; PULSE 68; RESP 17; TEMP 37; O2SAT 92
--- NOTE | 2022-04-12 16:30 | PDOC.CMPRO ---
- If Service Date Differs Date of service: 04/12/22 Time of Service: 16:30 Care Management Progress Note S/O: Kenton was sitting up in bed when CM met with him. He stated that he is doing much better today, but still feels very weak. He reported that his helps him a lot around the house, but she can't lift him, which is a concern. Another concern is the stairs he has to go up to get into the house. CM discussed this with PT, who will work with him on stairs. Per report, he is not yet medically cleared. He will continue to work with PT while he remains inpatient. He is agreeable to HH services upon discharge. CM will continue to follow. A: Kenton is a 67 year old male admitted to [facility] on 04/11/22 for pneumonia, weakness. P: Anticipate Kenton will return home when medically cleared with new orders for HH PT, OT, BUSINESS SERVICES ASSISTANT. His will drive him home when ready via private vehicle. He will follow up with his PCP and discharge plan of care. CM will continue to follow.
[2022-04-12] MEDS: Topiramate 100 MG TAB 200 MG PO (17:42)
[2022-04-12] MEDS: Atorvastatin 20 MG TAB PO (19:35)
[2022-04-12 19:45] VITALS: BP 105/68; PULSE 75; RESP 18; TEMP 37.4; O2SAT 94
[2022-04-12 23:20] VITALS: BP 103/62; PULSE 72; RESP 18; TEMP 37.1; O2SAT 93
[2022-04-13 03:45] VITALS: BP 104/66; PULSE 68; RESP 18; TEMP 36.9; O2SAT 93
[2022-04-13] MEDS: DOXYCYCLINE 100 MG in Normal Saline 100 ML 200 MG IVPB (05:44)
[2022-04-13 07:31] VITALS: BP 125/75; PULSE 66; RESP 16; TEMP 37.1; O2SAT 93
[2022-04-13] MEDS: Multivitamin TAB 1 TAB PO (08:53)
[2022-04-13] MEDS: Tamsulosin 0.4 MG CAPCR 0.8 MG PO (08:53)
[2022-04-13] MEDS: Calcium 600mg/Vit D 200U TAB 1 TAB PO ×2 (08:53→21:19)
[2022-04-13] MEDS: guaiFENesin 600 MG TABCR PO ×2 (08:53→21:19)
[2022-04-13] MEDS: Topiramate 100 MG TAB PO (08:53)
[2022-04-13] MEDS: Apixaban 5 MG TAB PO ×2 (08:53→21:19)
[2022-04-13] MEDS: Lisinopril 10 MG TAB PO (08:54)
[2022-04-13] MEDS: Normal Saline Flush 10 ML SYR IVP ×3 (09:03→21:19)
--- NOTE | 2022-04-13 10:52 | PT.INTREAT ---
PT Notes Visit Reasons: Pneumonia,Weakness Date: 04/13/2022 PRECAUTIONS: Fall, activity as tolerated SUBJECTIVE: Pt in recliner when approached for therapy this afternoon, pt agreed to participating with therapy. OBJECTIVE:? PAIN: Patient denies pain ? BED MOBILITY/TRANSFERS? ? Supine to EOB: Supervision EOB to supine: supervision ? Sit-stand: SBA ? Stand-sit: SBA? GAIT? Assistive Device: Loftstrand?forearm crutches Weight bearing: Full Assist: supervision? Distance: 150'x 2? Deviation: Decreased step height L>>R.? Decreased knee extension in B knees throughout stance which patient states have been a chronic issue.? Thoracic kyphosis.? Estella decreased.? Slowed pace during turning.? Sit to stand from recliner [id number] Stair negotiation training 4 steps x6 / 6 steps x4 unilateral handrail with cane on other hand step through gait pattern. ? ASSESSMENT: Pt able to utilize forearm crutches today with less anterior trunk lean, pt cue for looking ahead, pt able to complete stair negotiation training with good technique, slow pacing. pt did not have any complaints post session. PLAN: Continue with general conditioning for improved activity tolerance. TREATMENT CODE/TIME: 30 minutes [id number] (9:10-9:40am)
[2022-04-13 11:11] VITALS: BP 115/74; PULSE 69; RESP 16; TEMP 36.7; O2SAT 94
[2022-04-13] MEDS: cefTRIAXone 2 GM/50 ML BAG IVPB (13:47)
[2022-04-13 15:49] VITALS: BP 107/61; PULSE 66; RESP 16; TEMP 36.7; O2SAT 94
--- NOTE | 2022-04-13 16:42 | PGE_ITS ---
Date of Service Date of service: 04/13/22 Time of Service: 16:42 Assessment and Plan Assessment and plan (1) Pneumonia: Status: Acute Assessment and plan: symptoms improving, remains hemodynamically stable with no oxygen requirements ceftriaxone and doxycycline day 3 mucinex and tessalon perles acapella and incentive spirometry monitor closely for oxygen requirements speech therapy consulted. (2) Generalized weakness: Status: Acute Assessment and plan: PT/OT (3) Adult oligodendroglioma: Status: Acute Assessment and plan: followed by Dr Dominguez at hem/onc (4) Left-sided weakness: Status: Acute Assessment and plan: PT consulted and working with patient. Improving each day anticipate discharge to home in 1-2 days if remains medically stable. discussed with DR Lowe Subjective Subjective Patient reports: no new complaints, tolerating liquids well, tolerating a regular diet, voiding w/o difficulty, bowel movement and afebrile; denies sh ortness of breath Interval history since last seen: reports increasing strength, working with physical therapy. Exam Const General: cooperative and no acute distress Orientation: alert, awake and oriented x3 HENMT Head: normal to inspection Face and sinus: normal facial exam Mouth: oral mucosae normal Eyes General: appearance normal, both eyes and all related structures EOM: EOM intact bilaterally Neck Neck: normal visual inspection Chest Chest: normal inspection of the chest Resp Effort & Inspection: normal respiratory effort and able to speak in complete sentences Auscultation: diminished lung sounds bilaterally throughout Cardio Rate: regular rate Rhythm: regular rhythm GI Inspection: normal to inspection Palpation: soft and nontender Auscultation: normal bowel sounds Back/Spine/Pelvis Thoracic/Lumbar Spine: thoracic and lumbar spine normal to inspection Skin General skin exam: no rashes or lesions noted Neuro General: patient alert and patient awake Cognition: normal cognition Speech: speech normal Extrem General: normal to inspection, full ROM, capillary refill normal and no edema Psych Appearance: grossly normal Mental Status: mental status grossly normal Speech and Movement: speech and movement normal Affect: normal affect Thought Process: normal Objective Last Vital Signs Temp 36.7 C 04/13/22 15:49 Pulse 66 04/13/22 15:49 Resp 16 04/13/22 15:49 BP 107/61 04/13/22 15:49 Pulse Ox 94 04/13/22 15:49 Time Spent with Patient Time Spent with Patient: 25-34 minutes Time was spent: preparing to see the patient(eg.review tests), obtaining and/or reviewing separately otained hiistory and indepentently interpreting results
[2022-04-13] MEDS: Topiramate 100 MG TAB 200 MG PO (17:41)
[2022-04-13 19:10] VITALS: BP 108/63; PULSE 69; RESP 16; TEMP 36.8; O2SAT 94
[2022-04-13] MEDS: DOXYCYCLINE 100 MG in Normal Saline 100 ML IVPB (21:16)
[2022-04-13] MEDS: Atorvastatin 20 MG TAB PO (21:19)
[2022-04-13 23:32] VITALS: BP 110/65; PULSE 69; RESP 16; TEMP 36.9; O2SAT 94
[2022-04-14 03:35] VITALS: BP 108/62; PULSE 69; RESP 18; TEMP 36.7; O2SAT 98
[2022-04-14 08:14] VITALS: BP 105/61; PULSE 61; RESP 17; TEMP 36.8; O2SAT 94
[2022-04-14] MEDS: Apixaban 5 MG TAB PO (08:25)
[2022-04-14] MEDS: Tamsulosin 0.4 MG CAPCR 0.8 MG PO (08:25)
[2022-04-14] MEDS: guaiFENesin 600 MG TABCR PO (08:25)
[2022-04-14] MEDS: Topiramate 100 MG TAB PO (08:26)
[2022-04-14] MEDS: Multivitamin TAB 1 TAB PO (08:26)
[2022-04-14] MEDS: Calcium 600mg/Vit D 200U TAB 1 TAB PO (08:26)
[2022-04-14] MEDS: Lisinopril 10 MG TAB PO (08:26)
[2022-04-14] MEDS: Normal Saline Flush 10 ML SYR IVP (08:27)
[2022-04-14] MEDS: DOXYCYCLINE 100 MG in Normal Saline 100 ML IVPB (08:34)
[2022-04-14 11:25] VITALS: BP 109/65; PULSE 65; RESP 17; TEMP 36.7; O2SAT 94
--- NOTE | 2022-04-14 11:30 | W.PM.DS.N ---
Date of service: 04/14/22 Time of Service: 11:30 DS: Diagnosis Discharge Diagnosis (1) Pneumonia: Status: Acute (2) Generalized weakness: Status: Acute (3) Adult oligodendroglioma: Status: Acute (4) Left-sided weakness: Status: Acute Discharge Plan Disposition Patient Disposition: Home W/Home Health Services Condition: Improving Discharge Details Reason For Visit: Pneumonia,Weakness Admit Date/Time: 04/11/22 09:11 Admit Provider: Usha Grimes Attending Provider: Usha Grimes Primary Care Provider: Yenni Brooks Hospital Course Hospital Course: This is a 67 year old male with history of brain tumor and residual left sided weakness who reports increased generalized weakness at home over past several days.? work up in the ED is concerning for a right sided pneumonia.? He was hemodynamically stable and oxygenating well on room air but unable to be safely discharged d/t his weakness.? hospitalist services contacted and plan is to admit to med/surg for further management and monitoring.? He was started on doxycycline to treat his pneumonia, ceftriaxone was added. while on med/surg continued to slowly improve. he began working with physical therapy and progressing well. His respiratory status remained stable. no oxygen requirements. He was eating and drinking well. bowel and bladder functioning well. He has remained hemodynamically stable. blood cultures remained negative. He was cleared by PT to safely be discharged to home. We will order PT/OT and BEVELING MACHINE OPERATOR home health services. He is transport by family to home discussed with DR Lowe ? Home Meds and New Rx's Prescriptions: New doxycycline hyclate 100 mg capsule 100 mg PO BID Qty: 7 0RF cefpodoxime 200 mg tablet 200 mg PO BID Qty: 7 0RF Rx Instructions: must administer with a meal/food Continued tamsulosin [Flomax] 0.4 mg capsule 0.8 mg PO DAILY Qty: 180 3RF acetaminophen [Tylenol] 325 mg capsule 325 mg PO PRN lisinopril 10 mg tablet 10 mg PO DAILY Qty: 90 3RF atorvastatin 20 mg tablet 20 mg PO QPM Qty: 90 3RF apixaban 5 mg tablet 5 mg PO BID Qty: 180 3RF multivitamin [Daily Vitamin] 1 EACH tablet 1 ea PO DAILY calcium carbonate-vitamin D3 1 EACH tablet 1 ea PO BID Rx Instructions: [facility] MEDLIST 09/26/14 [facility] fluticasone propionate 16 GM spray,suspension 2 spry NS BID PRN Label Comments: 05/14/17-disch Dr Breaux Aptiom 600 MG tablet 1,200 mg PO HS clobazam [Onfi] 10 mg tablet See Rx Instructions PO as directed PRN Label Comments: Rx Instructions: 5 MG AM, 15 MG PM, NOTED 02/17/19 NEURO. CGC PO as directed PRN topiramate [Topamax] 100 mg tablet 100 mg PO as directed Label Comments: 05/21/2017--100 in am and 200 mg in evening per discharge Dr Breaux- Rx Instructions: 100mg a.m.;200mg hs-Dr Gayle Discharge Instructions Instructions: Community Acquired Pneumonia (DC) Stand Alone Forms: Nursing Discharge Form Referrals: Yenni Brooks SPECIAL CLIENT BUS DRIVER [Primary Care Provider] - (Call Friday to make an Appointment in the next 10-14 days [phone]) Activity:: Activity as Tolerated Equipment/Supplies:: No Equipment Needed Diet:: As Tolerated Discharge Orders Discharge Orders: Discharge Order (Routine); Ordered 04/14/22 Ordered By: Kristin Corral Discharge Data Discharge Date/Time-TO BE ENTERED AT DEPARTURE: 04/14/22 13:22 DS: Summary Time Spent with Patient providing and/or coordinating discharge services: Greater than 30 minutes Status at Discharge Functional status at discharge: uses cane/walker Overall status at discharge: patient is progressing back to baseline Mental Status: mental status grossly normal Speech and Movement: speech and movement normal Mood: congruent mood Affect: normal affect Exam Const General: cooperative and no acute distress Orientation: alert, awake and oriented x3 HENMT Head: normal to inspection Face and sinus: normal facial exam Mouth: oral mucosae normal Eyes General: appearance normal, both eyes and all related structures EOM: EOM intact bilaterally Neck Neck: normal visual inspection Chest Chest: normal inspection of the chest Resp Effort & Inspection: normal respiratory effort and able to speak in complete sentences Auscultation: diminished lung sounds bilaterally throughout Cardio Rate: regular rate Rhythm: regular rhythm GI Inspection: normal to inspection Palpation: soft and nontender Auscultation: normal bowel sounds Back/Spine/Pelvis Thoracic/Lumbar Spine: thoracic and lumbar spine normal to inspection Skin General skin exam: no rashes or lesions noted Neuro General: patient alert and patient awake Cognition: normal cognition Speech: speech normal Extrem General: normal to inspection, full ROM, capillary refill normal and no edema Psych Appearance: grossly normal Mental Status: mental status grossly normal Speech and Movement: speech and movement normal Mood: congruent mood Affect: normal affect Thought Process: normal DS: Data Vitals/I&O Vitals and I&O: Vital Signs Temperature 36.7 C 04/14/22 11:25 Temperature Source Tympanic 04/14/22 11:25 Pulse 65 04/14/22 11:25 Pulse Rhythm Regular 04/14/22 10:43 Pulse 76 04/11/22 04:50 Respiratory Rate 17 04/14/22 11:25 Respiratory Effort Non-Labored 04/14/22 10:43 Respiratory Depth Normal 04/14/22 10:43 Respiratory Pattern Normal 04/14/22 10:43 Blood Pressure 109/65 04/14/22 11:25 Blood Pressure Mean 63 04/11/22 04:46 Pulse Oximetry 94 04/14/22 11:25 Oxygen Delivery Method Room Air 04/14/22 11:25 Oxygen Flow Rate 0 04/14/22 11:25 Pain Level 0 04/14/22 11:25 Intake & Output 04/13/22 04/13/22 04/14/22 11:59 23:59 11:59 Intake Total 400 / 800 400 / 800 100 / 100 Output Total 600 / 1175 575 / 1175 650 / 650 Balance -200 / -375 -175 / -375 -550 / -550 Weight 97.114 kg Intake: IV 100 / 260 160 / 260 100 / 100 Oral 300 / 540 240 / 540 Output: Urine 600 / 1175 575 / 1175 650 / 650 Other: Urine Color Yellow Yellow Yellow Urine Appearance Clear Clear Clear Urine Odor None Normal None Stool Size Large Stool Characteristics Soft Formed Brown Voiding Methods Urinal Urinal Urinal Data Completed and Pending Labs on day of discharge: Preliminary micro results at discharge 04/11/22 04:40 Blood Culture - Preliminary Blood NO GROWTH 72 HOURS 04/11/22 04:40 Blood Culture - Preliminary Blood NO GROWTH 72 HOURS PFSH All Active Problems (Updated 04/12/22 @ 15:27 by Emilie Hernandez) Oropharyngeal dysphagia (Chronic) Pneumonia (Acute) Generalized weakness (Acute) Deep vein thrombosis (DVT) of femoral vein (Acute) Urinary dribbling (Acute) Incidental lung nodule (Acute) Abnormal chest x-ray (Acute) Generalized weakness (Acute) Ambulatory dysfunction (Acute) COVID-19 (Acute) 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 F/U [facility] Neurology - Dr Bae 08/25/19 F/U Dr Gayle 06/12/21-WHO grade II ([facility] progress note) 09/04/[address] Dominguez Hem/Onc and will be starting Temodar on 09/10/21 BPH (benign prostatic hyperplasia) (Chronic) Inflammatory arthritis (Acute 04/12/15) isma hands; followed by Rheum [facility] Tubular adenoma of colon (Acute 01/17/16) Seizure disorder (Acute 07/23/11) Dr Gayle [facility] manages, 08/25/19 recent f/u 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 followed with brain mri surveillance per [facility] neuro progress note 10/27/18. 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) [facility] Rad Rx [address] Dr Shore Left-sided weakness (Acute) upper and lower extremities Impaired mobility (Acute) Impaired fasting glucose (Acute 07/23/11) Essential hypertension (Acute 01/18/13) Cervical myelopathy (Acute 08/06/12) L C6-7, multiple disc on MRI 10/13/12; refer Dr Mcbride 12/23/12 Benign neoplasm of colon (Acute 03/20/10) Medical History (Updated 04/12/22 @ 15:27 by Emilie Hernandez) Benign neoplasm of colon Essential hypertension 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 Father Colon cancer Sister Breast cancer Sister No problems noted. Sister No problems noted. Brother Diabetes Social History Smoking/Tobacco Use Status: Never Smoking risk assessment performed?: Yes Alcohol Intake: never Drug use: Never Substance use type: does not use Household members: spouse Number of Children: 3 current occupation: since 2014 Do you feel safe at home: Yes Do you feel safe in your relationship?: Yes Time Spent with Patient Time Spent with Patient: <45 minutes Time was spent: preparing to see the patient(eg.review tests), obtaining and/or reviewing separately otained hiistory, referring, communicating with other health child caregiver private home, counseling the patient and care coordination
--- NOTE | 2022-04-14 11:35 | PDOC.HHF2F_ITS ---
Home Health Referral Home Health Orders Clinical synopsis of why skilled professionals are needed: generalized weakness Medical diagnosis necessitation home health referral: community acquired pneumonia Physical Therapist: Check all that apply Increase strength & endurance for safe mobility at home: Ordered To design/establish home maintenance program: Ordered Fall reduction therapy program for patient with history of frequent falls: Ordered Home safety evaluation and teaching/gait training including stair management (if applicable): Ordered Other: Decreased step height L>>R. Decreased knee extension in B knees throughout stance which patient states have been a chronic issue. Thoracic kyphosis. Estella decreased. Slowed pace during turning. Occupational Therapist: Evaluate and treat for patient unable to perform ADL/IADL/self-care: Ordered Director Of Medical Staff Services: Assist with community resources: Ordered Assist with roasterman care planning: Ordered Home Bound Status Requires the aid of supportive device (check all that apply): Crutches Describe why leaving home would require a considerable and taxing effort: Requires frequent rest periods and Safety Concerns: describe (chronic left sided weakness) Encounter Date and Reason: I certify that a FTF encounter for this patient was performed on April 14, 2022 and that such encounter was related to the primary reason the patient requires home health services. The encounter was conducted in the following manner: * By me as the certifying physician, SYSTEMS SUPPORT ENGINEER, PA or * By an inpatient physician, SYSTEMS SUPPORT ENGINEER or PA during an inpatient stay who communicated findings to me, Certification And Authentication I certify that I composed the above information based on my clinical judgment relating to this patient's medical condition and, if applicable, clinical findings communicated to me by the NPP or inpatient physician who performed the FTF encounter. Name of Provider that will be monitoring home health services: Yenni Brooks
--- NOTE | 2022-04-14 12:14 | PT.INTREAT ---
PT Notes Visit Reasons: Pneumonia,Weakness Date: 04/14/2022 PRECAUTIONS: Fall, activity as tolerated SUBJECTIVE: Pt in bed when approached for therapy this morning. pt agreed to participating with therapy. OBJECTIVE:? PAIN: Patient denies pain ? BED MOBILITY/TRANSFERS? ? Supine to EOB: Supervision EOB to supine: supervision ? Sit-stand: Supervision? Stand-sit: Supervision? GAIT? Assistive Device:? Loftstrand?forearm crutches Weight bearing: Full Assist: supervision? Distance: 150'x 2? Deviation: Decreased step height L>>R.? Decreased knee extension in B knees throughout stance which patient states have been a chronic issue.? Thoracic kyphosis.? Estella decreased.? Slowed pace during turning.? Sit to stand from recliner [id number] Stair negotiation training 6 steps x16 unilateral handrail with cane on other hand st ep through gait pattern. 3690degree turns on platform to allow pt to go back down on same side?of 6 gym stairs. ? ASSESSMENT: Pt tolerated activity well, reports feeling fatigue from stair activity. PLAN: DC this afternoon to home with home health PT. TREATMENT CODE/TIME: 40 minutes [id number] (10:10-10:50am)
--- NOTE | 2022-04-14 16:09 | PDOC.CMDIS ---
- If Service Date Differs Date of service: 04/14/22 Time of Service: 16:09 LACE Index Scoring Tool - Questions: Length of Stay (in days): 3 Acuity (Admit via E.D.?): Yes Comorbidities: Any Tumor E.D. Visits: 1 - Answers: Total Score: 9 Risk of Readmission: Low Risk Care Management Discharge Reason for Hospitalization: pneumonia, weakness Discharge Plan: Kenton will return home today with new orders for HH PT, OT, MACHINE ZIPPER TRIMMER. His will drive him home via private vehicle. He will follow up with his PCP and discharge instructions. He is happy to be going home. Patient/Family Education Needs: Review discharge instructions and limitations, discussion of self care needs including ask me three and goals of care. Services Needed at Discharge: Home Health Care Services (PT, OT, MACHINE ZIPPER TRIMMER)
--- NOTE | 2022-04-14 17:45 | NUR.NOTE ---
pt's called for clarification on discharge medications regime. this assembly instructions writer reviewed discharge instructions for ABX therapy.
--- NOTE | 2022-04-15 11:46 | PT.DS ---
Supervising Provider: Shelby Rivera PT Diagnosis: limited ability to ambulate Diagnosis: pneumonia, weakness Weeks Elapsed: week(s) and 0 day(s) Patient Location: [facility] Referring Provider: Date of Service: April 15, 2022 11:46 am PT Notes Visit Reasons: Pneumonia,Weakness Physical Therapy Inpatient Discharge Summary Treatment Dates: 04/12/2022 - 04/14/22 Referring Doctor: Usha Grimes MD PT Orders: PT CONSULT: Limited ability Precautions: Fall. Standard. Activity as tolerated. Seizure precautions. This document serves as a summary of care. No PT services were provided on this date. 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 Patient is admitted to the [facility] unit for management of pneumonia and generalized weakness. He participated in 4 PT sessions over the course of 3 days, and demonstrated improvements in safety and mobility sufficient to allow for safe return home once medically stable. Social History/Home Situation: Lives with in a private home with that has been made handicap-accessible. Patient has exercise equipment at home that he regularly uses and is well versed with his exercise regimen/home exercise program from previous extensive physical therapy sessions. Patient is modified independent with all mobility ADL performance using Loftstrand bilateral crutches prior to admission. He has all needed equipment at home. 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 Equipment Owned/DME: 4WW, FWW, SPC, walk-in showers, garb bars Subjective: none obtained Objective: ROM: Right Upper Extremity: Shoulder Flexion WFL. Shoulder abduction WFL. Elbow flexion WFL. Wrist flexion WFL. Functional opening and closing of hand WFL. Left Upper Extremity: Shoulder Flexion lacks the last 25% of AROM. Shoulder abduction lacks the last 25% of AROM. Elbow flexion WFL. Wrist flexion WFL. Functional opening and closing of hand WFL. Right Lower Extremity: Hip flexion WFL. Hip abduction WFL. Knee flexion 10 degrees to 100 degrees. Knee extension -10 degrees. Ankle dorsiflexion to neutral only. Ankle plantarflexion WFL. Left Lower Extremity: Hip flexion lacks the last 25% of AROM. Hip abduction lacks the last 25% of AROM. Knee flexion 30 degrees to 90 degrees. Knee extension -30 degrees ankle dorsiflexion to neutral only. Ankle plantarflexion WFL. Strength: Right Upper Extremity: Shoulder flexors 4/5. Shoulder abductors 4/5. Elbow flexors 4/5. Elbow extensors 4/5. Admission Liaison strong. Left Upper Extremity: Shoulder flexors 3-/5. Shoulder abductors 3-/5. Elbow flexors 4-/5. Elbow extensors 4-/5. Admission Liaison weak but functional. Right Lower Extremity: Hip flexors 4/5. Hip abductors 4/5. Knee flexors 4/5. Knee extensors 4/5. Ankle dorsiflexors 3-/5. Ankle plantarflexors 4-/5. Left Lower Extremity: Hip flexors 3-/5. Hip abductors 3-/5. Knee flexors 3-/5. Knee extensors 3-/5. Ankle dorsiflexors 3-/5. Ankle plantarflexors 4-once/5. BED MOBILITY/TRANSFERS? ? Supine to EOB: Supervision EOB to supine: supervision ? Sit-stand: Supervision? Stand-sit: Supervision? GAIT? Assistive Device:? Loftstrand?forearm crutches Weight bearing: Full Assist: supervision? Distance: 150'x 2? Deviation: Decreased step height L>>R.? Decreased knee extension in B knees throughout stance which patient states have been a chronic issue.? Thoracic kyphosis.? Estella decreased.? Slowed pace during turning.? Sit to stand from recliner [id number] Stair negotiation training 6 steps x16 unilateral handrail with cane on other hand st ep through gait pattern. 3690degree turns on platform to allow pt to go back down on same side?of 6 gym stairs. 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 Patient is admitted to the MedSurg unit for management of pneumonia and generalized weakness. He participated in 4 PT sessions over the course of 3 days, and demonstrated improvements in safety and mobility sufficient to allow for safe return home once medically stable. Goals: Goals X1 week 1. Supine-Sit independent (progressing toward- completed with supervision only) 2. Sit-Supine independent (progressing toward- completed with supervision only) 3. Sit-Stand independent (progressing toward- completed with supervision only) 4. Stand-Sit independent with Loftsrand crutches (progressing toward- completed with supervision only) 5. Bed-Chair independent with Loftsrand crutches (progressing toward- completed with supervision only) 6. Chair-Bed independent with Loftsrand crutches (progressing toward- completed with supervision only) 7. Independent gait on level surface with use of Loftsrand crutches for at least 150 feet without report of pain nor dyspnea (met) 8. Independent stair negotiation while holding onto B rails for at least 13 steps without report of pain nor dyspnea (met) 9. Independent with home exercise program (met) 10. Good static and dynamic standing balance/tolerance (progressing toward) Plan of Care/Treatment Plan: Discharge from PT in acute care setting with recommendation for continued rehabilitation via HH services. DISCHARGE RECOMMENDATIONS: [] Home with no services [] [X] Home with services. Recommend home health PT services in order to progress mobility level using least restrictive assistive ambulatory device, assess home safety, identify additional equipment needs, and establish a functional maintenance program that will increase ability of patient to remain at home. [] Home with outpatient PT [] [] SNF for continued rehabilitation [] [] Custodial Care [] [] SNF versus LTC based on ability to participate and progress [] TREATMENT CODE/TIME: none Thank you for the opportunity to participate in the care of this patient. Uyen Hernandez PT, DPT [facility] [place], [place]
== END 2022-04-14 13:22 | disposition home health service (06) | DRG 194 ==
LOC: ER 09:26 → MS 11:41
PROVIDERS: Student in an Organized Health Care Education/Training Program; Admitting Provider Internal Medicine; Emergency Provider Physician Assistant; PCP Nurse Practitioner; Visit Provider Internal Medicine
DX: J18.9 Pneumonia, unspecified organism (principal); C71.9 Malignant neoplasm of brain, unspecified; G81.94 Hemiplegia, unspecified affecting left nondominant side; G40.909 Epilepsy, unspecified, not intractable, without status epilepticus; I10 Essential (primary) hypertension; E78.5 Hyperlipidemia, unspecified; Z79.01 Long term (current) use of anticoagulants; R91.8 Other nonspecific abnormal finding of lung field; R26.2 Difficulty in walking, not elsewhere classified; N40.0 Benign prostatic hyperplasia without lower urinary tract symptoms; Z86.16 Personal history of COVID-19; R73.01 Impaired fasting glucose; R13.12 Dysphagia, oropharyngeal phase
CPT/HCPCS: 36415; 80048; 80053; 82805; 84145; 87040; 87637; 92610; 96361; 96365; 97162; 97167; 97530; 99285; 71045; 81003; 81015; 83605; 83735; 85025; 87086; 99223; 99232; 99239

== ENCOUNTER 2022-09-17 03:26 | Outpatient (CLI) | payer MEDICARE, BC, SELFPAY ==
[2022-09-17 07:48] LABS: HCT 46.2 % (40.0-50.0); HGB 16.1 g/dL (13.5-17.5); MCH 31.4 pg (27.0-33.0); MCHC 34.8 % (32.0-36.0); MCV 90 fL (80-95); MPV 9.3 fL (8.0-11.0); Platelet Count 217 10^3/uL (130-400); RBC 5.12 10^6/uL (4.36-5.78); RDW 13.2 % (11.8-14.1); RDW-SD 43.6 fL; WBC 6.98 10^3/uL (4.4-10.8)
[2022-09-17 08:14] LABS: ALT 24 U/L (16-63); AST 15 U/L (15-37); Albumin 3.8 g/dL (3.4-5.0); Alkaline Phosphatase 133 U/L (46-116); Anion Gap 8.1 mmol/L (3-11); BUN 17 mg/dL (7-18); Bilirubin, Total 0.6 mg/dL (0.2-1.0); CO2 26.9 mmol/L (21.0-32.0); CREATININE 1.1 mg/dL (0.70-1.30); Calcium 8.9 mg/dL (8.5-10.1); Calculated LDL 92 mg/dL (<100); Chloride 109 mmol/L (98-107); Cholesterol 157 mg/dL (<200); Estimated GFR 73.58 (mL/min/1.73m2); Glucose 105 mg/dL (74-106); HDL Cholesterol 36 mg/dL (40-60); Sodium 144 mmol/L (136-145); Total Protein 8.1 g/dL (6.4-8.2); Triglyceride 145 mg/dL (<150)
[2022-09-17 08:31] LABS: Hemoglobin A1C 5.2 % (<5.7)
[2022-09-18 13:24] LABS: Hepatitis C Ab w Rflx HCV PCR Negative (Negative)
== END 2022-09-17 03:27 | disposition home or self-care (01) ==
LOC: LBO 03:26
PROVIDERS: PCP Nurse Practitioner; Visit Provider Nurse Practitioner
DX: E78.5 Hyperlipidemia, unspecified (principal); I10 Essential (primary) hypertension; R73.01 Impaired fasting glucose; G40.909 Epilepsy, unspecified, not intractable, without status epilepticus; Z11.59 Encounter for screening for other viral diseases
CPT/HCPCS: 36415; 80053; 80061; 85027; 86803; 83036

== ENCOUNTER → 2022-10-09 09:50 | Outpatient (BNVA) | payer MEDICARE, BC, SELFPAY | PROVIDERS: PCP Nurse Practitioner; Visit Provider Nurse Practitioner Gerontology | DX: N40.1 Benign prostatic hyperplasia with lower urinary tract symptoms (principal); N39.43 Post-void dribbling | CPT/HCPCS: 36415; 51798; 99214 ==

== ENCOUNTER 2022-10-09 10:55 | Outpatient (REF) | payer MEDICARE, BC, SELFPAY | END 2022-10-09 10:56 | disposition home or self-care (01) | LOC: LBN 10:55 | PROVIDERS: PCP Nurse Practitioner; Visit Provider Nurse Practitioner Gerontology | DX: N39.43 Post-void dribbling (principal); N40.0 Benign prostatic hyperplasia without lower urinary tract symptoms | CPT/HCPCS: 84153 ==

== ENCOUNTER → 2023-01-01 09:17 | Outpatient (BNVA) | payer MEDICARE, BC, SELFPAY | PROVIDERS: PCP Nurse Practitioner; Referring Provider Nurse Practitioner; Visit Provider Nurse Practitioner Gerontology | DX: N40.1 Benign prostatic hyperplasia with lower urinary tract symptoms (principal); N39.43 Post-void dribbling; I10 Essential (primary) hypertension | CPT/HCPCS: 51798; 99213 ==

== ENCOUNTER 2023-03-03 07:19 | Inpatient (IN) | payer MEDICARE, BC, SELFPAY ==
[2023-03-03] VITALS (48 sets, daily range): BP systolic 101–153; BP diastolic 53–77; PULSE 69–88; RESP 16–18; TEMP 37.3–39.2; O2SAT 92–97
--- NOTE | 2023-03-03 08:38 | W.ED.GENAD ---
Discharge Plan Disposition Patient Disposition: Admit to [facility] Condition: Serious Discharge Details Clinical Impression: COVID-19, Generalized weakness Admit Date/Time: 03/05/23 12:20 Admit Provider: Usha Grimes Attending Provider: Usha Grimes Primary Care Provider: Yenni Brooks ED Provider: Harley Lanier Discharge Data Discharge Date/Time-TO BE ENTERED AT DEPARTURE: 03/03/23 12:33 Medical Decision Making 910 -- 68-year-old male here with symptoms consistent with viral illness. Patient is saturating well and in no respiratory distress. He is dehydrated. Patient hemodynamically stable. COVID-positive. Plan to initiate antiviral treatment. As a result of his acute COVID illness in setting of brain tumor, patient is not able to ambulate -this has happened to him in the past with acute illness. Patient will require hospitalization. 1018 --CT of the head was interpreted by radiology demonstrates right frontal craniotomy with no change from prior CT imaging 2020 and 2021. I will initiate treatment with remdesivir. -- Care discussed with hospitalist. Patient to be admitted. Lab Data Lab results reviewed: Yes I reviewed the patient's lab results. HPI General Mode of arrival: EMS. Date/Time Provider Initiated Documentation: 03/03/23 07:34. Limitations to Documentation: no limitations. Information obtained by: patient. HPI Narrative: 68-year-old male with multiple medical problems including history of mixed glial neoplasm of the brain, here with generalized weakness, sinus congestion, otalgia, fever and fatigue. Patient notes has been feeling ill since Friday. Patient states when he gets illness he develops generalized weakness and has been not able to ambulate. This has happened to him in the past. No COLEMAN. No neck stiffness. Related Data Home Medications Medication Instructions Recorded Confirmed multivitamin (Daily Vitamin tablet) 1 ea PO DAILY 07/24/12 03/03/23 calcium carbonate 600 mg-vitamin 1 ea PO BID 09/27/14 03/03/23 D3 20 mcg (800 unit) tablet eslicarbazepine 600 mg tablet 1,200 mg PO HS 05/14/17 03/03/23 (Aptiom) fluticasone propionate 50 2 spry NS BID PRN 05/14/17 03/03/23 mcg/actuation nasal spray,suspension clobazam 10 mg tablet (Onfi) See Rx Instructions PO as directed 02/18/19 03/03/23 Topamax 100 mg tablet (topiramate) 100 mg PO as directed 03/13/20 03/03/23 acetaminophen 325 mg capsule 325 mg PO PRN 09/11/21 03/03/23 (Tylenol) lisinopril 10 mg tablet 10 mg PO DAILY #90 tab-caps 09/02/22 03/03/23 tamsulosin 0.4 mg capsule (Flomax) 0.8 mg (2 x 0.4 mg) PO DAILY #180 10/07/22 03/03/23 caps finasteride 5 mg tablet 5 mg PO DAILY #90 tabs 10/14/22 03/03/23 apixaban 5 mg tablet 5 mg PO BID #180 tabs 11/04/22 03/03/23 atorvastatin 20 mg tablet 20 mg PO QPM #90 tabs 11/04/22 03/03/23 acetaminophen 500 mg tablet 1,000 mg (2 x 500 mg) PO TID PRN 03/07/23 PRN #30 tabs benzonatate 100 mg capsule 100 - 200 mg (1 - 2 x 100 mg) PO 03/07/23 TID PRN PRN cough #30 caps cholecalciferol (vitamin D3) 25 50 mcg (2 x 25 mcg (1,000 unit)) 03/07/23 mcg (1,000 unit) tablet PO DAILY #30 tabs guaifenesin 600 mg tablet, 600 mg PO BID PRN PRN cough #30 03/07/23 extended release 12 hr (Mucus tabs Relief ER) Previous Rx's Medication Instructions Recorded lisinopril 10 mg tablet 10 mg PO DAILY #90 tab-caps 09/02/22 tamsulosin 0.4 mg capsule (Flomax) 0.8 mg (2 x 0.4 mg) PO DAILY #180 10/07/22 caps finasteride 5 mg tablet 5 mg PO DAILY #90 tabs 10/14/22 apixaban 5 mg tablet 5 mg PO BID #180 tabs 11/04/22 atorvastatin 20 mg tablet 20 mg PO QPM #90 tabs 11/04/22 acetaminophen 500 mg tablet 1,000 mg (2 x 500 mg) PO TID PRN 03/07/23 PRN #30 tabs benzonatate 100 mg capsule 100 - 200 mg (1 - 2 x 100 mg) PO 03/07/23 TID PRN PRN cough #30 caps cholecalciferol (vitamin D3) 25 50 mcg (2 x 25 mcg (1,000 unit)) 03/07/23 mcg (1,000 unit) tablet PO DAILY #30 tabs guaifenesin 600 mg tablet, 600 mg PO BID PRN PRN cough #30 03/07/23 extended release 12 hr (Mucus tabs Relief ER) Allergies Allergy/AdvReac Type Severity Reaction Status Date / Time Penicillins Allergy Unknown RASH Verified 03/03/23 07:26 Sulfa (Sulfonamide Allergy Unknown RASH Verified 03/03/23 07:26 Antibiotics) General Stated Complaint: GenMedical CARLOS: 3 Review of Systems Constitutional Constitutional: Reports fatigue, Reports fever(s) and Reports weakness ENT Ears, Nose, Mouth, and Throat: Reports otalgia and Reports nasal congestion Cardiovascular Cardiovascular: Denies chest pain Neurologic Neurologic: Reports weakness Endocrine Endocrine: Reports fatigue PFSH All Active Problems (Updated 03/08/23 @ 00:01 by ROBERT BARTHOLOMEW) Acute bronchitis (Acute) Urinary incontinence (Acute) Generalized weakness (Acute) COVID-19 (Acute) Oropharyngeal dysphagia (Chronic) Pneumonia (Acute) Generalized weakness (Acute) Deep vein thrombosis (DVT) of femoral vein (Acute) Urinary dribbling (Acute) Incidental lung nodule (Acute) Abnormal chest x-ray (Acute) Generalized weakness (Acute) Ambulatory dysfunction (Acute) COVID-19 (Acute) Adult oligodendroglioma (Chronic) 05/25/19 F/U [facility] Neurology - Dr Bae 08/25/19 F/U Dr Gayle 06/12/21-WHO grade II ([facility] progress note) 09/04/[address] Dominguez Hem/Onc and will be starting Temodar on 09/10/21 06/19/22 Hem/Onc BPH (benign prostatic hyperplasia) (Chronic) Inflammatory arthritis (Acute 04/12/15) isma hands; followed by Rheum [facility] Tubular adenoma of colon (Acute 01/17/16) Seizure disorder (Chronic 07/23/11) Dr Gayle [facility] manages, 08/25/19 recent f/u 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 followed with brain mri surveillance per [facility] neuro progress note 10/27/18. 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) [facility] Rad Rx [address] Dr Shore Left-sided weakness (Acute) upper and lower extremities Impaired mobility (Acute) Impaired fasting glucose (Acute 07/23/11) Essential hypertension (Acute 01/18/13) Cervical myelopathy (Acute 08/06/12) L C6-7, multiple disc on MRI 10/13/12; refer Dr Mcbride 12/23/12 Benign neoplasm of colon (Acute 03/20/10) Medical History (Updated 03/08/23 @ 00:01 by ROBERT BARTHOLOMEW) Seizure disorder (~05/2017) Benign neoplasm of colon Inflammatory arthritis Essential hypertension 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 Father Colon cancer Sister Breast cancer Sister No problems noted. Sister No problems noted. Brother Diabetes Social History Smoking/Tobacco Use Status: Never Smoking risk assessment performed?: Yes Alcohol Intake: never Drug use: Never Substance use type: does not use Household members: spouse Housing: house Number of Children: 3 current occupation: since 2014 Do you feel safe at home: Yes Do you feel safe in your relationship?: Yes Exam Const General: cooperative and no acute distress HENMT Mouth: mucous membranes dry Eyes Conjunctivae: normal conjunctivae Sclera: normal sclerae Neck Neck: trachea midline and supple Resp Auscultation: clear to auscultation bilaterally, no rales, no rhonchi and no wheezes Cardio Rate: regular rate and not tachycardic Rhythm: regular rhythm GI Palpation: soft, not firm, no guarding, no masses, not rigid and nontender Skin General skin exam: no rashes or lesions noted Neuro General: patient alert, patient awake and patient oriented x3 Other: Generalized weakness, unable to ambulate with assistance Extrem General: no edema Psych Appearance: grossly normal Mental Status: mental status grossly normal Course Vital Signs Vital signs: Vital Signs Temperature 37.3 C 03/03/23 07:21 Pulse 82 03/03/23 07:21 Respiratory Rate 18 03/03/23 07:21 Blood Pressure 112/62 03/03/23 07:21 Pulse Oximetry 93 03/03/23 07:21 Temperature 37.3 C 03/03/23 07:21 Temperature Source Oral 03/03/23 07:21 Pulse 82 03/03/23 07:21 Respiratory Rate 16 03/03/23 08:10 Respiratory Effort Normal 03/03/23 08:10 Respiratory Depth Normal 03/03/23 08:10 Respiratory Pattern Normal 03/03/23 08:10 Blood Pressure 112/62 03/03/23 07:21 Blood Pressure Position Supine 03/03/23 07:21 Pulse Oximetry 93 03/03/23 07:21 Oxygen Delivery Method Room Air 03/03/23 07:21 Oxygen Flow Rate 0 03/03/23 07:21
[2023-03-03 08:45] LABS: Influenza A PCR Negative (Negative); Influenza B PCR Negative (Negative); RSV PCR Negative (Negative)
[2023-03-03 08:46] LABS: COVID-19 PCR Positive (Negative); Source Nasopharynx
[2023-03-03 09:37] LABS: Abs Immature Grans 0.01 10^3/uL (0.0-0.06); Absolute Basophil Count 0.02 10^3/uL (0.0-0.2); Absolute Eosinophil Count 0.01 10^3/uL (0.0-0.7); Absolute Lymphocyte Count 0.56 10^3/uL (1.2-3.4); Absolute Neutrophil Count 4.81 10^3/uL (1.2-6.7); Basophils % 0.3; Eosinophils % 0.2; HCT 40.4 % (40.0-50.0); HGB 14.1 g/dL (13.5-17.5); Immature Grans % 0.2; Lymphocytes % 9.2; MCH 31.4 pg (27.0-33.0); MCHC 34.9 % (32.0-36.0); MCV 90 fL (80-95); Monocytes % 11.5; Neutrophils % 78.6; Platelet Count 171 10^3/uL (130-400); RBC 4.49 10^6/uL (4.36-5.78); RDW 13.4 % (11.8-14.1); RDW-SD 44.3 fL; WBC 6.11 10^3/uL (4.4-10.8)
[2023-03-03 09:51] LABS: ALT 23 U/L (16-63); AST 17 U/L (15-37); Albumin 3.3 g/dL (3.4-5.0); Alkaline Phosphatase 95 U/L (46-116); Anion Gap 10.4 mmol/L (3-11); BUN 11 mg/dL (7-18); Bilirubin, Total 0.4 mg/dL (0.2-1.0); CO2 21.6 mmol/L (21.0-32.0); CREATININE 1.1 mg/dL (0.70-1.30); Calcium 8.3 mg/dL (8.5-10.1); Chloride 105 mmol/L (98-107); Estimated GFR 73.12 (mL/min/1.73m2); Glucose 126 mg/dL (74-106); Magnesium 1.9 mg/dL (1.8-2.4); Potassium 3.5 mmol/L (3.5-5.1); Sodium 137 mmol/L (136-145); Total Protein 6.9 g/dL (6.4-8.2)
--- NOTE | 2023-03-03 10:02 | DI.CT_ITS ---
Exam(s) CT HEAD WO EXAM: CT HEAD WO CLINICAL HISTORY: unable to ambulate, h/o brain tumor. TECHNIQUE: Imaging Protocol: Axial computed tomography images with coronal and sagittal reformatted images were created and reviewed COMPARISON: CT CT HEAD WO from 03/31/2020 MR MR BRAIN WO/W from 01/21/2022 FINDINGS: There are no skull fractures. Right high frontal craniotomy site is again noted, unchanged. There is no evidence of intracranial hemorrhage, mass effect, or shift of midline structures. There are no extra-axial fluid collections. The ventricles are not enlarged or shifted and there is no blo od within the ventricular system nor within the basal cisterns. Intra-axial calcification in the high right frontal lobe subjacent to the craniotomy site is unchange d from 2020. No new focal brain findings on CT scan. IMPRESSION: No acute intracranial findings on this noninfused CT scan. Right high frontal craniotomy again noted with benign-appearing subjacent brain findings unchanged from CT scan of March 31, 2020. Called by myself to ER physician. RADIATION DOSE DELIVERED: Total DLP DATA REPOSITORY: All CT scans at this facility are submitted to the National Radiology Data Registry (NRDR) Dose Index Registry (DIR) with the [employer] (A[employer]). RADIATION OPTIMIZATION: All CT scans at this facility use at least one of these dose optimization te chniques: automated exposure control; mA and/or kV adjustment per patient size (includes targeted exa ms where dose is matched to clinical indication); or iterative reconstruction.
[2023-03-03 10:04] LABS: Bilirubin Negative (Negative); Blood Trace-intact (Negative); Clarity Clear (Clear); Glucose Negative (Negative); Ketones Negative (Negative); Leukocyte Esterase Negative (Negative); Nitrite Negative (Negative); Specific Gravity 1.025 (1.005-1.025); Urobilinogen 0.2 mg/dL (Up to 0.2); pH 6.5 (5-8)
[2023-03-03 10:10] LABS: Bacteria Negative HPF (Negative); C & S Indicated? No; Casts 0-2 Hyaline LPF (Negative); Crystals Negative HPF (Negative); Epithelial Cells Rare HPF (Negative); Mucus Trace (Negative); RBC 0-2 HPF (0-2); WBC Negative HPF (0-5)
--- NOTE | 2023-03-03 10:16 | DI.RAD_ITS ---
Exam(s) XR CHEST 2V PA LATERAL EXAM: XR CHEST 2V PA LATERAL CLINICAL HISTORY: covid. TECHNIQUE: 2D digital imaging was performed. COMPARISON: CR XR CHEST 2V PA LATERAL from 04/17/2020 CR,XR XR PORTABLE CHEST AP from 04/11/2022 FINDINGS: 2 views: Heart size is normal. The mediastinum is not widened. Small unchanged nodule lateral left lung has appearance of a small granuloma and unchanged from 04/17. No new infiltrates in the left lung. No pleural effusions. Mild increased markings in the l ower half of the right lung field appear atelectatic and unchanged from 04/11/2022 Pleural effusions on either side. No pulmonary edema. IMPRESSION: Platelike atelectasis in the right middle lobe which was not evident in March 2020 but which appear s unchanged from March 2022. No pleural effusions. DATA REPOSITORY: RADIATION DOSE DELIVERED:
[2023-03-03] MEDS: REMDESIVIR 200 MG in Normal Saline 250 ML 250 MG IVPB (10:55)
--- NOTE | 2023-03-03 11:48 | HPE_ITS ---
Date of service: 03/03/23 Time of Service: 11:48 Assessment and Plan Assessment and plan (1) COVID-19: Status: Acute Assessment and plan: Continue remdesivir initiated in the ED. The patient is not a candidate for paxlovid due to medication interactions. Encourage pulmonary toilet. I am starting empiric doxycycline given green color of sputum. C/s PT. (2) Generalized weakness: Status: Acute Assessment and plan: C/s PT. Due to #1. (3) Seizure disorder: Status: Chronic Assessment and plan: Continue outpatient antiepileptics. (4) Adult oligodendroglioma: Status: Chronic Assessment and plan: F/[place]/ [facility] [place] (5) DVT prophylaxis: Status: Acute Assessment and plan: On chronic apixaban due to a h/o DVT (6) Discharge planning issues: Status: Acute Assessment and plan: Full code History of Present Illness History of Present Illness Chief Complaint: Generalized weakness, congestion, cough, fever, fatigue Narrative: Mr Cunningham is a 68 year old male with PMHx of oligodendroglioma (followed by Dr Dominguez at [facility] [place]) with chronic L-sided weakness as well as h/o seizure disorder, h/o DVT on apixaban, hypertension, hyperlipidemia, who lives at home with his , who presented to [facility] c/o fever, fatigue, generalized weakness, chest and nasal congestion, cough x 4 days. Today his cough became productive of green sputum. The weakness has made it impossible for the patient to get up. He had to call for lift assist on Friday night to get from a chair to bed. He has not fallen. His is unable to care for him in his current condition. He does get this week every time he gets a fever, per patient. No seizures since September of 2022. His workup in the ED is c/w acute COVID-19 infection. He was not hypoxic. He was started on remdesivir. Hospitalists were asked to take over care. Review of Systems All systems reviewed & are unremarkable except as noted in HPI and below PFSH All Active Problems (Updated 03/03/23 @ 14:04 by Usha Grimes MD) Discharge planning issues (Acute) DVT prophylaxis (Acute) Generalized weakness (Acute) COVID-19 (Acute) Oropharyngeal dysphagia (Chronic) Pneumonia (Acute) Generalized weakness (Acute) Deep vein thrombosis (DVT) of femoral vein (Acute) Urinary dribbling (Acute) Incidental lung nodule (Acute) Abnormal chest x-ray (Acute) Generalized weakness (Acute) Ambulatory dysfunction (Acute) COVID-19 (Acute) Adult oligodendroglioma (Chronic) 05/25/19 F/U [facility] [place] - Dr Bae 08/25/19 F/U Dr Gayle 06/12/21-WHO grade II [place] [place] 09/04/[address] Dominguez Hem/Onc and will be starting Temodar on 09/10/21 06/19/22 Hem/Onc BPH (benign prostatic hyperplasia) (Chronic) Inflammatory arthritis (Acute 04/12/15) isma hands; followed by Rheum [facility] Tubular adenoma of colon (Acute 01/17/16) Seizure disorder (Chronic 07/23/11) Dr Gayle [facility] manages, 08/25/19 recent f/u 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 followed with brain mri [place] [facility] [place] 10/27/18. 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 [place] Surgical History Status post stereotactic brain biopsy (~1994) Colonoscopy - IV Sedation (01/17/16) Colonoscopy - IV Sedation (03/20/10) Colonoscopy - IV Sedation (05/04/04) Family History Mother No problems noted. Father Colon cancer Sister Breast cancer Sister No problems noted. Sister No problems noted. Brother Diabetes Social History Smoking/Tobacco Use Status: Never Smoking risk assessment performed?: Yes Alcohol Intake: never Drug use: Never Substance use type: does not use Household members: spouse Housing: house Number of Children: 3 current occupation: since 2014 Do you feel safe at home: Yes Do you feel safe in your relationship?: Yes Meds Allergies and Home Medications Allergies Allergy/AdvReac Type Severity Reaction Status Date / Time Penicillins Allergy Unknown RASH Verified 03/03/23 07:26 Sulfa (Sulfonamide Allergy Unknown RASH Verified 03/03/23 07:26 Antibiotics) Home Medications Medication Instructions Recorded Confirmed Type multivitamin (Daily Vitamin tablet) 1 ea PO DAILY 07/24/12 03/03/23 History calcium carbonate 600 mg-vitamin 1 ea PO BID 09/27/14 03/03/23 History D3 20 mcg (800 unit) tablet eslicarbazepine 600 mg tablet 1,200 mg PO HS 05/14/17 03/03/23 History (Aptiom) fluticasone propionate 50 2 spry NS BID PRN 05/14/17 03/03/23 History mcg/actuation nasal spray,suspension clobazam 10 mg tablet (Onfi) See Rx Instructions PO as directed 02/18/19 03/03/23 History Topamax 100 mg tablet (topiramate) 100 mg PO as directed 03/13/20 03/03/23 History acetaminophen 325 mg capsule 325 mg PO PRN 09/11/21 03/03/23 History (Tylenol) lisinopril 10 mg tablet 10 mg PO DAILY #90 tab-caps 09/02/22 03/03/23 Rx tamsulosin 0.4 mg capsule (Flomax) 0.8 mg (2 x 0.4 mg) PO DAILY #180 10/07/22 03/03/23 Rx caps finasteride 5 mg tablet 5 mg PO DAILY #90 tabs 10/14/22 03/03/23 Rx apixaban 5 mg tablet 5 mg PO BID #180 tabs 08/07/23 12/04/23 Rx atorvastatin 20 mg tablet 20 mg PO QPM #90 tabs 11/04/22 03/03/23 Rx Exam Narrative Exam Narrative: General: A very pleasant middle-aged male who is A&Ox3, diaphoretic, NAD, appears comfortable in bed Neurological: A&Ox3, mild L-sided weakness Psychiatric: Appropriate speech pattern/content Skin: Visible skin intact HEENT: Atraumatic, normocephalic, EOMI, dry MM, clear oropharynx, no submandibular or cervical lymphadenopathy. No goiter or JVD. Cardiovascular: RRR, no m/r/g Lungs: Diminished breath sounds at B bases; coarse breath sounds B Gastrointestinal: soft, nontender, nondistended Genitourinary: deferred Extremities: no edema BLEs, 1+ pedal pulses B Results Imaging Additional studies: CT head: No acute intracranial findings on this noninfused CT scan. Right high frontal craniotomy again noted with benign-appearing subjacent brain findings unchanged from CT scan of March 31, 2020. CXR: Platelike atelectasis in the right middle lobe which was not evident in March 2020 but which appears unchanged from March 2022. No pleural effusions. Labs 03/03/23 09:26 03/03/23 09:26 Labs: Laboratory Results - last 24 hr 03/03/23 03/03/23 03/03/23 07:50 09:00 09:26 WBC 6.11 RBC 4.49 Hgb 14.1 Hct 40.4 MCV 90 MCH 31.4 MCHC 34.9 RDW 13.4 Plt Count 171 MPV 10.0 Immature Gran % 0.2 Neutrophils % 78.6 Lymphocytes % 9.2 Monocytes % 11.5 Eosinophils % 0.2 Basophils % 0.3 Nucleated RBC % 0.0 Absolute Neutrophils 4.81 Absolute Lymphocytes 0.56 L Absolute Monocytes 0.70 Absolute Eosinophils 0.01 Absolute Basophils 0.02 Sodium 137 Potassium 3.5 Chloride 105 Carbon Dioxide 21.6 Anion Gap 10.4 BUN 11 Creatinine 1.1 Est GFR (CKD-EPI 2020) 73.12 Glucose 126 H Calcium 8.3 L Magnesium 1.9 Total Bilirubin 0.4 AST 17 ALT 23 Alkaline Phosphatase 95 Total Protein 6.9 Albumin 3.3 L Urine Color Yellow Urine Clarity Clear Urine pH 6.5 Ur Specific [place] 1.025 Urine Protein 30 H Urine Ketones Negative Urine Blood Trace-intact H Urine Nitrite Negative Urine Bilirubin Negative Urine Urobilinogen 0.2 Ur Leukocyte Esterase Negative Urine RBC 0-2 Urine WBC Negative Ur Epithelial Cells Rare Urine Crystals Negative Urine Bacteria Negative Urine Casts 0-2 Hyaline Urine Mucus Trace Ur Culture Indicated? No Urine Glucose Negative COVID-19 Source Nasopharynx SARS-CoV-2 (PCR) Positive A Influenza Type A (PCR) Negative Influenza Type B (PCR) Negative RSV (PCR) Negative Last Vital Signs Temp 37.3 C 03/03/23 07:21 Pulse 75 03/03/23 08:46 Resp 16 03/03/23 08:10 BP 120/60 03/03/23 08:46 Pulse Ox 94 03/03/23 08:50 Time Spent Time spent with Patient: 55-74 minutes Time was spent: preparing to see the patient(eg.review tests), obtaining and/or reviewing separately otained hiistory, ordering medications,tests, procedures, referring, communicating with other health career resource specialist, indepentently interpreting results, counseling the patient and care coordination
[2023-03-03 12:50] LABS: Lab Add On Test DONE
[2023-03-03 13:21] LABS: C-Reactive Protein 9.47 mg/dL (0.0-0.3); Ferritin 348 ng/mL (26-388)
[2023-03-03 13:22] LABS: Procalcitonin < 0.1 ng/mL
[2023-03-03 13:32] LABS: Creatine Kinase 116 U/L (39-308)
[2023-03-03] MEDS: Acetaminophen 325 MG TAB PO (15:58)
[2023-03-03] MEDS: Ketorolac 15 MG/ML VIAL IVP (18:39)
[2023-03-03] MEDS: Normal Saline Flush 10 ML SYR IVP (18:40)
[2023-03-03] MEDS: Atorvastatin 20 MG TAB PO (20:24)
[2023-03-03] MEDS: Doxycycline Hyclate 100 MG CAP PO (20:24)
[2023-03-03] MEDS: Apixaban 5 MG TAB PO (20:24)
[2023-03-03] MEDS: guaiFENesin 600 MG TABCR PO (20:24)
[2023-03-03] MEDS: Benzonatate 100 MG CAP PO (20:24)
[2023-03-03] MEDS: Calcium 600mg/Vit D 200U TAB 1 TAB PO (20:24)
[2023-03-03] MEDS: Topiramate 100 MG TAB 200 MG PO (21:49)
[2023-03-03] MEDS: Acetaminophen 500 MG TAB 1000 MG PO (21:50)
[2023-03-04] VITALS (9 sets, daily range): BP systolic 102–123; BP diastolic 61–70; PULSE 69–84; RESP 15–18; TEMP 37–39; O2SAT 92–95
[2023-03-04] MEDS: Ibuprofen 600 MG TAB PO (04:02)
[2023-03-04 07:03] LABS: Abs Immature Grans 0.02 10^3/uL (0.0-0.06); Absolute Basophil Count 0.04 10^3/uL (0.0-0.2); Absolute Eosinophil Count 0.01 10^3/uL (0.0-0.7); Absolute Lymphocyte Count 1.08 10^3/uL (1.2-3.4); Absolute Monocyte Count 0.76 10^3/uL (0.1-0.8); Absolute Neutrophil Count 4.82 10^3/uL (1.2-6.7); Basophils % 0.6; Eosinophils % 0.1; HCT 40.5 % (40.0-50.0); HGB 13.8 g/dL (13.5-17.5); Immature Grans % 0.3; MCH 30.9 pg (27.0-33.0); MCHC 34.1 % (32.0-36.0); MCV 91 fL (80-95); MPV 9.6 fL (8.0-11.0); Monocytes % 11.3; Neutrophils % 71.7; Platelet Count 161 10^3/uL (130-400); RBC 4.46 10^6/uL (4.36-5.78); RDW 13.4 % (11.8-14.1); RDW-SD 45.3 fL; WBC 6.73 10^3/uL (4.4-10.8)
[2023-03-04 07:17] LABS: INR 1.2 (0.9-1.1); Prothrombin Time 11.6 sec (9.1-11.1)
[2023-03-04 07:36] LABS: ALT 33 U/L (16-63); AST 29 U/L (15-37); Alkaline Phosphatase 81 U/L (46-116); Anion Gap 6.9 mmol/L (3-11); BUN 16 mg/dL (7-18); Bilirubin, Direct 0.1 mg/dL (0.0-0.2); Bilirubin, Total 0.3 mg/dL (0.2-1.0); C-Reactive Protein 8.91 mg/dL (0.0-0.3); CO2 25.1 mmol/L (21.0-32.0); CREATININE 1.1 mg/dL (0.70-1.30); Calcium 8.6 mg/dL (8.5-10.1); Chloride 104 mmol/L (98-107); Estimated GFR 73.12 (mL/min/1.73m2); Ferritin 531 ng/mL (26-388); Glucose 107 mg/dL (74-106); Magnesium 1.8 mg/dL (1.8-2.4); Potassium 3.6 mmol/L (3.5-5.1); Sodium 136 mmol/L (136-145); Total Protein 6.5 g/dL (6.4-8.2)
[2023-03-04 08:33] LABS: Vitamin D 25 Total 28.5 ng/mL (30-100)
[2023-03-04] MEDS: Finasteride 5 MG TAB PO (09:18)
[2023-03-04] MEDS: Calcium 600mg/Vit D 200U TAB 1 TAB PO ×2 (09:19→21:21)
[2023-03-04] MEDS: Lisinopril 10 MG TAB PO (09:19)
[2023-03-04] MEDS: Benzonatate 100 MG CAP PO ×3 (09:19→21:22)
[2023-03-04] MEDS: guaiFENesin 600 MG TABCR PO ×2 (09:19→21:22)
[2023-03-04] MEDS: Doxycycline Hyclate 100 MG CAP PO ×2 (09:19→21:21)
[2023-03-04] MEDS: Topiramate 100 MG TAB PO (09:19)
[2023-03-04] MEDS: Multivitamin TAB 1 TAB PO (09:19)
[2023-03-04] MEDS: Tamsulosin 0.4 MG CAPCR 0.8 MG PO (09:19)
[2023-03-04] MEDS: Apixaban 5 MG TAB PO ×2 (09:19→21:22)
[2023-03-04] MEDS: REMDESIVIR 100 MG in Normal Saline 250 ML 250 MG IVPB (10:34)
--- NOTE | 2023-03-04 14:45 | PT.INIE ---
PT Notes Visit Reasons: COVID,generalized weaness,Inability to Ambulate Physical Therapy Inpatient Initial Evaluation Date: 03/04/2023 Referring Doctor: Usha Grimes MD PT Orders: PT CONSULT: Limited ability. Eval/Treat. Precautions: Fall. Standard. Activity as tolerated. Seizure precautions. Full code. Patient Profile/Admitting Diagnosis: Chi is a 68-year-old male with past medical history significant for right low grade oligodendroglioma with chronic left-sided weakness who presented to the ED on 03/03/2023 due to generalized weakness, severe nasal congestion, ear pain, fever, fatigue, and difficulty ambulating. PMHX: All Active Problems (Updated 03/03/23 @ 14:04 by Usha Grimes MD) Discharge planning issues (Acute) DVT prophylaxis (Acute) Generalized weakness (Acute) COVID-19 (Acute) Oropharyngeal dysphagia (Chronic) Pneumonia (Acute) Generalized weakness (Acute) Deep vein thrombosis (DVT) of femoral vein (Acute) Urinary dribbling (Acute) Incidental lung nodule (Acute) Abnormal chest x-ray (Acute) Generalized weakness (Acute) Ambulatory dysfunction (Acute) COVID-19 (Acute) Adult oligodendroglioma (Chronic) 05/25/19 F/U [facility] Neurology - Dr Bae 08/25/19 F/U Dr Gayle 06/12/21-WHO grade II ([facility] [place]) 09/04/[address] Dominguez Hem/Onc and will be starting Temodar on 09/10/21 06/19/22 Hem/Onc BPH (benign prostatic hyperplasia) (Chronic) Inflammatory arthritis (Acute 04/12/15) isma hands; followed by Rheum [facility] Tubular adenoma of colon (Acute 01/17/16) Seizure disorder (Chronic 07/23/11) Dr Gayle [facility] manages, 08/25/19 recent f/u 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 followed with brain mri surveillance [place] [facility] [place] 10/27/18. 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) [facility] Rad Rx [address] Dr [place] Left-sided weakness (Acute) upper and lower extremities Impaired mobility (Acute) Impaired fasting glucose (Acute 07/23/11) Essential hypertension (Acute 01/18/13) Cervical myelopathy (Acute 08/06/12) L C6-7, multiple disc on MRI 10/13/12; refer Dr Mcbride 12/23/12 Benign neoplasm of colon (Acute 03/20/10) Medical History (Updated 03/03/23 @ 14:04 by Usha Grimes MD) Seizure disorder (~05/2017) Benign neoplasm of colon Inflammatory arthritis Essential hypertension 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 Patient is modified independent with all mobility ADL performance using [place] bilateral crutches prior to admission. He has all needed equipment at home. 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 Equipment Owned/DME: 4WW, FWW, SPC, walk-in showers, garb bars Subjective: Patient and agreeable to consult. states that had been managing well at home using his forearm crutches until this admission. Objective: General Observation: Supine in bed. came in at same time PT arrived. Nurse Courtney present in room to assist for safety. Mental Status: Alert and oriented as to person, place, time, and purpose. Able to pay attention, focus, and respond appropriately. Pain: Vital Signs: Closely monitored by nursing staff ROM: Right Upper Extremity: Shoulder Flexion WFL. Shoulder abduction WFL. Elbow flexion WFL. Wrist flexion WFL. Functional opening and closing of hand WFL. Left Upper Extremity: Shoulder Flexion lacks the last 50% of AROM. Shoulder abduction lacks the last 50% of AROM. Elbow flexion WFL. Wrist flexion WFL. Functional opening and closing of hand WFL. Right Lower Extremity: Hip flexion WFL. Hip abduction WFL. Knee flexion 10 degrees to 100 degrees. Knee extension -10 degrees. Ankle dorsiflexion to neutral only. Ankle plantarflexion WFL. Left Lower Extremity: Hip flexion lacks the last 25% of AROM. Hip abduction lacks the last 25% of AROM. Knee flexion 30 degrees to 90 degrees. Knee extension -30 degrees ankle dorsiflexion to neutral only. Ankle plantarflexion WFL. Strength: Right Upper Extremity: Shoulder flexors 4/5. Shoulder abductors 4/5. Elbow flexors 4/5. Elbow extensors 4/5. Grinder Set Up Operator Centerless strong. Left Upper Extremity: Shoulder flexors 3-/5. Shoulder abductors 3-/5. Elbow flexors 4-/5. Elbow extensors 4-/5. Grinder Set Up Operator Centerless weak but functional. Right Lower Extremity: Hip flexors 4/5. Hip abductors 4/5. Knee flexors 4/5. Knee extensors 4/5. Ankle dorsiflexors 3-/5. Ankle plantarflexors 4-/5. Left Lower Extremity: Hip flexors 3-/5. Hip abductors 3-/5. Knee flexors 3-/5. Knee extensors 3-/5. Ankle dorsiflexors 3-/5. Ankle plantarflexors 4-once/5. Bed Mobility/Transfers: Moderate verbal cueing given for movement sequence, AD management, posture Supine to sit moderate assist Sit to stand moderate assist of 2 Stand to sit moderate assist of 2 Gait: Instructed patient with short distance in-room level surface ambulation of 3-5 small steps from bed to bedside commode with moderate assist of 2 and minimal assist of for safety. Delayed motor execution, increased trunk lean to R, and lack of inability to fully extend B knees (chronic) all increased risk for falls and thus assist of 3. Decreased step height L>>R. Thoracic kyphosis. Estella decreased. Slowed pace during turning. PT needed to assist with maneuvering wheelchair during turning to ensure safety. Balance: Static Sitting: Fair Dynamic Sitting: Poor Static Standing: Poor Dynamic Standing: Poor Special Tests: Mobility Limitations Standardized Measure [facility] AM-PAC 6 clicks Basic Mobility Inpatient Short Form: Raw Score: 11 CMS Score: 73% deficit Informed Consent/Education: Patient was instructed in purpose of PT consult and plan of care. Agreeable to proceed with established PT POC to achieve personal goals. ASSESSMENT: L-sided weakness worse compared to when patient was last seen early part of this year. Trunk lean to L increased. Generalized weakness, delayed motor execution, impaired accuracy of motor performance all increase risk for falls. May need to use STEDY lift for safety with nursing staff. Patient requires the use of a front-wheeled walker for all mobility ADL performance and assistance of 2 persons for transfers and 3 persons for pericare after bedside commode use. Left UEs/LE weakness chronic due to pre-existing brain cancer. Will require OT evaluation for assessment of self-care and grooming tasks. Patient presents with clinical signs and symptoms consistent with current/admitting diagnoses that have resulted to mobility limitations, gait instability, generalized weakness, and overall ADL decline as demonstrated by the following impairment level findings: 1. Decreased strength to L UE/LE major muscle groups as above 2. Impaired sitting/standing balance 3. Impaired activity tolerance 4. Limitation of joint range of motion in L UE/LE as above 5. Shortness of breath Impairments are contributing to the following functional limitations: 1. Decline in bed mobility skills 2. Decline in transfer skills 3. Difficulty with ambulation without assistive device and physical assistance 4. Increased completion time for mobility ADL performance 5. Increased risk for falls 6. Difficulty with managing steps alone safely Patient is assessed as a 29678 moderate complexity based on the following: History: [id number] male with past medical history as indicated above Examination: Demonstrable impairment in strength, balance, and mobility level with underlying impairments and functional limitations as exhibited above as well as deficit score of 65% utilizing the [facility] Mobility Inpatient Short Form Presentation: Evolving Decision Makin moderate complexity Goals: Goals X1 week 1. Supine-Sit independent 2. Sit-Supine independent 3. Sit-Stand independent 4. Stand-Sit independent with [place] crutches 5. Bed-Chair independent with [place] crutches 6. Chair-Bed independent with [place] crutches 7. Independent gait on level surface with use of [place] crutches for at least 60 feet inside room without report of pain nor dyspnea 8. Independent stair negotiation while holding onto B rails for at least 13 steps without report of pain nor dyspnea 9. Independent with home exercise program 10. Good static and dynamic standing balance/tolerance Plan of Care/Treatment Plan: 1-2x/day, 7 days/week x 1 week. Plan of care has been reviewed with the CNC OPERATOR MACHINIST providing the service under Physical Therapy direction. Initiate Physical Therapy intervention for pain management as needed, strengthening, bed mobility, transfers, gait, stairs, balance training, and use of assistive device. PT Treatment Focus: Work on sitting balance and tolerance Increase standing balance/tolerance using STEDY lift as needed Use resistance bands/weight for B UE/LE strengthening as tolerated Coordinate with nursing staff for a second person to assist with walking inside room for safety DISCHARGE RECOMMENDATIONS: [] Home with no services [] [] Home with services [specify] [] Home with outpatient PT [] [] SNF for continued rehabilitation [] [] Longterm Care [] [] SNF versus LTC based on ability to participate and progress [] [X] SNF vs PT based on progress towards goals TREATMENT CODE/TIME: 28752 x 20 minutes for 1 unit, 57398 x 29 minutes for 2 units beginning at 13:50 PM. Thank you for the opportunity to participate in the care of this patient. Shelby Rivera PT, DPT, CLT [facility] [place], [place]
[2023-03-04] MEDS: Acetaminophen 500 MG TAB 1000 MG PO (15:45)
--- NOTE | 2023-03-04 16:29 | PDOC.CMIN ---
Date of service: 03/04/23 Time of Service: 16:29 Care Management Initial Assmt Initial Assessment REASON FOR HOSPITALIZATION:: COVID, weakness, ambulatory dysfunction PREVIOUS FUNCTIONAL STATUS/SOCIAL/FAMILY SUPPORTS:: Kenton lives with his , Yaneli, in [place], [place]. He has three adult children; all of whom reside out of state. He has a history of ogligodendroglioma (central nervous system tumor) and received radiation treatment in 1994 and chemotherapy in 2018 for a recurrence of the cancer. Kenton now has seizures but is mostly independent with his ADLs. His provides assistance when needed. CURRENT FUNCTIONAL STATUS:: COVID precautions ADVANCE DIRECTIVES:: With poiser per chart review. Has patient been provided with info about the portal/API?: Yes Did the patient sign up for the portal?: Yes CODE STATUS:: Full Code INSURANCE COVERAGE / FINANCIAL ISSUES:: [facility] and Medicare PRIMARY CARE PHYSICIAN:: Yenni Brooks POTENTIAL DISCHARGE NEEDS:: Follow up appointments PATIENT/FAMILY EDUCATION NEEDS:: Review discharge instructions, discuss Ask Me Three. ANTICIPATED BARRIERS TO DISCHARGE:: None identified. TRANSPORTATION:: TBD by disposition PLAN:: Kenton will return home when ready per MD. [facility] All Active Problems (Updated 03/04/23 @ 18:42 by Usha Grimes MD) Urinary incontinence (Acute) Discharge planning issues (Acute) DVT prophylaxis (Acute) Generalized weakness (Acute) COVID-19 (Acute) Oropharyngeal dysphagia (Chronic) Pneumonia (Acute) Generalized weakness (Acute) Deep vein thrombosis (DVT) of femoral vein (Acute) Urinary dribbling (Acute) Incidental lung nodule (Acute) Abnormal chest x-ray (Acute) Generalized weakness (Acute) Ambulatory dysfunction (Acute) COVID-19 (Acute) Adult oligodendroglioma (Chronic) 05/25/19 F/U [facility] Neurology - Dr Bae 08/25/19 F/U Dr Gayle 06/12/21-WHO grade II ([facility]) 09/04/[address] Dominguez Hem/Onc and will be starting Temodar on 09/10/21 06/19/22 Hem/Onc BPH (benign prostatic hyperplasia) (Chronic) Inflammatory arthritis (Acute 04/12/15) isma hands; followed by Rheum [facility] Tubular adenoma of colon (Acute 01/17/16) Seizure disorder (Chronic 07/23/11) Dr Gayle [facility] manages, 08/25/19 recent f/u 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 followed with brain mri surveillance [place] [facility] [place] 10/27/18. 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 Neuro/Oncology Surgical History Status post stereotactic brain biopsy (~1994) Colonoscopy - IV Sedation (01/17/16) Colonoscopy - IV Sedation (03/20/10) Colonoscopy - IV Sedation (05/04/04) Family History Mother No problems noted. Father Colon cancer Sister Breast cancer Sister No problems noted. Sister No problems noted. Brother Diabetes Social History Smoking/Tobacco Use Status: Never Smoking risk assessment performed?: Yes Alcohol Intake: never Drug use: Never Substance use type: does not use Household members: spouse Housing: house Number of Children: 3 current occupation: since 2014 Do you feel safe at home: Yes Do you feel safe in your relationship?: Yes
--- NOTE | 2023-03-04 18:40 | PGE_ITS ---
Date of Service Date of service: 03/04/23 Time of Service: 18:40 Assessment and Plan Assessment and plan (1) COVID-19: Status: Acute Assessment and plan: Continue remdesivir. Manage fever with tylenol and toradol. The patient is not a candidate for paxlovid due to medication interactions. Encourage pulmonary toilet. Continue doxycycline for a likely 2ndary pulmonary process (bronchitis). Continue working with PT. (2) Generalized weakness: Status: Acute Assessment and plan: As above (3) Seizure disorder: Status: Chronic Assessment and plan: Continue outpatient antiepileptics. (4) Adult oligodendroglioma: Status: Chronic Assessment and plan: F/u w/ [facility] [place] as outpatient (5) Urinary incontinence: Status: Acute Assessment and plan: Acute on chronic, worsened by current febrile state. The patient states that in the past condom catheters have worked for him. We will try this tonight. (6) DVT prophylaxis: Status: Acute Assessment and plan: On chronic apixaban due to a h/o DVT (7) Discharge planning issues: Status: Acute Assessment and plan: Full code Continues to require hospitalization. Subjective Subjective Interval history since last seen: Mr Cunningham feels worse today. Continues to be febrile. Feels weak. Reports urinary incontinence. This happens to him, he says, when he is sick. Cough is minimal, productive of green sputum. Denies dizziness, CP, SOB, nausea. Exam Narrative Exam Narrative: General: A very pleasant middle-aged male who is A&Ox3, Sitting up in a chair, looks better to me, on RA HEENT: EOMI, MMM Cardiovascular: RRR, no m/r/g Lungs: CTAB Gastrointestinal: soft, nontender, nondistended Extremities: no edema BLEs, 1+ pedal pulses B Objective Last Vital Signs Temp 38.5 C H 03/04/23 17:32 Pulse 84 03/04/23 15:39 Resp 18 03/04/23 15:39 BP 122/69 03/04/23 15:39 Pulse Ox 93 03/04/23 15:39 Laboratory Results - last 24 hr 03/04/23 06:18 WBC 6.73 RBC 4.46 Hgb 13.8 Hct 40.5 MCV 91 MCH 30.9 MCHC 34.1 RDW 13.4 Plt Count 161 MPV 9.6 Immature Gran % 0.3 Neutrophils % 71.7 Lymphocytes % 16.0 Monocytes % 11.3 Eosinophils % 0.1 Basophils % 0.6 Nucleated RBC % 0.0 Absolute Neutrophils 4.82 Absolute Lymphocytes 1.08 L Absolute Monocytes 0.76 Absolute Eosinophils 0.01 Absolute Basophils 0.04 PT 11.6 H INR 1.2 H Sodium 136 Potassium 3.6 Chloride 104 Carbon Dioxide 25.1 Anion Gap 6.9 BUN 16 Creatinine 1.1 Est GFR (CKD-EPI 2020) 73.12 Glucose 107 H Calcium 8.6 Magnesium 1.8 Ferritin 531 H Total Bilirubin 0.3 Conjugated Bilirubin 0.1 AST 29 ALT 33 Alkaline Phosphatase 81 C-Reactive Protein 8.91 H Total Protein 6.5 Albumin 3.0 L 25-OH Vitamin D Total 28.5 L Time Spent with Patient Time Spent with Patient: 25-34 minutes Time was spent: preparing to see the patient(eg.review tests), obtaining and/or reviewing separately otained hiistory, ordering medications,tests, procedures, referring, communicating with other health customer care professional, indepentently interpreting results, counseling the patient and care coordination
[2023-03-04] MEDS: Topiramate 100 MG TAB 200 MG PO (21:22)
[2023-03-04] MEDS: Atorvastatin 20 MG TAB PO (21:22)
[2023-03-04] MEDS: Normal Saline Flush 10 ML SYR IVP (21:23)
[2023-03-05] VITALS (7 sets, daily range): BP systolic 96–120; BP diastolic 58–72; PULSE 58–76; RESP 15–18; TEMP 36–38; O2SAT 94–95
[2023-03-05] MEDS: Acetaminophen 500 MG TAB 1000 MG PO (05:01)
[2023-03-05 07:06] LABS: Abs Immature Grans 0.01 10^3/uL (0.0-0.06); Absolute Basophil Count 0.02 10^3/uL (0.0-0.2); Absolute Eosinophil Count 0.01 10^3/uL (0.0-0.7); Absolute Lymphocyte Count 1.47 10^3/uL (1.2-3.4); Absolute Neutrophil Count 4.43 10^3/uL (1.2-6.7); Basophils % 0.3; Eosinophils % 0.2; HCT 40.1 % (40.0-50.0); HGB 13.8 g/dL (13.5-17.5); Immature Grans % 0.2; Lymphocytes % 22.1; MCH 30.7 pg (27.0-33.0); MCHC 34.4 % (32.0-36.0); MCV 89 fL (80-95); Monocytes % 10.5; Neutrophils % 66.7; Platelet Count 167 10^3/uL (130-400); RBC 4.49 10^6/uL (4.36-5.78); RDW 13.4 % (11.8-14.1); RDW-SD 44.1 fL; WBC 6.64 10^3/uL (4.4-10.8)
[2023-03-05 07:28] LABS: INR 1.2 (0.9-1.1); Prothrombin Time 12.1 sec (9.1-11.1)
[2023-03-05 07:52] LABS: ALT 24 U/L (16-63); AST 28 U/L (15-37); Albumin 2.8 g/dL (3.4-5.0); Alkaline Phosphatase 74 U/L (46-116); Anion Gap 10.9 mmol/L (3-11); BUN 19 mg/dL (7-18); Bilirubin, Direct 0.1 mg/dL (0.0-0.2); Bilirubin, Total 0.3 mg/dL (0.2-1.0); CO2 24.1 mmol/L (21.0-32.0); CREATININE 1.2 mg/dL (0.70-1.30); Calcium 8.3 mg/dL (8.5-10.1); Chloride 104 mmol/L (98-107); D-Dimer 838 ng/mlFEU (<500); Estimated GFR 65.87 (mL/min/1.73m2); Ferritin 608 ng/mL (26-388); Glucose 111 mg/dL (74-106); Magnesium 1.8 mg/dL (1.8-2.4); Potassium 3.5 mmol/L (3.5-5.1); Sodium 139 mmol/L (136-145); Total Protein 6.4 g/dL (6.4-8.2)
[2023-03-05 08:02] LABS: Procalcitonin 0.3 ng/mL
[2023-03-05 08:03] LABS: C-Reactive Protein 12.85 mg/dL (0.0-0.3)
[2023-03-05] MEDS: Normal Saline Flush 10 ML SYR IVP ×2 (08:35→10:11)
[2023-03-05] MEDS: Doxycycline Hyclate 100 MG CAP PO ×2 (08:36→21:12)
[2023-03-05] MEDS: Benzonatate 100 MG CAP PO ×3 (08:36→21:11)
[2023-03-05] MEDS: Finasteride 5 MG TAB PO (08:36)
[2023-03-05] MEDS: Calcium 600mg/Vit D 200U TAB 1 TAB PO ×2 (08:36→21:12)
[2023-03-05] MEDS: Topiramate 100 MG TAB PO (08:36)
[2023-03-05] MEDS: Apixaban 5 MG TAB PO ×2 (08:36→21:11)
[2023-03-05] MEDS: Cholecalciferol (Vitamin D3) 1,000 UNIT TAB 2000 UNITS PO (08:36)
[2023-03-05] MEDS: Tamsulosin 0.4 MG CAPCR 0.8 MG PO (08:36)
[2023-03-05] MEDS: guaiFENesin 600 MG TABCR PO ×2 (08:36→21:11)
[2023-03-05] MEDS: Lisinopril 10 MG TAB PO (08:36)
[2023-03-05] MEDS: Multivitamin TAB 1 TAB PO (08:37)
[2023-03-05] MEDS: REMDESIVIR 100 MG in Normal Saline 250 ML 250 MG IVPB (10:12)
--- NOTE | 2023-03-05 14:42 | PHA.REVIEW2 ---
Pharmacy Admission Review Admission Clinical Review Admission Pharmacy Review: (Updated 03/04/23 @ 18:42 by Usha Grimes MD) Urinary incontinence (Acute) Discharge planning issues (Acute) DVT prophylaxis (Acute) Generalized weakness (Acute) COVID-19 (Acute) Penicillins Allergy (Unknown, Verified 03/03/23 07:26) RASH Sulfa (Sulfonamide Antibiotics) Allergy (Unknown, Verified 03/03/23 07:26) RASH Resuscitation Status Full Code Height 6 ft 2 in Weight 97.522 kg Pharmacy Admission Review Renal Dosing Renal Dosing: BUN 19 mg/dL (7-18) H 03/05/23 06:10 Creatinine 1.2 mg/dL (0.70-1.30) 03/05/23 06:10 Medications needing adjustments: Reviewed (CrCl 81.27 mL/min) Anticoagulation Anticoagulation: Hgb 13.8 g/dL (13.5-17.5) 03/05/23 06:10 Hct 40.1 % (40.0-50.0) 03/05/23 06:10 Plt Count 167 10^3/uL (130-400) 03/05/23 06:10 INR 1.2 (0.9-1.1) H 03/05/23 06:10 Creatinine 1.2 mg/dL (0.70-1.30) 03/05/23 06:10 DVT Prophylaxis: Reviewed Medications: Apixaban (5mg BID) Relevant Labs Relevant Labs: Sodium 139 mmol/L (136-145) 03/05/23 06:10 Potassium 3.5 mmol/L (3.5-5.1) 03/05/23 06:10 Chloride 104 mmol/L (98-107) 03/05/23 06:10 Magnesium 1.8 mg/dL (1.8-2.4) 03/05/23 06:10 C-Reactive Protein 12.85 mg/dL (0.0-0.3) H 03/05/23 06:10 Electrolytes, C-Reactive P, ESR: Reviewed (BUN 19 (increased from 16 yesterday), ferritin 608, CRP 12.85 (up from 8.91 yesterday)) Cardiac Review BP, HR, EF%: Reviewed (BP WNL, HR 58) QTc Review QTc: Reviewed (Last EKG was 1/1/21 was QTc of 461) IV to PO Switch IV Medications: Reviewed Home Meds Home Med List reviewed: Reviewed Current Meds Current Medication Order Review: Reviewed Pharmacy Antibiotic Review Relevant Labs: Relevant Labs 03/05/23 06:10 C-Reactive Protein 12.85 H Procalcitonin 0.3 Pharmacy Antibiotic Activity: Reviewed, no change Comments: Continues on doxycycline. CRP increased today to 12.85, was febrile this morning 38 C at 0501 but no fever since then. Is also on remdesivir for COVID, today is day 3 of 5.
--- NOTE | 2023-03-05 17:25 | PT.INNT ---
PT Notes Visit Reasons: COVID,generalized weaness,Inability to Ambulate Patient unavailable for PT session. Will plan on working with patient early tomorrow morning to work on mobility progression.
--- NOTE | 2023-03-05 18:57 | W.PM.PROGNOT ---
Date of Service Date of service: 03/05/23 Time of Service: 18:57 Assessment and Plan Assessment and plan (1) COVID-19: Status: Acute Assessment and plan: Continue remdesivir. Improving. Manage fever with tylenol and toradol if it recurs. Continue working with PT. The patient is not a candidate for paxlovid due to medication interactions. Encourage pulmonary toilet. Continue doxycycline for a likely 2ndary pulmonary process (bronchitis). (2) Generalized weakness: Status: Acute Assessment and plan: As above (3) Seizure disorder: Status: Chronic Assessment and plan: Continue outpatient antiepileptics. (4) Adult oligodendroglioma: Status: Chronic Assessment and plan: F/u / [facility] [place] as outpatient (5) Urinary incontinence: Status: Acute Assessment and plan: Acute on chronic, worsened by current illness. Continue condom catheter while in the hospital. (6) DVT prophylaxis: Status: Acute Assessment and plan: On chronic apixaban due to a h/o DVT (7) Discharge planning issues: Status: Acute Assessment and plan: Full code Continues to require hospitalization. Anticipate discharge home in the next 24-48 hrs. Subjective Subjective Interval history since last seen: Mr Cunningham is having a much better day today, he states. He defervesced. His muscles are feeling stronger. He thinks his mind is working better. Denies dizziness, CP, SOB, n/v. Cough is now productive of clear sputum, not green. Exam Narrative Exam Narrative: General: A very pleasant middle-aged male who is A&Ox3, Sitting up in bed, looks better HEENT: EOMI, MMM Cardiovascular: RRR, no m/r/g Lungs: CTAB Gastrointestinal: soft, nontender, nondistended Extremities: no edema BLEs, 1+ pedal pulses B Objective Last Vital Signs Temp 36.4 C L 03/05/23 16:08 Pulse 61 03/05/23 16:08 Resp 18 03/05/23 16:08 BP 120/72 03/05/23 16:08 Pulse Ox 95 03/05/23 16:08 Laboratory Results - last 24 hr 03/05/23 06:10 WBC 6.64 RBC 4.49 Hgb 13.8 Hct 40.1 MCV 89 MCH 30.7 MCHC 34.4 RDW 13.4 Plt Count 167 MPV 10.0 Immature Gran % 0.2 Neutrophils % 66.7 Lymphocytes % 22.1 Monocytes % 10.5 Eosinophils % 0.2 Basophils % 0.3 Nucleated RBC % 0.0 Absolute Neutrophils 4.43 Absolute Lymphocytes 1.47 Absolute Monocytes 0.70 Absolute Eosinophils 0.01 Absolute Basophils 0.02 PT 12.1 H INR 1.2 H D-Dimer 838 H Sodium 139 Potassium 3.5 Chloride 104 Carbon Dioxide 24.1 Anion Gap 10.9 BUN 19 H Creatinine 1.2 Est GFR (CKD-EPI 2020) 65.87 Glucose 111 H Calcium 8.3 L Magnesium 1.8 Ferritin 608 H Total Bilirubin 0.3 Conjugated Bilirubin 0.1 AST 28 ALT 24 Alkaline Phosphatase 74 C-Reactive Protein 12.85 H Total Protein 6.4 Albumin 2.8 L Procalcitonin 0.3 Time Spent with Patient Time Spent with Patient: 25-34 minutes Time was spent: preparing to see the patient(eg.review tests), obtaining and/or reviewing separately otained hiistory, ordering medications,tests, procedures, referring, communicating with other health hiv/aids care nurse, indepentently interpreting results, counseling the patient and care coordination
[2023-03-05] MEDS: Atorvastatin 20 MG TAB PO (21:11)
[2023-03-05] MEDS: Topiramate 100 MG TAB 200 MG PO (21:12)
[2023-03-05] MEDS: Normal Saline Flush 10 ML SYR IV (21:14)
[2023-03-06] VITALS (7 sets, daily range): BP systolic 105–114; BP diastolic 63–69; PULSE 57–64; RESP 16–18; TEMP 35.9–37; O2SAT 93–96
[2023-03-06 06:59] LABS: Abs Immature Grans 0.01 10^3/uL (0.0-0.06); Absolute Basophil Count 0.03 10^3/uL (0.0-0.2); Absolute Eosinophil Count 0.08 10^3/uL (0.0-0.7); Absolute Lymphocyte Count 1.52 10^3/uL (1.2-3.4); Absolute Monocyte Count 0.39 10^3/uL (0.1-0.8); Absolute Neutrophil Count 2.34 10^3/uL (1.2-6.7); Basophils % 0.7; Eosinophils % 1.8; HCT 40.3 % (40.0-50.0); Immature Grans % 0.2; Lymphocytes % 34.8; MCH 30.9 pg (27.0-33.0); MCHC 34.7 % (32.0-36.0); MCV 89 fL (80-95); MPV 9.9 fL (8.0-11.0); Monocytes % 8.9; Neutrophils % 53.6; Platelet Count 178 10^3/uL (130-400); RBC 4.53 10^6/uL (4.36-5.78); RDW 13.4 % (11.8-14.1); RDW-SD 43.8 fL; WBC 4.37 10^3/uL (4.4-10.8)
[2023-03-06 07:20] LABS: ALT 22 U/L (16-63); AST 24 U/L (15-37); Albumin 2.8 g/dL (3.4-5.0); Alkaline Phosphatase 73 U/L (46-116); Anion Gap 9.4 mmol/L (3-11); BUN 20 mg/dL (7-18); Bilirubin, Direct 0.1 mg/dL (0.0-0.2); Bilirubin, Total 0.4 mg/dL (0.2-1.0); C-Reactive Protein 8.27 mg/dL (0.0-0.3); CO2 24.6 mmol/L (21.0-32.0); Calcium 8.5 mg/dL (8.5-10.1); Chloride 105 mmol/L (98-107); Estimated GFR 81.98 (mL/min/1.73m2); Glucose 99 mg/dL (74-106); Magnesium 1.9 mg/dL (1.8-2.4); Potassium 3.6 mmol/L (3.5-5.1); Sodium 139 mmol/L (136-145); Total Protein 6.4 g/dL (6.4-8.2)
[2023-03-06] MEDS: Cholecalciferol (Vitamin D3) 1,000 UNIT TAB 2000 UNITS PO (09:10)
[2023-03-06] MEDS: Tamsulosin 0.4 MG CAPCR 0.8 MG PO (09:10)
[2023-03-06] MEDS: Acetaminophen 500 MG TAB 1000 MG PO (09:11)
[2023-03-06] MEDS: Benzonatate 100 MG CAP PO ×3 (09:11→20:16)
[2023-03-06] MEDS: Multivitamin TAB 1 TAB PO (09:11)
[2023-03-06] MEDS: Topiramate 100 MG TAB PO (09:11)
[2023-03-06] MEDS: Lisinopril 10 MG TAB PO (09:11)
[2023-03-06] MEDS: Apixaban 5 MG TAB PO ×2 (09:11→20:16)
[2023-03-06] MEDS: guaiFENesin 600 MG TABCR PO ×2 (09:11→20:16)
[2023-03-06] MEDS: Doxycycline Hyclate 100 MG CAP PO ×2 (09:11→20:17)
[2023-03-06] MEDS: Finasteride 5 MG TAB PO (09:11)
[2023-03-06] MEDS: Calcium 600mg/Vit D 200U TAB 1 TAB PO ×2 (09:11→20:17)
[2023-03-06] MEDS: Normal Saline Flush 10 ML SYR IV ×2 (09:12→20:19)
--- NOTE | 2023-03-06 09:34 | PTTR_ITS ---
Date of service: 03/06/23 Time of Service: 08:54 PT Notes Visit Reasons: COVID,generalized weaness,Inability to Ambulate Inpatient Physical Therapy Treatment Note [facility] Date: 03/06/23 PRECAUTIONS: Fall, standard, activity as tolerated. SEIZURE PRECAUTIONS IN PLACE. AIRBORNE / DROPLET PRECAUTIONS FOR COVID-19. SUBJECTIVE: Patient reports feeling ok, still a little weak, much better than th e last time someone tried to get [him] out of bed. OBJECTIVE: Supine in bed, agreeable to therapy.? PAIN: none reported. VITALS: monitored by nursing staff? ? BED MOBILITY/TRANSFERS? Rolling L/R: modified independent with bilateral side rails Supine-sit: modified independent with HOB elevated to 20 degrees, bilateral side rails, extended time. ? Sit-supine: modified independent with HOB elevated to 20 degrees, bilateral side rails, extended time. ? Sit-stand x5: CGA to min assist (min assist first time only) ? Stand-sit x5: CGA ? Bed-Chair: CGA x1 ? Chair-bed: CGA x1 ? Therapeutic Exercises ([id number]): Direct one-on-one instruction in therapeutic exercises to develop strength, endurance, range of motion and flexibility. ? Exercises: * sit to stand x4 * bridge x5 Ambulation ? Assistive Device: FWW ? Weight bearing: full Assist: CGA x1 ? Distance:? 3 feet forward and back, 5 feet in a [place], 8 feet with a 180 degree turn at 4 feet, 3 feet forward and backward. ? Deviation: Stooped posture, tendency to look at floor / feet. Initially struggles to back walker up, but talks himself through it and figures it out on his own. Reports a tendency to lean trunk to left or right, also to tip over backward, no evidence of either of these is seen on this date. ? Provided skilled instruction in proper exercise performance Provided skilled manual cues to facilitate proper muscle recruitment and/or form. Neuromuscular Re-education ([id number]): Activities that facilitate re-education of movement balance, posture, coordination, and proprioception or kinesthetic sense, requiring skilled tactile and verbal cues ? Exercises/techniques: * unsupported sitting * seated reaching outside base of support * seated leaning outside base of support and returning to upright without assistance. * Supported standing. ASSESSMENT:? Patient tolerates therapy well, no LOB, no SOB, no report of pain. Patient does report that he feels weak compared to his baseline, but miles better than he did 2 days ago. PLAN: Continue global strengthening per plan of care until patient is medically cleared for discharge. TREATMENT CODE/TIME: 38 minutes beginning at 8:54
[2023-03-06] MEDS: REMDESIVIR 100 MG in Normal Saline 250 ML 250 MG IVPB (10:22)
--- NOTE | 2023-03-06 16:50 | PDOC.CMPRO ---
Date of service: 03/06/23 Time of Service: 16:50 Care Management Progress Note Progress Note Text Progress Note Text: MD reports patient not ready for discharge today; prior to discharge anticipate discussion with to ensure she is ready for his return as, per MD she remains sick at home, as well. CM continues to follow.
--- NOTE | 2023-03-06 18:34 | W.PM.PROGNOT ---
Date of Service Date of service: 03/06/23 Time of Service: 18:34 Assessment and Plan Assessment and plan (1) COVID-19: Status: Acute Assessment and plan: Continue remdesivir. Improving. No longer febrile. Continue working with PT. The patient is not a candidate for paxlovid due to medication interactions. Encourage pulmonary toilet. Continue doxycycline for a likely 2ndary pulmonary process (bronchitis). (2) Generalized weakness: Status: Acute Assessment and plan: As above (3) Seizure disorder: Status: Chronic Assessment and plan: Continue outpatient antiepileptics. (4) Adult oligodendroglioma: Status: Chronic Assessment and plan: F/u / [facility] [place] as outpatient (5) Urinary incontinence: Status: Acute Assessment and plan: Acute on chronic, worsened by current illness. Continue condom catheter while in the hospital. (6) DVT prophylaxis: Status: Acute Assessment and plan: On chronic apixaban due to a h/o DVT (7) Discharge planning issues: Status: Acute Assessment and plan: Full code Anticipate discharge home tomorrow. Subjective Subjective Interval history since last seen: Mr Cunningham feels almost back to normal. Worked with PT. Denies dizziness, CP, SOB, n/v. We discussed his probably discharge home tomorrow. His is on paxlovid. Exam Narrative Exam Narrative: General: A very pleasant middle-aged male who is A&Ox3, Sitting up in bed, looks even better HEENT: EOMI, MMM Cardiovascular: RRR, no m/r/g Lungs: CTAB Gastrointestinal: soft, nontender, nondistended Extremities: no edema BLEs, 1+ pedal pulses B Objective Last Vital Signs Temp 35.9 C L 03/06/23 15:30 Pulse 57 L 03/06/23 15:30 Resp 18 03/06/23 15:30 BP 110/68 03/06/23 15:30 Pulse Ox 96 03/06/23 15:30 Laboratory Results - last 24 hr 03/06/23 06:20 WBC 4.37 L RBC 4.53 Hgb 14.0 Hct 40.3 MCV 89 MCH 30.9 MCHC 34.7 RDW 13.4 Plt Count 178 MPV 9.9 Immature Gran % 0.2 Neutrophils % 53.6 Lymphocytes % 34.8 Monocytes % 8.9 Eosinophils % 1.8 Basophils % 0.7 Nucleated RBC % 0.0 Absolute Neutrophils 2.34 Absolute Lymphocytes 1.52 Absolute Monocytes 0.39 Absolute Eosinophils 0.08 Absolute Basophils 0.03 Sodium 139 Potassium 3.6 Chloride 105 Carbon Dioxide 24.6 Anion Gap 9.4 BUN 20 H Creatinine 1.0 Est GFR (CKD-EPI 2020) 81.98 Glucose 99 Calcium 8.5 Magnesium 1.9 Total Bilirubin 0.4 Conjugated Bilirubin 0.1 AST 24 ALT 22 Alkaline Phosphatase 73 C-Reactive Protein 8.27 H Total Protein 6.4 Albumin 2.8 L Time Spent with Patient Time Spent with Patient: 25-34 minutes Time was spent: preparing to see the patient(eg.review tests), obtaining and/or reviewing separately otained hiistory, ordering medications,tests, procedures, referring, communicating with other health summer child caregiver, indepentently interpreting results, counseling the patient and care coordination
[2023-03-06] MEDS: Atorvastatin 20 MG TAB PO (20:16)
[2023-03-06] MEDS: Topiramate 100 MG TAB 200 MG PO (20:17)
[2023-03-07 04:18] VITALS: BP 106/65; PULSE 60; RESP 16; TEMP 36.5; O2SAT 94
[2023-03-07 08:11] VITALS: BP 120/60; PULSE 58; RESP 18; TEMP 36.1; O2SAT 94
[2023-03-07] MEDS: Calcium 600mg/Vit D 200U TAB 1 TAB PO (08:15)
[2023-03-07] MEDS: guaiFENesin 600 MG TABCR PO (08:15)
[2023-03-07] MEDS: Benzonatate 100 MG CAP PO ×2 (08:15→14:25)
[2023-03-07] MEDS: Tamsulosin 0.4 MG CAPCR 0.8 MG PO (08:15)
[2023-03-07] MEDS: Topiramate 100 MG TAB PO (08:15)
[2023-03-07] MEDS: Cholecalciferol (Vitamin D3) 1,000 UNIT TAB 2000 UNITS PO (08:15)
[2023-03-07] MEDS: Apixaban 5 MG TAB PO (08:16)
[2023-03-07] MEDS: Doxycycline Hyclate 100 MG CAP PO (08:16)
[2023-03-07] MEDS: Finasteride 5 MG TAB PO (08:16)
[2023-03-07] MEDS: Multivitamin TAB 1 TAB PO (08:16)
[2023-03-07] MEDS: Lisinopril 10 MG TAB PO (08:16)
[2023-03-07] MEDS: REMDESIVIR 100 MG in Normal Saline 250 ML 250 MG IVPB (10:09)
[2023-03-07] MEDS: Normal Saline Flush 10 ML SYR IV (11:21)
[2023-03-07 11:25] VITALS: BP 106/65; PULSE 58; RESP 16; TEMP 36.2; O2SAT 96
--- NOTE | 2023-03-07 11:41 | PDOC.CMDIS ---
Date of service: 03/07/23 Time of Service: 11:41 LACE Index Scoring Tool Questions: Length of Stay (in days): 2 Was the patient admitted via the E.D.?: Yes Comorbidities: Any Tumor E.D. Visits: 1 Answers: Total Score: 8 Risk of Readmission: Low Risk Care Management Discharge Plan Reason for Hospitalization: COVID, weakness, ambulatory dysfunction Discharge Plan: Kenton will be discharged home with orders for new home health PT. He will follow up with his community providers and plan of care as prescribed and will transport with his . Patient/Family Education Needs: Review discharge instructions, activity, limitations, follow up plan and discuss Ask Me Three. Services Needed at Discharge: Home Health Care Services
--- NOTE | 2023-03-07 13:36 | W.PM.DS.N ---
Date of service: 03/07/23 Time of Service: 13:36 DS: Diagnosis Discharge Diagnosis (1) COVID-19: Status: Acute (2) Acute bronchitis: Status: Acute (3) Generalized weakness: Status: Acute (4) Ambulatory dysfunction: Status: Acute (5) Seizure disorder: Status: Chronic (6) Adult oligodendroglioma: Status: Chronic (7) Urinary incontinence: Status: Acute Discharge Plan Disposition Patient Disposition: Home W/Home Health Services Condition: Stable Discharge Details Reason For Visit: COVID,generalized weaness,Inability to Ambulate Admit Date/Time: 03/05/23 12:20 Admit Provider: Usha Grimes Attending Provider: Usha Grimes Primary Care Provider: Yenni Brooks Hospital Course Hospital Course: Mr Cunningham is a 68 year old male with PMHx of oligodendroglioma w/ chronic L-sided weakness and a seizure d/o, as well as h/o DVT on apixaban, hypertension, hyperlipidemia, who was a patient on [facility] hospitalist service from 03/03/23 until 03/07/23 receiving treatment for COVID-19 causing severe generalized weakness with an ambulatory dysfunction and inability to care for self at home. He was febrile and, per patient, his weakness happens every time he has a fever. The patient required alternating tylenol and toradol to defervesce while his COVID-19 was being treated with remdesivir. He responded well to therapy, defervescing entirely and making good progress with PT to the point that he is able to be discharged home today. At no point did he require supplemental oxygen, but he did receive doxycycline for 2ndary bacterial bronchitis. He finished his antibiotic course at the hospital and is being discharged home today with a referral to home health PT. He should follow up with his PCP in 1-2 weeks. Care for patient as well as completion of his discharge summary on day of discharge took 45 minutes on the day of discharge. Home Meds and New Rx's Prescriptions: New acetaminophen 500 mg Tablet 1,000 mg PO TID PRN PRNQty: 30 0RF benzonatate 100 mg Capsule 100 - 200 mg PO TID PRN PRN (Reason: cough) Qty: 30 0RF guaifenesin [Mucus Relief ER] 600 mg Tablet Extended Release 12hr 600 mg PO BID PRN PRN (Reason: cough) Qty: 30 0RF cholecalciferol (vitamin D3) 25 mcg (1,000 unit) Tablet 50 mcg PO DAILY Qty: 30 0RF Continued acetaminophen [Tylenol] 325 mg capsule 325 mg PO PRN atorvastatin 20 mg tablet 20 mg PO QPM Qty: 90 3RF apixaban 5 mg tablet 5 mg PO BID Qty: 180 3RF multivitamin [Daily Vitamin] 1 EACH tablet 1 ea PO DAILY calcium carbonate-vitamin D3 1 EACH tablet 1 ea PO BID Rx Instructions: [facility] [place] [facility] 09/26/14 [facility] fluticasone propionate 16 GM spray,suspension 2 spry NS BID PRN Patient Comments: 05/14/17-disch Dr Breaux Aptiom 600 MG tablet 1,200 mg PO HS clobazam [Onfi] 10 mg tablet See Rx Instructions PO as directed Patient Comments: Rx Instructions: 5 MG AM, 15 MG PM, topiramate [Topamax] 100 mg tablet 100 mg PO as directed Patient Comments: 05/21/2017--100 in am and 200 mg in evening per discharge Dr Breaux- Rx Instructions: 100mg a.m.;200mg hs-Dr Gayle lisinopril 10 mg tablet 10 mg PO DAILY Qty: 90 3RF tamsulosin [Flomax] 0.4 mg capsule 0.8 mg PO DAILY Qty: 180 3RF finasteride 5 mg tablet 5 mg PO DAILY Qty: 90 3RF Discharge Instructions Instructions: Acute Bronchitis (ED), COVID-19 (Coronavirus Disease 2019) (DC) Additional Instructions: Return to the hospital with any fever, bleeding, chest pain, or shortness of breath. You should self-isolate for a total of 10 days since the day of your first symptoms. Follow up with your PCP in 1-2 weeks. Care Plan Goals: Home with new home health PT. Stand Alone Forms: Nursing Discharge Form Referrals: Yenni Brooks NP [Primary Care Provider] - 03/21/23 10:45 am Activity:: Activity as Tolerated Equipment/Supplies:: No Equipment Needed Diet:: As Tolerated Discharge Orders Discharge Orders: Discharge Order (Routine); Ordered 03/07/23 Ordered By: Usha Grimes Discharge Data Discharge Date/Time-TO BE ENTERED AT DEPARTURE: 03/07/23 14:48 DS: Summary Time Spent with Patient providing and/or coordinating discharge services: Greater than 30 minutes Status at Discharge Functional status at discharge: uses cane/walker Overall status at discharge: patient is progressing back to baseline Mental Status: mental status grossly normal Speech and Movement: speech and movement normal Mood: congruent mood Affect: normal affect Exam Narrative Exam Narrative: General: A very pleasant middle-aged male who is A&Ox3, Sitting up in bed, looks well HEENT: EOMI, MMM Cardiovascular: RRR, no m/r/g Lungs: CTAB Gastrointestinal: soft, nontender, nondistended Extremities: no edema BLEs, 1+ pedal pulses B Psych Mental Status: mental status grossly normal Speech and Movement: speech and movement normal Mood: congruent mood Affect: normal affect DS: Data Vitals/I&O Vitals and I&O: Vital Signs Temperature 36.2 C L 03/07/23 11:25 Temperature Source Tympanic 03/07/23 11:25 Pulse 58 L 03/07/23 11:25 Pulse Rhythm Regular 03/07/23 08:40 Respiratory Rate 16 03/07/23 11:25 Respiratory Effort Normal 03/07/23 08:40 Respiratory Depth Normal 03/07/23 08:40 Respiratory Pattern Normal 03/07/23 08:40 Blood Pressure 106/65 03/07/23 11:25 Blood Pressure Mean 91 03/03/23 12:01 Blood Pressure Position Supine 03/03/23 07:21 Pulse Oximetry 96 03/07/23 11:25 Oxygen Delivery Method Room Air 03/07/23 11:25 Oxygen Flow Rate 0 03/07/23 11:25 Pain Level 0 03/07/23 11:25 Comment RN in room at this time 03/06/23 10:25 Intake & Output 03/06/23 03/07/23 03/07/23 23:59 11:59 23:59 Intake Total 490 / 1030 1050 / 1050 Output Total 1950 / 3200 1050 / 1050 Balance -1460 / -2170 0 / 0 Intake: IV 250 / 250 250 / 250 Oral 240 / 780 800 / 800 Output: Urine 1950 / 3200 1050 / 1050 Other: Urine Color Yellow Yellow Urine Appearance Clear Clear Urine Odor None None Comment condom cath condom cath Stool Size Small Moderate Stool Characteristics Soft Soft Data Completed and Pending Completed studies during hospitalization [Text1]: CT head: No acute intracranial findings on this noninfused CT scan. Right high frontal craniotomy again noted with benign-appearing subjacent brain findings unchanged from CT scan of March 31, 2020. CXR: Platelike atelectasis in the right middle lobe which was not evident in March 2020 but which appears unchanged from March 2022. No pleural effusions. PFSH All Active Problems (Updated 03/07/23 @ 15:17 by Usha Grimes MD) Acute bronchitis (Acute) Urinary incontinence (Acute) Discharge planning issues (Acute) DVT prophylaxis (Acute) Generalized weakness (Acute) COVID-19 (Acute) Oropharyngeal dysphagia (Chronic) Pneumonia (Acute) Generalized weakness (Acute) Deep vein thrombosis (DVT) of femoral vein (Acute) Urinary dribbling (Acute) Incidental lung nodule (Acute) Abnormal chest x-ray (Acute) Generalized weakness (Acute) Ambulatory dysfunction (Acute) COVID-19 (Acute) Adult oligodendroglioma (Chronic) 05/25/19 F/U [facility] [place] - Dr Bae 08/25/19 F/U Dr Gayle 06/12/21-WHO grade II ([facility] [place] progress note) 09/04/[address] Dominguez Hem/Onc and will be starting Temodar on 09/10/21 06/19/22 Hem/Onc BPH (benign prostatic hyperplasia) (Chronic) Inflammatory arthritis (Acute 04/12/15) isma hands; followed by Rheum [facility] [place] Tubular adenoma of colon (Acute 01/17/16) Seizure disorder (Chronic 07/23/11) Dr Gayle [facility] [place] manages, 08/25/19 recent f/u 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 followed with brain mri surveillance per [facility] [place] neuro progress note 10/27/18. 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) [facility] [place] [address] Shore Left-sided weakness (Acute) upper and lower extremities Impaired mobility (Acute) Impaired fasting glucose (Acute 07/23/11) Essential hypertension (Acute 01/18/13) Cervical myelopathy (Acute 08/06/12) L C6-7, multiple disc on MRI 7/16/13; refer Dr Mcbride 12/23/12 Benign neoplasm of colon (Acute 03/20/10) Medical History (Updated 03/07/23 @ 15:17 by Usha Grimes MD) Seizure disorder (~05/2017) Benign neoplasm of colon Inflammatory arthritis Essential hypertension 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 Father Colon cancer Sister Breast cancer Sister No problems noted. Sister No problems noted. Brother Diabetes Social History Smoking/Tobacco Use Status: Never Smoking risk assessment performed?: Yes Alcohol Intake: never Drug use: Never Substance use type: does not use Household members: spouse Housing: house Number of Children: 3 current occupation: since 2014 Do you feel safe at home: Yes Do you feel safe in your relationship?: Yes Time Spent with Patient Time Spent with Patient: 45-69 minutes Time was spent: preparing to see the patient(eg.review tests), obtaining and/or reviewing separately otained hiistory, ordering medications,tests, procedures, referring, communicating with other health human services care specialist, indepentently interpreting results, counseling the patient and care coordination
--- NOTE | 2023-03-07 15:04 | PDOC.HHF2F_ITS ---
Home Health Referral Home Health Orders Clinical synopsis of why skilled professionals are needed: Mr Cunningham is a 68 year old male with PMHx of oligodendroglioma w/ chronic L- sided weakness and a seizure d/o, as well as h/o DVT on apixaban, hypertension, hyperlipidemia, who was a patient on [facility] hospitalist service from 03/03/23 until 03/07/23 receiving treatment for COVID-19 causing severe generalized weakness with an ambulatory dysfunction and inability to care for self at home. He was febrile and, per patient, his weakness happens every time he has a fever. The patient required alternating tylenol and toradol to defervesce while his COVID-19 was being treated with remdesivir. He responded well to therapy, defervescing entirely and making good progress with PT to the point that he is able to be discharged home today. At no point did he require supplemental oxygen, but he did receive doxycycline for 2ndary bacterial bronchitis. He finished his antibiotic course at the hospital and is being discharged home today with a referral to home health PT. Medical diagnosis necessitation home health referral: COVID-19, generalized weakness Physical Therapist: Check all that apply Increase strength & endurance for safe mobility at home: Ordered To design/establish home maintenance program: Ordered Fall reduction therapy program for patient with history of frequent falls: Ordered Home safety evaluation and teaching/gait training including stair management (if applicable): Ordered Other: Decreased step height L>>R. Decreased knee extension in B knees throughout stance which patient states have been a chronic issue. Thoracic kyphosis. Estella decreased. Slowed pace during turning. Occupational Therapist: Evaluate and treat for patient unable to perform ADL/IADL/self-care: Ordered Industrial Maintenance Instructor: Assist with community resources: Ordered Assist with terminal operations supervisor care planning: Ordered Home Bound Status Requires the aid of supportive device (check all that apply): Crutches Patient has a condition such that leaving home is medically contraindicated (Describe): COVID-19 Describe why leaving home would require a considerable and taxing effort: Requires frequent rest periods and Other Encounter Date and Reason: I certify that a FTF encounter for this patient was performed on March 07, 2023 and that such encounter was related to the primary reason the patient requires home health services. The encounter was conducted in the following manner: * By me as the certifying physician, [employer] GOODS SUPERVISOR, PA or * By an inpatient physician, [employer] SUPERVISOR or PA during an inpatient stay who communicated findings to me, Certification And Authentication I certify that I composed the above information based on my clinical judgment relating to this patient's medical condition and, if applicable, clinical f indings communicated to me by the NPP or inpatient physician who performed the FTF encounter. Name of Provider that will be monitoring home health services: Yenni Brooks
== END 2023-03-07 14:48 | disposition home health service (06) | DRG 178 ==
LOC: ER 10:20 → MS 12:48
PROVIDERS: Admitting Provider Internal Medicine; Emergency Provider Student in an Organized Health Care Education/Training Program; PCP Nurse Practitioner; Visit Provider Internal Medicine
DX: U07.1 COVID-19 (principal); C71.1 Malignant neoplasm of frontal lobe; G81.94 Hemiplegia, unspecified affecting left nondominant side; M50.023 Cervical disc disorder at C6-C7 level with myelopathy; G40.909 Epilepsy, unspecified, not intractable, without status epilepticus; R53.1 Weakness; R26.2 Difficulty in walking, not elsewhere classified; Z86.718 Personal history of other venous thrombosis and embolism; Z79.01 Long term (current) use of anticoagulants; I10 Essential (primary) hypertension; E78.5 Hyperlipidemia, unspecified; R13.12 Dysphagia, oropharyngeal phase; R91.1 Solitary pulmonary nodule; N40.0 Benign prostatic hyperplasia without lower urinary tract symptoms; Z74.09 Other reduced mobility; R73.01 Impaired fasting glucose; R32 Unspecified urinary incontinence
CPT/HCPCS: 00123; 36415; 80048; 80053; 80076; 82306; 82550; 84145; 87426; 87637; 96365; 97110; 97112; 97161; 97530; 99285; 70450; 71046; 81003; 81015; 82728; 83735; 85025; 85379; 85610; 86140; 94667; 99223; 99232; 99239; G0378; J0248; J1885

== ENCOUNTER → 2023-04-14 10:21 | Outpatient (BNVA) | payer MEDICARE, BC, SELFPAY | PROVIDERS: PCP Nurse Practitioner; Visit Provider Nurse Practitioner Gerontology | DX: N40.1 Benign prostatic hyperplasia with lower urinary tract symptoms (principal); N39.43 Post-void dribbling; R35.1 Nocturia | CPT/HCPCS: 51798; 99214 ==

== ENCOUNTER 2023-04-14 11:08 | Outpatient (CLI) | payer MEDICARE, BC, SELFPAY ==
[2023-04-14 12:24] LABS: ALT 29 U/L (16-63); AST 15 U/L (15-37); Albumin 3.7 g/dL (3.4-5.0); Alkaline Phosphatase 115 U/L (46-116); Anion Gap 10.9 mmol/L (3-11); BUN 13 mg/dL (7-18); Bilirubin, Total 0.3 mg/dL (0.2-1.0); CO2 22.1 mmol/L (21.0-32.0); Calcium 8.9 mg/dL (8.5-10.1); Chloride 105 mmol/L (98-107); Estimated GFR 81.98 (mL/min/1.73m2); Glucose 123 mg/dL (74-106); Potassium 3.9 mmol/L (3.5-5.1); Sodium 138 mmol/L (136-145); Total Protein 7.7 g/dL (6.4-8.2)
[2023-04-14 19:32] LABS: PSA, Diagnostic 1.6 ng/mL (<=4.5)
== END 2023-04-14 11:09 | disposition home or self-care (01) ==
LOC: LBO 11:08
PROVIDERS: Student in an Organized Health Care Education/Training Program; PCP Nurse Practitioner; Visit Provider Nurse Practitioner Gerontology
DX: R73.01 Impaired fasting glucose (principal); R77.0 Abnormality of albumin; N40.0 Benign prostatic hyperplasia without lower urinary tract symptoms
CPT/HCPCS: 36415; 51798; 80053; 99214; 84153

== ENCOUNTER → 2023-10-20 10:26 | Outpatient (BNVA) | payer MEDICARE, BC, SELFPAY | PROVIDERS: PCP Nurse Practitioner; Referring Provider Nurse Practitioner; Visit Provider Nurse Practitioner Gerontology | DX: N39.43 Post-void dribbling (principal); N40.0 Benign prostatic hyperplasia without lower urinary tract symptoms | CPT/HCPCS: 51798; 99214 ==

== ENCOUNTER → 2024-04-26 09:36 | Outpatient (BNVA) | payer MEDICARE, BC, SELFPAY | PROVIDERS: PCP Nurse Practitioner; Visit Provider Nurse Practitioner Gerontology | DX: N40.1 Benign prostatic hyperplasia with lower urinary tract symptoms (principal); N39.43 Post-void dribbling | CPT/HCPCS: 51798; 99214 ==

== ENCOUNTER 2024-04-27 03:08 | Outpatient (CLI) | payer MEDICARE, BC, SELFPAY ==
[2024-04-27 08:25] LABS: ALT 24 U/L (16-63); AST 16 U/L (15-37); Albumin 3.7 g/dL (3.4-5.0); Alkaline Phosphatase 142 U/L (46-116); Anion Gap 8.7 mmol/L (3-11); BUN 13 mg/dL (7-18); CO2 24.3 mmol/L (21.0-32.0); CREATININE 1.2 mg/dL (0.70-1.30); Calculated LDL 68 mg/dL (<100); Chloride 107 mmol/L (98-107); Cholesterol 146 mg/dL (<200); Estimated GFR 65.46 (mL/min/1.73m2); Glucose 111 mg/dL (74-106); HDL Cholesterol 40 mg/dL (40-60); Sodium 140 mmol/L (136-145); Total Protein 7.6 g/dL (6.4-8.2); Triglyceride 191 mg/dL (<150)
== END 2024-04-27 03:09 | disposition home or self-care (01) ==
LOC: LBO 03:08
PROVIDERS: Nurse Practitioner Gerontology; PCP Nurse Practitioner; Referring Provider Nurse Practitioner; Visit Provider Nurse Practitioner
DX: R32 Unspecified urinary incontinence (principal); N40.0 Benign prostatic hyperplasia without lower urinary tract symptoms; E78.5 Hyperlipidemia, unspecified; I10 Essential (primary) hypertension
CPT/HCPCS: 36415; 80053; 80061; 84153

== ENCOUNTER → 2024-07-28 10:25 | Outpatient (BNVA) | payer MEDICARE, BC, SELFPAY | PROVIDERS: PCP Nurse Practitioner; Referring Provider Nurse Practitioner; Visit Provider Nurse Practitioner Gerontology | DX: N40.0 Benign prostatic hyperplasia without lower urinary tract symptoms (principal); N39.43 Post-void dribbling | CPT/HCPCS: 51798; 99214 ==

== ENCOUNTER 2024-08-15 09:56 | Emergency (ER) | payer MEDICARE, BC, SELFPAY ==
[2024-08-15 09:59] VITALS: BP 147/61; PULSE 76; RESP 16; TEMP 36.6; O2SAT 94
--- NOTE | 2024-08-15 10:00 | DI.RAD_ITS ---
Exam(s) XR PELVIS AP EXAM: XR PELVIS AP CLINICAL HISTORY: Fall. TECHNIQUE: 2D digital imaging was performed.Two images were obtained. COMPARISON: CT CT LOWER EXTREMITY RT W from 12/29/[address] ABDOMEN PELVIS W from 12/29/2020 FINDINGS: BONES: No acute fracture is present. No bony destructive lesion is seen. JOINTS: No dislocation present. Degenerative changes are seen in the knee hips bilaterally. SOFT TISSUE: Normal. IMPRESSION: No acute fracture or dislocation is present. DATA REPOSITORY: RADIATION DOSE DELIVERED:
--- NOTE | 2024-08-15 10:00 | DI.RAD_ITS ---
Exam(s) XR KNEE LT 3V AP,LAT,MARCO EXAM: XR KNEE LT 3V AP,LAT,MARCO CLINICAL HISTORY: Fall. TECHNIQUE: 2D digital imaging was performed of the left knee. Three images were obtained. AP, late ral and PA tunnel views were obtained. COMPARISON: No exams were available for comparison FINDINGS: BONES: No acute fracture is present. No bony destructive lesion is seen. There is an enthesophyte at the superior aspect of the patella. JOINTS: The knee is normally aligned. No joint effusion is seen. No loose body. SOFT TISSUE: Normal. IMPRESSION: No definite acute fracture or dislocation is present. If symptoms persist, a follow-up examination s hould be considered. DATA REPOSITORY: RADIATION DOSE DELIVERED:
--- NOTE | 2024-08-15 10:00 | DI.RAD_ITS ---
Exam(s) XR FEMUR LT EXAM: XR FEMUR LT CLINICAL HISTORY: Fall. TECHNIQUE: 2D digital imaging was performed of the left femur. Four images were obtained. AP and lat eral views were obtained. COMPARISON: No exams were available for comparison FINDINGS: BONES: No acute fracture is present. No bony destructive lesion is seen. There are degenerative hurst es seen in the left hip. SOFT TISSUE: Vascular calcifications are present. IMPRESSION: No acute fracture or dislocation is present. DATA REPOSITORY: RADIATION DOSE DELIVERED:
--- NOTE | 2024-08-15 10:04 | W.ED.GENAD ---
Discharge Plan Disposition Patient Disposition: Home Condition: Stable Discharge Details Clinical Impression: Left knee sprain, Fall Primary Care Provider: Yenni Brooks ED Provider: Bridget Clinton Home Meds and New Rx's Prescriptions: Continued apixaban 5 mg tablet 5 mg PO BID Qty: 180 3RF atorvastatin 20 mg tablet 20 mg PO QPM Qty: 90 3RF tamsulosin [Flomax] 0.4 mg capsule 0.8 mg PO DAILY Qty: 180 3RF lisinopril 10 mg tablet 10 mg PO DAILY Qty: 90 3RF acetaminophen [Tylenol] 325 mg capsule 325 mg PO PRN multivitamin [Daily Vitamin] 1 EACH tablet 1 ea PO DAILY calcium carbonate-vitamin D3 1 EACH tablet 1 ea PO BID [place] [facility] [place] [facility] fluticasone propionate 16 GM spray,suspension 2 spry NS BID PRN Patient Comments: 05/14/17-disch Dr Breaux Aptiom 600 MG tablet 1,200 mg PO HS clobazam [Onfi] 10 mg tablet See Rx Instructions PO as directed Patient Comments: Rx Instructions: 5 MG AM, 15 MG PM, topiramate [Topamax] 100 mg tablet 100 mg PO as directed Patient Comments: 05/21/2017--100 in am and 200 mg in evening per discharge Dr Breaux- Rx Instructions: 100mg a.m.;200mg hs-Dr Gayle finasteride 5 mg tablet 5 mg PO DAILY Qty: 90 3RF Discharge Instructions Instructions: Knee Sprain ED, Preventing Falls ED Additional Instructions: At this time x-rays show no broken bones of your hip femur or knee. I do suspect a sprain. However, if you continue to have pain with ambulation please follow-up and be seen by your primary care provider or return to the ER for further imaging. Please wear the knee brace as directed as needed for comfort. Ice rest and elevation when sitting or lying down. Please take Tylenol or Ibuprofen with food every 4-6 hours as needed for pain and swelling. Follow up with primary care provider in 3-5 days. Return to ED sooner if any worsening or concerns. Thank you for allowing us to care for you today. Referrals: Yenni Brooks, SIENA [Primary Care Provider] - 1 week Discharge Data Discharge Date/Time-TO BE ENTERED AT DEPARTURE: 08/15/24 11:32 HPI General Mode of arrival: EMS. Date/Time Provider Initiated Documentation: 08/15/24 10:04. Limitations to Documentation: no limitations. Information obtained by: patient, EMS, RN notes reviewed and old records reviewed. 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 Patient reports that he was using crutches and was going to the bathroom and had a mechanical fall. Denies hitting his head no neck or back pain. He reports he was evaluated at that time by EMS but was not transported. He reports that this morning upon putting weight on his left leg he has pain from his left knee up into his left hip. He does have good mobility of his left leg distal CMS intact no obvious deformity noted. He did take Tylenol this morning. He is alert and oriented x 4 pleasant and conversive. Denies any chest pain abdominal pain or any other associated symptoms. Related Data Home Medications ?Medication ?Instructions ?Recorded ?Confirmed multivitamin (Daily Vitamin tablet) 1 ea PO DAILY 07/24/12 08/15/24 calcium 600 mg (as 1 ea PO BID 09/27/14 08/15/24 carbonate)-vitamin D3 20 mcg (800 unit) tablet eslicarbazepine 600 mg tablet 1,200 mg PO HS 05/14/17 08/15/24 (Aptiom) fluticasone propionate 50 2 spry NS BID PRN 05/14/17 08/15/24 mcg/actuation nasal spray,suspension clobazam 10 mg tablet (Onfi) See Rx Instructions PO as directed 02/18/19 08/15/24 Topamax 100 mg tablet (topiramate) 100 mg PO as directed 03/13/20 08/15/24 acetaminophen 325 mg capsule 325 mg PO PRN 09/11/21 08/15/24 (Tylenol) finasteride 5 mg tablet 5 mg PO DAILY #90 tabs 07/07/24 08/15/24 apixaban 5 mg tablet 5 mg PO BID #180 tabs 07/13/24 08/15/24 atorvastatin 20 mg tablet 20 mg PO QPM #90 tabs 07/13/24 08/15/24 lisinopril 10 mg tablet 10 mg PO DAILY #90 tab-caps 07/13/24 08/15/24 tamsulosin 0.4 mg capsule (Flomax) 0.8 mg (2 x 0.4 mg) PO DAILY #180 07/13/24 08/15/24 caps Previous Rx's ?Medication ?Instructions ?Recorded finasteride 5 mg tablet 5 mg PO DAILY #90 tabs 07/07/24 apixaban 5 mg tablet 5 mg PO BID #180 tabs 07/13/24 atorvastatin 20 mg tablet 20 mg PO QPM #90 tabs 07/13/24 lisinopril 10 mg tablet 10 mg PO DAILY #90 tab-caps 07/13/24 tamsulosin 0.4 mg capsule (Flomax) 0.8 mg (2 x 0.4 mg) PO DAILY #180 07/13/24 caps Allergies Allergy/AdvReac Type Severity Reaction Status Date / Time Penicillins Allergy Unknown RASH Verified 08/15/24 10:50 Sulfa (Sulfonamide Allergy Unknown RASH Verified 08/15/24 10:50 Antibiotics) General CARLOS: 3 Review of Systems All systems reviewed & are unremarkable except as noted in HPI and below Constitutional Constitutional: Reports frequent falls and Denies headache(s) ENT Ears, Nose, Mouth, and Throat: Denies headache(s) and Denies neck pain Musculoskeletal Musculoskeletal: Reports as per HPI, Denies back pain, Reports arthralgias, Denies neck pain, Denies numbness and Reports radiating pain into limb Neurologic Neurologic: Reports frequent falls, Denies headache(s) and Denies numbness Exam Narrative Exam Narrative: General: Well Developed, Awake and Alert, conversant. Skin: Warm and Dry HEENT: Head: No palpable deformities, Normocephalic Eyes: Pupils PERRLA, EOM's intact. No periorbital eccymosis or step off Ears: Canal patent. Tympanic membranes are clear . No garza's sign, no hemptympanum. Nose/Face: Atraumatic. Facial bones nontender to palpation and stable with manipulation. Mouth/Throat: No intraoral trauma. Teeth and mandible are intact. Neck: No midline tenderness, no step off, no deformity to palpation of C-spine. Trachea midline. Chest: No surface trauma. Nontender without crepitus or deformity. Lungs clear to ausculatation bilaterally. Heart: RRR, no rubs, murmurs or gallop. Abdomen: No abrasions, ecchymosis, or surface trauma. Nondistended. Nontender to palpation no guarding, rebound, or rigidity. Pelvis: Nontender to palpation and stable to compression. Femoral pulses strong and equal Extremities: no surface trauma. Sensation intact. Peripheral pulses intact and equal. Patient moving all 4 extremities without difficulty. Neuro: ANO x4, GCS 15, cranial nerves II through XII intact. Motor and sensory exam nonfocal. Reflexes are symmetric. 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 Patient reports that he was using crutches and was going to the bathroom and had a mechanical fall. Denies hitting his head no neck or back pain. He reports he was evaluated at that time by EMS but was not transported. He reports that this morning upon putting weight on his left leg he has pain from his left knee up into his left hip. He does have good mobility of his left leg distal CMS intact no obvious deformity noted. He did take Tylenol this morning. He is alert and oriented x 4 pleasant and conversive. Denies any chest pain abdominal pain or any other associated symptoms. X-ray hip femur and knee ordered. No evidence of acute bony abnormality there is some degenerative changes. Patient placed in a hinged knee brace. Discussed x-ray results with him he verbalized understanding. Patient discharged home instructed to follow-up with PCP or return to the ER for any worsening. I also did discuss repeat imaging if continued pain and trouble ambulating. Patient remained hemodynamically stable throughout remainder of stay. This text was generated using [employer] system, please disregard any oddities of phrase or misspellings. Medical Records Medical records reviewed: Yes I reviewed the patient's medical records. Quality:SDOH Health Related Social Needs: No Data to Display [facility] All Active Problems (Updated 08/15/24 @ 11:03 by Bridget Clinton NP) Fall (Acute) Left knee sprain (Acute) Olecranon bursitis, left elbow (Acute) Acute bronchitis (Acute) Urinary incontinence (Acute) Generalized weakness (Acute) Oropharyngeal dysphagia (Chronic) Pneumonia (Acute) Hx, multiple? 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 [place] [facility] [place] Dr Bae 08/25/19 F/U Dr Gayle 06/12/21-WHO grade II ([facility] [place] progress note) 09/04/[address] Dominguez Hem/Onc and will be starting Temodar on 09/10/21 06/19/22 Hem/Onc BPH (benign prostatic hyperplasia) (Chronic) Inflammatory arthritis (Acute 04/12/15) isma hands; [place] [facility] [place] Tubular adenoma of colon (Acute 01/17/16) Seizure disorder (Chronic 07/23/11) Dr Gayle [facility] [place], 08/[place]19 recent f/u 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 followed with brain mri surveillance per [facility] [place] neuro progress note 10/27/18. 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) [facility] [place] [address] [place] Left-sided weakness (Acute) upper and lower extremities Impaired mobility (Acute) Impaired fasting glucose (Acute 07/23/11) Essential hypertension (Acute 01/18/13) Cervical myelopathy (Acute 08/06/12) L C6-7, multiple disc on MRI 10/13/12; refer Dr Mcbride 12/23/12 Benign neoplasm of colon (Acute 03/20/10) Medical History Seizure disorder (~05/2017) Benign neoplasm of colon Inflammatory arthritis Essential hypertension 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 Father Colon cancer Sister Breast cancer Sister No problems noted. Sister No problems noted. 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
[2024-08-15 10:16] VITALS: BP 104/58; PULSE 67
[2024-08-15 10:40] VITALS: BP 124/96; PULSE 70; O2SAT 97
[2024-08-15 10:46] VITALS: BP 108/59; PULSE 65; O2SAT 94
== END 2024-08-15 11:32 | disposition home or self-care (01) ==
PROVIDERS: Emergency Provider Registered Nurse Emergency; PCP Nurse Practitioner
DX: S83.92XA Sprain of unspecified site of left knee, initial encounter (principal); W19.XXXA Unspecified fall, initial encounter; M25.552 Pain in left hip
CPT/HCPCS: 99283; 99284; 29505; 73552; 73562; 72170

== ENCOUNTER 2024-08-24 13:24 | Outpatient (CLI) | payer MEDICARE, BC, SELFPAY ==
--- NOTE | 2024-08-24 14:04 | DI.CT_ITS ---
Exam(s) CT LOWER EXTREMITY LT WO EXAM: CT LOWER EXTREMITY LT WO CLINICAL HISTORY: Left hip pain W19.XXXA FALL. TECHNIQUE: Imaging Protocol: Axial computed tomography images with coronal and sagittal reformatted images were created and reviewed. CONTRAST MATERIAL: Intravenous: None. COMPARISON: CR XR FEMUR LT from 08/15/2024 CR XR PELVIS AP from 08/15/2024 CR XR KNEE LT 3V AP,LAT,MARCO from 08/15/2024 FINDINGS: The view of this study is left hip down to the junction of the mid and distal 3rd of the femur. OSSEOUS: There is no evidence of hip fracture nor fractures in the ipsilateral pubic rami. There are moderate-advanced degenerative changes in the left hip joint noted. No evidence of vascular necrosi s of the hips. No obvious hip joint effusion. No hematoma seen in the region the hip. Also no lila remigio in the visualized adjacent left hemipelvis. No lytic osseous lesions identified. There is a benign-appearing sclerotic bone lesion in the medial aspect of the proximal half of the femur. Probably not clinically significant. SOFT TISSUES: No abnormal findings in the musculature of the included left thigh and hip. No hip sarah nt effusion. OTHER: Incidentally noted is an enlarged prostate gland. There is also calcification noted in the va s deferens. This is usually associated with diabetes. IMPRESSION: No fractures evident in the left hip and proximal half of the left femur nor in the left pubic rami. There are, however, degenerative changes in the left hip evident which are more prominent than in th e opposite-right hip as seen on recent radiographs. If there is still a strong consideration for occult hip fracture then hip MRI rule out fracture mohinder col (15 minutes exam) can be performed for added sensitivity. Other findings as above. RADIATION DOSE DELIVERED: 477.39mGy.cm Total DLP DATA REPOSITORY: All CT scans at this facility are submitted to the National Radiology Data Registry (NRDR) Dose Index Registry (DIR) with the [employer] (ACR). RADIATION OPTIMIZATION: All CT scans at this facility use at least one of these dose optimization te chniques: automated exposure control; mA and/or kV adjustment per patient size (includes targeted exa ms where dose is matched to clinical indication); or iterative reconstruction.
== END 2024-08-24 13:44 ==
LOC: DI 13:25
PROVIDERS: PCP Nurse Practitioner; Visit Provider Emergency Medicine
DX: W19.XXXA Unspecified fall, initial encounter (principal); M25.552 Pain in left hip
CPT/HCPCS: 73700

== ENCOUNTER 2024-11-28 23:08 | Emergency (ER) | payer MEDICARE, BC, SELFPAY ==
[2024-11-28 23:08] VITALS: BP 164/95; PULSE 69; RESP 16; TEMP 36.1; O2SAT 99
--- NOTE | 2024-11-28 23:09 | W.ED.GENAD ---
Discharge Plan Disposition Patient Disposition: Home Condition: Good Discharge Details Clinical Impression: Fall in home, Contusion of knee, right, Contusion of elbow, right Primary Care Provider: Yenni Brooks ED Provider: Desmond Cruz and New Rx's Prescriptions: Continued apixaban 5 mg tablet 5 mg PO BID Qty: 180 3RF atorvastatin 20 mg tablet 20 mg PO QPM Qty: 90 3RF tamsulosin [Flomax] 0.4 mg capsule 0.8 mg PO DAILY Qty: 180 3RF lisinopril 10 mg tablet 10 mg PO DAILY Qty: 90 3RF acetaminophen [Tylenol] 325 mg capsule 325 mg PO PRN multivitamin [Daily Vitamin] 1 EACH tablet 1 ea PO DAILY calcium carbonate-vitamin D3 1 EACH tablet 1 ea PO BID Rx Instructions: [facility] [place] [facility] 09/26/14 CGC fluticasone propionate 16 GM spray,suspension 2 spry NS BID PRN Patient Comments: 05/14/17-disch Dr Breaux eslicarbazepine [Aptiom] 600 MG tablet 1,200 mg PO HS clobazam [Onfi] 10 mg tablet See Rx Instructions PO as directed Patient Comments: Rx Instructions: 5 MG AM, 15 MG PM, topiramate [Topamax] 100 mg tablet 100 mg PO as directed Patient Comments: 05/21/2017--100 in am and 200 mg in evening per discharge Dr Breaux- Rx Instructions: 100mg a.m.;200mg hs-Dr Gayle finasteride 5 mg tablet 5 mg PO DAILY Qty: 90 3RF Discharge Instructions Instructions: Minor Contusion ED Additional Instructions: You were seen in the ED after a fall. CT scan of your head was obtained and shows no acute traumatic intracranial findings. You may want ice the bruising to your elbow and knee on and off for the next couple of days. You may use acetaminophen as needed. Follow-up with primary care as needed. Return to ED for any severe worsening headache, neurologic change, persistent vomiting, other concerns. HPI General Mode of arrival: EMS. Date/Time Provider Initiated Documentation: 11/28/24 23:09. Limitations to Documentation: no limitations. Information obtained by: patient, RN notes reviewed and old records reviewed. HPI Narrative: Patient presents to ED from home by ambulance after a fall with head strike on anticoagulation. Patient has history of seizure disorder and mixed glial neoplasm which is followed at [facility]. He had got up to go to the bathroom and despite using his walking crutches lost balance and fell. There was no loss of consciousness. There was no seizures. This was not associated with any syncope, chest pain. He was able to eventually get himself up off the floor with help from his . He was ambulatory despite losing his right knee and elbow. Denies any neck pain or back pain. Related Data Home Medications ?Medication ?Instructions ?Recorded ?Confirmed multivitamin (Daily Vitamin tablet) 1 ea PO DAILY 07/24/12 11/28/24 calcium 600 mg (as 1 ea PO BID 09/27/14 11/28/24 carbonate)-vitamin D3 20 mcg (800 unit) tablet eslicarbazepine 600 mg tablet 1,200 mg PO HS 05/14/17 11/28/24 (Aptiom) fluticasone propionate 50 2 spry NS BID PRN 05/14/17 11/28/24 mcg/actuation nasal spray,suspension clobazam 10 mg tablet (Onfi) See Rx Instructions PO as directed 02/18/19 11/28/24 Topamax 100 mg tablet (topiramate) 100 mg PO as directed 03/13/20 11/28/24 acetaminophen 325 mg capsule 325 mg PO PRN 09/11/21 11/28/24 (Tylenol) finasteride 5 mg tablet 5 mg PO DAILY #90 tabs 07/07/24 11/28/24 apixaban 5 mg tablet 5 mg PO BID #180 tabs 07/13/24 11/28/24 atorvastatin 20 mg tablet 20 mg PO QPM #90 tabs 07/13/24 11/28/24 lisinopril 10 mg tablet 10 mg PO DAILY #90 tab-caps 07/13/24 11/28/24 tamsulosin 0.4 mg capsule (Flomax) 0.8 mg (2 x 0.4 mg) PO DAILY #180 07/13/24 11/28/24 caps Previous Rx's ?Medication ?Instructions ?Recorded finasteride 5 mg tablet 5 mg PO DAILY #90 tabs 07/07/24 apixaban 5 mg tablet 5 mg PO BID #180 tabs 07/13/24 atorvastatin 20 mg tablet 20 mg PO QPM #90 tabs 07/13/24 lisinopril 10 mg tablet 10 mg PO DAILY #90 tab-caps 07/13/24 tamsulosin 0.4 mg capsule (Flomax) 0.8 mg (2 x 0.4 mg) PO DAILY #180 07/13/24 caps Allergies Allergy/AdvReac Type Severity Reaction Status Date / Time Penicillins Allergy Unknown RASH Verified 11/28/24 23:15 Sulfa (Sulfonamide Allergy Unknown RASH Verified 11/28/24 23:15 Antibiotics) General CARLOS: 3 Exam Narrative Exam Narrative: Const: WDWN elderly male in NAD. VS per triage. HEENT: NC/AT. Normal facial exam. Neck: Supple. Trachea midline. No cervical spine tenderness. Lungs: Normal respiratory effort. Lungs are clear. No chest wall tenderness. Cor: Good radial pulses. Neuro: A+O x 3. Normal speech, mentation, gait. Cranial nerves II - XII grossly intact. No gross motor or sensory deficit. Ext: Bruising/abrasion right elbow and knee with no tenderness, normal ROM and NVI. Medical Decision Making Patient presenting to ED with mechanical fall at home. Cervical spine is cleared clinically. He did have a head strike. He denies headache and has no neurologic change but is on anticoagulation. He will require head CT. He has some bruising/abrasion to the right elbow and right knee but is weightbearing with no tenderness and normal range of motion, will defer imaging at this time. CT head preliminary read by radiology with no acute intracranial findings, no bleed. Patient will be discharged home and should use ice and acetaminophen as needed for his bruising. Follow-up with primary care as needed. Return precautions provided. [facility] All Active Problems (Updated 11/29/24 @ 00:01 by Desmond Cruz MD) Contusion of elbow, right (Acute) Contusion of knee, right (Acute) Fall in home (Acute) Olecranon bursitis, left elbow (Acute) Acute bronchitis (Acute) Urinary incontinence (Acute) Generalized weakness (Acute) Oropharyngeal dysphagia (Chronic) Pneumonia (Acute) Hx, multiple? 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 F/U [facility] [place]rology - Dr Bae 08/25/19 F/U Dr Gayle 06/12/21-WHO grade II ([facility] [place] progress note) 09/04/[address] Dominguez Hem/Onc and will be starting Temodar on 09/10/21 06/19/22 Hem/Onc BPH (benign prostatic hyperplasia) (Chronic) Inflammatory arthritis (Acute 04/12/15) isma hands; followed by Rheum [facility] [place] Tubular adenoma of colon (Acute 01/17/16) Seizure disorder (Chronic 07/23/11) Dr Gayle [facility] [place] manages, 08/25/19 recent f/u 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 followed with brain mri surveillance per [facility] [place] neuro progress note 10/27/18. 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) [facility] [place] Rx [address] Dr Shore Left-sided weakness (Acute) upper and lower extremities Impaired mobility (Acute) Impaired fasting glucose (Acute 07/23/11) Essential hypertension (Acute 01/18/13) Cervical myelopathy (Acute 08/06/12) L C6-7, multiple disc on MRI 10/13/12; refer Dr Mcbride 12/23/12 Benign neoplasm of colon (Acute 03/20/10) Medical History Seizure disorder (~05/2017) Benign neoplasm of colon Inflammatory arthritis Essential hypertension 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 Father Colon cancer Sister Breast cancer Sister No problems noted. Sister No problems noted. 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
[2024-11-28 23:11] VITALS: PULSE 64; RESP 49; O2SAT 98
[2024-11-28 23:12] VITALS: BP 164/95; PULSE 62; RESP 18
--- NOTE | 2024-11-28 23:15 | DI.CT_ITS ---
Exam(s) CT HEAD WO EXAM: CT HEAD WO CLINICAL HISTORY: fall with headstrike on anticoagulation. TECHNIQUE: Imaging Protocol: Axial computed tomography images with coronal and sagittal reformatted images were created and reviewed COMPARISON: CT CT HEAD WO from 03/31/[address] HEAD WO from 03/03/2023 FINDINGS: Ventricles and Extra axial spaces: Normal in size and morphology for the patient's age. Hemorrhage: None. Cerebral parenchyma: No acute territorial infarct is seen. There is no acute mass effect. Midline shift: None. Brainstem/Cerebellum: Normal. Calvarium: Again seen a right frontal/parietal craniotomy. Visualized Paranasal sinuses/Mastoids: Clear. Soft Tissues: Unremarkable. IMPRESSION: 1. No acute intracranial process. 2. The preliminary [facility] report was reviewed. RADIATION DOSE DELIVERED: 875.01mGy.cm Total DLP DATA REPOSITORY: All CT scans at this facility are submitted to the National Radiology Data Registry (NRDR) Dose Index Registry (DIR) with the [employer] (ACR). RADIATION OPTIMIZATION: All CT scans at this facility use at least one of these dose optimization techniques: automated exposure control; mA and/or kV adjustment per patient size (includes targeted exams where dose is matched to clinical indication); or iterative reconstruction.
[2024-11-28 23:20] VITALS: PULSE 57; RESP 15; O2SAT 96
[2024-11-28 23:48] VITALS: PULSE 59; PULSE 60; RESP 16; O2SAT 98
[2024-11-28 23:50] VITALS: PULSE 62; PULSE 64; RESP 23; O2SAT 97
[2024-11-29] VITALS: PULSE 60; RESP 15; O2SAT 97
--- NOTE | 2024-11-29 | DI.VRAD_ITS ---
PROCEDURE INFORMATION: Exam: CT Head Without Contrast Exam date and time: 11/28/2024 11:24 PM Age: 69 years old Clinical indication: Injury or trauma; Blunt trauma (contusions or hematomas); Consciousness not specified; Injury date: 11/28/24; Injury details: Fall with headstrike on anticoagulation; Prior surgery; Surgery date: 6+ months; Surgery type: HX of mixed glial neoplasm of brain, surgery in 1994 TECHNIQUE: Imaging protocol: Computed tomography of the head without contrast. Radiation optimization: All CT scans at this facility use at least one of these dose optimization techniques: automated exposure control; mA and/or kV adjustment per patient size (includes targeted exams where dose is matched to clinical indication); or iterative reconstruction. COMPARISON: CT HEAD WO 03/03/2023 9:55 AM FINDINGS: Brain: No acute intracranial hemorrhage, mass-effect, midline shift, or extra-axial collection is seen. There is a small region of volume loss and calcification subjacent to the cranial plate. Otherwise, the vallejo-white matter differentiation appears preserved. Cerebral ventricles: The ventricular system and basilar cisterns appear appropriate in size and configuration. Paranasal sinuses: The visualized paranasal sinuses appear well-aerated. Mastoid air cells: The visualized mastoid air cells appear well aerated. Auditory system: The middle ear cavities appear clear. Orbital cavities: The globes and intraorbital structures appear grossly intact. Bones: There is an old craniotomy defect at the right vertex. No acute skull fracture is seen. Soft tissues: No gross focal scalp hematoma is seen. IMPRESSION: 1. No acute intracranial hemorrhage or depressed skull fracture. 2. Old craniotomy defect at the right vertex. Dictated and Authenticated by: Jose M Monet MD. Orderin Anthony Logan MD
== END 2024-11-29 00:08 | disposition home or self-care (01) ==
PROVIDERS: Emergency Provider Emergency Medicine; PCP Nurse Practitioner
DX: S50.01XA Contusion of right elbow, initial encounter (principal); S80.01XA Contusion of right knee, initial encounter; W01.190A Fall on same level from slipping, tripping and stumbling with subsequent striking against furniture, initial encounter; Z79.01 Long term (current) use of anticoagulants
CPT/HCPCS: 99284 ×2; 70450

== ENCOUNTER → 2025-01-26 10:34 | Outpatient (BNVA) | payer MEDICARE, BC, SELFPAY | PROVIDERS: Visit Provider Nurse Practitioner Gerontology | DX: N40.1 Benign prostatic hyperplasia with lower urinary tract symptoms (principal); N39.43 Post-void dribbling; R32 Unspecified urinary incontinence; R39.15 Urgency of urination; R39.9 Unspecified symptoms and signs involving the genitourinary system | CPT/HCPCS: 99214; 51798 ==

== ENCOUNTER 2025-03-02 19:09 | Observation (INO) | payer MEDICARE, BC, SELFPAY ==
[2025-03-02] VITALS (34 sets, daily range): BP systolic 102–174; BP diastolic 51–59; PULSE 78–101; RESP 20–31; TEMP 38–39.4; O2SAT 92–95
--- NOTE | 2025-03-02 20:15 | DI.RAD_ITS ---
Exam(s) XR CHEST 2V PA LATERAL EXAM: XR CHEST 2V PA LATERAL CLINICAL HISTORY: cough. TECHNIQUE: 2D digital imaging was performed. COMPARISON: CR XR CHEST 2V PA LATERAL from 03/03/2023 FINDINGS: 2 views: Heart size is upper normal. The mediastinum is not widened. There is infiltrate in the right mid lung zone as well as in right lower lobe and left lower lobe. There is blunting of left costophrenic angle which may indicate small left pleural effusion. IMPRESSION: Bilateral infiltrates. Probable small left pleural effusion DATA REPOSITORY: RADIATION DOSE DELIVERED:
[2025-03-02 20:27] LABS: Abs Immature Grans 0.03 10^3/uL (0.0-0.06); HCT 48.2 % (40.0-50.0); HGB 16.4 g/dL (13.5-17.5); Immature Grans % 0.3 %; MCH 30.6 pg (27.0-33.0); MCHC 34.0 % (32.0-36.0); MCV 90 fL (80-95); MPV 9.0 fL (8.0-11.0); Platelet Count 176 10^3/uL (130-400); RBC 5.36 10^6/uL (4.36-5.78); RDW 13.2 % (11.8-14.1); RDW-SD 43.3 fL; WBC 9.43 10^3/uL (4.4-10.8)
[2025-03-02] MEDS: Lactated Ringers 1,000 ML 2700 ML IV (20:30)
[2025-03-02 20:43] LABS: ALT 19 U/L (10-49); AST 29 U/L (<34); Albumin 4.4 g/dL (3.2-5.0); Alkaline Phosphatase 117 U/L (46-116); Anion Gap 9.7 mmol/L (3-11); BUN 13 mg/dL (9-23); Bilirubin, Total 0.50 mg/dL (0.2-1.2); CO2 22.3 mmol/L (20.0-31.0); Calcium 9.0 mg/dL (8.3-10.6); Chloride 104 mmol/L (98-107); Glucose 133 mg/dL (74-106); Potassium 3.9 mmol/L (3.5-5.1); Sodium 136 mmol/L (136-145); Total Protein 7.9 g/dL (5.7-8.2)
[2025-03-02] MEDS: levoFLOXacin 750 MG/150 ML BAG 100 MG IVPB (21:17)
[2025-03-02 21:39] LABS: Procalcitonin 0.50 ng/mL
--- NOTE | 2025-03-02 21:54 | DI.VRAD_ITS ---
PROCEDURE INFORMATION: Exam: XR Chest Exam date and time: 03/02/2025 9:11 PM Age: 70 years old Clinical indication: Cough TECHNIQUE: Imaging protocol: Radiologic exam of the chest. Views: 2 views. COMPARISON: CR XR CHEST 2V PA LATERAL 03/03/2023 10:01 AM FINDINGS: Lungs: Bilateral airspace opacities, [id number]-left favors pneumonia. Pleural spaces: Unremarkable. No pleural effusion. No pneumothorax. Heart/Mediastinum: Unremarkable. No cardiomegaly. Bones/joints: Moderate bilateral glenohumeral joint degenerative disease. IMPRESSION: Bilateral airspace opacities, [id number]-left favors pneumonia. Dictated and Authenticated by: Eusebia Hanson MD. Orderin Kailash Garrido MD
[2025-03-02 22:37] LABS: COVID-19 PCR Negative (Negative); RSV PCR Negative (Negative)
--- NOTE | 2025-03-02 22:57 | W.PM.HP.N ---
Date of service: 03/02/25 Time of Service: 23:03 Assessment and Plan Assessment and plan (1) Flu: Status: Acute Assessment and plan: Patient is at the window of whether treatment is appropriate but considering his symptomology we will start him on Tamiflu 75 twice daily (2) Pneumonia: Status: Acute Assessment and plan: Considering his chest x-ray as well as laboratory presentation concern for double pneumonia is present. Will continue with Rocephin and Zithromax. Blood cultures have been drawn. (3) Deep vein thrombosis (DVT) of femoral vein: Status: Acute Assessment and plan: Patient has history of DVTs and is on Eliquis. Will defer to the outpatient setting. (4) BPH (benign prostatic hyperplasia): Status: Chronic Assessment and plan: Continue with home medications including Flomax and finasteride (5) Mixed glial neoplasm of brain: Status: Acute Assessment and plan: Noted (6) Seizure disorder: Assessment and plan: Patient is on multiple medications for seizure which apparently started after his radiation chemotherapy for brain mass History of Present Illness History of Present Illness Chief Complaint: fever Narrative: Mr Carias is a 70-year-old gentleman with a known history of DVTs for which he takes Eliquis as well as remote history of brain cancer with sequelae of seizure disorder posttreatment. Patient presents to the ED today's after having multiple flu exposures during s. Patient stated he has felt fine until Friday at which time he developed fevers chills and myalgia. Patient came into the ED secondary to worsening shortness of breath. While he was in the ED a sepsis workup was initiated. The patient did test positive for influenza A and his chest x-ray was indicative of bilateral pneumonia. His lactate level was 1.7. His respiratory rate is 28 his heart rate is 38 he is satting 93% on 2 L. By strict SIRS criteria he does not score point as his temperature is under 38.3, he does not score point as his heart rate is 89, he does score 1 point as his respiratory rate is over 20 he does not score a point for leukocytosis or leukopenia. In terms of his curb 65 score is 1 point. Considering his age, his respiratory rate, a small but new oxygen requirement, and concern for double pneumonia such as bacterial and this a positive flu swab admit the patient at least for observation. Of note his CRP is 8.27 which is noted. Patient is a full code Review of Systems All systems reviewed & are unremarkable except as noted in HPI and below PFSH All Active Problems (Updated 03/02/25 @ 23:09 by Desmond Rivas MD) Flu (Acute) Olecranon bursitis, left elbow (Acute) Acute bronchitis (Acute) Urinary incontinence (Acute) Generalized weakness (Acute) Oropharyngeal dysphagia (Chronic) Pneumonia (Acute) Hx, multiple? 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 F/U [facility] [place] Neurology - Dr Bae 08/25/19 F/U Dr Gayle 06/12/21-WHO grade II ([facility] [place] 09/04/[address] Dominguez Hem/Onc and will be starting Temodar on 09/10/21 06/19/22 Hem/Onc BPH (benign prostatic hyperplasia) (Chronic) Inflammatory arthritis (Acute 04/12/15) isma hands; followed by Rheum [facility] [place] Tubular adenoma of colon (Acute 01/17/16) Seizure disorder (Chronic 07/23/11) Dr Gayle [facility] [place] manages, 08/25/19 recent f/u 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 followed with brain mri surveillance per [facility] [place] 10/27/18. 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) [facility] [place] Rad Rx [address] Dr Shore Left-sided weakness (Acute) upper and lower extremities Impaired mobility (Acute) Impaired fasting glucose (Acute 07/23/11) Essential hypertension (Acute 01/18/13) Cervical myelopathy (Acute 08/06/12) L C6-7, multiple disc on MRI 10/13/12; refer Dr Mcbride 12/23/12 Benign neoplasm of colon (Acute 03/20/10) Medical History Seizure disorder (~05/2017) Benign neoplasm of colon Inflammatory arthritis Essential hypertension Mixed glial neoplasm of brain (~1994) Recurrence May 2017, first treated in 1994 with radiation treatment, subsequent treatment in 2018 with chemotherapy finished in May 2018 04/28/20 F/U [facility] – [place] Neuro/Oncology Surgical History Status post stereotactic brain biopsy (~1994) Colonoscopy - IV Sedation (01/17/16) Colonoscopy - IV Sedation (03/20/10) Colonoscopy - IV Sedation (05/04/04) Family History Mother No problems noted. Father Colon cancer Sister Breast cancer Sister No problems noted. Sister No problems noted. Brother Diabetes Social History Smoking/Tobacco Use Status: Former Tobacco Use Smoking risk assessment performed?: Yes Alcohol Intake: never Drug use: Never Substance use type: does not use Household members: spouse Housing: house Number of Children: 3 Communication Needs: Corrective Lenses current occupation: retired 2014 What is your relationship status?: Panel score (0-1 are the most socially isolated patients): 1 What type of physical activity do you participate in: regular exercise Seatbelt use: always Drive intox or ride w/intox driver/merchandiser: No Working smoke detector in home: Yes Fire extinguisher in home: Yes Carbon monox detector in home: Yes Do you feel safe at home: Yes Do you feel safe in your relationship?: Yes Meds Allergies and Home Medications Allergies Allergy/AdvReac Type Severity Reaction Status Date / Time Penicillins Allergy Unknown RASH Verified 03/02/25 19:18 Sulfa (Sulfonamide Allergy Unknown RASH Verified 03/02/25 19:18 Antibiotics) Home Medications ?Medication ?Instructions ?Recorded ?Confirmed ?Type multivitamin (Daily Vitamin tablet) 1 ea PO DAILY 07/24/12 03/02/25 History calcium 600 mg (as 1 ea PO BID 09/27/14 03/02/25 History carbonate)-vitamin D3 20 mcg (800 unit) tablet eslicarbazepine 600 mg tablet 1,200 mg PO HS 05/14/17 03/02/25 History (Aptiom) fluticasone propionate 50 2 spry NS BID PRN 05/14/17 03/02/25 History mcg/actuation nasal spray,suspension clobazam 10 mg tablet (Onfi) See Rx Instructions PO as directed 02/18/19 03/02/25 History Topamax 100 mg tablet (topiramate) 100 mg PO as directed 03/13/20 03/02/25 History acetaminophen 325 mg capsule 325 mg PO PRN 09/11/21 03/02/25 History (Tylenol) finasteride 5 mg tablet 5 mg PO DAILY #90 tabs 07/07/24 03/02/25 Rx apixaban 5 mg tablet 5 mg PO BID #180 tabs 07/13/24 03/02/25 Rx atorvastatin 20 mg tablet 20 mg PO QPM #90 tabs 07/13/24 03/02/25 Rx lisinopril 10 mg tablet 10 mg PO DAILY #90 tab-caps 07/13/24 03/02/25 Rx tamsulosin 0.4 mg capsule (Flomax) 0.8 mg (2 x 0.4 mg) PO DAILY #180 07/13/24 03/02/25 Rx caps Exam Narrative Exam Narrative: HEENT normocephalic atraumatic mucous membranes moist oropharynx is clearneck no lymphadenopathy no JVD no thyromegaly cardiovascular regular rate and rhythm no murmurs gallops Lungs clear to auscultation bilaterally good air exchange no accessory muscle use speaking in sentences Abdomen soft nontender nondistended bowel sounds active Neurologic no focal Psych alert orient x 3 no pain distress Results Labs 03/02/25 20:14 03/02/25 20:14 Labs: Laboratory Results - last 24 hr 03/02/25 03/02/25 03/02/25 20:14 20:18 21:53 WBC 9.43 RBC 5.36 Hgb 16.4 Hct 48.2 MCV 90 MCH 30.6 MCHC 34.0 RDW 13.2 Plt Count 176 MPV 9.0 Immature Gran % 0.3 Neutrophils % 85.7 Lymphocytes % 7.1 Monocytes % 6.7 Eosinophils % 0.0 Basophils % 0.2 Nucleated RBC % 0.0 Absolute Neutrophils 8.08 H Absolute Lymphocytes 0.67 L Absolute Monocytes 0.63 Absolute Eosinophils 0.00 Absolute Basophils 0.02 VBG Lactate 1.7 Sodium 136 Potassium 3.9 Chloride 104 Carbon Dioxide 22.3 Anion Gap 9.7 BUN 13 Creatinine 1.07 Est GFR (CKD-EPI 2020) 68.29 Glucose 133 H Calcium 9.0 Total Bilirubin 0.50 AST 29 ALT 19 Alkaline Phosphatase 117 H Total Protein 7.9 Albumin 4.4 Procalcitonin 0.50 COVID-19 Source Nasopharynx SARS-CoV-2 (PCR) Negative Influenza Type A (PCR) Positive A Influenza Type B (PCR) Negative RSV (PCR) Negative Last Vital Signs Temp 38.0 C H 03/02/25 21:22 Pulse 89 03/02/25 21:20 Resp 28 H 03/02/25 21:20 BP 131/58 L 03/02/25 19:32 Pulse Ox 93 03/02/25 21:20 VTE Prohylaxis Risk Level: Moderate/High Risk Contraindications: None Prophylaxis: Patient anticoagulated and Pharmacologic Time Spent Time spent with Patient: 55-74 minutes Time was spent: preparing to see the patient(eg.review tests), obtaining and/or reviewing separately otained hiistory, ordering medications,tests, procedures, referring, communicating with other health healthcare insurance sales agent, indepentently interpreting results, counseling the patient and care coordination
--- NOTE | 2025-03-02 23:57 | W.PC.ACHO ---
Registration Status: REG ER Primary Language: Preferred Language: Kazakh ED Information & Data Chief Complaint GenMedical 03/02/25 19:17 Chief Complaint GenMedical 03/02/25 19:05 Triage Note BIBA for flulike symptoms. 03/02/25 19:05 Pt has been having symptoms since friday. States that he is very weak today and that walking is difficult. Febrile per EMS report. Medical / Surgical History (Last Reviewed 11/28/24 @ 23:19 by Desmond Cruz MD) Seizure disorder (~05/2017) Benign neoplasm of colon Inflammatory arthritis Essential hypertension Mixed glial neoplasm of brain (~1994) (Last Reviewed 11/28/24 @ 23:19 by Desmond Cruz MD) Status post stereotactic brain biopsy (~1994) Colonoscopy - IV Sedation (01/17/16) Colonoscopy - IV Sedation (03/20/10) Colonoscopy - IV Sedation (05/04/04) Most Recent Vital Signs Temperature 38.0 C H 03/02/25 21:22 Temperature Source Oral 03/02/25 21:22 Pulse 89 03/02/25 21:20 Pulse 89 03/02/25 21:20 Respiratory Rate 28 H 03/02/25 21:20 Respiratory Effort Normal 03/02/25 19:20 Respiratory Depth Normal 03/02/25 19:20 Respiratory Pattern Normal 03/02/25 19:20 Blood Pressure 131/58 L 03/02/25 19:32 Blood Pressure Mean 87 03/02/25 19:32 Blood Pressure Position Sitting 03/02/25 19:20 Pulse Oximetry 93 03/02/25 21:20 Oxygen Delivery Method Nasal Cannula 03/02/25 19:20 Oxygen Flow Rate 2 03/02/25 19:20 Pain Level 2 03/02/25 19:20 Comment headache 03/02/25 19:20 Allergies Penicillins Allergy (Unknown, Verified 03/02/25 19:18) RASH Sulfa (Sulfonamide Antibiotics) Allergy (Unknown, Verified 03/02/25 19:18) RASH Precautions Isolation PUI 03/02/25 19:17 IV IV Catheter Type [Left Forearm Peripheral IV ] IV Catheter Gauge [Left 20 Forearm] Diet Orders Category Date Time Status Regular/Normal [DIET] Nutrition 03/03/25 Breakfast Ordered Diagnostics 03/02/25 03/02/25 03/02/25 Range/Units 21:53 20:18 20:14 WBC 9.43 (4.4-10.8) 10^3/uL RBC 5.36 (4.36-5.78) 10^6/uL Hgb 16.4 (13.5-17.5) g/dL Hct 48.2 (40.0-50.0) % MCV 90 (80-95) fL MCH 30.6 (27.0-33.0) pg MCHC 34.0 (32.0-36.0) % RDW 13.2 (11.8-14.1) % Plt Count 176 (130-400) 10^3/uL MPV 9.0 (8.0-11.0) fL Immature Gran % 0.3 % Neutrophils % 85.7 % Lymphocytes % 7.1 % Monocytes % 6.7 % Eosinophils % 0.0 % Basophils % 0.2 % Nucleated RBC % 0.0 (0.0-0.3) % Absolute Neutrophils 8.08 H (1.2-6.7) 10^3/uL Absolute Lymphocytes 0.67 L (1.2-3.4) 10^3/uL Absolute Monocytes 0.63 (0.1-0.8) 10^3/uL Absolute Eosinophils 0.00 (0.0-0.7) 10^3/uL Absolute Basophils 0.02 (0.0-0.2) 10^3/uL VBG Lactate 1.7 (<or=2.0) mmol/L Sodium 136 (136-145) mmol/L Potassium 3.9 (3.5-5.1) mmol/L Chloride 104 (98-107) mmol/L Carbon Dioxide 22.3 (20.0-31.0) mmol/L Anion Gap 9.7 (3-11) mmol/L BUN 13 (9-23) mg/dL Creatinine 1.07 (0.73-1.18) mg/dL Est GFR (CKD-EPI 2020) 68.29 (mL/min/1.73m2) Glucose 133 H (74-106) mg/dL Calcium 9.0 (8.3-10.6) mg/dL Total Bilirubin 0.50 (0.2-1.2) mg/dL AST 29 (<34) U/L ALT 19 (10-49) U/L Alkaline Phosphatase 117 H (46-116) U/L Total Protein 7.9 (5.7-8.2) g/dL Albumin 4.4 (3.2-5.0) g/dL Procalcitonin 0.50 ng/mL COVID-19 Source Nasopharynx SARS-CoV-2 (PCR) Negative (Negative) Influenza Type A (PCR) Positive A (Negative) Influenza Type B (PCR) Negative (Negative) RSV (PCR) Negative (Negative) 03/02/25 20:45 Blood Culture - Pending Blood 03/02/25 20:45 Blood Culture - Pending Blood Intake and Output - 24 Hour Total 03/02/25 18:58 thru 03/02/25 23:02 Intake Total 1150 Balance 1150 Weight 97.522 kg Intake: IV 1150 Falls Risk Assessment History of Falls Previous History 03/02/25 19:20 Contributing Factors Impairments 03/02/25 19:20 Ambulatory Aids Uses ambulatory device + 03/02/25 19:20 Tubes/Lines None 03/02/25 19:20 Gait Evaluation W/any additional score 03/02/25 19:20 Cognition No cognitive impairment 03/02/25 19:20 Fall Total Score 68 03/02/25 19:20 Level of Risk High Risk 03/02/25 19:20 Problems (Last Reviewed 11/28/24 @ 23:19 by Desmond Cruz MD) Flu (Acute) Pneumonia (Acute) Deep vein thrombosis (DVT) of femoral vein (Acute) BPH (benign prostatic hyperplasia) (Chronic) Mixed glial neoplasm of brain (Acute 03/09/14) Attestation Statement: By documenting the first initial, last name, and credentials of the reporting nurse below, both parties acknowledge that all relevant information regarding the patient handoff has been communicated, and that all questions have been addressed to ensure continuity and safety of care. Additional Patient Information/Comments: Flu A positive, voided x 1, 2lNC, sick since friday (increased weakness today), blood cultures sent Report Received From: Igor Finch RN
[2025-03-03] VITALS: PULSE 78; RESP 23; O2SAT 94
[2025-03-03 00:26] VITALS: BP 119/55; PULSE 84; RESP 18; TEMP 37.3; O2SAT 93
[2025-03-03] MEDS: Normal Saline Flush 10 ML SYR IVP ×3 (01:42→19:59)
[2025-03-03] MEDS: Clobazam 10mg TAB 15 MG PO (01:43)
[2025-03-03] MEDS: cefTRIAXone 2 GM/50 ML BAG IVPB (01:44)
[2025-03-03] MEDS: Oseltamivir 75 MG CAP PO ×2 (01:44→19:59)
[2025-03-03] MEDS: Topiramate 100 MG TAB 200 MG PO (02:00)
[2025-03-03] MEDS: Lactated Ringers 1,000 ML 125 ML IV ×3 (02:24→19:54)
[2025-03-03] MEDS: AZITHROMYCIN 500 MG in Normal Saline 250 ML 250 MG IVPB (03:44)
[2025-03-03] MEDS: Water,Injection,Sterile 10 ML VIAL (03:50)
[2025-03-03 06:36] LABS: Abs Immature Grans 0.02 10^3/uL (0.0-0.06); HCT 41.5 % (40.0-50.0); HGB 14.4 g/dL (13.5-17.5); Immature Grans % 0.2 %; MCH 31.4 pg (27.0-33.0); MCHC 34.7 % (32.0-36.0); MCV 90 fL (80-95); MPV 9.3 fL (8.0-11.0); Platelet Count 175 10^3/uL (130-400); RBC 4.59 10^6/uL (4.36-5.78); RDW 13.2 % (11.8-14.1); RDW-SD 44.1 fL; WBC 9.79 10^3/uL (4.4-10.8)
[2025-03-03 07:16] LABS: ALT 15 U/L (10-49); AST 31 U/L (<34); Albumin 3.6 g/dL (3.2-5.0); Alkaline Phosphatase 87 U/L (46-116); Anion Gap 9.9 mmol/L (3-11); BUN 13 mg/dL (9-23); Bilirubin, Total 0.30 mg/dL (0.2-1.2); CO2 21.1 mmol/L (20.0-31.0); Calcium 8.4 mg/dL (8.3-10.6); Chloride 110 mmol/L (98-107); Glucose 116 mg/dL (74-106); Potassium 3.8 mmol/L (3.5-5.1); Sodium 141 mmol/L (136-145); Total Protein 6.3 g/dL (5.7-8.2)
[2025-03-03 07:35] VITALS: BP 114/67; PULSE 79; RESP 16; TEMP 36.2; O2SAT 97
[2025-03-03] MEDS: Apixaban 5 MG TAB PO ×2 (09:11→19:59)
[2025-03-03] MEDS: Topiramate 50 MG TAB 100 MG PO (09:11)
[2025-03-03] MEDS: Tamsulosin 0.4 MG CAPCR 0.8 MG PO (09:11)
[2025-03-03] MEDS: Clobazam 10mg TAB 5 MG PO (09:11)
[2025-03-03] MEDS: Finasteride 5 MG TAB PO (09:11)
[2025-03-03] MEDS: Multivitamin TAB 1 TAB PO (09:12)
[2025-03-03] MEDS: Lisinopril 10 MG TAB PO (09:12)
[2025-03-03] MEDS: Calcium 600mg/Vit D 200U TAB 1 TAB PO ×2 (09:12→19:58)
--- NOTE | 2025-03-03 10:00 | PT.INIE ---
PT Notes Visit Reasons: Influenza A Physical Therapy Inpatient Initial Evaluation Date: 03/03/2025 Referring Doctor: Desmond Rivas MD PT Orders: PT CONSULT: Eval and treat Precautions: Fall. Droplet. Activity as tolerated. Patient Profile/Admitting Diagnosis: 70-year-old male arrived in the ED after having flu-like symptoms. Pt developed fever chills and SOB and then called EMS. Pt tested positive for influenza A, and chest x-ray showed bilateral lower lobe infiltrates with small lower pleural effusion. 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 [place] [facility] [place] Dr Bae 08/25/19 F/U Dr Gayle 06/12/21-WHO [place] [place] 09/04/[address] Dominguez Hem/Onc and will be starting Temodar on 09/10/21 06/19/22 Hem/OncBPH (benign prostatic hyperplasia) (Chronic) Inflammatory arthritis (Acute 04/12/15) isma hands; followed by Rheum [facility] [place]ular adenoma of colon (Acute 01/17/16) Seizure disorder (Chronic 07/23/11) Dr Gayle [facility] [place], 08/25/19 recent f/u 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) [facility] [place] [address] Dr Shore Left-sided weakness (Acute) upper and lower extremities Impaired mobility (Acute) Impaired fasting glucose (Acute 07/23/11) Essential hypertension (Acute 01/18/13) Cervical myelopathy (Acute 08/06/12) L C6-7, multiple disc on MRI 10/13/12; refer Dr Mcbride 12/23/12 Benign neoplasm of colon (Acute 03/20/10) Medical History Seizure disorder (~05/2017) Benign neoplasm of colon Inflammatory arthritis Essential hypertension 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 Pt has 2 JUANY with one rail. And a flight of stairs to the second floor, where the pt sleeps. Pt is in the process of constructing a bedroom on the first floor, to allow him from not needing to go upstairs to sleep. There are railings inside the bathroom for the toilet and shower. He amb with lofstrand crutches in home on first level and FWW on 2nd floor. In the community he uses wheelchair for long distances. Equipment Owned/DME: FWW, wheelchair, forearm crutches. Subjective: Pt felt well, better than the previous day. Pt reported feeling stiff this morning. Objective: General Observation: Pt laying in bed had just finished breakfast, and nursing was coming in to provide medication when PT arrived. Pt had decrease hamstring length as pt was unable to stand with legs straight, and unable to straighten back while standing. As DPTS performed PROM of knee flex/ext pt had increase tone in hamstrings. Pt had a swan neck deformity on right 5th finger. Mental Status: Alert and oriented as to person, place, time, and purpose. Able to pay attention, focus, and respond appropriately. Pt spoke slowly, and showed few moments of needing time to process what to say. Pain: no pain reported Vital Signs: monitored by nursing ? Sitting EOB: SPO2 97% on 1.5L of O2. ROM: Right Upper Extremity:?? Shoulder Flexion limited about 120?. Shoulder abduction limited about 120?. Elbow flexion WFL. Wrist flexion WFL. Functional opening and closing of hand WFL. Left Upper Extremity:? Shoulder Flexion limited about 115?. Shoulder abduction limited about 115 Elbow flexion WFL. Wrist flexion WFL. Functional opening and closing of hand WFL. Right Lower Extremity: Hip flexion WFL. Hip abduction WFL. Knee flexion WFL. Knee extension to neutral lying in bed, -15? in standing, Ankle dorsiflexion to neutral with knee flexion . Ankle plantarflexion WFL. Left Lower Extremity: Hip flexion WFL. Hip abduction WFL. Knee flexion Knee extension to neutral lying in bed, -15? in standing WFL. Ankle dorsiflexion to neutralwith knee flexion. Ankle plantarflexion WFL. Strength: Right Upper Extremity: Shoulder flexors 3-/5. Shoulder abductors 3-/5. Elbow flexors 4-/5. Elbow extensors 4/5. Pain Medicine Physician weak. Left Upper Extremity: Shoulder flexors 2+/5. Shoulder abductors 2+/5. Elbow flexors 4-/5. Elbow extensors 4/5. Pain Medicine Physician weak. Right Lower Extremity: Hip extension 4-/5 Hip flexors 4-/5. Hip abductors 3/5. Knee flexors 4-/5. Knee extensors 4-/5. Ankle dorsiflexors 3/5. Ankle plantarflexors 4-/5. Left Lower Extremity: Hip Extension: 4-/5 Hip flexors 4-/5. Hip abductors 3/5. Knee flexors 4-/5. Knee extensors 4-/5. Ankle dorsiflexors 3/5. Ankle plantarflexors 4-/5. Bed Mobility/Transfers: Rolling with Min A for B LE with mild cues for safe/correct technique Supine to sit with Min A for B LE mild cues for safe/correct technique Sit to stand FWW with Max A of 1 and SBA of 1 to help with holding walker to allow pt to pull from to simulate pt railing at home. ?with moderate cues for safe/correct technique Stand to sit FWW with Max A of 1 with moderate cues for safe/correct technique Bed to reclining chair FWW with Max A of 1 and Mod A of 1 with verbal cues for safe/correct technique, and tactile facilitation of LE for steps Gait: Instructed patient with level surface ambulation of 6 feet requiring Max A of 1 and Mod A of 1. Estella decreased. Step height decreased. Step length decreased. Pt was unable to straighten legs during ambulation. Pt had difficulty weight shifting and needed verbal and tactile cueing to perform weight shift to allow stepping with opposite foot. Balance: Static Sitting: fair Dynamic Sitting: poor Static Standing: poor with UE support Dynamic Standing: poor with UE support Special Tests: Mobility Limitations Standardized Measure [facility] AM-PAC 6 clicks Basic Mobility Inpatient Short Form: Raw Score: 11? CMS Score: 72.5% deficit? Informed Consent/Education:? Patient was instructed in purpose of PT consult and plan of care. Agreeable to proceed with established PT POC to achieve personal goals. Therapeutic Activity 29738: ? Pt in engaged in Therapeutic activities to improve the patient?s functional mobility, safety, and independence. Session focused on task-specific, dynamic movements simulating upright tolerance and coordinated movements to enhance stability, strength and facilitate motor control. PT provided verbal cueing and tactile facilitation for proper movements. Assessment: ? Pt had a difficult time with motor control. Pt needed Min A with bed mobility task, and pt needed FWW Max A of 1 and Mod A of 1 with ambulation. Despite pt having multiple AD?s at home, and multiple railings for stairs and in the bathroom. Pt increase flexor tone in BLE (more in the L than R) results in the pt unable to straighten legs while standing. This leads the pt to have decrease activity tolerance as his quads work harder to keep himself standing. Pt had decrease motor control with steps, resulting in inability to take a regular size step. Thus, resulting in increased completion time for ambulation and ADL?S. Next session PT will have the pt stand and try to ambulate further. As PT has received his medication, and this may have helped. Patient presents with clinical signs and symptoms consistent with current/admitting diagnoses that have resulted to mobility limitations, gait instability, generalized weakness, and overall ADL decline as demonstrated by the following impairment level findings: 1.? Decreased strength/ motor control to both upper and lower major muscle groups 2.? Impaired sitting/standing balance 3.? Impaired activity tolerance 4.? Limitation of joint range of motion in shoulders, elbows, knees, and ankles 5.? Shortness of breath with exertion Impairments are contributing to the following functional limitations: 1.? Decline in bed mobility skills 2.? Decline in transfer skills 3.? Difficulty with ambulation without assistive device and physical assistance 4.? Increased completion time for mobility ADL performance 5.? Increased risk for falls 6.? Difficulty with managing steps alone safely Patient is assessed as a Moderate complexity based on the following: History: 70-year-old male with past medical history as indicated above Examination: Demonstrable impairment in strength, balance, and mobility level with underlying impairments and functional limitations as exhibited above as well as deficit score of 72.5% utilizing the [facility] Mobility Inpatient Short Form Presentation: evolving Decision Making: Moderate complexity Goals: Goals X1 week 1. Supine-Sit Supervision 2. Sit-Supine supervision 3. Sit-Stand Mod A of 1 w/FWW 4. Stand-Sit with Mod A of 1 w/FWW 5. Bed-Chair with Mod A of 1 Min A of 1 w/FWW 6. Chair-Bed Mod A of 1 Min A of 1 w/FWW 7. CGA of 1 gait on level surface with use of FWW for at least 100 feet without report of pain nor dyspnea 8. Min A of 1 stair negotiation while holding onto both rails for at least 4 steps without report of pain nor dyspnea 9. Good static and dynamic standing balance/tolerance with 1 UE support Plan of Care/Treatment Plan: 1-2x/day, 7 days/week x 1 week. Plan of care has been reviewed with the BROKE MAN providing the service under Physical Therapy direction. Initiate Physical Therapy intervention for pain management as needed, strengthening, bed mobility, transfers, gait, stairs, balance training, and use of assistive device. DISCHARGE RECOMMENDATIONS: SNF for continued rehabilitation vs Home with HHPT pending progress toward goals TREATMENT CODE/TIME: 66255,76581/9:00AM-9:45AM Thank you for the opportunity to participate in the care of this patient. Written by: Deshawn Baires DPTS Supervised by: [facility] [place], [place]
--- NOTE | 2025-03-03 10:51 | PGE_ITS ---
Date of Service Date of service: 03/03/25 Time of Service: 19:04 Assessment and Plan Assessment and plan (1) Sepsis: Status: Acute Assessment and plan: Sepsis criteria HR 101 on admission and tachypnea RR 24-31- source respiratory As per point 1 and 4 (2) Flu: Status: Acute Assessment and plan: as per upper respiratory viral panel Influenza positive Ongoing Tamiflu 75 twice daily (3) Acute hypoxic respiratory failure: Status: Acute Assessment and plan: Patient w/o chronic O2 requirement at home and presenting with saturation below 92% . Maintains sat at 93 % on 2l/min of oxygen via nasal canula Pulmonary emboli ruled out as per symptomatology, imaging and response to Oxygen, already on eliquis Infiltrates as per imaging confirming location of pneumonia to Wean Oxygen for saturation 92% Continue Azithromycin, ceftriaxone, Blood cultures pending (4) Pneumonia: Status: Acute Assessment and plan: as per chest x-ray as well as laboratory presentation, Procal 0.5 Ongoing Rocephin and Zithromax. Blood cultures pending (5) Deep vein thrombosis (DVT) of femoral vein: Status: Acute Assessment and plan: History of DVTs - ongoing home dose on Eliquis. (6) BPH (benign prostatic hyperplasia): Status: Chronic Assessment and plan: Ongoing ome medications including Flomax and finasteride (7) Mixed glial neoplasm of brain: Status: Acute Assessment and plan: Noted- reporting muscular strength more affected when febrile d/t this history (8) Seizure disorder: Assessment and plan: Ongoing home medicine regimen for seizure which apparently started after his radiation chemotherapy for brain mass Discussed with Dr. Earl Subjective Subjective Patient reports: no new complaints, feels better, tolerating liquids well, tolerating a regular diet, voiding w/o difficulty, bowel movement, diarrhea, blood in stool and shortness of breath; denies vomiting or fever Exam Narrative Exam Narrative: Alert and oriented X4, no JVD Neurologically intact Cardiovascular S1 S2 regular rate and rhythm Clear lungs on O2 at 2l/min , increased WOB on exertion Abdomen soft nontender nondistended bowel sounds active No CVA tenderness Objective Last Vital Signs Temp 36.2 C L 03/03/25 07:35 Pulse 79 03/03/25 07:35 Resp 16 03/03/25 07:35 BP 114/67 03/03/25 07:35 Pulse Ox 97 03/03/25 07:35 Laboratory Results - last 24 hr 03/02/25 03/02/25 03/02/25 20:14 20:18 21:53 WBC 9.43 RBC 5.36 Hgb 16.4 Hct 48.2 MCV 90 MCH 30.6 MCHC 34.0 RDW 13.2 Plt Count 176 MPV 9.0 Immature Gran % 0.3 Neutrophils % 85.7 Lymphocytes % 7.1 Monocytes % 6.7 Eosinophils % 0.0 Basophils % 0.2 Nucleated RBC % 0.0 Absolute Neutrophils 8.08 H Absolute Lymphocytes 0.67 L Absolute Monocytes 0.63 Absolute Eosinophils 0.00 Absolute Basophils 0.02 VBG Lactate 1.7 Sodium 136 Potassium 3.9 Chloride 104 Carbon Dioxide 22.3 Anion Gap 9.7 BUN 13 Creatinine 1.07 Est GFR (CKD-EPI 2020) 68.29 Glucose 133 H Calcium 9.0 Total Bilirubin 0.50 AST 29 ALT 19 Alkaline Phosphatase 117 H Total Protein 7.9 Albumin 4.4 Procalcitonin 0.50 COVID-19 Source Nasopharynx SARS-CoV-2 (PCR) Negative Influenza Type A (PCR) Positive A Influenza Type B (PCR) Negative RSV (PCR) Negative 03/03/25 05:36 WBC 9.79 RBC 4.59 Hgb 14.4 D Hct 41.5 MCV 90 MCH 31.4 MCHC 34.7 RDW 13.2 Plt Count 175 MPV 9.3 Immature Gran % 0.2 Neutrophils % 71.8 Lymphocytes % 15.8 Monocytes % 11.8 Eosinophils % 0.1 Basophils % 0.3 Nucleated RBC % 0.0 Absolute Neutrophils 7.02 H Absolute Lymphocytes 1.55 Absolute Monocytes 1.16 H Absolute Eosinophils 0.01 Absolute Basophils 0.03 VBG Lactate Sodium 141 Potassium 3.8 Chloride 110 H Carbon Dioxide 21.1 Anion Gap 9.9 BUN 13 Creatinine 0.96 Est GFR (CKD-EPI 2020) 77.40 Glucose 116 H Calcium 8.4 Total Bilirubin 0.30 AST 31 ALT 15 Alkaline Phosphatase 87 Total Protein 6.3 Albumin 3.6 Procalcitonin COVID-19 Source SARS-CoV-2 (PCR) Influenza Type A (PCR) Influenza Type B (PCR) RSV (PCR) VTE Prohylaxis Risk Level: Moderate/High Risk Contraindications: None Prophylaxis: Patient anticoagulated and Pharmacologic Time Spent with Patient Time Spent with Patient: >50 minutes Time was spent: preparing to see the patient(eg.review tests), obtaining and/or reviewing separately otained hiistory, ordering medications,tests, procedures, referring, communicating with other health career center director, indepentently interpreting results, counseling the patient, care coordination and other
[2025-03-03 11:53] VITALS: O2SAT 95
--- NOTE | 2025-03-03 12:08 | PDOC.CMIN ---
Date of service: 03/03/25 Time of Service: 12:09 Care Management Initial Assmt Initial Assessment Reason for Hospitalization: Flu, pneumonia Functional Status/Living Situation Patient Presentation: Kenton presented to the ED last night with fevers, chills and muscle aches. He reported having had multiple flu exposures during the . He also c/o shortness of breath. He was found to have Flu A and bilateral pneumonia. Kenton was no longer wearing nc O2, and he was just finishing working with PT when CM met with him today. He was very pleasant, and stated that he was feeling better. He was informed that his stay will not qualify him for short-term rehab, and he is very willing to have HH PT. CM encouraged SN, OT and REGIONAL SALES TRAINER as well, and he is willing to accept these services. Both Kenton and the physical therapist feel that Kenton's strength will improve as he is starting to feel better. Kenton lives at home with his , Yaneli. Their 3 children are out of state, but Kenton stated that he has good supports from neighbors and friends. Kenton and Yaneli are in the process of building a bedroom and a work-out room on the first floor of their home. Current bedroom is on the second floor, and getting more difficult for Kenton to get to. Kenton does not drive, but Yaneli does. 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 In the community he uses wheelchair for long distances. Advance Directives Advance Directives: Do you have an Advance Directive: N 11/21/20, 11:53 AD On File at [facility]: N 11/21/20, 11:53 Date Asked 03/02/25 03/02/25, 19:17 AD Date Reviewed COLST On File at [facility] COLST Date Scanned Code Status Resuscitation Status Full Code Insurance Coverage/Financial Issues Insurance: Medicare Part A & B - /[facility]? Care Team Visit Care Team Role Provider Type Subha Eugene APRN MD [facility] STAFF PHYSICIAN Apolinar Owens APRN Primary Care Provider NURSE PRACTITIONER InPatient Jesse Dai Other Providers OTHER Hema Linder MD Emergency Provider [facility] STAFF PHYSICIAN Desmond Rivas MD Admit Provider [facility] STAFF PHYSICIAN Attending Provider Other: followed by outpatient vascular and neurology Discharge Potential Discharge Needs: PCP F/U Appt Anticipated Barriers to Discharge: None Identified Patient/Family Education Needs: Review discharge instructions, discuss Ask Me Three Transportation: Private vehicle Plan: Kenton will discharge home once medically stable. He will have new services through [facility] of SN, PT/OT and REGIONAL SALES TRAINER. Kenton will f/u with his PCP and his care team, and continue per his plan of care. CM will continue to follow through discharge and update the plan as needed. Social Determinants of Health Screening Social Determinants of health last assessed in clinic: 03/03/25 Will the Patient Participate in the Screening?: Yes Do you worry about having a steady place to live?: no Problems where you live: no known problems In the past 12 months, have you had to go without electric, gas, oil or water in your home?: no 1. Within the past 12 months, we worried whether our food would run out before we got money to buy more.: Don't know/refused 2. Within the past 12 months, the food we bought just didn't last and we didn't have money to get more.: Don't know/refused Has lack of transportation kept you from medical appointments or from doing things needed for daily living?: no Has anyone in your life made you feel unsafe or unsupported?: no How hard is it for you to pay for the very basics like food, housing, medical care, and heating? Would you say it is:: Not hard at all Do you want help finding or keeping work or a job?: I do not need or want help If for any reason you need help with day-to-day activities such as bathing, preparing meals, shopping, managing finances, etc., do you get the help you need?: I get all the help I need How often do you feel lonely or isolated from those around you?: Never Do you speak a language other than Brazilian at home?: No Does the patient want assistance with any of the above?: No PFSH All Active Problems (Updated 03/02/25 @ 23:09 by Desmond Rivas MD) Flu (Acute) Olecranon bursitis, left elbow (Acute) Acute bronchitis (Acute) Urinary incontinence (Acute) Generalized weakness (Acute) Oropharyngeal dysphagia (Chronic) Pneumonia (Acute) Hx, multiple? 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 Neurology - Dr Bae 08/25/19 F/U Dr Gayle 06/12/21-WHO grade II ([facility] [place]) 09/04/[address] Dominguez Hem/Onc and will be starting Temodar on 09/10/21 06/19/22 Hem/Onc BPH (benign prostatic hyperplasia) (Chronic) Inflammatory arthritis (Acute 04/12/15) isma hands; followed by Rheum [facility] Tubular adenoma of colon (Acute 01/17/16) Seizure disorder (Chronic 07/23/11) Dr Gayle 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 followed with brain mri surveillance per [facility] [place] progress [place] 10/27/18. 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 Neuro/Oncology Surgical History Status post stereotactic brain biopsy (~1994) Colonoscopy - IV Sedation (01/17/16) Colonoscopy - IV Sedation (03/20/10) Colonoscopy - IV Sedation (05/04/04) Family History Mother No problems noted. Father Colon cancer Sister Breast cancer Sister No problems noted. Sister No problems noted. Brother Diabetes Social History Smoking/Tobacco Use Status: Former Tobacco Use Smoking risk assessment performed?: Yes Alcohol Intake: never Drug use: Never Substance use type: does not use Household members: spouse Housing: house Number of Children: 3 Communication Needs: Corrective Lenses current occupation: retired 2014 What is your relationship status?: Panel score (0-1 are the most socially isolated patients): 1 What type of physical activity do you participate in: regular exercise Seatbelt use: always Drive intox or ride w/intox caterpillar driver: No Working smoke detector in home: Yes Fire extinguisher in home: Yes Carbon monox detector in home: Yes Do you feel safe at home: Yes Do you feel safe in your relationship?: Yes
[2025-03-03] MEDS: Lactobacillus Acidophilus CAP 1 CAP PO ×2 (15:00→19:58)
--- NOTE | 2025-03-03 15:39 | PT.INTREAT ---
PT Notes Visit Reasons: Influenza A Inpatient Physical Therapy Treatment Note [facility] Date: 03/03/2025 PRECAUTIONS: Airborne, Fall, activity as tolerated SUBJECTIVE: Pt felt well, but also felt pretty tired and wasn?t wanting to get out of bed, as he just got in. OBJECTIVE:? PAIN: no pain reported VITALS: ? Monitored by nursing. Therapeutic Exercises ([id number][]): Direct one-on-one instruction in therapeutic exercises to develop strength, endurance, range of motion and flexibility. ? Exercises: BLE Heel slides: 1set X4reps Knee to chest into hamstring 90 90 test to stretch hamstrings: 1set X3reps (about 45 degrees-50degrees from full knee extension) Hold relax ankle dorsi flexion (stretching): : 1set X6reps Glute Bridges: 1set A16qody ? SAQ: 1set [id number] ? Straight leg raise: 1set [id number] ? Provided skilled instruction in proper exercise performance ? Provided skilled manual cues to facilitate proper muscle recruitment and/or form: [] ASSESSMENT:? Pt looked better this afternoon after receiving meds . Pt had more ROM of ankle and more effective motor control overall. He was able to bend his knees and hips to get into the correct position for the exercises. Pt did need some help with facilitating SAQ and straight leg raise as the pt became more tired. Next session PT will see him after he has received his medication and try ambulating again with a FWW. To help increase activity tolerance and provide functional opportunity to increase motor control. ?PLAN: 1-2x/day, 7 days/week x 1 week. Plan of care has been reviewed with the BRANCH ASSOCIATE TELLER providing the service under Physical Therapy direction. Initiate Physical Therapy intervention for pain management as needed, strengthening, bed mobility, transfers, gait, balance training, and use of assistive device ?TREATMENT CODE/TIME: 51331/2:59PM-3:30PM DISCHARGE RECOMMENDATION: SNF VS HHPT Written By Deshawn Baires DPTS Supervised By Katelyn Soto PT
[2025-03-03] MEDS: Atorvastatin 20 MG TAB PO (19:58)
[2025-03-03] MEDS: ESLICARBAZEPINE 600 MG 2 EACH PO (20:00)
[2025-03-03 21:24] VITALS: BP 108/64; PULSE 65; RESP 17; TEMP 36.2; O2SAT 95
[2025-03-04] MEDS: Lactated Ringers 1,000 ML 125 ML IV ×3 (04:09→22:35)
[2025-03-04 08:01] VITALS: BP 114/63; PULSE 94; RESP 17; TEMP 36.7; O2SAT 95
[2025-03-04] MEDS: AZITHROMYCIN 250 MG in Normal Saline 250 ML IVPB (08:47)
[2025-03-04] MEDS: Calcium 600mg/Vit D 200U TAB 1 TAB PO ×2 (08:48→21:07)
[2025-03-04] MEDS: Lisinopril 10 MG TAB PO (08:48)
[2025-03-04] MEDS: Topiramate 50 MG TAB 100 MG PO (08:48)
[2025-03-04] MEDS: Clobazam 10mg TAB 5 MG PO (08:49)
[2025-03-04] MEDS: Tamsulosin 0.4 MG CAPCR 0.8 MG PO (08:49)
[2025-03-04] MEDS: Multivitamin TAB 1 TAB PO (08:49)
[2025-03-04] MEDS: Apixaban 5 MG TAB PO ×2 (08:49→21:06)
[2025-03-04] MEDS: Lactobacillus Acidophilus CAP 1 CAP PO ×3 (08:49→21:07)
[2025-03-04] MEDS: Finasteride 5 MG TAB PO (08:49)
[2025-03-04] MEDS: Normal Saline Flush 10 ML SYR IVP ×2 (08:50→21:07)
[2025-03-04] MEDS: Oseltamivir 75 MG CAP PO ×2 (09:06→21:07)
--- NOTE | 2025-03-04 10:02 | W.PM.PROGNOT ---
Date of Service Date of service: 03/04/25 Time of Service: 10:02 Assessment and Plan Assessment and plan (1) Sepsis: Status: Acute Assessment and plan: Resolved Sepsis criteria HR 101 on admission and tachypnea RR 24-31- source respiratory As per point 1 and 4 (2) Flu: Status: Acute Assessment and plan: Influenza positive On Tamiflu 75 twice daily- continue at d/c (3) Acute hypoxic respiratory failure: Status: Acute Assessment and plan: Resolved Patient w/o history of chronic O2 requirement at home and presenting with saturation below 92% . Maintains sat at 93 % on 2l/min of oxygen via nasal canula Pulmonary emboli ruled out as per symptomatology, imaging and response to Oxygen, already on eliquis Infiltrates as per imaging confirming location of bilateral pneumonia with small left pleural effusion Wean Oxygen for saturation 92% -now on RA Continue Azithromycin, ceftriaxone- oral antibiotics at discharge Blood cultures neagtive (4) Pneumonia: Status: Acute Assessment and plan: as per chest x-ray as well as laboratory results and symptomatology on presentation, Procal 0.5 Continue Rocephin and Zithromax. 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 Earl Subjective Subjective Patient reports: no new complaints, feels better (feeling less tired with improved motor control), tolerating liquids well, tolerating a regular diet, voiding w/o difficulty, bowel movement, diarrhea, blood in stool and shortness of breath; denies vomiting or fever Exam Narrative Exam Narrative: Alert and oriented X4, no acute distress Neurologically intact Cardiovascular S1 S2 regular rate and rhythm Clear lungs, unlabored breathing Abdomen soft nontender nondistended bowel sounds active No CVA tenderness Improving weakness and mobility Objective Last Vital Signs Temp 36.7 C 03/04/25 08:01 Pulse 94 H 03/04/25 08:01 Resp 17 03/04/25 08:01 BP 114/63 03/04/25 08:01 Pulse Ox 95 03/04/25 08:01 VTE Prohylaxis Risk Level: Moderate/High Risk Contraindications: None Prophylaxis: Patient anticoagulated and Pharmacologic Time Spent with Patient Time Spent with Patient: >50 minutes Time was spent: preparing to see the patient(eg.review tests), obtaining and/or reviewing separately otained hiistory, ordering medications,tests, procedures, referring, communicating with other health field care manager, indepentently interpreting results, counseling the patient, care coordination and other
--- NOTE | 2025-03-04 11:40 | PTTR_ITS ---
Date of service: 03/04/25 PT Notes Visit Reasons: Influenza A Inpatient Physical Therapy Treatment Note [facility] Date: 03/04/2025 PRECAUTIONS: Fall, activity as tolerated. SEIZURE PRECAUTIONS IN PLACE. DROPLET PRECAUTIONS for FLU A , shoes on when out of bed SUBJECTIVE: Patient reports feeling ok, still a little weak, much better than the last night when staff attempted to get him up to the chair for dinner OBJECTIVE: Supine in bed, agreeable to therapy.? PAIN: none reported. VITALS: monitored by nursing staff? ? BED MOBILITY/TRANSFERS? Rolling L/R: min A with bilateral side rails Supine-sit: mod A with HOB elevated to 20 degrees, bilateral side rails, extended time. ? Sit-supine: . ? Sit-stand x6: CGA to min assist (min assist first time only from the bed) ?remaining 5 trials from elevated seat height of 22 ? Stand-sit x6: CGA x 1 from FWW ? Bed-Chair: min A of 2 with FWW ? Ambulation ? Assistive Device: FWW ? Weight bearing: full Assist: CGA x1 ? Distance:? 5 feet forward with a 90 degree turn ? Deviation: Stooped posture, tendency to look at floor / feet. Initially struggles to back walker up, but talks himself through it and figures it out on his own. Reports a tendency to tip over backward, no evidence of either of these is seen on this date. ? Provided skilled instruction in proper exercise performance Provided skilled manual cues to facilitate proper muscle recruitment and/or form. Neuromuscular Re-education (80470a1): Activities that facilitate re-education of movement balance, posture, coordination, and proprioception or kinesthetic sense, requiring skilled tactile and verbal cues ? Exercises/techniques: * unsupported sitting * seated reaching outside base of support * seated leaning outside base of support and returning to upright without assistance. * Supported standing. ASSESSMENT:? Patient demonstrates improvement in motor coordination this day as compared to initial evaluation. Pt with improved ability to advance BLE during short distance amb with FWW however continues to require 2 assist . Pt demo nstrates adequate foot clearance during stepping. Pt benefited from wearing his shoes this session. PLAN: Continue global strengthening per plan of care until patient is medically cleared for discharge. TREATMENT CODE/TIME: 46082l9, 52246/ [id number]
[2025-03-04] MEDS: guaiFENesin 600 MG TABCR PO ×2 (12:14→21:06)
--- NOTE | 2025-03-04 12:52 | W.PM.DS.N ---
DS: Diagnosis Discharge Diagnosis (1) Sepsis: Status: Acute (2) Flu: Status: Acute (3) Acute hypoxic respiratory failure: Status: Acute (4) Pneumonia: Status: Acute (5) Deep vein thrombosis (DVT) of femoral vein: Status: Acute (6) BPH (benign prostatic hyperplasia): Status: Chronic (7) Mixed glial neoplasm of brain: Status: Acute (8) Seizure disorder: Discharge Plan Disposition Patient Disposition: Home W/Home Health Services Home Health Services: New Referral Condition: Improving Discharge Details Reason For Visit: Influenza A Admit Date/Time: 03/02/25 22:57 Admit Provider: Desmond Rivas Attending Provider: Desmond Rivas Primary Care Provider: Apolinar Owens Hospital Course Hospital Course: 70-year-old gentleman with a known history of DVTs for which he takes Eliquis as well as remote history of brain cancer with sequelae of seizure disorder post-treatment presented to the ED on 03/02/25 for evaluation multiple flu exposures during with fevers chills and myalgia developing on Friday as well as worsening shortness of breath. The ED workup was positive for influenza A and his chest x-ray was indicative of bilateral pneumonia. His respiratory rate is 28 his heart rate is 38 he is satting 93% on 2 L. He was admitted to the medical surgical floor for ongoing management of Sepsis in the setting of influenza with surinfection resulting in pneumonia , acute hypoxic respiratory failure. The patient was treated with Tamiflu, IV ceftriaxone and Azithromycin and clinically improved. No further oxyegen supplementation required. Blood cultures were negative at 24 hours. 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 Electronic script to complete Tamiflu and oral antibiotics sent to listed pharmacy. Follow-up with PCP within 7 days of discharge please. Discussed with Dr. Earl Recommendations for Follow Up Recommended tests to be ordered by follow up provider: Repeat chest imaging at around 6 weeks Home Meds and New Rx's Prescriptions: New cefpodoxime 200 mg tablet 200 mg PO BID Qty: 6 0RF Rx Instructions: must administer with a meal/food azithromycin [Zithromax] 250 mg tablet 250 mg PO ONCE Qty: 3 0RF oseltamivir 75 mg capsule 75 mg PO BID 5 Days Qty: 10 0RF guaifenesin [Mucinex] 600 mg tablet extended release 12hr 600 mg PO BID Qty: 10 0RF Continued apixaban 5 mg tablet 5 mg PO BID Qty: 180 3RF atorvastatin 20 mg tablet 20 mg PO QPM Qty: 90 3RF tamsulosin [Flomax] 0.4 mg capsule 0.8 mg PO DAILY Qty: 180 3RF lisinopril 10 mg tablet 10 mg PO DAILY Qty: 90 3RF acetaminophen [Tylenol] 325 mg capsule 325 mg PO PRN multivitamin [Daily Vitamin] 1 EACH tablet 1 ea PO DAILY calcium carbonate-vitamin D3 1 EACH tablet 1 ea PO BID Rx Instructions: [facility] MEDLIST 09/26/14 [facility]GC fluticasone propionate 16 GM spray,suspension 2 spry NS BID PRN Patient Comments: 05/14/17-disch Dr Breaux eslicarbazepine [Aptiom] 600 MG tablet 1,200 mg PO HS clobazam [Onfi] 10 mg tablet See Rx Instructions PO as directed Patient Comments: Rx Instructions: 5 MG AM, 15 MG PM, topiramate [Topamax] 100 mg tablet 100 mg PO as directed Patient Comments: 05/21/2017--100 in am and 200 mg in evening per discharge Dr Breaux- Rx Instructions: 100mg a.m.;200mg hs-Dr Gayle finasteride 5 mg tablet 5 mg PO DAILY Qty: 90 3RF Discharge Instructions Stand Alone Forms: Portal Information Referrals: Apolinar Owens APRN [Primary Care Provider, Family Practice] Referral Note: Follow-up within 7 days of dischrage Activity:: Activity as Tolerated Equipment/Supplies:: Walker Diet:: heart healthy Exam Narrative Exam Narrative: Alert and oriented X4, no JVD Neurologically intact Cardiovascular S1 S2 regular rate and rhythm Clear lungs on O2 at 2l/min , increased WOB on exertion Abdomen soft nontender nondistended bowel sounds active No CVA tenderness DS: Data Vitals/I&O Vitals and I&O: Vital Signs Temperature 36.7 C 03/04/25 08:01 Temperature Source Temporal Artery Scan 03/04/25 08:01 Pulse 94 H 03/04/25 08:01 Pulse Rhythm Regular 03/03/25 00:26 Pulse 78 03/02/25 23:50 Respiratory Rate 17 03/04/25 08:01 Respiratory Effort Normal, Non-Labored 03/03/25 00:26 Respiratory Depth Normal 03/03/25 00:26 Respiratory Pattern Normal 03/03/25 00:26 Blood Pressure 114/63 03/04/25 08:01 Blood Pressure Mean 80 03/04/25 08:01 Blood Pressure Position Sitting 03/02/25 19:20 Pulse Oximetry 95 03/04/25 08:01 Oxygen Delivery Method Room Air 03/04/25 09:10 Oxygen Flow Rate 0 03/04/25 09:10 Pain Level 3 03/04/25 09:07 Comment headache 03/02/25 19:20 Intake & Output 03/03/25 03/04/25 03/04/25 23:59 11:59 23:59 Intake Total 1480 / 3030.00 1450 / 1450 Balance 1480 / 3030.00 1450 / 1450 Weight 93.6 kg Intake: IV 1000 / 2310.00 1250 / 1250 Oral 480 / 720 200 / 200 Other: Urine Color Yellow Yellow Urine Appearance Clear Urine Odor Strong Stool Size Smear Stool Characteristics Brown Data Completed and Pending Pending Labs at Discharge: 03/02/25 03/02/25 03/02/25 20:14 20:18 21:53 WBC 9.43 RBC 5.36 Hgb 16.4 Hct 48.2 MCV 90 MCH 30.6 MCHC 34.0 RDW 13.2 Plt Count 176 MPV 9.0 Immature Gran % 0.3 Neutrophils % 85.7 Lymphocytes % 7.1 Monocytes % 6.7 Eosinophils % 0.0 Basophils % 0.2 Nucleated RBC % 0.0 Absolute Neutrophils 8.08 H Absolute Lymphocytes 0.67 L Absolute Monocytes 0.63 Absolute Eosinophils 0.00 Absolute Basophils 0.02 VBG Lactate 1.7 Sodium 136 Potassium 3.9 Chloride 104 Carbon Dioxide 22.3 Anion Gap 9.7 BUN 13 Creatinine 1.07 Est GFR (CKD-EPI 2020) 68.29 Glucose 133 H Calcium 9.0 Total Bilirubin 0.50 AST 29 ALT 19 Alkaline Phosphatase 117 H Total Protein 7.9 Albumin 4.4 Procalcitonin 0.50 COVID-19 Source Nasopharynx SARS-CoV-2 (PCR) Negative Influenza Type A (PCR) Positive A Influenza Type B (PCR) Negative RSV (PCR) Negative 03/03/25 05:36 WBC 9.79 RBC 4.59 Hgb 14.4 D Hct 41.5 MCV 90 MCH 31.4 MCHC 34.7 RDW 13.2 Plt Count 175 MPV 9.3 Immature Gran % 0.2 Neutrophils % 71.8 Lymphocytes % 15.8 Monocytes % 11.8 Eosinophils % 0.1 Basophils % 0.3 Nucleated RBC % 0.0 Absolute Neutrophils 7.02 H Absolute Lymphocytes 1.55 Absolute Monocytes 1.16 H Absolute Eosinophils 0.01 Absolute Basophils 0.03 VBG Lactate Sodium 141 Potassium 3.8 Chloride 110 H Carbon Dioxide 21.1 Anion Gap 9.9 BUN 13 Creatinine 0.96 Est GFR (CKD-EPI 2020) 77.40 Glucose 116 H Calcium 8.4 Total Bilirubin 0.30 AST 31 ALT 15 Alkaline Phosphatase 87 Total Protein 6.3 Albumin 3.6 Procalcitonin COVID-19 Source SARS-CoV-2 (PCR) Influenza Type A (PCR) Influenza Type B (PCR) RSV (PCR) Preliminary micro results at discharge 03/02/25 20:45 Blood Blood Culture - Preliminary NO GROWTH 24 HOURS 03/02/25 20:45 Blood Blood Culture - Preliminary NO GROWTH 24 HOURS PFSH All Active Problems (Updated 03/03/25 @ 19:22 by Subha Eugene APRN) Sepsis (Acute) Acute hypoxic respiratory failure (Acute) Flu (Acute) Olecranon bursitis, left elbow (Acute) Acute bronchitis (Acute) Urinary incontinence (Acute) Generalized weakness (Acute) Oropharyngeal dysphagia (Chronic) Pneumonia (Acute) Hx, multiple? 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 F/U [facility] Neurology - Dr Bae 08/25/19 F/U Dr Gayle 06/12/21-WHO grade II ([facility] progress note) 09/04/[address] Dominguez Hem/Onc and will be starting Temodar on 09/10/21 06/19/22 Hem/Onc BPH (benign prostatic hyperplasia) (Chronic) Inflammatory arthritis (Acute 04/12/15) isma hands; followed by Rheum [facility] Tubular adenoma of colon (Acute 01/17/16) Seizure disorder (Chronic 07/23/11) Dr Gayle [facility] manages, 08/25/19 recent f/u 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 followed with brain mri surveillance per [facility] neuro progress note 10/27/18. 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) [facility] Rad Rx [address] Dr Shore Left-sided weakness (Acute) upper and lower extremities Impaired mobility (Acute) Impaired fasting glucose (Acute 07/23/11) Essential hypertension (Acute 01/18/13) Cervical myelopathy (Acute 08/06/12) L C6-7, multiple disc on MRI 10/13/12; refer Dr Mcbride 12/23/12 Benign neoplasm of colon (Acute 03/20/10) Medical History Seizure disorder (~05/2017) Benign neoplasm of colon Inflammatory arthritis Essential hypertension 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 Father Colon cancer Sister Breast cancer Sister No problems noted. Sister No problems noted. Brother Diabetes Social History Smoking/Tobacco Use Status: Former Tobacco Use Smoking risk assessment performed?: Yes Alcohol Intake: never Drug use: Never Substance use type: does not use Household members: spouse Housing: house Number of Children: 3 Communication Needs: Corrective Lenses current occupation: retired 2014 What is your relationship status?: Panel score (0-1 are the most socially isolated patients): 1 What type of physical activity do you participate in: regular exercise Seatbelt use: always Drive intox or ride w/intox public transit trolley driver: No Working smoke detector in home: Yes Fire extinguisher in home: Yes Carbon monox detector in home: Yes Do you feel safe at home: Yes Do you feel safe in your relationship?: Yes
--- NOTE | 2025-03-04 17:58 | CMPROGNOTE_ITS ---
Date of service: 03/04/25 Time of Service: 17:58 Care Management Progress Note Progress Note Text Progress Note Text: Kenton was sitting up in bed visiting with his when CM met with him. They were both pleasant and engaged easily in conversation. He reported that although he has made significant improvements from yesterday to today, he continues to be 2 assist for mobility today, therefore he will remain hospitalized. He discussed his previous medical history, and stated that when he gets sick he struggles with his balance and mobility, therefore he takes longer to recover. He stated that he has been using a FWW while inpatient, and he has one at home, although his baseline is to use arm crutches for ambulation. His stated that they are doing a major renovation on their home in order to have everything on one level, as he sleeps upstairs currently. CM provided expectations regarding length of stay, as he is in observation status currently; both Kenotn and Yaneli expressed understanding of the importance of Kenton being discharged when medically appropriate. CM stated that he will likely be ready for discharge tomorrow, if he continues to improve, which they agreed with. Yaneli plans to drive him home via private vehicle, and will bring his equipment, as needed. CM will continue to follow. Discharge Potential Discharge Needs: PCP F/U Appt Anticipated Barriers to Discharge: None Identified Patient/Family Education Needs: Review discharge instructions, discuss Ask Me Three Transportation: Private vehicle Plan: Kenton will discharge home once medically stable. 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 His will drive him home via private vehicle. Kenton will f/u with his PCP and his care team, and continue per his plan of care. CM will continue to follow through discharge and update the plan as needed. Social Determinants of Health Screening Social Determinants of health last assessed in clinic: 03/04/25 Will the Patient Participate in the Screening?: Yes Do you worry about having a steady place to live?: no Problems where you live: no known problems In the past 12 months, have you had to go without electric, gas, oil or water in your home?: no 1. Within the past 12 months, we worried whether our food would run out before we got money to buy more.: Don't know/refused 2. Within the past 12 months, the food we bought just didn't last and we didn't have money to get more.: Don't know/refused Has lack of transportation kept you from medical appointments or from doing things needed for daily living?: no Has anyone in your life made you feel unsafe or unsupported?: no How hard is it for you to pay for the very basics like food, housing, medical care, and heating? Would you say it is:: Not hard at all Do you want help finding or keeping work or a job?: I do not need or want help If for any reason you need help with day-to-day activities such as bathing, preparing meals, shopping, managing finances, etc., do you get the help you need?: I get all the help I need How often do you feel lonely or isolated from those around you?: Never Do you speak a language other than Hebrew at home?: No Does the patient want assistance with any of the above?: No
[2025-03-04 19:42] VITALS: BP 105/55; PULSE 60; RESP 17; TEMP 36.2; O2SAT 93
[2025-03-04] MEDS: Clobazam 10mg TAB 15 MG PO (21:05)
[2025-03-04] MEDS: Topiramate 100 MG TAB 200 MG PO (21:06)
[2025-03-04] MEDS: Atorvastatin 20 MG TAB PO (21:07)
[2025-03-04] MEDS: cefTRIAXone 2 GM/50 ML BAG IVPB (21:08)
[2025-03-04] MEDS: ESLICARBAZEPINE 600 MG 2 EACH PO (21:09)
[2025-03-05] MEDS: Lactated Ringers 1,000 ML 125 ML IV (05:57)
[2025-03-05 08:12] VITALS: BP 116/70; PULSE 60; RESP 17; TEMP 36.1; O2SAT 96
[2025-03-05] MEDS: AZITHROMYCIN 250 MG in Normal Saline 250 ML IVPB (08:30)
[2025-03-05] MEDS: Normal Saline Flush 10 ML SYR IVP (08:30)
[2025-03-05] MEDS: Clobazam 10mg TAB 5 MG PO (08:31)
[2025-03-05] MEDS: Finasteride 5 MG TAB PO (08:32)
[2025-03-05] MEDS: Apixaban 5 MG TAB PO (08:32)
[2025-03-05] MEDS: Tamsulosin 0.4 MG CAPCR 0.8 MG PO (08:33)
[2025-03-05] MEDS: Lactobacillus Acidophilus CAP 1 CAP PO (08:33)
[2025-03-05] MEDS: guaiFENesin 600 MG TABCR PO (08:33)
[2025-03-05] MEDS: Lisinopril 10 MG TAB PO (08:34)
[2025-03-05] MEDS: Topiramate 50 MG TAB 100 MG PO (08:34)
[2025-03-05] MEDS: Multivitamin TAB 1 TAB PO (08:34)
[2025-03-05] MEDS: Oseltamivir 75 MG CAP PO (08:35)
[2025-03-05] MEDS: Calcium 600mg/Vit D 200U TAB 1 TAB PO (08:35)
--- NOTE | 2025-03-05 10:52 | PDOC.HHF2F ---
Date of service: 03/05/25 Time of Service: 10:52 Home Health Referral Home Health Orders Medical diagnosis necessitation home health referral: influenza Registered Nurse: Check all that apply Instruct on new or changed medication(s)/assess compliance: Ordered Assess for exacerbation of medical condition, instruct patient/caregivers on signs and symptoms to report for early detection: Ordered Physical Therapist: Check all that apply Increase strength & endurance for safe mobility at home: Ordered To design/establish home maintenance program: Ordered Fall reduction therapy program for patient with history of frequent falls: Ordered Home safety evaluation and teaching/gait training including stair management (if applicable): Ordered Other: Decreased step height L>>R. Decreased knee extension in B knees throughout stance which patient states have been a chronic issue. Thoracic kyphosis. Estella decreased. Slowed pace during turning. Occupational Therapist: Evaluate and treat for patient unable to perform ADL/IADL/self-care: Ordered Forestry Hunter: Assist with community resources: Ordered Assist with terminal system operator care planning: Ordered Home Bound Status Requires the aid of supportive device (check all that apply): Crutches Patient has a condition such that leaving home is medically contraindicated (Describe): COVID-19 Describe why leaving home would require a considerable and taxing effort: Side effects from pain medication (sedation/drowsiness) and Requires frequent rest periods Encounter Date and Reason: I certify that a FTF encounter for this patient was performed on March 05, 2025 and that such encounter was related to the primary reason the patient requires home health services. The encounter was conducted in the following manner: By me as the certifying physician, GRAPHIC USER INTERFACE DESIGNER, PA or By an inpatient physician, GRAPHIC USER INTERFACE DESIGNER or PA during an inpatient stay who communicated findings to me, Certification And Authentication I certify that I composed the above information based on my clinical judgment relating to this patient's medical condition and, if applicable, clinical findings communicated to me by the NPP or inpatient physician who performed the FTF encounter. Name of Provider that will be monitoring home health services: Roman Jiang APRN
--- NOTE | 2025-03-05 10:53 | W.PM.DS.N ---
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 (7) Seizure disorder: Discharge Plan Disposition Patient Disposition: Home W/Home Health Services Home Health Services: New Referral Condition: Improving Discharge Details Reason For Visit: Influenza A Admit Date/Time: 03/02/25 22:57 Admit Provider: Desmond Rivas Attending Provider: Desmond Rivas Primary Care Provider: Apolinar Owens Hospital Course Hospital Course: 70-year-old gentleman with a known history of DVTs for which he takes Eliquis as well as remote history of brain cancer with sequelae of seizure disorder post-treatment presented to the ED on 03/02/25 for evaluation multiple flu exposures during with fevers chills and myalgia developing on Friday as well as worsening shortness of breath. The ED workup was positive for influenza A and his chest x-ray was indicative of bilateral pneumonia. His respiratory rate is 28 his heart rate is 38 he is satting 93% on 2 L. He was admitted to the medical surgical floor for ongoing management of Sepsis in the setting of influenza with surinfection resulting in pneumonia , acute hypoxic respiratory failure. The patient was treated with Tamiflu, IV ceftriaxone and Azithromycin and clinically improved. No further oxyegen supplementation required. Blood cultures were negative at 24 hours. The patient is hemodynamically stable and afebrile X 24 hours and will be discharged with home health PT, OT, RAP ARTIST and nursing. Electronic script to complete Tamiflu and oral antibiotics sent to listed pharmacy. Follow-up with PCP within 7 days of discharge please. Discussed with Dr. Earl Recommendations for Follow Up Recommended tests to be ordered by follow up provider: Repeat chest imaging at around 6 weeks Home Meds and New Rx's Prescriptions: New cefpodoxime 200 mg tablet 200 mg PO BID Qty: 6 0RF Rx Instructions: must administer with a meal/food azithromycin [Zithromax] 250 mg tablet 250 mg PO ONCE Qty: 3 0RF oseltamivir 75 mg capsule 75 mg PO BID 5 Days Qty: 10 0RF guaifenesin [Mucinex] 600 mg tablet extended release 12hr 600 mg PO BID Qty: 10 0RF Continued apixaban 5 mg tablet 5 mg PO BID Qty: 180 3RF atorvastatin 20 mg tablet 20 mg PO QPM Qty: 90 3RF tamsulosin [Flomax] 0.4 mg capsule 0.8 mg PO DAILY Qty: 180 3RF lisinopril 10 mg tablet 10 mg PO DAILY Qty: 90 3RF acetaminophen [Tylenol] 325 mg capsule 325 mg PO PRN multivitamin [Daily Vitamin] 1 EACH tablet 1 ea PO DAILY calcium carbonate-vitamin D3 1 EACH tablet 1 ea PO BID Rx Instructions: [facility] 09/26/14 [facility] fluticasone propionate 16 GM spray,suspension 2 spry NS BID PRN Patient Comments: 05/14/17-disch Dr Breaux eslicarbazepine [Aptiom] 600 MG tablet 1,200 mg PO HS clobazam [Onfi] 10 mg tablet See Rx Instructions PO as directed Patient Comments: Rx Instructions: 5 MG AM, 15 MG PM, topiramate [Topamax] 100 mg tablet 100 mg PO as directed Patient Comments: 05/21/2017--100 in am and 200 mg in evening per discharge Dr Breaux- Rx Instructions: 100mg a.m.;200mg hs-Dr Gayle finasteride 5 mg tablet 5 mg PO DAILY Qty: 90 3RF Discharge Instructions Instructions: Flu in adults - Discharge instructions Additional Instructions: continue medications as directed push fluids to stay well hydrated. Drink 6-8 glasses daily to stay well hydrated. Stand Alone Forms: Portal Information, Nursing Discharge Form Referrals: Apolinar Owens APRN [Primary Care Provider, Family Practice] Referral Note: Follow-up within 7 days of dischrage. Your primary care office will call you to schedule a follow up. If you do not here from them please give them a call. Activity:: Activity as Tolerated Equipment/Supplies:: Walker Diet:: heart healthy Discharge Orders Discharge Orders: Discharge Order (Routine); Ordered 03/05/25 Ordered By: Kristin Corral DS: Summary Time Spent with Patient providing and/or coordinating discharge services: Greater than 30 minutes Status at Discharge Functional status at discharge: uses cane/walker Overall status at discharge: patient is progressing back to baseline Mental Status: mental status grossly normal Speech and Movement: speech and movement normal Mood: congruent mood Affect: normal affect Exam Psych Mental Status: mental status grossly normal Speech and Movement: speech and movement normal Mood: congruent mood Affect: normal affect DS: Data Vitals/I&O Vitals and I&O: Vital Signs Temperature 36.1 C L 03/05/25 08:12 Temperature Source Temporal Artery Scan 03/05/25 08:12 Pulse 60 03/05/25 08:12 Pulse Rhythm Regular 03/03/25 00:26 Pulse 78 03/02/25 23:50 Respiratory Rate 17 03/05/25 08:12 Respiratory Effort Normal, Non-Labored 03/03/25 00:26 Respiratory Depth Normal 03/03/25 00:26 Respiratory Pattern Normal 03/03/25 00:26 Blood Pressure 116/70 03/05/25 08:12 Blood Pressure Mean 85 03/05/25 08:12 Blood Pressure Position Sitting 03/02/25 19:20 Pulse Oximetry 96 03/05/25 08:12 Oxygen Delivery Method Room Air 03/05/25 08:12 Oxygen Flow Rate 0 03/05/25 08:12 Pain Level 0 03/05/25 09:12 Comment headache 03/02/25 19:20 Intake & Output 03/04/25 03/04/25 03/05/25 11:59 23:59 11:59 Intake Total 1450 / 3960 2510 / 3960 1254.166 / 1254.166 Output Total 350 / 350 Balance 1450 / 3610 2160 / 3610 1254.166 / 1254.166 Weight 93.6 kg 93.8 kg Intake: IV 1250 / 3300 2050 / 3300 1254.166 / 1254.166 Oral 200 / 660 460 / 660 Output: Urine 350 / 350 Other: Urine Color Yellow Pale Pale Yellow Urine Appearance Clear Clear Clear Urine Odor Strong Normal Normal Comment pt was inc of urine...unknown amount measured Stool Size Smear Moderate Stool Characteristics Brown Liquid Data Completed and Pending Pending Labs at Discharge: 03/02/25 03/02/25 03/02/25 20:14 20:18 21:53 WBC 9.43 RBC 5.36 Hgb 16.4 Hct 48.2 MCV 90 MCH 30.6 MCHC 34.0 RDW 13.2 Plt Count 176 MPV 9.0 Immature Gran % 0.3 Neutrophils % 85.7 Lymphocytes % 7.1 Monocytes % 6.7 Eosinophils % 0.0 Basophils % 0.2 Nucleated RBC % 0.0 Absolute Neutrophils 8.08 H Absolute Lymphocytes 0.67 L Absolute Monocytes 0.63 Absolute Eosinophils 0.00 Absolute Basophils 0.02 VBG Lactate 1.7 Sodium 136 Potassium 3.9 Chloride 104 Carbon Dioxide 22.3 Anion Gap 9.7 BUN 13 Creatinine 1.07 Est GFR (CKD-EPI 2020) 68.29 Glucose 133 H Calcium 9.0 Total Bilirubin 0.50 AST 29 ALT 19 Alkaline Phosphatase 117 H Total Protein 7.9 Albumin 4.4 Procalcitonin 0.50 COVID-19 Source Nasopharynx SARS-CoV-2 (PCR) Negative Influenza Type A (PCR) Positive A Influenza Type B (PCR) Negative RSV (PCR) Negative 03/03/25 05:36 WBC 9.79 RBC 4.59 Hgb 14.4 D Hct 41.5 MCV 90 MCH 31.4 MCHC 34.7 RDW 13.2 Plt Count 175 MPV 9.3 Immature Gran % 0.2 Neutrophils % 71.8 Lymphocytes % 15.8 Monocytes % 11.8 Eosinophils % 0.1 Basophils % 0.3 Nucleated RBC % 0.0 Absolute Neutrophils 7.02 H Absolute Lymphocytes 1.55 Absolute Monocytes 1.16 H Absolute Eosinophils 0.01 Absolute Basophils 0.03 VBG Lactate Sodium 141 Potassium 3.8 Chloride 110 H Carbon Dioxide 21.1 Anion Gap 9.9 BUN 13 Creatinine 0.96 Est GFR (CKD-EPI 2020) 77.40 Glucose 116 H Calcium 8.4 Total Bilirubin 0.30 AST 31 ALT 15 Alkaline Phosphatase 87 Total Protein 6.3 Albumin 3.6 Procalcitonin COVID-19 Source SARS-CoV-2 (PCR) Influenza Type A (PCR) Influenza Type B (PCR) RSV (PCR) Preliminary micro results at discharge 03/02/25 20:45 Blood Blood Culture - Preliminary NO GROWTH 48 HOURS 03/02/25 20:45 Blood Blood Culture - Preliminary NO GROWTH 48 HOURS PFSH All Active Problems (Updated 03/03/25 @ 19:22 by Subha Eugene APRN) Sepsis (Acute) Acute hypoxic respiratory failure (Acute) Flu (Acute) Olecranon bursitis, left elbow (Acute) Acute bronchitis (Acute) Urinary incontinence (Acute) Generalized weakness (Acute) Oropharyngeal dysphagia (Chronic) Pneumonia (Acute) Hx, multiple? 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 F/U [facility] [place] - Dr Bae 08/25/19 F/U Dr Gayle 06/12/21-WHO grade II ([facility] [place] progress note) 09/04/[address] Dominguez Hem/Onc and will be starting Temodar on 09/10/21 06/19/22 Hem/Onc BPH (benign prostatic hyperplasia) (Chronic) Inflammatory arthritis (Acute 04/12/15) isma hands; followed by Rheum [facility] Tubular adenoma of colon (Acute 01/17/16) Seizure disorder (Chronic 07/23/11) Dr Gayle [facility] manages, 08/25/19 recent f/u 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 followed with brain mri surveillance per [facility] [place] neuro progress note 10/27/18. 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) [facility] Rx [address] Shore Left-sided weakness (Acute) upper and lower extremities Impaired mobility (Acute) Impaired fasting glucose (Acute 07/23/11) Essential hypertension (Acute 01/18/13) Cervical myelopathy (Acute 08/06/12) L C6-7, multiple disc on MRI 10/13/12; refer Dr Mcbride 12/23/12 Benign neoplasm of colon (Acute 03/20/10) Medical History Seizure disorder (~05/2017) Benign neoplasm of colon Inflammatory arthritis Essential hypertension Mixed glial neoplasm of brain (~1994) Recurrence May 2017, first treated in 1994 with radiation treatment, subsequent treatment in 2017 with chemotherapy finished in May 2018 04/28/20 F/U [facility] Neuro/Oncology Surgical History Status post stereotactic brain biopsy (~1994) Colonoscopy - IV Sedation (01/17/16) Colonoscopy - IV Sedation (03/20/10) Colonoscopy - IV Sedation (05/04/04) Family History Mother No problems noted. Father Colon cancer Sister Breast cancer Sister No problems noted. Sister No problems noted. 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
--- NOTE | 2025-03-05 11:05 | CMDISCH_ITS ---
Date of service: 04/06/25 Time of Service: 11:08 LACE Index Scoring Tool Questions: Length of Stay (in days): 3 Was the patient admitted via the E.D.?: Yes E.D. Visits: 2 Answers: Total Score: 8 Risk of Readmission: Low Risk Care Management Discharge Plan Reason for Hospitalization: Influenza A Discharge Plan: Kenton will discharge home today, with new services through [facility] of SN, PT/OT and [employer]. His will drive him home via private vehicle. Kenton will f/u with his PCP and his care team, and continue per his plan of care. Patient/Family Education Needs: Review of discharge instruction, activity, limitations, and plan of care. Discuss ask me three.
--- NOTE | 2025-03-05 11:52 | PT.INTREAT ---
PT Notes Visit Reasons: Influenza A Inpatient Physical Therapy Treatment Note [facility] Date: 03/05/25 PRECAUTIONS: Influenza SUBJECTIVE: Pt states he feels like he is gaining strength each day. He is eager to get home. OBJECTIVE: ? PAIN: N/A VITALS: monitored by nursing Therapeutic Activities (29921m[1]): Direct one-on-one instruction in dynamic activities to improve functional performance. ? BED MOBILITY/TRANSFERS? Rolling L/R: SBA Supine-sit: min assist? Sit-supine: min assist? Sit-stand: min assist? Stand-sit: min assist ? Bed-Chair: min assist? Chair-bed: min assist Provided skilled cues and instruction on performance and technique throughout. ? GAIT? Assistive Device: RW? Weight bearing: WBAT Assist: CGA ? Distance:? 20 ft? Deviation: slow gait speed, decreased step length ? ASSESSMENT:? Pt is currently requiring min assist for most aspects of mobility, however, this is his baseline. He ambulates well with a RW and should continue to do so when returning home. He will have to manage one step to get into his home which he will likely be able to do with the assistance of his . He is agreeable to home health which is the most appropriate d/c plan for him. PLAN: Continue ambulatory progression, attempt a step TREATMENT CODE/TIME: Ther Act (97519) x1 - 20 min DISCHARGE RECOMMENDATION: Home with home health services when medically cleared
== END 2025-03-05 13:19 | disposition home health service (06) ==
LOC: ER 23:21 → MS 03-03 00:07
PROVIDERS: Admitting Provider Hospitalist; Emergency Provider Emergency Medicine Emergency Medical Services; Responsible Provider Nurse Practitioner Acute Care; Visit Provider Hospitalist
DX: A41.89 Other specified sepsis (principal); J10.00 Influenza due to other identified influenza virus with unspecified type of pneumonia; N40.1 Benign prostatic hyperplasia with lower urinary tract symptoms; N39.43 Post-void dribbling; G40.909 Epilepsy, unspecified, not intractable, without status epilepticus; A41.9 Sepsis, unspecified organism; J96.01 Acute respiratory failure with hypoxia; R53.1 Weakness; R13.12 Dysphagia, oropharyngeal phase; Z99.81 Dependence on supplemental oxygen; Z86.718 Personal history of other venous thrombosis and embolism; Z79.01 Long term (current) use of anticoagulants; Z85.841 Personal history of malignant neoplasm of brain; Z79.899 Other long term (current) drug therapy
CPT/HCPCS: 00123; 36415; 80053; 84145; 87040; 87637; 97110; 97112; 97162; 97530; 71046; 83605; 85025; 99222; 99233; 99239; G0378; J0456; J0696; J1956